=== PATIENT | female | born 1970 | race Caucasian/White ===

== ENCOUNTER 2018-03-03 18:02 | Emergency (ER) | payer OTHER, MEDICAID, SELFPAY ==
[2018-03-03 18:10] VITALS: BP 136/73; PULSE 77; RESP 16; TEMP 36.6; O2SAT 100; BMI 26.9
--- NOTE | 2018-03-03 18:30 | ED.HA ---
HPI - Headache General Chief Complaint: Headache Stated Complaint: STATES MIGRAINE X5 DAYS Time Seen by Provider: 03/03/18 18:24 Source: patient Mode of arrival: ambulatory Limitations: no limitations History of Present Illness HPI Narrative: A 47-year-old female who presents with migraine headache. She has frequent migraine headaches. She gets Botox injections and she is on multiple medications. Of this headache has been ongoing for at least the last 6 days since her Botox injection. It is on the left side. He typically goes he is shot of Toradol and/or accepts every time. She denies any nausea or vomiting. No sensitivity to light. Related Data Previous Rx's Medication Instructions Recorded aspirin 325 mg PO QDAY #20 tab 01/04/17 ondansetron [Zofran ODT] 4 mg SUBLINGUAL Q6HP PRN #30 odt 05/17/17 methocarbamol 500 mg PO HSP PRN #30 tab 09/24/17 naratriptan [Amerge] 2.5 mg PO PRN PRN #14 tab 09/27/17 pzkleaoxty-ehpscivvczynw-gmvxndqh 1 cap PO Q6H PRN #30 cap MDD 5 cap 12/04/17 50 mg-325 mg-40 mg capsule dextroamphetamine-amphetamine 20 10 mg PO QID #60 tab 02/07/18 mg tablet Allergies Allergy/AdvReac Type Severity Reaction Status Date / Time morphine [MORPHINE] Allergy Unknown Verified 12/12/17 17:33 Review of Systems Review of Systems All systems reviewed & are unremarkable except as noted in HPI and below Constitutional Denies chills, Denies fever(s), Reports headache(s), Denies lethargy and Denies weakness Eyes Denies change in vision, Denies eye discharge, Denies irritation and Denies loss of vision ENT Ears, Nose, Mouth, and Throat: Reports system reviewed and no additional complaints, except as docu, Denies vertigo, Denies dizziness, Reports headache(s) and Denies neck pain Cardiovascular Denies chest pain, Denies irregular heart rhythm, Denies lightheadedness, Denies palpitations, Denies dyspnea, Denies dyspnea on exertion and Denies orthopnea Respiratory Denies cough, Denies dyspnea, Denies dyspnea on exertion and Denies wheezing Gastrointestinal Gastrointestinal: Denies abdominal pain, Denies change in bowel habits, Denies diarrhea, Denies nausea and Denies vomiting Musculoskeletal Denies neck pain Neurologic Reports as per HPI, Denies vertigo, Denies dizziness, Reports headache(s), Denies loss of vision and Denies weakness Endocrine Denies palpitations Allergic/Immunologic Denies wheezing [facility] Surgical History Status post appendectomy Social History Smoking Status: Former smoker alcohol intake: current Exam Initial Vital Signs Initial Vital Signs: Vital Signs Temperature 98 F 03/03/18 18:10 Pulse Rate 77 03/03/18 18:10 Respiratory Rate 16 03/03/18 18:10 Blood Pressure 136/73 H 03/03/18 18:10 Pulse Oximetry 100 03/03/18 18:10 GENERAL: Well-appearing, well-nourished and in no acute distress. Sitting in dark room HEENT: Head atraumatic,EOMI, pupils reactive, neck is supple CARDIOVASCULAR: Regular rate and rhythm without murmurs, rubs or gallops. RESPIRATORY: Breath sounds equal bilaterally, no wheezes rales or rhonchi. ABDOMEN: Soft, nontender. Normoactive bowel sounds all 4 quadrants. No guarding or rebound. EXTREMITIES: Normal range of motion, no clubbing or edema. Neurovascularly intact NEUROLOGICAL: Alert and oriented x4.Normal gait and speech. Cranial nerves II through XII grossly intact. Rn Or Lpn strength equal bilaterally face symmetric SKIN: Warm, dry, no laceration, no petechiae, no rashes or lesions. Course Orders Ordered: Discontinued Medications Ketorolac Tromethamine (Toradol) 60 mg IM NOW ONE Stop: 03/03/18 18:37 Last Admin: 03/03/18 18:40 Dose: 60 mg Vital Signs - 8 hr 03/03/18 18:10 03/03/18 19:14 Temperature 98 F Pulse Rate 77 64 Respiratory Rate 16 14 Blood Pressure 136/73 H 142/85 H Pulse Oximetry 100 99 [facility] - Headache Medical Records Attestation: I reviewed the patient's medical records. [facility] Narrative Medical decision making narrative: She standing upright drinking fluids feeling better after Toradol. This is typically what happens for her. She is being evaluated outpatient. No focal deficit Discharge Plan Departure Patient Disposition: Home, Self-Care Clinical Impression: Migraine Discharge Date/Time: 03/03/18 19:14 Interventions: ED Discharge Assessment Last Done: 03/03/18 19:14 Instructions: DI for Migraine Activity Restrictions/Additional Instructions: *You have been diagnosed with migraine *Continue to take medications as directed *Follow up with your primary care provider in 2-3 days *Return to ER if you should have any new, worsening or concerning symptoms Prescriptions: No Action lahpbdbnen-gxyvmvlmrjrbm-pqrr 50-325-40 mg capsule 1 cap PO Q6H MDD 5 cap PRN (Reason: headache) Qty: 30 RF: 3 aspirin 325 MG tablet 325 mg PO QDAY Qty: 20 RF: 0 ondansetron [Zofran ODT] 4 MG tablet,disintegrating 4 mg Sublingual Q6HP PRNQty: 30 RF: 3 methocarbamol 500 MG tablet 500 mg PO HSP PRNQty: 30 RF: 3 naratriptan [Amerge] 2.5 MG tablet 2.5 mg PO PRN PRNQty: 14 RF: 3 dextroamphetamine-amphetamine 20 mg tablet 10 mg PO QID Qty: 60 RF: 0 Referrals: Sara Kramer DO [Primary Care Provider] -
--- NOTE | 2018-03-03 18:37 | PC.NURSE ---
migraine, history of same, reports no relief from home PRNs, reports similar episodes in the past that have resolved with Toradol, denies fever/cough/vomiting/diarrhea/dysuria/soa/cp or other sx
[2018-03-03] MEDS: KETOROLAC 60 MG/2 ML VIAL IM (18:40)
--- NOTE | 2018-03-03 18:43 | ED_ITS ---
HPI - Headache General Chief Complaint: Headache Stated Complaint: STATES MIGRAINE X5 DAYS Time Seen by Provider: 03/03/18 18:24 Source: patient Mode of arrival: ambulatory Limitations: no limitations History of Present Illness HPI Narrative: A 47-year-old female who presents with migraine headache. She has frequent migraine headaches. She gets Botox injections and she is on multiple medications. Of this headache has been ongoing for at least the last 6 days since her Botox injection. It is on the left side. He typically goes he is shot of Toradol and/or accepts every time. She denies any nausea or vomiting. No sensitivity to light. Related Data Previous Rx's Medication Instructions Recorded aspirin 325 mg PO QDAY #20 tab 01/04/17 ondansetron [Zofran ODT] 4 mg SUBLINGUAL Q6HP PRN #30 odt 05/17/17 methocarbamol 500 mg PO HSP PRN #30 tab 09/24/17 naratriptan [Amerge] 2.5 mg PO PRN PRN #14 tab 09/27/17 wnmrlxxevs-aqemaaxwfgcoo-neiudnyy 1 cap PO Q6H PRN #30 cap MDD 5 cap 12/04/17 50 mg-325 mg-40 mg capsule dextroamphetamine-amphetamine 20 10 mg PO QID #60 tab 02/07/18 mg tablet Allergies Allergy/AdvReac Type Severity Reaction Status Date / Time morphine [MORPHINE] Allergy Unknown Verified 12/12/17 17:33 Review of Systems Review of Systems All systems reviewed & are unremarkable except as noted in HPI and below Constitutional Denies chills, Denies fever(s), Reports headache(s), Denies lethargy and Denies weakness Eyes Denies change in vision, Denies eye discharge, Denies irritation and Denies loss of vision ENT Ears, Nose, Mouth, and Throat: Reports system reviewed and no additional complaints, except as docu, Denies vertigo, Denies dizziness, Reports headache(s ) and Denies neck pain Cardiovascular Denies chest pain, Denies irregular heart rhythm, Denies lightheadedness, Denies palpitations, Denies dyspnea, Denies dyspnea on exertion and Denies orthopnea Respiratory Denies cough, Denies dyspnea, Denies dyspnea on exertion and Denies wheezing Gastrointestinal Gastrointestinal: Denies abdominal pain, Denies change in bowel habits, Denies diarrhea, Denies nausea and Denies vomiting Musculoskeletal Denies neck pain Neurologic Reports as per HPI, Denies vertigo, Denies dizziness, Reports headache(s), Denies loss of vision and Denies weakness Endocrine Denies palpitations Allergic/Immunologic Denies wheezing [facility] Surgical History Status post appendectomy Social History Smoking Status: Former smoker alcohol intake: current Exam Initial Vital Signs Initial Vital Signs: Vital Signs Temperature 98 F 03/03/18 18:10 Pulse Rate 77 03/03/18 18:10 Respiratory Rate 16 03/03/18 18:10 Blood Pressure 136/73 H 03/03/18 18:10 Pulse Oximetry 100 03/03/18 18:10 GENERAL: Well-appearing, well-nourished and in no acute distress. Sitting in dark room HEENT: Head atraumatic,EOMI, pupils reactive, neck is supple CARDIOVASCULAR: Regular rate and rhythm without murmurs, rubs or gallops. RESPIRATORY: Breath sounds equal bilaterally, no wheezes rales or rhonchi. ABDOMEN: Soft, nontender. Normoactive bowel sounds all 4 quadrants. No guarding or rebound. EXTREMITIES: Normal range of motion, no clubbing or edema. Neurovascularly intact NEUROLOGICAL: Alert and oriented x4.Normal gait and speech. Cranial nerves II through XII grossly intact. [employer] strength equal bilaterally face symmetric SKIN: Warm, dry, no laceration, no petechiae, no rashes or lesions. Course Orders Ordered: Discontinued Medications Ketorolac Tromethamine (Toradol) 60 mg IM NOW ONE Stop: 03/03/18 18:37 Last Admin: 03/03/18 18:40 Dose: 60 mg Vital Signs - 8 hr 03/03/18 18:10 03/03/18 19:14 Temperature 98 F Pulse Rate 77 64 Respiratory Rate 16 14 Blood Pressure 136/73 H 142/85 H Pulse Oximetry 100 99 [facility] - Headache Medical Records Attestation: I reviewed the patient's medical records. [facility] Narrative Medical decision making narrative: She standing upright drinking fluids feeling better after Toradol. This is typically what happens for her. She is being evaluated outpatient. No focal deficit Discharge Plan Departure Patient Disposition: Home, Self-Care Clinical Impression: Migraine Discharge Date/Time: 03/03/18 19:14 Interventions: ED Discharge Assessment Last Done: 03/03/18 19:14 Instructions: DI for Migraine Activity Restrictions/Additional Instructions: *You have been diagnosed with migraine *Continue to take medications as directed *Follow up with your primary care provider in 2-3 days *Return to ER if you should have any new, worsening or concerning symptoms Prescriptions: No Action xsroprhchd-bovqmvitrqszk-trtp 50-325-40 mg capsule 1 cap PO Q6H MDD 5 cap PRN (Reason: headache) Qty: 30 RF: 3 aspirin 325 MG tablet 325 mg PO QDAY Qty: 20 RF: 0 ondansetron [Zofran ODT] 4 MG tablet,disintegrating 4 mg Sublingual Q6HP PRNQty: 30 RF: 3 methocarbamol 500 MG tablet 500 mg PO HSP PRNQty: 30 RF: 3 naratriptan [Amerge] 2.5 MG tablet 2.5 mg PO PRN PRNQty: 14 RF: 3 dextroamphetamine-amphetamine 20 mg tablet 10 mg PO QID Qty: 60 RF: 0 Referrals: Sara Kramer DO [Primary Care Provider] -
[2018-03-03 19:14] VITALS: BP 142/85; PULSE 64; RESP 14; O2SAT 99
== END 2018-03-03 19:14 | disposition home or self-care (01) ==
PROVIDERS: Emergency Provider Emergency Medicine; Family Provider Physician Assistant; PCP Family Medicine
DX: G43.909 Migraine, unspecified, not intractable, without status migrainosus (principal)
CPT/HCPCS: 96372; 99282; 99283; J1885

== ENCOUNTER → 2018-04-28 17:55 | Outpatient (CLI) | payer OTHER, MEDICAID, SELFPAY ==
--- NOTE | 2018-04-28 17:58 | DI.RAD.S_ITS ---
PROCEDURE: XR KNEE LT 3V INDICATIONS: L knee pain TECHNIQUE: 3 views of the knee were acquired. COMPARISON: None. FINDINGS: Bones: There is a lucency on the sunrise view involving patella. No dislocation. Soft tissues: Trace joint effusion. No suspicious soft tissue calcifications. No prepatellar soft tissue swelling. IMPRESSION: A lucency involving patella may be a prominent nutrient vessel but a nondisplaced fracture is not entirely excluded. Please correlate with history of acute trauma and anterior knee pain. Dictated by: Kayli Campo M.D. on 04/28/2018 at 18:43 Approved by: Kayli Campo M.D. on 04/28/2018 at 18:47
== END ==
PROVIDERS: PCP Family Medicine; Visit Provider Physician Assistant
DX: M25.562 Pain in left knee (principal)
CPT/HCPCS: 73562

== ENCOUNTER → 2018-05-21 08:42 | Outpatient (CLI) | payer OTHER, MEDICAID, SELFPAY ==
[2018-05-21 09:43] LABS: Add Manual Diff / Slide Review NO; Basophils Percent Auto 0.8 % (0-2); Eosinophils Percent Auto 2.4 % (2-4); Hematocrit 36.6 % (36-46); Hemoglobin 12.5 g/dL (12.0-16.0); Lymphocytes Percent Auto 34.2 % (25-40); Mean Corpuscular HGB Conc 34.2 % (30-36); Mean Corpuscular Hemoglobin 29.7 PG (26-34); Mean Corpuscular Volume 86.8 fL (80-100); Monocytes Percent Auto 8.5 % (3-14); Neutrophils Absolute Auto 3600 /uL (3000-5900); Neutrophils Percent Auto 54.1 % (50-75); Platelet Count 267 X10^3/uL (150-400); Red Blood Cell Count 4.22 X10^6/uL (4.0-5.2); Red Cell Distribution Width 13.1 % (11.6-14.8); White Blood Cell Count 6.6 X10^3/uL (4.5-11.0)
[2018-05-21 10:15] LABS: Alanine Aminotransferase 34 IU/L (9-52); Albumin 4.2 g/dL (3.5-5.0); Albumin Globulin Ratio 1.5 (1.0-2.8); Alkaline Phosphatase 69 U/L (38-126); Aspartate Aminotransferase 22 IU/L (14-36); BUN Creatinine Ratio 17.1 (6-22); Bilirubin Total 0.3 mg/dL (0.2-1.3); Blood Urea Nitrogen 12 mg/dL (7-17); Calcium 9.1 mg/dL (8.4-10.2); Carbon Dioxide 27 mmol/L (22-32); Chloride 105 mmol/L (98-107); Cholesterol 245 mg/dL (140-199); Estimated Glomerular Filt Rate > 60.0 mL/min (>60); Globulin 2.8 g/dL (1.7-4.1); Glucose 95 mg/dL (70-100); HDL Cholesterol 49 mg/dL (40-60); HEMOLYSIS < 15 (0-50); LDL Cholesterol Calculated 174 mg/dL (<100); Potassium 4.2 mmol/L (3.4-5.1); Sodium 142 mmol/L (137-145); Triglycerides 112 mg/dL (35-150)
[2018-05-21 10:30] LABS: Follicle Stimulating Hormone 6.98 mIU/mL
[2018-05-21 11:06] LABS: Thyroid Stimulating Hormone 2.61 uIU/mL (0.47-4.68)
[2018-05-25 23:04] LABS: ANA Screen NEGATIVE (Negative); DNA Antibody Crithidia IFA NEGATIVE (Negative); Rheumatoid Factor <14 IU/mL; Sjogren Antiboday SS-A <1.0 NEG AI (<1.0 NEGATIVE); Sjogren Antiboday SS-B <1.0 NEG AI (<1.0 NEGATIVE); Sm Antibody <1.0 NEG AI (<1.0 NEGATIVE); Sm/RNP Antibody <1.0 NEG AI (<1.0 NEGATIVE)
== END ==
PROVIDERS: PCP Family Medicine; Visit Provider Family Medicine
DX: N92.0 Excessive and frequent menstruation with regular cycle (principal)
CPT/HCPCS: 36415; 80053; 80061; 83001; 84443; 85025; 86038; 86430

== ENCOUNTER → 2018-07-28 07:21 | Outpatient (CLI) | payer OTHER, MEDICAID, SELFPAY ==
--- NOTE | 2018-07-28 07:23 | DI.US.S_ITS ---
PROCEDURE: US PELVIC COMPLETE INDICATIONS: DUB TECHNIQUE: Real-time scanning was performed of the pelvic organs, with image documentation. Additional endovaginal scanning was necessary due to incomplete visualization of the adnexal and endometrial structures by transabdominal scanning. COMPARISON: [facility], , PELVIC COMPLETE, 02/28/2007, 9:04. FINDINGS: Transabdominal scanning: Limited scanning through the kidneys shows no hydronephrosis. No pathologic free abdominal or pelvic fluid. Endovaginal scanning: Uterus: Uterus is normal in size at 7.9 x 3.8 x 4.9 cm. The endometrium measures 17.6 mm in combined thickness. Ovaries: Ovaries normal size measuring 2.0 x 1.3 x 1.5 cm on the right and 4.4 x 1.9 x 3.2 cm on the left. Complex, thickwalled cyst involves the left ovary measured 1.3 x 1.2 x 0.9 cm. Simple cyst also present measuring 1.5 x 1.5 x 1.4 cm. IMPRESSION: 1. Thickened endometrial complex. Recommend short term followup pelvic ultrasound in 6-12 weeks to assess for interval thinning. 2. Probable hemorrhagic cyst involving the left ovary which can be reassessed on followup examination. Dictated by: Jesse Beltrán [facility] Interpreted: Antonio Mckenzie MD on 07/28/2018 at 8:40 Approved by: Antonio Mckenzie M.D. on 07/28/2018 at 11:48
== END ==
PROVIDERS: PCP Family Medicine; Visit Provider Family Medicine
DX: N93.8 Other specified abnormal uterine and vaginal bleeding (principal)
CPT/HCPCS: 76830; 76856

== ENCOUNTER → 2018-08-13 11:58 | Outpatient (CLI) | payer OTHER, MEDICAID, SELFPAY ==
[2018-08-13 14:16] LABS: Cancer Antigen 125 27 U/mL (0-35)
== END ==
PROVIDERS: PCP Family Medicine; Visit Provider Obstetrics & Gynecology
DX: R93.89 Abnormal findings on diagnostic imaging of other specified body structures (principal)
CPT/HCPCS: 36415; 86304

== ENCOUNTER 2018-08-15 10:19 | Emergency (ER) | payer OTHER, MEDICAID, SELFPAY ==
[2018-08-15 10:23] VITALS: BP 158/84; PULSE 70; RESP 20; TEMP 37.1; O2SAT 98
--- NOTE | 2018-08-15 10:46 | ED.HA ---
HPI - Headache General Chief Complaint: Headache Stated Complaint: migrane/crud Time Seen by Provider: 08/15/18 10:39 Source: patient Mode of arrival: ambulatory Limitations: no limitations History of Present Illness HPI Narrative: Patient is a 47-year-old female with history of migraine presenting with migraine headache. She says it started 2 days ago. She did give herself a shot of Toradol 2 days ago which she does usually help. However says progressively gotten worse. She says that she had a head cold for the last 5 days with upper respiratory like symptoms. She thinks she may have had a low-grade fever this morning but no neck pain no vision changes no numbness tingling or weakness in her extremities. sHe does Sudafed this morning MD Complaint: headache Related Data Home Medications Medication Instructions Recorded Confirmed ketorolac 60 mg/2 mL intramuscular 60 mg IM ONCE PRN 08/11/18 08/15/18 solution aspirin 325 mg PO .ONCE 08/15/18 08/15/18 pseudoephedrine HCl [Sudafed] 30 mg PO .ONCE PRN 08/15/18 08/15/18 Previous Rx's Medication Instructions Recorded twefedtqli-jwgctcpvoeqts-penhzyhd 1 cap PO Q6H PRN #30 cap MDD 5 cap 07/07/18 50 mg-325 mg-40 mg capsule naratriptan 2.5 mg tablet See Label Instructions .ROUTE 07/07/18 .COMPLEX PRN #14 tab dextroamphetamine-amphetamine 20 10 mg PO QID #60 tab 08/11/18 mg tablet Allergies Allergy/AdvReac Type Severity Reaction Status Date / Time morphine [MORPHINE] Allergy Unknown Verified 08/11/18 14:08 Review of Systems Review of Systems GENERAL: Denies chills, fatigue, malaise, fever, sweats, travel HEENT: Denies sinus pain, ear pain, sore throat, difficulty swallowing, neck pain RESPIRATORY: Denies dyspnea, cough, wheezing, hemoptysis, sputum. CARDIOVASCULAR: Denies chest pain, palpitations, orthopnea, edema GASTROINTESTINAL: Denies nausea, vomiting, abdominal pain, diarrhea, constipation, melena. : Denies dysuria, frequency, incontinence, hematuria, urinary retention, flank pain. MUSCULOSKELETAL: Denies weakness, joint pain, or bony pain SKIN: No rash, no erythema, no pruritus NEUROLOGIC: Denies weakness, dizziness, headache, numbness, change in speech, confusion PSYCHIATRIC: No concerning psychosocial issues. 12 point review of systems is negative except for those stated above and HPI ROS Unobtainable: All systems reviewed & are unremarkable except as noted in HPI and below Constitutional Denies chills, Denies fever(s), Reports headache(s), Denies lethargy and Denies weakness Eyes Denies change in vision, Denies eye discharge, Denies irritation, Denies loss of vision and Reports photophobia ENT Ears, Nose, Mouth, and Throat: Reports headache(s) Cardiovascular Denies chest pain, Denies irregular heart rhythm, Denies lightheadedness, Denies palpitations, Denies dyspnea, Denies dyspnea on exertion and Denies orthopnea Respiratory Denies cough, Denies dyspnea, Denies dyspnea on exertion and Denies wheezing Gastrointestinal Gastrointestinal: Denies abdominal pain, Denies change in bowel habits, Denies diarrhea, Denies nausea and Denies vomiting Musculoskeletal Denies back pain, Denies muscle weakness, Denies numbness and Denies tingling Integumentary/Breasts Denies pruritus, Denies erythema, Denies rash and Denies wounds Neurologic Reports headache(s), Denies loss of vision, Denies numbness, Denies tingling and Denies weakness Endocrine Denies palpitations Allergic/Immunologic Denies wheezing [facility] Social History Smoking Status: Former smoker alcohol intake: current Exam Initial Vital Signs Initial Vital Signs: Vital Signs Temperature 98.7 F 08/15/18 10:23 Pulse Rate 70 08/15/18 10:23 Respiratory Rate 20 08/15/18 10:23 Blood Pressure 158/84 H 08/15/18 10:23 Pulse Oximetry 98 08/15/18 10:23 GENERAL: In dark room crawled in ball appears in pain HEENT: Head atraumatic,EOMI, pupils reactive, face symmetric, neck is supple no meningeal signs CARDIOVASCULAR: Regular rate and rhythm without murmurs, rubs or gallops. RESPIRATORY: Breath sounds equal bilaterally, no wheezes rales or rhonchi. ABDOMEN: Soft, nontender. Normoactive bowel sounds all 4 quadrants. No guarding or rebound. EXTREMITIES: Normal range of motion, no clubbing or edema. Neurovascularly intact NEUROLOGICAL: Alert and oriented x4.Normal gait and speech. Cranial nerves II through XII grossly intact. SKIN: Warm, dry, no laceration, no petechiae, no rashes or lesions. Scores NIH Stroke Scale Level of Conciousness: Alert, keenly responsive Ask month/age: Answers both questions correctly. Open/close eyes, close hand: Performs both tasks correctly Best gaze horizontal: Normal Visual murrell: No visual loss Facial palsy: Normal symetrical movement Left arm drift: No drift for full 10 sec Right arm drift: No drift for full 10 sec Left leg drift: No drift for full 10 sec Right leg drift: No drift for full 10 sec Limb ataxia: Absent Sensory on face/arms/legs: Normal, no sensory loss Best language: No aphasia, normal Dysarthria: Normal Extinction or inattention: No abnormality Total NIH Stroke scale score: 0 Course Orders Ordered: Discontinued Medications Sodium Chloride (Normal Saline 0.9%) 1,000 mls @ 1,000 mls/hr IV BOLUS ONE Stop: 08/15/18 11:42 Last Infusion: 08/15/18 12:38 Dose: 0 mls/hr Admin: 08/15/18 11:01 Dose: 1,000 mls/hr Ketorolac Tromethamine (Toradol) 30 mg IV NOW ONE Stop: 08/15/18 10:44 Last Admin: 08/15/18 11:02 Dose: 30 mg Prochlorperazine (Compazine) 10 mg IV NOW ONE Stop: 08/15/18 10:44 Last Admin: 08/15/18 11:01 Dose: 10 mg Vital Signs - 8 hr 08/15/18 10:23 08/15/18 11:01 08/15/18 12:12 Temperature 98.7 F 97.3 F L Pulse Rate 70 70 80 Respiratory Rate 20 16 Blood Pressure 158/84 H 158/84 H Blood Pressure [Right Arm] 119/72 Pulse Oximetry 98 99 [facility] - Headache MDM Narrative Medical decision making narrative: Patient states that she has adverse reaction to Benadryl prefer not to have Benadryl. She overall is feeling much better. She feels ready and able to go home. Discharge Plan Departure Patient Disposition: Home Clinical Impression: Migraine Discharge Date/Time: 08/15/18 12:40 Interventions: ED Discharge Assessment Last Done: 08/15/18 12:38 Instructions: DI for Migraine Activity Restrictions/Additional Instructions: *You have been diagnosed with migraine headache *What to do: Migraine headache likely worsened by upper respiratory like symptoms. Rest, hydrate *Continue to take medications as directed *Follow up with your primary care provider in 2-3 days *Return to ER if you should have fever more than 100.4, worsening headache, weakness, visual changes or any new, worsening or concerning symptoms Prescriptions: No Action bonukdaodc-zvghvmjacdykt-bpgd 50-325-40 mg capsule 1 cap PO Q6H MDD 5 cap PRN (Reason: headache) Qty: 30 RF: 3 ketorolac 60 mg/2 mL solution 60 mg IM ONCE PRN (Reason: Migraine Headache) RF: 0 dextroamphetamine-amphetamine 20 mg tablet 10 mg PO QID Qty: 60 RF: 0 naratriptan [Amerge] 2.5 mg tablet See Label Instructions .ROUTE .COMPLEX PRN (Reason: migraine headache) Qty: 14 RF: 0 aspirin 325 mg Tablet 325 mg PO .ONCE RF: 0 pseudoephedrine HCl [Sudafed] 30 mg Tablet 30 mg PO .ONCE PRN (Reason: Congestion) RF: 0 Referrals: Sara Kramer, [Primary Care Provider] -
[2018-08-15 11:01] VITALS: BP 158/84; PULSE 70
[2018-08-15] MEDS: PROCHLORPERAZINE 10 MG/2 ML VIAL IV (11:01)
[2018-08-15] MEDS: SODIUM CHLORIDE 0.9% 1,000 ML 1000 ML IV (11:01)
[2018-08-15] MEDS: KETOROLAC 60 MG/2 ML VIAL 30 MG IV (11:02)
[2018-08-15 12:12] VITALS: BP 119/72; PULSE 80; RESP 16; TEMP 36.3; O2SAT 99
== END 2018-08-15 12:40 | disposition home or self-care (01) ==
PROVIDERS: Emergency Provider Emergency Medicine; PCP Family Medicine
DX: G43.909 Migraine, unspecified, not intractable, without status migrainosus (principal)
CPT/HCPCS: 96361; 96374; 96375; 99283; 99284; J0780; J1885

== ENCOUNTER 2018-09-02 22:28 | Emergency (ER) | payer OTHER, MEDICAID, SELFPAY ==
[2018-09-02 22:45] VITALS: BP 132/85; PULSE 75; RESP 18; TEMP 36.4; O2SAT 99; BMI 27.1
--- NOTE | 2018-09-02 23:04 | ED.WOUNDLAC ---
HPI - Wound/Laceration General Chief Complaint: Wound/Laceration Stated Complaint: LT INDEX FINGER CUT Time Seen by Provider: 09/02/18 22:31 Source: patient Mode of arrival: ambulatory Limitations: no limitations History of Present Illness HPI narrative: 47-year-old female, former smoker presents to the emergency department with a chief complaint of a laceration to her left index finger while using razor sharp buddy at her [employer]. She has full range of motion but does admit to a small amount of tissue loss. Her last tetanus shot was about 1 year ago. She has normal sensation and is otherwise well and free of complaint. Onset (ago): hour(s) Extremity Location: Left: hand (Index finger) Place: home Patient tetanus UTD: Yes Context: accidental Associated symptoms: pain Related Data Home Medications Medication Instructions Recorded Confirmed ketorolac 60 mg/2 mL intramuscular 60 mg IM ONCE PRN 08/11/18 08/15/18 solution aspirin 325 mg PO .ONCE 08/15/18 08/15/18 pseudoephedrine HCl [Sudafed] 30 mg PO .ONCE PRN 08/15/18 08/15/18 Previous Rx's Medication Instructions Recorded hhwuldjisa-kzxsfmiruvzof-qhzidmjh 1 cap PO Q6H PRN #30 cap MDD 5 cap 07/07/18 50 mg-325 mg-40 mg capsule naratriptan 2.5 mg tablet See Label Instructions .ROUTE 07/07/18 .COMPLEX PRN #14 tab dextroamphetamine-amphetamine 20 10 mg PO QID #60 tab 08/11/18 mg tablet Allergies Allergy/AdvReac Type Severity Reaction Status Date / Time morphine [MORPHINE] Allergy Unknown Verified 08/11/18 14:08 Review of Systems Constitutional Denies chills, Denies fever(s), Denies lethargy and Denies weakness Eyes Denies change in vision, Denies eye discharge, Denies irritation and Denies loss of vision ENT Ears, Nose, Mouth, and Throat: Denies change in voice, Denies neck pain and Denies sore throat Cardiovascular Denies chest pain, Denies irregular heart rhythm, Denies lightheadedness, Denies palpitations, Denies dyspnea, Denies dyspnea on exertion and Denies orthopnea Respiratory Denies cough, Denies dyspnea, Denies dyspnea on exertion and Denies wheezing Gastrointestinal Gastrointestinal: Denies abdominal pain, Denies change in bowel habits, Denies diarrhea, Denies nausea and Denies vomiting Genitourinary Denies hematuria, Denies flank pain, Denies urinary incontinence and Denies urinary urgency Musculoskeletal Denies neck pain Integumentary/Breasts Denies pruritus, Denies erythema, Denies rash and Reports wounds Neurologic Denies confusion, Denies loss of vision and Denies weakness Psychiatric Denies anxiety, Denies confusion, Denies depression, Denies homicidal ideation and Denies suicidal ideation Endocrine Denies palpitations Hematologic/Lymphatic Denies easy bruising Allergic/Immunologic Denies wheezing PFSH Medical History ADHD (attention deficit hyperactivity disorder) (Chronic 1971) Chronic back pain (Chronic 2009) Generalized headaches (Chronic Unknown) 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) Migraines (Chronic 1985) TIA (transient ischemic attack) (Suspected) Actinic keratosis (Resolved 10/2016) Anemia (Resolved 1992) Chickenpox (Resolved 1979) Melanoma (Resolved 2012) Shoulder pain (Resolved 1999) Surgical History H/O knee surgery (Resolved) H/O knee surgery (Resolved) History of appendectomy (Resolved) Status post appendectomy (Resolved) Family History Father Age: 68 Type 2 diabetes mellitus without complication, unspecified 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 Extraoccular muscles are intact bilaterally. There is no subconjunctival hemorrhage or exudate. CHEST: Lungs are clear to auscultation bilaterally and free of wheezes, rales, or rhonchi. Heart rate is regular rhythm, there are no murmurs, clicks, rubs, or gallops. There is no chest wall tenderness. ABD: Abdomen is soft and nontender. There is no guarding or rebound. Bowel sounds are normal in all 4 quadrants. There is no mass or organomegaly. EXT: Full painless ROM of all extremities with no loss of sensation or strength. SKIN: 1.5 cm laceration along medial aspect of left index finger with minimal bleeding, there is minimal tissue loss. Warm, pink, and dry. No erythema or rash Initial Vital Signs Initial Vital Signs: Vital Signs Temperature 97.5 F L 09/02/18 22:45 Pulse Rate 75 09/02/18 22:45 Respiratory Rate 18 09/02/18 22:45 Blood Pressure 132/85 09/02/18 22:45 Pulse Oximetry 99 09/02/18 22:45 Procedures Laceration Repair Laceration 1: Site: hand Side (If applicable): left Size (cm): 1.5 Description: linear and clean Depth: simple, single layer Local Anesthetic: lidocaine 1% and with bicarb Amount of anesthesia used (mL): 3 Skin layer closed with: nylon Size (cm): 5-0 Number of sutures: 3 Course Vital Signs - 8 hr 09/02/18 22:45 09/03/18 00:28 Temperature 97.5 F L 98.1 F Pulse Rate 75 72 Respiratory Rate 18 19 Blood Pressure 132/85 128/80 Pulse Oximetry 99 98 Discharge Plan Departure Patient Disposition: Home Clinical Impression: Finger laceration Discharge Date/Time: 09/03/18 00:25 Interventions: ED Discharge Assessment Last Done: 09/03/18 00:28 Instructions: DI for Laceration Repair Activity Restrictions/Additional Instructions: Please keep the wound clean and dry to the best of your ability. Please monitor for signs of infection such as redness to the skin or increasing pain. Have the sutures removed by your doctor in about 7 days. If you are unable to get into your doctor, we would be happy to remove the sutures in that same timeframe. Prescriptions: No Action odqfwybhdc-dllrxzkvrryns-hrje 50-325-40 mg capsule 1 cap PO Q6H MDD 5 cap PRN (Reason: headache) Qty: 30 RF: 3 ketorolac 60 mg/2 mL solution 60 mg IM ONCE PRN (Reason: Migraine Headache) RF: 0 dextroamphetamine-amphetamine 20 mg tablet 10 mg PO QID Qty: 60 RF: 0 naratriptan [Amerge] 2.5 mg tablet See Label Instructions .ROUTE .COMPLEX PRN (Reason: migraine headache) Qty: 14 RF: 0 aspirin 325 mg Tablet 325 mg PO .ONCE RF: 0 pseudoephedrine HCl [Sudafed] 30 mg Tablet 30 mg PO .ONCE PRN (Reason: Congestion) RF: 0
[2018-09-03 00:28] VITALS: BP 128/80; PULSE 72; RESP 19; TEMP 36.7; O2SAT 98
== END 2018-09-03 00:25 | disposition home or self-care (01) ==
PROVIDERS: Emergency Provider Emergency Medicine; PCP Family Medicine
DX: S61.211A Laceration without foreign body of left index finger without damage to nail, initial encounter (principal); W27.2XXA Contact with scissors, initial encounter
CPT/HCPCS: 12001; 99283

== ENCOUNTER 2018-10-24 06:27 | Day surgery (SDC) | payer OTHER, MEDICAID, SELFPAY ==
[2018-10-17 12:16] VITALS: BMI 28.0
[2018-10-24] VITALS (11 sets, daily range): BP systolic 107–134; BP diastolic 69–91; PULSE 61–84; RESP 10–17; TEMP 36.3–37.1; O2SAT 90–99; BMI 27.6
--- NOTE | 2018-10-24 | PATH_ITS ---
[facility] Accession Number: [id number] . 01 Material submitted: . UTERUS, BILATERAL FALLOPIAN TUBES AND RIGHT OVARY . 02 Diagnosis: Uterus, Bilateral Fallopian Tubes and Right Ovary, Presumed Supracervical Hysterectomy, Bilateral Salpingectomy and Right Oophorectomy (Morcellated Uterus Specimen, 60 grams): Secretory endometrium; negative for glandular hyperplasia, cytologic atypia, and malignancy. Myometrium with no significant histomorphologic abnormality. Uterine serosa with focal adhesions, nonspecific. Two segments of fallopian tube with benign paratubal cysts (each less than 1 mm) and otherwise no significant histomorphologic abnormality. Right ovary with a hemorrhagic corpus luteum cyst and with corpora albicantia. [facility]/10/27/2018 . 02 Electronically signed: . Veronica Ramirez MD, Pathologist NPI- [id number] . 01 Gross description: . Received in formalin, labeled uterus, bilateral fallopian tubes + right ovary, is a morcellated uterus (60 grams, 8.5 x 7.8 x 3.2 cm in aggregate), two fallopian tube segments (fimbriated: length-4.3 cm, diameter-0.5 cm; nonfimbriated: length-1.6 cm, diameter-0.4 cm), and an ovary (3.1 x 2.8 x 2.0 cm). The cervix, second ovary and second fimbria are absent. The specimen cannot be oriented and the endometrium and myometrium cannot be grossly measured. The uterine parenchyma is sinha and unremarkable. The serosa is sinha smooth and shiny. The fallopian tubes have botello-pink smooth shiny serosa and sinha unremarkable lumens. The ovary has sinha-yellow smooth shiny flat and focally bosselated serosa. The parenchyma is sinha-white and solid with corpus albicans and corpus luteum identified. Section code: (A1-A4) uterine parenchyma, loss prevention representative; (A5) fimbriated fallopian tube, loss prevention representative serial sections; (A6) fimbria, bivalved, entirely submitted; (A7) nonfimbriated fallopian tube, loss prevention representative serial sections; (A8) nonfimbriated fallopian tube distal end, bivalved, entirely submitted; (A9, A10) ovary, loss prevention representative serial sections. ([id number]) /MRV . 02 Pathologist provided ICD-10: N85.00 . 02 CPT . 263921 Performed at: [facility] [address] [id number] MD Lauro Bautista MD Phone: [phone] Performed at: 02 [facility] [address] [place], [place] [id number] MD Karishma Lopez MD Phone: [phone]
[2018-10-24] MEDS: LACTATED RINGERS 1,000 ML 42 ML IV ×2 (07:24→09:17)
--- NOTE | 2018-10-24 07:57 | PM.PREOP ---
Pre-operative Note Interval Note History & Physical reviewed/Exam performed by Physician: Yes Changes to H&P: No
[2018-10-24] MEDS: CEFAZOLIN 2 GM/100 ML FROZ.PIGGY IV (08:10)
--- NOTE | 2018-10-24 08:35 | SUR.OPER ---
Lithotomy on padded OR bed. [place] Pad Positioner under torso. Head on pillow, arms padded and tucked at sides. Legs secured in padded yellow fins stirrups.
[2018-10-24] MEDS: BUPIVACAINE 0.5% W/ EPI (PF) VIAL 30 ML INJ (08:43)
[2018-10-24] MEDS: ROPIVACAINE 0.2% PF 2 MG/ML 10ML AMP 20 ML INJ (08:45)
[2018-10-24] MEDS: ACETAMINOPHEN IV 1,000 MG/100 ML VIAL 400 MG IV (09:05)
[2018-10-24] MEDS: OXYCODONE/ACETAMINOPHEN 5/325 TABLET 1 TAB PO ×2 (10:33→11:53)
--- NOTE | 2018-10-30 15:57 | P.OP_ITS ---
Operative Date/Time/Diagnoses Date of procedure: 10/24/18 Time of procedure: 09:00 Pre-op diagnosis: Thickened endometrial lining on ultrasound Menorrhagia Right ovarian cyst Post-op diagnosis: same Procedure: Procedures Operation Date: 10/24/18 07:45 Actual Procedures Side Surgeon p Laparoscopic Supracervical Hysterectomy w/Bilat salpingectomy & RIGHT OOPHORECTOMY Not Applicable Eileen Calhoun MD Indications: Thickened endometrial lining on ultrasound Menorrhagia Right ovarian cyst Surgeon: Eileen Calhoun Cardiovascular Specialist: Maritza Brand Anesthesia Type: General Operative Notes Findings: 8 week size uterus 7 cm right ovarian mass Tubes are status post ligation bilaterally Normal liver gallbladder Colon to anterior abdominal wall adhesions in the right lower quadrant Closure Type: primary Specimen(s): left tube, right tube & ovary and uterus Applied: catheter (Removed at the end of the case) Estimated blood loss (mL): 75 Blood products transfused: none Procedure in detail: The patient was taken to the operating room where she was placed in the dorsal supine position. After adequate general endotracheal anesthesia was achieved, she was placed in the dorsal lithotomy position, and prepped and draped in the usual sterile fashion. A timeout was performed. A bivalve speculum was placed into the vagina and the anterior lip of the cervix grasped with a single-tooth tenaculum. The cervical os was sequentially dilated until the ZUMI uterine manipulator could pass easily into the endometrial cavity. The single-tooth tenaculum was removed from the anterior lip of the cervix, and the bivalve speculum was removed from the vagina. Attention was then turned to the abdomen where 6 mL of half percent Marcaine with epinephrine were injected in the umbilical fold. A 5 mm incision was made. The Verhees needle was placed into the peritoneal cavity, and its placement confirmed by aspiration and drop test. The Verhees needle was removed. A 5 mm trocar was placed without difficulty. 2 other incisions were made midway between the pubic symphysis and umbilicus after 5 mL of half percent Marcaine with epinephrine were injected. These were 5 mm incisions. Two 5 mm trochars were placed under direct visualization. There was a 7 cm cyst on the right ovary. The right tube and ovary were grasped with an atraumatic grasper. Using the plasma kinetic with settings of 40 W the infundibulopelvic ligament was cauterized and cut. The cornua of the uterus was then grasped with an atraumatic grasper. The round ligament and broad ligament was cauterized and cut with plasma kinetic. Hemostasis was achieved. The bladder flap was created using the plasma kinetic with cautery and cut care home across. The uterine arteries on the right side were extensively cauterized with plasma kinetic. On the left side the left tube was grasped with an atraumatic grasper. The mesosalpinx was cauterized and cut all the way down to the cornu of the uterus. The left cornu was then grasped with an atraumatic grasper. The broad ligament and round ligament were cauterized and cut. The remainder of the bladder flap was created using cautery and cut. The bladder was taken down off the lower uterine segment and cervix. The uterine arteries on the left side were cauterized. Using the [place], the cervix was amputated from the uterus 2 cm above the uterosacral ligaments, after the ZUMI uterine manipulator was removed from the uterus. There was a small amount of bleeding noted from the posterior edge of the cervix, and this was cauterized for hemostasis. A sponge stick was placed into the vagina. 6 mL of half percent Marcaine with epinephrine were injected above the pubic symphysis. A 12 mm trocar was placed. The trocar was removed. The endobag was placed through the suprapubic incision directly into the peritoneal cavity. The uterus, tubes, and right ovary were placed into the Endobag and the bag was brought up through the suprapubic incision. The placed into the endobag. The uterus was hand morcellated in approximately 7 pieces. The Endobag was removed from the peritoneal cavity. The pelvis was copiously irrigated with warm normal saline. No bleeding was noted. The instruments were removed from the abdomen. The CO2 was allowed to escape. The trocars were removed. The suprapubic incision was closed on the fascia with 0 Vicryl. All of the incisions were closed with 4-0 undyed Vicryl in a subcuticular fashion. The moistened sponge stick was removed from the vagina. Sponge, lap, and instrument counts were correct x-2. The patient tolerated the procedure well, was taken to PACU in stable condition. Complications: none Post-operative Condition: stable Disposition: PACU Plan for aftercare: Home after recovery
== END 2018-10-24 12:28 | disposition home or self-care (01) ==
LOC: OR 06:38 → AC 06:45
PROVIDERS: PCP Family Medicine; Visit Provider Obstetrics & Gynecology
PROC: 0UT94ZL Resection of Uterus, Supracervical, Percutaneous Endoscopic Approach (ICD-10-PCS; CPT 58542; principal; 2018-10-24 07:45)
DX: N85.00 Endometrial hyperplasia, unspecified (principal); N83.201 Unspecified ovarian cyst, right side
CPT/HCPCS: 58542; J0131; J0690; J1100; J1170; J1885; J2250; J2405; J2704; J2795; J3010

== ENCOUNTER → 2018-11-05 11:51 | Outpatient (CLI) | payer OTHER, MEDICAID, SELFPAY ==
[2018-11-05 12:18] LABS: Add Manual Diff / Slide Review NO; Basophils Absolute Auto 100 /uL (0-100); Basophils Percent Auto 1.1 % (0-2); Eosinophils Absolute Auto 200 /uL (0-450); Eosinophils Percent Auto 3.4 % (2-4); Hematocrit 38.9 % (36-46); Lymphocytes Absolute Auto 2100 /uL (1100-4500); Lymphocytes Percent Auto 31.5 % (25-40); Mean Corpuscular HGB Conc 33.5 % (30-36); Mean Corpuscular Hemoglobin 29.3 PG (26-34); Mean Corpuscular Volume 87.4 fL (80-100); Monocytes Absolute Auto 500 /uL (0-900); Monocytes Percent Auto 7.2 % (3-14); Neutrophils Absolute Auto 3700 /uL (1500-7000); Neutrophils Percent Auto 56.8 % (50-75); Platelet Count 404 X10^3/uL (150-400); Red Blood Cell Count 4.45 X10^6/uL (4.0-5.2); Red Cell Distribution Width 13.1 % (11.6-14.8); White Blood Cell Count 6.5 X10^3/uL (4.5-11.0)
[2018-11-05 13:16] LABS: Thyroid Stimulating Hormone 0.95 uIU/mL (0.47-4.68)
== END ==
PROVIDERS: PCP Family Medicine; Visit Provider Obstetrics & Gynecology
DX: R53.83 Other fatigue (principal)
CPT/HCPCS: 36415; 84443; 85025

== ENCOUNTER 2019-01-29 07:30 | Outpatient (RCR) | payer OTHER, MEDICAID, SELFPAY ==
--- NOTE | 2018-12-30 12:33 | PT.OIE ---
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) Migraines (Chronic 1985) TIA (transient ischemic attack) (Suspected) Actinic keratosis (Resolved 10/2016) Anemia (Resolved 1992) Chickenpox (Resolved 1979) Melanoma (Resolved 2012) Shoulder pain (Resolved 1999) Past Surgical History (Last Reviewed 12/05/18 @ 16:19 by Sara Kramer DO) H/O knee surgery (Resolved) H/O knee surgery (Resolved) History of appendectomy (Resolved) S/P laparoscopic supracervical hysterectomy (Resolved 10/24/18) Status post appendectomy (Resolved) Provider Visit Care Team Role Provider Type Sara Kramer DO Attending Provider Physician Primary Care Provider Specialty: [facility] Practice Address: [address] [place] [address] Email: [email or web address] Physical Therapy Initial Evaluation PT-OP-A Visit Information Start: 12/30/18 07:05 Freq: Status: Active Protocol: Document 12/30/18 08:15 AMB (Rec: 12/30/18 09:19 AMB [email or web address]) Out-Patient Physical Therapy Visit Information Visit Information Visit Type Initial Evaluation Visit Start Time 08:15 Visit Stop Time 09:00 Total Visit Minutes 45 Visit Number 1 PT-OP-B Current Condition Start: 12/30/18 07:05 Freq: Status: Active Protocol: Document 12/30/18 08:15 AMB (Rec: 12/30/18 09:54 AMB [email or web address]) Current Condition History of Current Condition Onset Date July 2018 Current Complaints Right sided back pain that radiates into the leg History of Current Condition Kiarra reports back pain started last summer when she was bending over working on cars a lot. She thought it would get better, but it did not and worsened in July. 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 She avoids lifting her grandson because of the pain. She reports she had a hip X- ray that came back normal. Treatment Goals Patient/Caregiver Goals Stand 8 hours a day at work, lift her one year old grandchild. Prior Functional Status Baseline Function- ADL's Independent Baseline Function- Mobility Independent Current Functional Impairments (Reported) Functional Limitations- ADL's Difficulty bending forward, difficulty standing Personal Factors Other Personal Factors That May Effect History of possible TIA- pt Therapy/Recovery reports she was changing meds for migraine about 2 years ago and had high blood pressure and an event that they think was a TIA- since that time she has not been weightlifting like previously- and reports she has gained 30# since then. Migraines. Hysterectomy in October. PT-OP-C Subjective Start: 12/30/18 07:05 Freq: Status: Active Protocol: Document 12/30/18 08:15 AMB (Rec: 12/30/18 09:19 AMB [email or web address]) OP-PT Subjective Patient Comments Patient Comments Pt with right sided low back/ sciatic pain for at least the last 5 months Patient Questionnaires Oswestry Low Back Index Oswestry Score 42 Oswestry Impairment 40 to 59% Impaired (Score 40- 59) OP-PT Pain Assessment Location Right Back Pain Location Details Right buttock into leg Intensity 8 Scale Used Numeric (1 - 10) Description Sharp Pain Aggravating Factors Standing Bending Lifting PT-OP-J Posture/Palpation/Skin Start: 12/30/18 07:05 Freq: Status: Active Protocol: Document 12/30/18 08:15 AMB (Rec: 12/30/18 09:32 AMB [email or web address]) Posture Evaluation Comments Posture Comments Hyper lordosis in standing Palpation Assessment Location One Palpation Location Low back Palpation Findings Soft Tissue Tightness Spasm Muscle Guarding Tenderness Palpation Details Tenderness/tightness with palpation at piriformis. Tenderness with palpation at R SI joint>L. Mild stiffness with lumbar PAs, pt feels improvement of symptoms with PA at L5S1. PT-OP-K Range of Motion Start: 12/30/18 07:05 Freq: Status: Active Protocol: Document 12/30/18 08:15 AMB (Rec: 12/30/18 09:32 AMB [email or web address]) Lumbar Spine Range of Motion Lumbar Spine Active Degrees Testing Position Standing Flexion 30 Extension 25 Lateral Flexion Left 30 Lateral Flexion Right 20 Comments painful with flexion and right sidebending PT-OP-Q Treatments Start: 12/30/18 07:05 Freq: Status: Active Protocol: Document 12/30/18 08:15 AMB (Rec: 12/30/18 09:54 AMB [email or web address]) Therapeutic Exercises Supine Exercises 2 Supine Exercise Name active hamstring stretch Reps/Minutes 2x10 1 Supine Exercise Name piriformis stretch Reps/Minutes 30x2 Prone Exercises 1 Prone Exercise Name prone press up Reps/Minutes 10 PT-OP-T Assessment and Plan Start: 12/30/18 07:05 Freq: Status: Active Protocol: Document 12/30/18 08:15 AMB (Rec: 12/30/18 10:13 AMB [email or web address]) Physical Therapy Assessment Rehab Potential Rehabilitation Potential Good Evaluation Complexity Number of Personal Factors/Comorbidities 1-2 Number of Body Systems Impaired 3 Clinical Presentation at Evaluation Stable Impairments Impairments Pain Posture ROM Goals Two Impairment Activity tolerance Short Term Goal (STG) Kiarra will stand for 5 hours with 5/10 back pain or less. STG Duration 4 weeks Mcc Goal (LTG) Kiarra will walk for 30 minutes with 3/10 pain or less. LTG Duration 8 weeks One Impairment ROM Short Term Goal (STG) Kiarra will increase her active lumbar ROM to 50 degrees without pain. 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 LTG Duration 8 weeks Assessment Summary Assessment Kiarra attends physical therapy with right sided radicular pain. She has tried stretching at home, but this has not been helping. Standing all day at work increases her pain to the point that she cannot bend over to lift her 1 year old grandchild at the end of the day. She has pain with lumbar flexion and right sidebending and tightness throughout the right piriformis with excessive lumbar lordosis in standing. She will benefit from PT to help reduce her nerve irritation and then build up her core stability that she has lost since not exercising after her possible TIA. Physical Therapy Plan Frequency and Duration Frequency of Treatment 2x/Week Duration of Treatment 8 weeks Plan of Care Start Date 12/30/18 Plan of Care End Date 02/24/19 Therapeutic Interventions Therapeutic Interventions Aquatic Therapy Home Exercise Program Joint Mobilizations Manual Therapy Neuromuscular Re-education Self-Care/Home Management Taping Therapeutic Activities Therapeutic Exercises Modalities Cold Pack/Ice Massage Electric Stimulation Hot Packs Traction- Mechanical Next Visit Focus/Plan Next Note Type Treatment Note Next Visit Plan Further assess core stabilization, work to decrease nerve irritation with stretching/ manual therapy, begin body mechanics instruction
--- NOTE | 2018-12-30 12:36 | PT.OPPOC ---
Current Diagnoses Radiculopathy, lumbar region (12/30/18) Dorsalgia, unspecified (12/30/18) Provider Visit Care Team Role Provider Type Sara Kramer DO Attending Provider Physician Primary Care Provider Specialty: Family Practice Address: [address] [place] [address], [id number] Email: [email or web address] Plan Of Care PT-OP-T Assessment and Plan Start: 12/30/18 07:05 Freq: Status: Active Protocol: Document 12/30/18 08:15 AMB (Rec: 12/30/18 10:13 AMB [email or web address]) Physical Therapy Assessment Rehab Potential Rehabilitation Potential Good Evaluation Complexity Number of Personal Factors/Comorbidities 1-2 Number of Body Systems Impaired 3 Clinical Presentation at Evaluation Stable Impairments Impairments Pain Posture ROM Goals Two Impairment Activity tolerance Short Term Goal (STG) Kiarra will stand for 5 hours with 5/10 back pain or less. STG Duration 4 weeks Health Sanitarian Goal (LTG) Kiarra will walk for 30 minutes with 3/10 pain or less. LTG Duration 8 weeks One Impairment ROM Short Term Goal (STG) Kiarra will increase her active lumbar ROM to 50 degrees without pain. 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 LTG Duration 8 weeks Assessment Summary Assessment Kiarra attends physical therapy with right sided radicular pain. She has tried stretching at home, but this has not been helping. Standing all day at work increases her pain to the point that she cannot bend over to lift her 1 year old grandchild at the end of the day. She has pain with lumbar flexion and right sidebending and tightness throughout the right piriformis with excessive lumbar lordosis in standing. She will benefit from PT to help reduce her nerve irritation and then build up her core stability that she has lost since not exercising after her possible TIA. Physical Therapy Plan Frequency and Duration Frequency of Treatment 2x/Week Duration of Treatment 8 weeks Plan of Care Start Date 12/30/18 Plan of Care End Date 02/24/19 Therapeutic Interventions Therapeutic Interventions Aquatic Therapy Home Exercise Program Joint Mobilizations Manual Therapy Neuromuscular Re-education Self-Care/Home Management Taping Therapeutic Activities Therapeutic Exercises Modalities Cold Pack/Ice Massage Electric Stimulation Hot Packs Traction- Mechanical Next Visit Focus/Plan Next Note Type Treatment Note Next Visit Plan Further assess core stabilization, work to decrease nerve irritation with stretching/ manual therapy, begin body mechanics instruction Plan of Care Dates Plan of Care Start Date 12/30/18 Plan of Care End Date 02/24/19 Please Sign and Return: I have reviewed this Plan of Care and certify that the skilled therapy services above are required to meet the patient?s needs. Physician Signature Date Printed Name and Credentials Clinical Instructor Signature Printed Name and Credentials
--- NOTE | 2019-01-05 14:37 | PT.OTN ---
Current Diagnoses Radiculopathy, lumbar region (01/05/19) Dorsalgia, unspecified (01/05/19) Physical Therapy Treatment Note PT-OP-A Visit Information Start: 12/30/18 07:05 Freq: Status: Active Protocol: Document 01/05/19 08:45 AMB (Rec: 01/05/19 14:35 AMB [email or web address]) Out-Patient Physical Therapy Visit Information Visit Information Visit Type Treatment Note Visit Start Time 08:45 Visit Stop Time 09:30 Total Visit Minutes 45 Visit Number 2 PT-OP-B Current Condition Start: 12/30/18 07:05 Freq: Status: Active Protocol: Document 12/30/18 08:15 AMB (Rec: 12/30/18 09:54 AMB [email or web address]) Current Condition History of Current Condition Onset Date July 2018 Current Complaints Right sided back pain that radiates into the leg History of Current Condition Kiarra reports back pain started last summer when she was bending over working on cars a lot. She thought it would get better, but it did not and worsened in July. 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 She avoids lifting her grandson because of the pain. She reports she had a hip X- ray that came back normal. Treatment Goals Patient/Caregiver Goals Stand 8 hours a day at work, lift her one year old grandchild. Prior Functional Status Baseline Function- ADL's Independent Baseline Function- Mobility Independent Current Functional Impairments (Reported) Functional Limitations- ADL's Difficulty bending forward, difficulty standing Personal Factors Other Personal Factors That May Effect History of possible TIA- pt Therapy/Recovery reports she was changing meds for migraine about 2 years ago and had high blood pressure and an event that they think was a TIA- since that time she has not been weightlifting like previously- and reports she has gained 30# since then. Migraines. Hysterectomy in October. PT-OP-C Subjective Start: 12/30/18 07:05 Freq: Status: Active Protocol: Document 01/05/19 08:45 AMB (Rec: 01/05/19 14:35 AMB [email or web address]) OP-PT Subjective Patient Comments Patient Comments Pt attends PT with her grandson who is one. She states she felt the tape was helpful, usually she is in pain by 4-5, and it helped until about 8pm. PT-OP-J Posture/Palpation/Skin Start: 12/30/18 07:05 Freq: Status: Active Protocol: Document 12/30/18 08:15 AMB (Rec: 12/30/18 09:32 AMB [email or web address]) Posture Evaluation Comments Posture Comments Hyper lordosis in standing Palpation Assessment Location One Palpation Location Low back Palpation Findings Soft Tissue Tightness Spasm Muscle Guarding Tenderness Palpation Details Tenderness/tightness with palpation at piriformis. Tenderness with palpation at R SI joint>L. Mild stiffness with lumbar PAs, pt feels improvement of symptoms with PA at L5S1. PT-OP-K Range of Motion Start: 12/30/18 07:05 Freq: Status: Active Protocol: Document 12/30/18 08:15 AMB (Rec: 12/30/18 09:32 AMB [email or web address]) Lumbar Spine Range of Motion Lumbar Spine Active Degrees Testing Position Standing Flexion 30 Extension 25 Lateral Flexion Left 30 Lateral Flexion Right 20 Comments painful with flexion and right sidebending PT-OP-Q Treatments Start: 12/30/18 07:05 Freq: Status: Active Protocol: Document 01/05/19 08:45 AMB (Rec: 01/05/19 14:35 AMB [email or web address]) Therapeutic Exercises Supine Exercises 3 Supine Exercise Name TrA stabilization with march Reps/Minutes 30 2 Supine Exercise Name active hamstring stretch Reps/Minutes 2x10 1 Supine Exercise Name piriformis stretch Reps/Minutes 30x2 Prone Exercises 1 Prone Exercise Name prone press up Reps/Minutes 10 Other Exercises 1 Other Exercise Name quadruped UE/LE flex/ext with TrA stab Reps/Minutes 10 Manual Therapy Treatment Soft Tissue Mobilization 1 Body Location paraspinals Mobilization Type Myofascial Release Body Position Prone Comments 5 min Joint Mobilizations 1 Joint L4-5 Direction PA Grade II Body Position Prone Reps/Duration 3 min Taping 1 Body Location low back Type of Tape Kinesio Tape Comments star PT-OP-T Assessment and Plan Start: 12/30/18 07:05 Freq: Status: Active Protocol: Document 01/05/19 08:45 AMB (Rec: 01/05/19 10:58 AMB [id number]) Physical Therapy Assessment Assessment Summary Assessment Kiarra was distracted with her grandson today, but was able to tolerate the exercises. Physical Therapy Plan Next Visit Focus/Plan Next Note Type Treatment Note Next Visit Plan Continue body mechanics instruction, progress core stabilization.
--- NOTE | 2019-01-08 09:40 | PT.OTN ---
Current Diagnoses Radiculopathy, lumbar region (01/08/19) Dorsalgia, unspecified (01/08/19) Physical Therapy Treatment Note PT-OP-A Visit Information Start: 12/30/18 07:05 Freq: Status: Active Protocol: Document 01/08/19 08:15 EA (Rec: 01/08/19 08:57 EA [id number]) Out-Patient Physical Therapy Visit Information Visit Information Visit Type Treatment Note Visit Start Time 07:30 Visit Stop Time 08:23 Total Visit Minutes 53 Visit Number 3 PT-OP-B Current Condition Start: 12/30/18 07:05 Freq: Status: Active Protocol: Document 12/30/18 08:15 AMB (Rec: 12/30/18 09:54 AMB [email or web address]) Current Condition History of Current Condition Onset Date July 2018 Current Complaints Right sided back pain that radiates into the leg History of Current Condition Kiarra reports back pain started last summer when she was bending over working on cars a lot. She thought it would get better, but it did not and worsened in July. 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 She avoids lifting her grandson because of the pain. She reports she had a hip X- ray that came back normal. Treatment Goals Patient/Caregiver Goals Stand 8 hours a day at work, lift her one year old grandchild. Prior Functional Status Baseline Function- ADL's Independent Baseline Function- Mobility Independent Current Functional Impairments (Reported) Functional Limitations- ADL's Difficulty bending forward, difficulty standing Personal Factors Other Personal Factors That May Effect History of possible TIA- pt Therapy/Recovery reports she was changing meds for migraine about 2 years ago and had high blood pressure and an event that they think was a TIA- since that time she has not been weightlifting like previously- and reports she has gained 30# since then. Migraines. Hysterectomy in October. PT-OP-C Subjective Start: 12/30/18 07:05 Freq: Status: Active Protocol: Document 01/08/19 08:15 EA (Rec: 01/08/19 08:57 EA [id number]) OP-PT Subjective Patient Comments Patient Comments Pt reports low back pain [employer] when at work where she has to stand up most of her work. PT-OP-J Posture/Palpation/Skin Start: 12/30/18 07:05 Freq: Status: Active Protocol: Document 12/30/18 08:15 AMB (Rec: 12/30/18 09:32 AMB [email or web address]) Posture Evaluation Comments Posture Comments Hyper lordosis in standing Palpation Assessment Location One Palpation Location Low back Palpation Findings Soft Tissue Tightness Spasm Muscle Guarding Tenderness Palpation Details Tenderness/tightness with palpation at piriformis. Tenderness with palpation at R SI joint>L. Mild stiffness with lumbar PAs, pt feels improvement of symptoms with PA at L5S1. PT-OP-K Range of Motion Start: 12/30/18 07:05 Freq: Status: Active Protocol: Document 12/30/18 08:15 AMB (Rec: 12/30/18 09:32 AMB [email or web address]) Lumbar Spine Range of Motion Lumbar Spine Active Degrees Testing Position Standing Flexion 30 Extension 25 Lateral Flexion Left 30 Lateral Flexion Right 20 Comments painful with flexion and right sidebending PT-OP-Q Treatments Start: 12/30/18 07:05 Freq: Status: Active Protocol: Document 01/08/19 08:15 EA (Rec: 01/08/19 08:57 EA [id number]) Cardio Equipment Recumbent Stepper (Sci-Fit) Duration (Minutes) 5 Seat Position 7 Other warm up Therapeutic Exercises Supine Exercises 4 Supine Exercise Name PPT with single alt leg raise Reps/Minutes x 5reps each sides x 5 sets 3 Supine Exercise Name TrA stabilization with march Reps/Minutes 30 2 Supine Exercise Name active hamstring stretch Reps/Minutes 2x10 1 Supine Exercise Name piriformis stretch Reps/Minutes 30x2 Other Exercises 3 Other Exercise Name Yaron pose: side bedn to each sides Reps/Minutes x 15 SH x 3 reps each 2 Other Exercise Name Quadroped camel and cat Reps/Minutes x 10 reps Manual Therapy Treatment Soft Tissue Mobilization 1 Body Location paraspinals Mobilization Type Myofascial Release Body Position Prone Comments 13 PT-OP-R Modalities Start: 12/30/18 07:05 Freq: Status: Active Protocol: Document 01/08/19 08:15 EA (Rec: 01/08/19 08:57 EA [id number]) Electric Stimulation Electric Stimulation Interferential Current (IFC) Body Location [place]/QL Duration (Minutes) 15 Intensity 20 Combined With Heat/Cold Hot Pack Comments prone pillow under stomach PT-OP-T Assessment and Plan Start: 12/30/18 07:05 Freq: Status: Active Protocol: Document 01/08/19 08:15 EA (Rec: 01/08/19 08:57 EA [id number]) Physical Therapy Assessment Assessment Summary Assessment Tolerated treatment well except with minor discomfort during manual. Physical Therapy Plan Next Visit Focus/Plan Next Note Type Treatment Note Next Visit Plan Continue body mechanics instruction, progress core stabilization.
--- NOTE | 2019-01-15 15:15 | PT.OTN ---
Current Diagnoses Radiculopathy, lumbar region (01/15/19) Dorsalgia, unspecified (01/15/19) Physical Therapy Treatment Note PT-OP-A Visit Information Start: 12/30/18 07:05 Freq: Status: Active Protocol: Document 01/15/19 08:30 AMB (Rec: 01/15/19 08:34 AMB [id number]) Out-Patient Physical Therapy Visit Information Visit Information Visit Type Treatment Note Visit Start Time 08:15 Visit Stop Time 09:00 Total Visit Minutes 45 Visit Number 4 PT-OP-B Current Condition Start: 12/30/18 07:05 Freq: Status: Active Protocol: Document 12/30/18 08:15 AMB (Rec: 12/30/18 09:54 AMB [email or web address]) Current Condition History of Current Condition Onset Date July 2018 Current Complaints Right sided back pain that radiates into the leg History of Current Condition Kiarra reports back pain started last summer when she was bending over working on cars a lot. She thought it would get better, but it did not and worsened in July. 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 She avoids lifting her grandson because of the pain. She reports she had a hip X- ray that came back normal. Treatment Goals Patient/Caregiver Goals Stand 8 hours a day at work, lift her one year old grandchild. Prior Functional Status Baseline Function- ADL's Independent Baseline Function- Mobility Independent Current Functional Impairments (Reported) Functional Limitations- ADL's Difficulty bending forward, difficulty standing Personal Factors Other Personal Factors That May Effect History of possible TIA- pt Therapy/Recovery reports she was changing meds for migraine about 2 years ago and had high blood pressure and an event that they think was a TIA- since that time she has not been weightlifting like previously- and reports she has gained 30# since then. Migraines. Hysterectomy in October. PT-OP-C Subjective Start: 12/30/18 07:05 Freq: Status: Active Protocol: Document 01/15/19 08:30 AMB (Rec: 01/15/19 08:34 AMB [id number]) OP-PT Subjective Patient Comments Patient Comments Has had a migraine all week. PT-OP-J Posture/Palpation/Skin Start: 12/30/18 07:05 Freq: Status: Active Protocol: Document 12/30/18 08:15 AMB (Rec: 12/30/18 09:32 AMB [email or web address]) Posture Evaluation Comments Posture Comments Hyper lordosis in standing Palpation Assessment Location One Palpation Location Low back Palpation Findings Soft Tissue Tightness Spasm Muscle Guarding Tenderness Palpation Details Tenderness/tightness with palpation at piriformis. Tenderness with palpation at R SI joint>L. Mild stiffness with lumbar PAs, pt feels improvement of symptoms with PA at L5S1. PT-OP-K Range of Motion Start: 12/30/18 07:05 Freq: Status: Active Protocol: Document 12/30/18 08:15 AMB (Rec: 12/30/18 09:32 AMB [email or web address]) Lumbar Spine Range of Motion Lumbar Spine Active Degrees Testing Position Standing Flexion 30 Extension 25 Lateral Flexion Left 30 Lateral Flexion Right 20 Comments painful with flexion and right sidebending PT-OP-Q Treatments Start: 12/30/18 07:05 Freq: Status: Active Protocol: Document 01/15/19 08:15 AMB (Rec: 01/15/19 15:15 AMB [email or web address]) Gym Equipment Therapeutic Ball 1 Ball Size/Color 65cm Comments seated pelvic circles, hamstring/adductor stretch, marching with TrA stab Therapeutic Exercises Supine Exercises 4 Supine Exercise Name PPT with single alt leg raise Reps/Minutes x 5reps each sides x 5 sets Prone Exercises 1 Prone Exercise Name prone press up Reps/Minutes 10 Other Exercises 3 Other Exercise Name Yaron pose: side bedn to each sides Reps/Minutes x 15 SH x 3 reps each Manual Therapy Treatment Taping 1 Body Location low back Type of Tape Kinesio Tape Comments star Other Other Manual Treatments tried SI vs boa back brace PT-OP-R Modalities Start: 12/30/18 07:05 Freq: Status: Active Protocol: Document 01/08/19 08:15 EA (Rec: 01/08/19 08:57 EA [id number]) Electric Stimulation Electric Stimulation Interferential Current (IFC) Body Location [place]/QL Duration (Minutes) 15 Intensity 20 Combined With Heat/Cold Hot Pack Comments prone pillow under stomach PT-OP-T Assessment and Plan Start: 12/30/18 07:05 Freq: Status: Active Protocol: Document 01/15/19 08:15 AMB (Rec: 01/15/19 15:15 AMB [email or web address]) Physical Therapy Assessment Assessment Summary Assessment Pt felt that SI belt was more helpful than BOA back brace today. SI testing was negative, but given her low lumbar dysfunction, SI belt may be more compressive over that area. Given her long standing hours for work, could consider vending SI belt given taping has been helpful for her. Physical Therapy Plan Next Visit Focus/Plan Next Note Type Treatment Note Next Visit Plan Continue body mechanics instruction, progress core stabilization, further discuss bracing options.
--- NOTE | 2019-01-26 16:43 | PT.OTN ---
Current Diagnoses Radiculopathy, lumbar region (01/26/19) Dorsalgia, unspecified (01/26/19) Physical Therapy Treatment Note PT-OP-A Visit Information Start: 12/30/18 07:05 Freq: Status: Active Protocol: Document 01/26/19 08:15 AMB (Rec: 01/26/19 16:40 AMB [email or web address]) Out-Patient Physical Therapy Visit Information Visit Information Visit Type Treatment Note Visit Start Time 08:15 Visit Stop Time 09:00 Total Visit Minutes 45 Visit Number 5 PT-OP-B Current Condition Start: 12/30/18 07:05 Freq: Status: Active Protocol: Document 12/30/18 08:15 AMB (Rec: 12/30/18 09:54 AMB [email or web address]) Current Condition History of Current Condition Onset Date July 2018 Current Complaints Right sided back pain that radiates into the leg History of Current Condition Kiarra reports back pain started last summer when she was bending over working on cars a lot. She thought it would get better, but it did not and worsened in July. 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 She avoids lifting her grandson because of the pain. She reports she had a hip X- ray that came back normal. Treatment Goals Patient/Caregiver Goals Stand 8 hours a day at work, lift her one year old grandchild. Prior Functional Status Baseline Function- ADL's Independent Baseline Function- Mobility Independent Current Functional Impairments (Reported) Functional Limitations- ADL's Difficulty bending forward, difficulty standing Personal Factors Other Personal Factors That May Effect History of possible TIA- pt Therapy/Recovery reports she was changing meds for migraine about 2 years ago and had high blood pressure and an event that they think was a TIA- since that time she has not been weightlifting like previously- and reports she has gained 30# since then. Migraines. Hysterectomy in October. PT-OP-C Subjective Start: 12/30/18 07:05 Freq: Status: Active Protocol: Document 01/26/19 08:15 AMB (Rec: 01/26/19 16:40 AMB [email or web address]) OP-PT Subjective Patient Comments Patient Comments Woke up doing well, but getting out of the car increased her back pain today. PT-OP-J Posture/Palpation/Skin Start: 12/30/18 07:05 Freq: Status: Active Protocol: Document 12/30/18 08:15 AMB (Rec: 12/30/18 09:32 AMB [email or web address]) Posture Evaluation Comments Posture Comments Hyper lordosis in standing Palpation Assessment Location One Palpation Location Low back Palpation Findings Soft Tissue Tightness Spasm Muscle Guarding Tenderness Palpation Details Tenderness/tightness with palpation at piriformis. Tenderness with palpation at R SI joint>L. Mild stiffness with lumbar PAs, pt feels improvement of symptoms with PA at L5S1. PT-OP-K Range of Motion Start: 12/30/18 07:05 Freq: Status: Active Protocol: Document 12/30/18 08:15 AMB (Rec: 12/30/18 09:32 AMB [email or web address]) Lumbar Spine Range of Motion Lumbar Spine Active Degrees Testing Position Standing Flexion 30 Extension 25 Lateral Flexion Left 30 Lateral Flexion Right 20 Comments painful with flexion and right sidebending PT-OP-Q Treatments Start: 12/30/18 07:05 Freq: Status: Active Protocol: Document 01/26/19 08:15 AMB (Rec: 01/26/19 16:43 AMB [email or web address]) Therapeutic Exercises Supine Exercises 7 Supine Exercise Name table top single leg lower Reps/Minutes 5 6 Supine Exercise Name SLR Comments 2x10 5 Supine Exercise Name IT band stretch Reps/Minutes 30x2 3 Supine Exercise Name TrA stabilization with march Reps/Minutes 30 2 Supine Exercise Name active hamstring stretch Reps/Minutes 2x10 Manual Therapy Treatment Manual Traction 1 Details long axis distraction Comments supine, R PT-OP-R Modalities Start: 12/30/18 07:05 Freq: Status: Active Protocol: Document 01/08/19 08:15 EA (Rec: 01/08/19 08:57 EA [id number]) Electric Stimulation Electric Stimulation Interferential Current (IFC) Body Location [place]/QL Duration (Minutes) 15 Intensity 20 Combined With Heat/Cold Hot Pack Comments prone pillow under stomach PT-OP-T Assessment and Plan Start: 12/30/18 07:05 Freq: Status: Active Protocol: Document 01/26/19 08:15 AMB (Rec: 01/26/19 16:40 AMB [email or web address]) Physical Therapy Assessment Assessment Summary Assessment Vended SI belt as pt felt that stability improved pain considerably. R leg short in supine today, leg pull helped reduce pain. Tolerated short duration core stabilization. Physical Therapy Plan Next Visit Focus/Plan Next Note Type Treatment Note Next Visit Plan Continue body mechanics instruction, progress core stabilization, further discuss bracing options.
--- NOTE | 2019-01-29 09:19 | PT.OTN ---
Current Diagnoses Radiculopathy, lumbar region (01/29/19) Dorsalgia, unspecified (01/29/19) Physical Therapy Treatment Note PT-OP-A Visit Information Start: 12/30/18 07:05 Freq: Status: Active Protocol: Document 01/29/19 07:30 AMB (Rec: 01/29/19 08:17 AMB [id number]) Out-Patient Physical Therapy Visit Information Visit Information Visit Type Treatment Note Visit Start Time 07:30 Visit Stop Time 08:15 Total Visit Minutes 45 Visit Number 6 PT-OP-B Current Condition Start: 12/30/18 07:05 Freq: Status: Active Protocol: Document 12/30/18 08:15 AMB (Rec: 12/30/18 09:54 AMB [email or web address]) Current Condition History of Current Condition Onset Date July 2018 Current Complaints Right sided back pain that radiates into the leg History of Current Condition Kiarra reports back pain started last summer when she was bending over working on cars a lot. She thought it would get better, but it did not and worsened in July. 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 She avoids lifting her grandson because of the pain. She reports she had a hip X- ray that came back normal. Treatment Goals Patient/Caregiver Goals Stand 8 hours a day at work, lift her one year old grandchild. Prior Functional Status Baseline Function- ADL's Independent Baseline Function- Mobility Independent Current Functional Impairments (Reported) Functional Limitations- ADL's Difficulty bending forward, difficulty standing Personal Factors Other Personal Factors That May Effect History of possible TIA- pt Therapy/Recovery reports she was changing meds for migraine about 2 years ago and had high blood pressure and an event that they think was a TIA- since that time she has not been weightlifting like previously- and reports she has gained 30# since then. Migraines. Hysterectomy in October. PT-OP-C Subjective Start: 12/30/18 07:05 Freq: Status: Active Protocol: Document 01/29/19 07:30 AMB (Rec: 01/29/19 08:17 AMB [id number]) OP-PT Subjective Patient Comments Patient Comments Pt doing ok today. PT-OP-J Posture/Palpation/Skin Start: 12/30/18 07:05 Freq: Status: Active Protocol: Document 12/30/18 08:15 AMB (Rec: 12/30/18 09:32 AMB [email or web address]) Posture Evaluation Comments Posture Comments Hyper lordosis in standing Palpation Assessment Location One Palpation Location Low back Palpation Findings Soft Tissue Tightness Spasm Muscle Guarding Tenderness Palpation Details Tenderness/tightness with palpation at piriformis. Tenderness with palpation at R SI joint>L. Mild stiffness with lumbar PAs, pt feels improvement of symptoms with PA at L5S1. PT-OP-K Range of Motion Start: 12/30/18 07:05 Freq: Status: Active Protocol: Document 12/30/18 08:15 AMB (Rec: 12/30/18 09:32 AMB [email or web address]) Lumbar Spine Range of Motion Lumbar Spine Active Degrees Testing Position Standing Flexion 30 Extension 25 Lateral Flexion Left 30 Lateral Flexion Right 20 Comments painful with flexion and right sidebending PT-OP-Q Treatments Start: 12/30/18 07:05 Freq: Status: Active Protocol: Document 01/29/19 07:30 AMB (Rec: 01/29/19 09:17 AMB [email or web address]) Therapeutic Exercises Supine Exercises 7 Supine Exercise Name table top single leg lower Reps/Minutes 5 6 Supine Exercise Name SLR Comments 2x10 4 Supine Exercise Name PPT with single alt leg raise Reps/Minutes x 5reps each sides x 5 sets Sidelying Exercises 2 Sidelying Exercise Name clamshell Resistance #3 t band Reps/Minutes 2x12 1 Sidelying Exercise Name hip abd Reps/Minutes 2x10 Standing Exercises 2 Standing Exercise Name standing posture Comments decreasing lumbar lordosis increased pain 1 Standing Exercise Name calf stretch Reps/Minutes 30x2 Manual Therapy Treatment Soft Tissue Mobilization 1 Body Location paraspinals, R IT band Mobilization Type Myofascial Release Body Position Prone Comments 12 Manual Traction 1 Details long axis distraction Comments supine, R PT-OP-R Modalities Start: 12/30/18 07:05 Freq: Status: Active Protocol: Document 01/29/19 07:30 AMB (Rec: 01/29/19 09:18 AMB [email or web address]) Electric Stimulation Electric Stimulation Interferential Current (IFC) Body Location [place]/QL Duration (Minutes) 15 Intensity 20 Combined With Heat/Cold Hot Pack Comments pillow under lower legs PT-OP-T Assessment and Plan Start: 12/30/18 07:05 Freq: Status: Active Protocol: Document 01/29/19 07:30 AMB (Rec: 01/29/19 09:17 AMB [email or web address]) Physical Therapy Assessment Assessment Summary Assessment Pt with more R hip pain today, weak into R hip abductors. Physical Therapy Plan Next Visit Focus/Plan Next Note Type Treatment Note Next Visit Plan Continue body mechanics instruction, progress core stabilization.
--- NOTE | 2019-02-27 10:23 | PT.OPDS ---
Current Diagnoses Radiculopathy, lumbar region (01/29/19) Dorsalgia, unspecified (01/29/19) Provider Visit Care Team Role Provider Type Sara Kramer DO Attending Provider Physician Primary Care Provider Specialty: Family Practice Address: [address] [place] [address], [id number] Email: [email or web address] Visit Number Visit Number 6 Discharge Summary PT-OP-B Current Condition Start: 12/30/18 07:05 Freq: Status: Active Protocol: Document 12/30/18 08:15 AMB (Rec: 12/30/18 09:54 AMB [id number]) Current Condition History of Current Condition Onset Date July 2018 Current Complaints Right sided back pain that radiates into the leg History of Current Condition Kiarra reports back pain started last summer when she was bending over working on cars a lot. She thought it would get better, but it did not and worsened in July. 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 She avoids lifting her grandson because of the pain. She reports she had a hip X- ray that came back normal. Treatment Goals Patient/Caregiver Goals Stand 8 hours a day at work, lift her one year old grandchild. Prior Functional Status Baseline Function- ADL's Independent Baseline Function- Mobility Independent Current Functional Impairments (Reported) Functional Limitations- ADL's Difficulty bending forward, difficulty standing Personal Factors Other Personal Factors That May Effect History of possible TIA- pt Therapy/Recovery reports she was changing meds for migraine about 2 years ago and had high blood pressure and an event that they think was a TIA- since that time she has not been weightlifting like previously- and reports she has gained 30# since then. Migraines. Hysterectomy in October. PT-OP-C Subjective Start: 12/30/18 07:05 Freq: Status: Active Protocol: Document 01/29/19 07:30 AMB (Rec: 01/29/19 08:17 AMB [id number]) OP-PT Subjective Patient Comments Patient Comments Pt doing ok today. PT-OP-J Posture/Palpation/Skin Start: 12/30/18 07:05 Freq: Status: Active Protocol: Document 12/30/18 08:15 AMB (Rec: 12/30/18 09:32 AMB [email or web address]) Posture Evaluation Comments Posture Comments Hyper lordosis in standing Palpation Assessment Location One Palpation Location Low back Palpation Findings Soft Tissue Tightness Spasm Muscle Guarding Tenderness Palpation Details Tenderness/tightness with palpation at piriformis. Tenderness with palpation at R SI joint>L. Mild stiffness with lumbar PAs, pt feels improvement of symptoms with PA at L5S1. PT-OP-K Range of Motion Start: 12/30/18 07:05 Freq: Status: Active Protocol: Document 12/30/18 08:15 AMB (Rec: 12/30/18 09:32 AMB [email or web address]) Lumbar Spine Range of Motion Lumbar Spine Active Degrees Testing Position Standing Flexion 30 Extension 25 Lateral Flexion Left 30 Lateral Flexion Right 20 Comments painful with flexion and right sidebending PT-OP-T Assessment and Plan Start: 12/30/18 07:05 Freq: Status: Active Protocol: Document 02/27/19 10:21 AMB (Rec: 02/27/19 10:23 AMB [email or web address]) Physical Therapy Assessment Goals Two Impairment Activity tolerance Short Term Goal (STG) Kiarra will stand for 5 hours with 5/10 back pain or less. STG Duration NOT MET Break Out Worker Goal (LTG) Avlokesh will walk for 30 minutes with 3/10 pain or less. LTG Duration NOT MET One Impairment ROM Short Term Goal (STG) Kiarra will increase her active lumbar ROM to 50 degrees without pain. STG Duration NOT MET Halfway Goal (LTG) Kiarra will bend and squat to last picker her grandson without pain. LTG Duration INTERMITTENT Assessment Summary Assessment Kiarra had been given a HEP and an SI belt which were helping, but she was continuing to have intermittent pain. She canceled her last remaining appointment and then did not return a phone call to schedule more, therefore she is discharged. She was seen for 6 visits. Physical Therapy Plan Discharge Physical Therapy Discharge Reasons No Longer Attending PT
== END 2019-01-30 12:30 ==
LOC: PHYS 07:30
PROVIDERS: PCP Family Medicine; Visit Provider Family Medicine
DX: M54.9 Dorsalgia, unspecified (principal); M54.16 Radiculopathy, lumbar region
CPT/HCPCS: 97014; 97110; 97140; 97161; G0283

== ENCOUNTER 2019-05-15 12:49 | Emergency (ER) | payer OTHER, MEDICAID, SELFPAY ==
[2019-05-15 13:00] VITALS: BP 137/84; PULSE 64; RESP 18; TEMP 36.3; O2SAT 98; BMI 27.4
== END 2019-05-15 13:47 | disposition left against medical advice (07) ==
PROVIDERS: Emergency Provider Emergency Medicine; PCP Family Medicine
CPT/HCPCS: 99281

== ENCOUNTER 2019-05-16 04:44 | Emergency (ER) | payer OTHER, MEDICAID, SELFPAY ==
--- NOTE | 2019-05-16 05:19 | ED.HA ---
HPI - Headache General Chief Complaint: Headache Stated Complaint: Migraine for 8 days Time Seen by Provider: 05/16/19 05:19 Mode of arrival: Ambulatory Limitations: no limitations History of Present Illness HPI Narrative: 48-year-old female comes to the emergency department with complaint of migraine. Patient states she has had migraines chronically she sees Dr. Stephane jerez for Neurology. She had a prescription for Toradol IM which she had used at home for 5 days in a row. Her last dose was Saturday without resolution of her migraine. She states that her symptoms started about a week ago. Patient has had nausea but not active vomiting. No fevers. No other new neurologic symptoms. She states that her migraine has just been intractable. She denies any other bowel issues, urinary issues. She denies any new weakness numbness or tingling. No fevers. She states she takes Adderall but has not taken over the last several days as it makes her really nauseated with her amitriptyline which she has been taking for her migraine. Related Data Home Medications Medication Instructions Recorded Confirmed ketorolac 30 mg IM Q6-8H PRN 10/24/18 12/22/18 Previous Rx's Medication Instructions Recorded naratriptan 2.5 mg tablet 2.5 mg PO .COMPLEX #9 tab 12/22/18 dextroamphetamine-amphetamine 10 See Rx Instructions PO QID #120 tab 03/27/19 mg tablet vttmcsjlpm-iqngpdelmxufp-nqupovph 1 cap PO Q6H PRN #30 cap MDD 5 cap 04/08/19 50 mg-325 mg-40 mg capsule metoclopramide HCl [Reglan] 10 mg PO Q6H PRN #10 tab 05/16/19 Allergies Allergy/AdvReac Type Severity Reaction Status Date / Time morphine [MORPHINE] Allergy Severe stop Verified 02/13/19 11:03 breathing Review of Systems Review of Systems ROS Unobtainable: All systems reviewed & are unremarkable except as noted in HPI and below Patient History Medical/Surgical History Medical History Actinic keratosis (Resolved 10/2016) ADHD (attention deficit hyperactivity disorder) (Chronic 1971) Anemia (Resolved 1992) Chickenpox (Resolved 1979) Chronic back pain (Chronic 2009) Generalized headaches (Chronic Unknown) 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) Melanoma (Resolved 2012) Migraines (Chronic 1985) Shoulder pain (Resolved 1999) TIA (transient ischemic attack) (Suspected) Surgical History H/O knee surgery (Resolved) H/O knee surgery (Resolved) History of appendectomy (Resolved) S/P laparoscopic supracervical hysterectomy (Resolved 10/24/18) Status post appendectomy (Resolved) Family History Father Age: 69 Type 2 diabetes mellitus without complication, 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 HEENT: Atraumatic, pupils are equal round reactive to light, extraocular movements are intact, positive for photophobia, nares are clear, TMs are clear with no fluid, there is no conjunctival pallor. Throat is clear without any exudates, erythema, tonsillar enlargement or uvular deviation HEART: Regular rate and rhythm without murmur, clicks, rubs. LUNGS:Lungs clear to auscultation, no wheezes, rales, crackles, chest moves symmetrically ABD:bowel sounds normal, soft, non-tender, no guarding, rebound, rigidity, no masses noted, no hepatosplenomegaly MSCL: Non-tender, no muscle atrophy, muscles strength 5/5 upper and lower extremities, full range of motion, normal gait NEURO:CN 2-12 intact, sensation normal. SKIN: No rash, no petechiae no other skin changes. Initial Vital Signs Initial Vital Signs: Vital Signs Pulse Rate 80 05/16/19 06:52 Respiratory Rate 18 05/16/19 06:52 Blood Pressure 152/82 H 05/16/19 06:52 Pulse Oximetry 97 05/16/19 06:52 Course Orders Ordered: Discontinued Medications Dexamethasone (Decadron) 10 mg IV NOW ONE Stop: 05/16/19 06:04 Last Admin: 05/16/19 06:20 Dose: 10 mg Documented by: IRVIN Sodium Chloride (Normal Saline 0.9%) 1,000 mls @ 1,000 mls/hr IV BOLUS ONE Stop: 05/16/19 07:02 Last Admin: 05/16/19 06:20 Dose: 1,000 mls/hr Documented by: IRVIN Ketorolac Tromethamine (Toradol) 30 mg IV NOW ONE Stop: 05/16/19 06:04 Last Admin: 05/16/19 06:20 Dose: 30 mg Documented by: IRVIN Metoclopramide HCl (Reglan) 10 mg IV NOW ONE Stop: 05/16/19 06:04 Last Admin: 05/16/19 06:20 Dose: 10 mg Documented by: IRVIN Vital Signs Vital signs: Vital Signs - 8 hr 05/16/19 06:52 Pulse Rate 80 Respiratory Rate 18 Blood Pressure [Right Arm] 152/82 H Pulse Oximetry 97 MDM - Headache MDM Narrative Medical decision making narrative: The patient feels much better. Discharge Plan Departure Patient Disposition: Home Clinical Impression: Migraine Instructions: DI for Migraine Activity Restrictions/Additional Instructions: Follow-up with your neurologist for recheck. Continue home medications as prescribed. You may take Reglan 1 tablet every 6 hours as needed for symptoms. You may take this medication with Toradol or your other migraine medications. Prescription was sent to [facility] in [place]. Return to the emergency department for fevers greater than 100.4 F, new vision changes, sudden severe or changing migraine symptoms, persistent vomiting, passing out, new chest pain or shortness of breath, new weakness numbness or other neurologic changes. Prescriptions: New metoclopramide HCl [Reglan] 10 mg tablet 10 mg PO Q6H PRN (Reason: nausea and vomiting) Qty: 10 RF: 0 No Action dextroamphetamine-amphetamine [Adderall] 10 mg tablet See Rx Instructions PO QID Qty: 120 RF: 0 jwmmpyofhm-nesdghgrpvmrv-hnom 50-325-40 mg capsule 1 cap PO Q6H MDD 5 cap PRN (Reason: headache) Qty: 30 RF: 3 naratriptan 2.5 mg tablet 2.5 mg PO .COMPLEX Qty: 9 RF: 3 ketorolac 60 mg/2 mL Solution 30 mg IM Q6-8H PRN (Reason: headaches) RF: 0 Referrals: Sara Kramer DO [Primary Care Provider] -
[2019-05-16] MEDS: SODIUM CHLORIDE 0.9% 1,000 ML 1000 ML IV (06:20)
[2019-05-16] MEDS: KETOROLAC 60 MG/2 ML VIAL 30 MG IV (06:20)
[2019-05-16] MEDS: METOCLOPRAMIDE 10 MG/2 ML INJ IV (06:20)
[2019-05-16] MEDS: DEXAMETHASONE 10 MG/ML VIAL IV (06:20)
[2019-05-16 06:52] VITALS: BP 152/82; PULSE 80; RESP 18; O2SAT 97
== END 2019-05-16 07:37 | disposition home or self-care (01) ==
PROVIDERS: Emergency Provider Emergency Medicine; PCP Family Medicine
DX: G43.909 Migraine, unspecified, not intractable, without status migrainosus (principal)
CPT/HCPCS: 96361; 96374; 96375; 99283; 99284; J1100; J1885; J2765

== ENCOUNTER → 2019-05-25 14:31 | Outpatient (CLI) | payer OTHER, MEDICAID, SELFPAY ==
--- NOTE | 2019-05-25 | DI.MG.S_ITS ---
BILATERAL DIGITAL SCREENING MAMMOGRAM 3D/2D WITH CAD WITH AUGMENTATION: 05/25/2019 CLINICAL: Routine screening. No prior exams were available for comparison. There are scattered fibroglandular elements in both breasts. Current study was also evaluated with a Computer Aided Detection (CAD) system. Left breast implant is intact. There are benign post operative findings in both breasts. No significant masses, calcifications, or other findings are seen in either breast. IMPRESSION: There is no mammographic evidence of malignancy. A 1 year screening mammogram is recommended. This exam was interpreted at Station ID: [id number]. NOTE: For mammograms, a report in lay terms will be sent to the patient. Approximately 15% of breast malignancies will not be visualized mammographically. In the management of a palpable breast mass, a negative mammogram must not discourage biopsy of a clinically suspicious lesion. Electronically Signed By: Lauro almonte/elizabeth:06/08/2019 13:19:47 letter sent: Normal Exam ACR BI-RADS Category 2: Benign Finding(s) [id number]
== END ==
PROVIDERS: PCP Family Medicine; Visit Provider Family Medicine
DX: Z12.31 Encounter for screening mammogram for malignant neoplasm of breast (principal)
CPT/HCPCS: 77063; 77067

== ENCOUNTER 2019-08-22 10:25 | Emergency (ER) | payer OTHER, MEDICAID, SELFPAY ==
[2019-08-22 10:30] VITALS: BP 128/71; PULSE 79; RESP 17; TEMP 36.7; O2SAT 97
[2019-08-22] MEDS: SODIUM CHLORIDE 0.9% 1,000 ML 1000 ML IV (10:40)
--- NOTE | 2019-08-22 10:46 | ED.HA ---
HPI - Headache General Chief Complaint: Headache Stated Complaint: THROWING UP MIGRAINE Time Seen by Provider: 08/22/19 10:40 Source: patient Mode of arrival: Ambulatory Limitations: no limitations History of Present Illness HPI Narrative: Patient is a 48-year-old female with history of migraines presenting with migraine headache and vomiting. She says she has been unable to keep anything down is about 430 this morning. She says that her head hurts this feels like a typical migraine for her. She denies any weakness numbness or tingling. She is not experiencing any photosensitivity. No chest pain dizziness or lightheadedness. MD Complaint: migraine Onset (ago): hour(s) Onset description: sudden Severity: similar to previous episodes Related Data Home Medications Medication Instructions Recorded Confirmed ketorolac 30 mg IM Q6-8H PRN 10/24/18 08/12/19 Previous Rx's Medication Instructions Recorded ikdbonxuub-neovyzfpdvmvs-dwupwrts 1 cap PO Q6H PRN #30 cap MDD 5 cap 04/08/19 50 mg-325 mg-40 mg capsule metoclopramide HCl [Reglan] 10 mg PO Q6H PRN #10 tab 05/16/19 naratriptan 2.5 mg tablet 2.5 mg PO .COMPLEX #9 tab 06/16/19 baclofen 5 mg tablet 5 mg PO BEDTIME PRN #20 tab 07/14/19 cyclobenzaprine 10 mg tablet 10 mg PO BID #20 tab 08/12/19 dextroamphetamine-amphetamine 10 10 mg PO QID #120 tab 08/12/19 mg tablet ondansetron 4 mg PO Q8H PRN #10 tab 08/22/19 Allergies Allergy/AdvReac Type Severity Reaction Status Date / Time morphine [MORPHINE] Allergy Severe stop Verified 08/12/19 10:31 breathing Review of Systems Review of Systems Narrative: GENERAL: Denies chills, fatigue, malaise, fever, sweats, travel HEENT: Denies sinus pain, ear pain, sore throat, difficulty swallowing, neck pain RESPIRATORY: Denies dyspnea, cough, wheezing, hemoptysis, sputum. CARDIOVASCULAR: Denies chest pain, palpitations, orthopnea, edema GASTROINTESTINAL: Denies nausea, vomiting, abdominal pain, diarrhea, constipation, melena. : Denies dysuria, frequency, incontinence, hematuria, urinary retention, flank pain. MUSCULOSKELETAL: Denies weakness, joint pain, or bony pain SKIN: No rash, no erythema, no pruritus NEUROLOGIC: See HPI PSYCHIATRIC: No concerning psychosocial issues. 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) Melanoma (Resolved 2012) Migraines (Chronic 1985) Shoulder pain (Resolved 1999) TIA (transient ischemic attack) (Suspected) Surgical History H/O knee surgery (Resolved) H/O knee surgery (Resolved) History of appendectomy (Resolved) S/P laparoscopic supracervical hysterectomy (Resolved 10/24/18) Status post appendectomy (Resolved) Family History Father Age: 69 Type 2 diabetes mellitus without complication, 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 HEENT: Head atraumatic,EOMI, pupils reactive, face symmetric CARDIOVASCULAR: Regular rate and rhythm without murmurs, rubs or gallops. RESPIRATORY: Breath sounds equal bilaterally, no wheezes rales or rhonchi. ABDOMEN: Soft, nontender. Normoactive bowel sounds all 4 quadrants. No guarding or rebound. EXTREMITIES: Normal range of motion, no clubbing or edema. Neurovascularly intact NEUROLOGICAL: Alert and oriented x4.Normal gait and speech. Cranial nerves II through XII grossly intact. Equal bilaterally moving lower extremity SKIN: Warm, dry, no laceration, no petechiae, no rashes or lesions. Scores NIH Stroke Scale Level of Conciousness: Alert, keenly responsive Ask month/age: Answers both questions correctly. Open/close eyes, close hand: Performs both tasks correctly Best gaze horizontal: Normal Visual murrell: No visual loss Facial palsy: Normal symetrical movement Left arm drift: No drift for full 10 sec Right arm drift: No drift for full 10 sec Left leg drift: No drift for full 10 sec Right leg drift: No drift for full 10 sec Limb ataxia: Absent Sensory on face/arms/legs: Normal, no sensory loss Best language: No aphasia, normal Dysarthria: Normal Extinction or inattention: No abnormality Total NIH Stroke scale score: 0 Course Orders Ordered: Discontinued Medications Diphenhydramine HCl (Benadryl) 25 mg IV NOW ONE Stop: 08/22/19 10:46 Last Admin: 08/22/19 10:54 Dose: 25 mg Documented by: ROMA Sodium Chloride (Normal Saline 0.9%) 1,000 mls @ 1,000 mls/hr IV BOLUS ONE Stop: 08/22/19 11:44 Last Infusion: 08/22/19 11:57 Dose: 0 mls/hr Documented by: Admin: 08/22/19 10:40 Dose: 1,000 mls/hr Documented by: ROMA Prochlorperazine (Compazine) 10 mg IV NOW ONE Stop: 08/22/19 10:46 Last Admin: 08/22/19 10:51 Dose: 10 mg Documented by: ROMA Vital Signs Vital signs: Vital Signs - 8 hr 08/22/19 10:51 08/22/19 11:45 08/22/19 12:01 Temperature 97.9 F Pulse Rate 70 81 83 Respiratory Rate 14 20 Blood Pressure 128/75 116/75 Blood Pressure [Right Arm] 125/74 Pulse Oximetry 99 97 MDM - Headache MDM Narrative Medical decision making narrative: Patient's symptoms improved significantly with Toradol and Compazine and migraine cocktail. She overall feels ready and able to go home. She has no focal deficits at this time no need for any imaging or blood work. Discharge Plan Departure Patient Disposition: Home Clinical Impression: Migraine Qualifiers: Migraine type: unspecified Status migrainosus presence: without status migrainosus Intractability: not intractable Qualified Code(s): G43.909 - Migraine, unspecified, not intractable, without status migrainosus Discharge Date/Time: 08/22/19 12:06 Instructions: DI for Migraine Activity Restrictions/Additional Instructions: *You have been diagnosed with migraine headache *What to do: Increase fluid intake, rest *Continue to take medications as directed Zofran 4 mg every 8 hours as needed for nausea vomiting-->SENT TO [facility] *Follow up with your primary care provider in 2-3 days *Return to ER if you should have persistent vomiting worsening headache weakness numbness or any new, worsening or concerning symptoms Prescriptions: New ondansetron 4 mg tablet,disintegrating 4 mg PO Q8H PRN (Reason: nausea and vomiting) Qty: 10 RF: 0 No Action cyclobenzaprine 10 mg tablet 10 mg PO BID Qty: 20 RF: 0 tzxgdznnof-bduggclelfxzz-fpvo 50-325-40 mg capsule 1 cap PO Q6H MDD 5 cap PRN (Reason: headache) Qty: 30 RF: 3 naratriptan 2.5 mg tablet 2.5 mg PO .COMPLEX Qty: 9 RF: 3 dextroamphetamine-amphetamine [Adderall] 10 mg tablet 10 mg PO QID Qty: 120 RF: 0 baclofen 5 mg tablet 5 mg PO BEDTIME PRN (Reason: muscle spasms) Qty: 20 RF: 0 ketorolac 60 mg/2 mL Solution 30 mg IM Q6-8H PRN (Reason: headaches) RF: 0 metoclopramide HCl [Reglan] 10 mg tablet 10 mg PO Q6H PRN (Reason: nausea and vomiting) Qty: 10 RF: 0 Referrals: Sara Kramer DO [Primary Care Provider] -
[2019-08-22 10:51] VITALS: BP 128/75; PULSE 70
[2019-08-22] MEDS: PROCHLORPERAZINE 10 MG/2 ML VIAL IV (10:51)
[2019-08-22] MEDS: diphenhydrAMINE 50 MG/ML VIAL 25 MG IV (10:54)
[2019-08-22 11:45] VITALS: BP 125/74; PULSE 81; RESP 14; O2SAT 99
[2019-08-22 12:01] VITALS: BP 116/75; PULSE 83; RESP 20; TEMP 36.6; O2SAT 97
== END 2019-08-22 12:06 | disposition home or self-care (01) ==
PROVIDERS: Emergency Provider Emergency Medicine; PCP Family Medicine
DX: G43.909 Migraine, unspecified, not intractable, without status migrainosus (principal)
CPT/HCPCS: 36415; 96361; 96374; 96375; 99284; J0780; J1200

== ENCOUNTER 2019-10-04 14:20 | Emergency (ER) | payer OTHER, MEDICAID, SELFPAY ==
[2019-10-04 14:23] VITALS: BP 152/70; PULSE 80; RESP 18; TEMP 36.8; O2SAT 100
--- NOTE | 2019-10-04 14:28 | DI.RAD.S_ITS ---
PROCEDURE: XR HAND LT MIN 3V INDICATIONS: Status post fall, left hand pain radiation to wrist. TECHNIQUE: 3 views of the hand acquired. COMPARISON: None. FINDINGS: Bones: No fractures or dislocations. Carpal bones are normally aligned. No suspicious bony lesions. Soft tissues: No suspicious soft tissue calcifications. IMPRESSION: 1. No fracture or dislocation. Dictated by: Lauro Noble M.D. on 10/04/2019 at 13:55 Approved by: Lauro Noble M.D. on 10/04/2019 at 13:56
--- NOTE | 2019-10-04 16:35 | ED.GENADULT ---
HPI - General Adult General Chief complaint: Extremity Injury, Upper Stated complaint: left hand broken today Time Seen by Provider: 10/04/19 16:34 Source: patient Mode of arrival: Ambulatory Limitations: no limitations History of Present Illness HPI narrative: 48-year-old female here for evaluation of left hand injury. She states that she was walking on her deck and fell through her deck landing forward on an outstretched hand with most of the pressure being on her left hand. She has bruising to her left little finger and also pain at the base of her left thumb. No other injuries reported from the event. Did ice it prior to arrival. Related Data Home Medications Medication Instructions Recorded Confirmed ketorolac 30 mg IM Q6-8H PRN 10/24/18 08/31/19 Previous Rx's Medication Instructions Recorded tunjkpehbh-imdufshephhfu-yykzjkid 1 cap PO Q6H PRN #30 cap MDD 5 cap 04/08/19 50 mg-325 mg-40 mg capsule metoclopramide HCl [Reglan] 10 mg PO Q6H PRN #10 tab 05/16/19 naratriptan 2.5 mg tablet 2.5 mg PO .COMPLEX #9 tab 06/16/19 baclofen 5 mg tablet 5 mg PO BEDTIME PRN #20 tab 07/14/19 cyclobenzaprine 10 mg tablet 10 mg PO BID #20 tab 08/12/19 ondansetron 4 mg PO Q8H PRN #10 tab 08/22/19 dextroamphetamine-amphetamine ER 20 mg PO BID #60 cap 10/02/19 20 mg 24hr capsule,extend release Allergies Allergy/AdvReac Type Severity Reaction Status Date / Time morphine [MORPHINE] Allergy Severe stop Verified 10/04/19 14:27 breathing Review of Systems Constitutional Constitutional: Denies fever(s) and Denies headache(s) ENT Ears, Nose, Mouth, and Throat: Denies headache(s) and Denies disequilibrium Cardiovascular Cardiovascular: Denies chest pain Musculoskeletal Comments: Left hand pain Integumentary/Breasts Comments: Bruising to the little finger into the palm of the left hand near the thumb Neurologic Neurologic: Denies headache(s), Denies paresthesias and Denies disequilibrium Hematologic/Lymphatic Hematologic/Lymphatic: Denies easy bleeding and Denies easy bruising Patient History Medical History Actinic keratosis (Resolved 10/2016) ADHD (attention deficit hyperactivity disorder) (Chronic 1971) Anemia (Resolved 1992) Chickenpox (Resolved 1979) Chronic back pain (Chronic 2009) Generalized headaches (Chronic Unknown) 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) Melanoma (Resolved 2012) Migraines (Chronic 1985) Shoulder pain (Resolved 1999) TIA (transient ischemic attack) (Suspected) Social History household members: family Smoking Status: Former smoker alcohol intake: current Smoking Status: Former smoker alcohol intake frequency: a few times a month Substance Use Type: does not use Exam Initial Vital Signs Initial Vital Signs: Vital Signs Temperature 98.3 F 10/04/19 14:23 Pulse Rate 80 10/04/19 14:23 Respiratory Rate 18 10/04/19 14:23 Blood Pressure 152/70 H 10/04/19 14:23 Pulse Oximetry 100 10/04/19 14:23 Const General: cooperative and comfortable Limitations: mental status not altered HENMT Head: normal to inspection and normocephalic Cardio Pulses: radial pulses present on the left Skin Other: Bruising circumferential left little finger. Also bruising on the hypothenar eminence of the left thumb. No tenderness to palpation over the snuffbox left. Neuro Cognition: normal cognition Speech: speech normal Sensory Exam: no sensory deficits noted Extrem General: normal to inspection and capillary refill normal Other: Patient able to flex and extend at the left wrist. Able to pronate and supinate. Left elbow left shoulder unremarkable Psych Appearance: grossly normal and well [place] Procedures Orthopedic Splinting/Casting Injury #1: Side: left Upper Extremity Injury Location: wrist Upper Extremity Immobilizer: Alexis wrap Post splinting neuro exam: intact Post splinting vascular exam: intact Placed by: Provider Course Orders Ordered: ED Orders 10/04/19 14:28 XR hand LT min 3V Stat Vital Signs Vital signs: Vital Signs - 8 hr 10/04/19 14:23 10/04/19 17:04 Temperature 98.3 F Pulse Rate 80 78 Respiratory Rate 18 17 Blood Pressure 152/70 H Pulse Oximetry 100 100 Medical Decision Making Imaging Data Extremity x-ray #1: Radiologist's Impression: [address] [address] XRay Report Signed Patient: Kiarra AllenR#: [id number] : 1970Acct:[id number] Age/Sex: 48 / FDate of Service: 10/04/19 Loc: ED Accession Number: [id number] Procedure: XR hand LT min 3V Ordering Provider: Rosalio Bay D.O. PROCEDURE: XR HAND LT MIN 3V INDICATIONS: Status post fall, left hand pain radiation to wrist. TECHNIQUE: 3 views of the hand acquired. COMPARISON: None. FINDINGS: Bones: No fractures or dislocations. Carpal bones are normally aligned. No suspicious bony lesions. Soft tissues: No suspicious soft tissue calcifications. IMPRESSION: 1. No fracture or dislocation. Dictated by: Lauro Noble M.D. on 10/04/2019 at 13:55 Approved by: Lauro Noble M.D. on 10/04/2019 at 13:56 MDM Narrative Medical decision making narrative: Patient is neurovascular intact. No fractures on the x-rays. Does have bruising on the little finger and on the base of the left thumb. Patient was given an Alexis bandage for comfort. We did discuss icing the area. Did discuss return precautions and follow-up instructions. She expressed understanding and agreement. Discharge Plan Departure Patient Disposition: Home Clinical Impression: Left thumb sprain Qualifiers: Encounter type: initial encounter Sprain of finger site: unspecified site Qualified Code(s): S63.602A - Unspecified sprain of left thumb, initial encounter Sprain of finger of left hand Qualifiers: Encounter type: initial encounter Finger: little finger Sprain of finger site: unspecified site Qualified Code(s): S63.617A - Unspecified sprain of left little finger, initial encounter Discharge Date/Time: 10/04/19 17:05 Instructions: How To Perform RICE (Rest, Ice, Compress, Elevate), How to Apply an Elastic Wrap on Wrist Activity Restrictions/Additional Instructions: You can take Tylenol and/or ibuprofen for any pain. Use the Alexis bandage as needed. Also recommend you ice her hand. Contact your primary provider for follow-up. Prescriptions: No Action cyclobenzaprine 10 mg tablet 10 mg PO BID Qty: 20 RF: 0 rxupfwspvo-jeitysaitihos-ntsn 50-325-40 mg capsule 1 cap PO Q6H MDD 5 cap PRN (Reason: headache) Qty: 30 RF: 3 naratriptan 2.5 mg tablet 2.5 mg PO .COMPLEX Qty: 9 RF: 3 dextroamphetamine-amphetamine 20 mg capsule,extended release 24hr 20 mg PO BID Qty: 60 RF: 0 baclofen 5 mg tablet 5 mg PO BEDTIME PRN (Reason: muscle spasms) Qty: 20 RF: 0 ketorolac 60 mg/2 mL Solution 30 mg IM Q6-8H PRN (Reason: headaches) RF: 0 metoclopramide HCl [Reglan] 10 mg tablet 10 mg PO Q6H PRN (Reason: nausea and vomiting) Qty: 10 RF: 0 ondansetron 4 mg tablet,disintegrating 4 mg PO Q8H PRN (Reason: nausea and vomiting) Qty: 10 RF: 0 Referrals: Tello Reyes DO [Primary Care Provider] -
[2019-10-04 17:04] VITALS: PULSE 78; RESP 17; O2SAT 100
== END 2019-10-04 17:05 | disposition home or self-care (01) ==
PROVIDERS: Emergency Provider Emergency Medicine; PCP Family Medicine
DX: S63.602A Unspecified sprain of left thumb, initial encounter (principal); S63.617A Unspecified sprain of left little finger, initial encounter; W19.XXXA Unspecified fall, initial encounter
CPT/HCPCS: 73130; 99283

== ENCOUNTER 2020-02-12 11:38 | Emergency (ER) | payer OTHER, MEDICAID, SELFPAY ==
[2020-02-12 11:49] VITALS: BP 162/88; PULSE 83; RESP 18; TEMP 36.8; O2SAT 97; BMI 27.4
--- NOTE | 2020-02-12 11:50 | DI.RAD.S_ITS ---
PROCEDURE: XR SACRUM COCCYX MIN 2V INDICATIONS: Sacral back pain TECHNIQUE: 3 views of the sacrum and coccyx acquired. COMPARISON: [facility], CR, XR LUMBAR SPINE 2-3V, 12/04/2017, 8:55. FINDINGS: Bones: No fractures or dislocations. Mild to moderate degenerative disc disease at L4-L5. Moderate to severe facet of L4-L5 at L5-S1. No suspicious bony lesions. Moderate sacroiliac joint degeneration bilaterally. Soft tissues: Visualized bowel gas pattern is normal. No suspicious soft tissue densities. IMPRESSION: 1. No acute osseous abnormalities. 2. Degenerative disc and facet disease in the lower lumbar spine. 3. Moderate facet joint degeneration bilaterally. Dictated by: Kayli Campo M.D. on 02/12/2020 at 13:49 Approved by: Kayli Campo M.D. on 02/12/2020 at 13:53
--- NOTE | 2020-02-12 12:06 | ED.BACK ---
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 Patient reports that she woke up with this pain. She states it is a dull aching occasional sharp stabbing that is worse with movement insert positions. Patient states she hears ?popping and grinding when she twists. She denies any trauma to the area or fall. Patient denies any IV drug use or recent spinal injections. She denies any surgeries or fractures to her back but states ?I did not take care of myself when I was young ?. Patient denies any numbness or tingling, denies weakness, no loss of bowel or bladder control, no saddle paresthesias. Patient also denies any fevers, chills, chest pain, shortness of breath, abdominal pain, nausea, vomiting, diarrhea, or any other concerns. Patient reports she takes Toradol injections for her migraine, she took a Toradol injection last night which improved pain. Related Data Home Medications Medication Instructions Recorded Confirmed ketorolac 30 mg IM Q6-8H PRN 10/24/18 11/16/19 Previous Rx's Medication Instructions Recorded mqxerbovwa-gdeerlleraich-oseiywil 1 cap PO Q6H PRN #30 cap MDD 5 cap 04/08/19 50 mg-325 mg-40 mg capsule metoclopramide HCl [Reglan] 10 mg PO Q6H PRN #10 tab 05/16/19 baclofen 5 mg tablet 5 mg PO BEDTIME PRN #20 tab 07/14/19 cyclobenzaprine 10 mg tablet 10 mg PO BID #20 tab 08/12/19 ondansetron 4 mg PO Q8H PRN #10 tab 08/22/19 dextroamphetamine-amphetamine 20 20 mg PO BID #180 tab 11/16/19 mg tablet naratriptan 2.5 mg tablet 2.5 mg PO .COMPLEX #9 tab 01/07/20 cyclobenzaprine 10 mg PO BEDTIME PRN #14 tab 07/10/20 prednisone 20 mg PO DAILY 5 Days #5 tab 02/12/20 Allergies Allergy/AdvReac Type Severity Reaction Status Date / Time morphine [MORPHINE] Allergy Severe stop Verified 02/12/20 11:49 breathing Review of Systems <ALINE Ybarra - Last Filed: 02/12/20 17:02> Review of Systems Narrative: REVIEW OF SYSTEMS: GENERAL: Denies fever or chills. HENT: No head trauma. EYES: No double vision or vision loss. CARDIOVASCULAR: No chest pain or syncope. RESPIRATORY: No shortness of breath or cough. GASTROINTESTINAL: No nausea, vomiting, diarrhea, or constipation. GENITOURINARY: No flank pain or dysuria. MUSCULOSKELETAL: Complains of lower back pain, see HPI. INTEGUMENTARY: No rash, lesions, or pruritus. NEURO: No numbness, tingling. PSYCH: No behavior or mood changes. 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) Hyperlipemia (Acute) Melanoma (Resolved 2012) Migraines (Chronic 1985) Shoulder pain (Resolved 1999) TIA (transient ischemic attack) (Suspected) Surgical History H/O knee surgery (Resolved) H/O knee surgery (Resolved) History of appendectomy (Resolved) S/P laparoscopic supracervical hysterectomy (Resolved 10/24/18) Status post appendectomy (Resolved) Family History Father Age: 69 Type 2 diabetes mellitus without complication, 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 Answers questions promptly and appropriately. Vital signs noted. HENT: Normocephalic, atraumatic. EYES: Symmetrical, sclera white, no periorbital swelling. CARDIOVASCULAR: S1 and S2 sounds normal. Regular rate and rhythm, no murmurs, clicks, or bruits. No pedal edema. RESPIRATORY: Normal respiratory rate, trachea midline, airway patent. No stridor, nasal flaring or accessory muscle use. Lungs are clear in all murrell. MUSCULOSKELETAL: Tenderness with palpation of sacral area, paraspinal vertebral muscle tenderness as well. Patient has a slower stiff gait due to pain. Equal strength bilaterally to upper and lower extremities. Equal tone and mass bilaterally. No spinal deformities or ecchymosis. No erythema. EXTREMITIES: CMS intact. No pedal edema. SKIN: Warm, dry, soft, appropriate color for ethnicity. No lesions, rashes, or wounds. NEURO: Alert and Oriented X 3. No sensory deficits. Light touch sensation intact to upper and lower extremities. PSYCH: Appropriate affect and mood. <Darius Carey DO - Last Filed: 02/12/20 19:18> Initial Vital Signs Initial Vital Signs: Vital Signs Temperature 98.3 F 02/12/20 11:49 Pulse Rate 83 02/12/20 11:49 Respiratory Rate 18 02/12/20 11:49 Blood Pressure 162/88 H 02/12/20 11:49 Pulse Oximetry 97 02/12/20 11:49 Course <ALINE Ybarra - Last Filed: 02/12/20 17:02> Course Course Narrative: Patient was given Toradol, reports pain relief after administration. Orders Ordered: ED Orders 02/12/20 11:50 XR sacrum coccyx min 2V Stat Discontinued Medications Ketorolac Tromethamine (Toradol) 30 mg IM NOW ONE Stop: 02/12/20 11:51 Last Admin: 02/12/20 12:10 Dose: 30 mg Documented by: HUMA Vital Signs Vital signs: Vital Signs - 8 hr 02/12/20 11:49 Temperature 98.3 F Pulse Rate 83 Respiratory Rate 18 Blood Pressure 162/88 H Pulse Oximetry 97 <Darius Carey DO - Last Filed: 02/12/20 19:18> Orders Ordered: ED Orders 02/12/20 11:50 XR sacrum coccyx min 2V Stat Discontinued Medications Ketorolac Tromethamine (Toradol) 30 mg IM NOW ONE Stop: 02/12/20 11:51 Last Admin: 02/12/20 12:10 Dose: 30 mg Documented by: HUMA Vital Signs Vital signs: Vital Signs - 8 hr 02/12/20 11:49 Temperature 98.3 F Pulse Rate 83 Respiratory Rate 18 Blood Pressure 162/88 H Pulse Oximetry 97 MDM - Back Pain/Injury <ALINE Ybarra - Last Filed: 02/12/20 17:02> Medical Records Attestation: I reviewed the patient's medical records. Lab Data Attestation: I reviewed the patient's lab results. Imaging Data Sacrum Xray: Radiologist's Impression: [place] [address] XRay Report Signed Patient: Kiarra Allen KMR#: [id number] : 1970Acct:[id number] Age/Sex: 49 / FDate of Service: 02/12/20 Loc: ED Accession Number: [id number] Procedure: XR sacrum coccyx min 2V Ordering Provider: Myrna Borges PROCEDURE: XR SACRUM COCCYX MIN 2V INDICATIONS: Sacral back pain TECHNIQUE: 3 views of the sacrum and coccyx acquired. COMPARISON: [facility], CR, XR LUMBAR SPINE 2-3V, 12/04/2017, 8:55. FINDINGS: Bones: No fractures or dislocations. Mild to moderate degenerative disc disease at L4-L5. Moderate to severe facet of L4-L5 at L5-S1. No suspicious bony lesions. Moderate sacroiliac joint degeneration bilaterally. Soft tissues: Visualized bowel gas pattern is normal. No suspicious soft tissue densities. IMPRESSION: 1. No acute osseous abnormalities. 2. Degenerative disc and facet disease in the lower lumbar spine. 3. Moderate facet joint degeneration bilaterally. Dictated by: Kayli Campo M.D. on 02/12/2020 at 13:49 Approved by: Kayli Campo M.D. on 02/12/2020 at 13:53 [facility] Narrative Medical decision making narrative: 49-year-old female complains of nontraumatic lower back pain. Differential includes arthritis, degenerative disc disease, muscle spasms, and strain. X-ray shows facet joint degeneration, disc degeneration, and fascia disease which is suspect is contributing to patient's pain. Due to patient's description of worsening acute pain I suspect she has an additional spasm. Less concern for cauda equina or fracture due to negative x-rays, saddle paresthesias, no lower limb weakness, no loss of bowel or bladder control. Discussed risks and benefits of steroid medications with patient, patient opted for both steroids and muscle relaxers. She was cautioned to not drive with muscle relaxers as it can alter her alertness. Return precautions given for new or worsening symptoms. Follow-up was encouraged for long-term management and care. Patient agreed to plan of care verbalized understanding. Discharge Plan Departure Patient Disposition: Home Clinical Impression: Back pain Qualifiers: Back pain location: low back pain Chronicity: acute Back pain laterality: midline Sciatica presence: without sciatica Qualified Code(s): M54.5 - Low back pain Discharge Date/Time: 02/12/20 14:10 Instructions: DI for Low Back Pain, DI for Back Spasm Activity Restrictions/Additional Instructions: Thank you for entrusting me with your care today. As discussed, your x-rays negative for fractures. There was some disc degenerative disease noted which may be causing your pain. It given you a prescription for steroids to decrease the inflammation and a muscle relaxer, this can make you drowsy do not drive while using a muscle relaxer. Your prescriptions were sent to [facility] in [place]. Return emergency department for any new or worsening symptoms such as severe pain, saddle paresthesias, limb weakness, numbness and tingling, or any other concerns. Please follow-up with your primary care provider in 1-2 weeks for further evaluation discussion of continued care Prescriptions: New prednisone 20 mg tablet 20 mg PO DAILY 5 Days Qty: 5 RF: 0 cyclobenzaprine 10 mg tablet 10 mg PO BEDTIME PRN (Reason: muscle spasm) Qty: 14 RF: 0 No Action cyclobenzaprine 10 mg tablet 10 mg PO BID Qty: 20 RF: 0 zogdvksqna-udhxpxmpebmcz-urko 50-325-40 mg capsule 1 cap PO Q6H MDD 5 cap PRN (Reason: headache) Qty: 30 RF: 3 naratriptan 2.5 mg tablet 2.5 mg PO .COMPLEX Qty: 9 RF: 3 dextroamphetamine-amphetamine [Adderall] 20 mg tablet 20 mg PO BID Qty: 180 RF: 0 baclofen 5 mg tablet 5 mg PO BEDTIME PRN (Reason: muscle spasms) Qty: 20 RF: 0 ketorolac 60 mg/2 mL Solution 30 mg IM Q6-8H PRN (Reason: headaches) RF: 0 metoclopramide HCl [Reglan] 10 mg tablet 10 mg PO Q6H PRN (Reason: nausea and vomiting) Qty: 10 RF: 0 ondansetron 4 mg tablet,disintegrating 4 mg PO Q8H PRN (Reason: nausea and vomiting) Qty: 10 RF: 0 Referrals: Tello Reyes DO [Primary Care Provider] - <Darius Carey DO - Last Filed: 02/12/20 19:18> [facility]ign [facility] Attestation: I was immediately available in the department for consultation. This documentation has been reviewed and I agree with assessment and plan. Supervised by Darius Carey DO
[2020-02-12] MEDS: KETOROLAC 60 MG/2 ML VIAL 30 MG IM (12:10)
== END 2020-02-12 14:10 | disposition home or self-care (01) ==
PROVIDERS: Emergency Provider Nurse Practitioner; PCP Family Medicine
DX: M54.5 Low back pain (principal)
CPT/HCPCS: 72220; 96372; 99282; 99283; J1885

== ENCOUNTER 2020-06-15 10:30 | Outpatient (RCR) | payer OTHER, MEDICAID, SELFPAY ==
--- NOTE | 2020-03-16 17:34 | PT.OIE ---
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) Hyperlipemia (Acute) Melanoma (Resolved 2012) Migraines (Chronic 1985) Shoulder pain (Resolved 1999) TIA (transient ischemic attack) (Suspected) Past Surgical History (Last Reviewed 02/12/20 @ 12:17 by ALINE Ybarra) H/O knee surgery (Resolved) H/O knee surgery (Resolved) History of appendectomy (Resolved) S/P laparoscopic supracervical hysterectomy (Resolved 10/24/18) Status post appendectomy (Resolved) Visit Care Team Role Provider Type Tello Reyes DO Attending Provider Physician Primary Care Provider Referring Provider Specialty: [facility] Practice Address: [address] [place] [address] Email: [email or web address] Initial Evaluation PT-OP-A Visit Information Start: 03/16/20 08:32 Freq: Status: Active Protocol: Document 03/16/20 08:34 AW (Rec: 03/16/20 08:45 AW [id number]) Out-Patient Physical Therapy Visit Information Visit Information Visit Type Initial Evaluation Visit Start Time 09:00 Visit Stop Time 09:45 Total Visit Minutes 45 Visit Number 1 Evaluation Information Evaluation Date 03/16/20 PT-OP-B Current Condition Start: 03/16/20 08:32 Freq: Status: Active Protocol: Document 03/16/20 08:34 AW (Rec: 03/16/20 08:45 AW [id number]) Current Condition History of Current Condition Onset Date February 2020 Current Complaints low back pain History of Current Condition 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 She did not work during the months of November and December due to COVID19 restrictions. She went back to work first week of January and was overwhelmed with demand. Within a few weeks, she began to notice low back pain (left worse than right) which became progressively worse. Since that time, she has not been able to work full days. She usually works at least 8-hour days. At this time, she can work a maximum of six hours due to increasing pain. She went to the ED on 02/12/20 after naproxen, topical CBD, and ice were ineffective at managing her pain. At that visit, she was prescribed steroids and muscle relaxer. Bed mobility, car transfers, sitting >20 minutes, and picking up her 2yo grandson have become very difficult and painful. She does find that walking 1 mile AM and one mile PM have helped to loosen me up and generally decrease her pain. Her pain is localized to left lumbosacral level. She does report occasional shooting pain originating at the same level and traveling down her posterolateral thigh. Of note, pt has a history of migraine headaches and likely TIA (3 years ago). Prior Treatments and Tests - ED visit 02/12/20 - treated with steroid and muscle relaxant - 02/12/20 sacrum coccyx x-ray: No fractures or dislocations . Mild to moderate degenerative disc disease at L4-L5. Moderate to severe facet of L4-L5 at L5-S1. No suspicious bony lesions. Moderate sacroiliac joint degeneration bilaterally.1. No acute osseous abnormalities. 2. Degenerative disc and facet disease in the lower lumbar spine. 3. Moderate facet joint degeneration bilaterally. - PT previously at this clinic for back pain 1 year ago Future Testing and Treatments Planned none identified Treatment Goals Patient/Caregiver Goals Get rid of pain and learn how to manage. To be able to work 8-hour day without pain. Increase flexibility. 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 Baseline Function- Recreation/Hobbies Enjoys spending time with her 2yo grandchild Current Functional Impairments (Reported) Functional Limitations- Mobility/Gait Pt walking slowly with decreased left stance time, short right step length. Pt ambulates with bilateral genu varum. Functional Limitations- Work/School Able to work maximum of 6 hours before needing to go home. Functional Limitations- Recreation/ Unable to lift her grandchild. Hobbies Personal Factors Other Personal Factors That May Effect + Positive experience with Therapy/Recovery prior PT + Low risk for catastrophizing pain + Enjoys activity and vigilant against immobility - Need to work long hours on her feet with arms elevated PT-OP-C Subjective Start: 03/16/20 08:32 Freq: Status: Active Protocol: Document 03/16/20 08:34 AW (Rec: 03/16/20 13:21 AW [id number]) Patient Questionnaires Oswestry Low Back Index Oswestry Score 46 Oswestry Impairment 40 to 59% Impaired (Score 40- 59) OP-PT Pain Assessment Pain Assessment Grid Paper Pain Assessment Grid Completed No Comments Pain Comments Left low back and right posterolateral thigh. Left- sided pain is described as grinding. Right leg pain is shooting. PT-OP-D Balance Start: 03/16/20 08:32 Freq: Status: Active Protocol: Document 03/16/20 08:34 AW (Rec: 03/16/20 17:22 AW [email or web address]) OP-PT Balance Assessment Sitting Balance Static Sitting Balance Ability Normal Dynamic Sitting Balance Ability Normal Standing Balance Static Standing Balance Ability Normal Dynamic Standing Balance Ability Good Storey Fall Scale Copyright Permission PT-OP-J Posture/Palpation/Skin Start: 03/16/20 08:32 Freq: Status: Active Protocol: Document 03/16/20 08:34 AW (Rec: 03/16/20 17:22 AW [email or web address]) Posture Evaluation Comments Posture Comments Increased lordosis in standing Palpation Assessment Location One Palpation Location Dense lumbar paraspinals, especially at lumbosacral junction to S2 Palpation Findings Soft Tissue Tightness,Spasm, Muscle Guarding,Tenderness Palpation Details Mild stiffness with lumbar PA' s but symptom improvement noted with PA at L5/S1 PT-OP-K Range of Motion Start: 03/16/20 08:32 Freq: Status: Active Protocol: Document 03/16/20 08:34 AW (Rec: 03/16/20 17:22 AW [email or web address]) Lumbar Spine Range of Motion Lumbar Spine Active Degrees Testing Position Standing Flexion 80 Extension 10 Comments R lateral flexion with fingertips to knee but painful . L lateral flexion 1 above knee but not painful. Hip Goniometric Range of Motion Hip Left Active Hip ROM WFL Yes Testing Position Supine PT-OP-L Special Tests Start: 03/16/20 08:32 Freq: Status: Active Protocol: Document 03/16/20 08:34 AW (Rec: 03/16/20 17:22 AW [email or web address]) Special Tests Hip Special Tests Scour Test Test Results negative bilaterally PT-OP-M Strength Start: 03/16/20 08:32 Freq: Status: Active Protocol: Document 03/16/20 08:34 AW (Rec: 03/16/20 17:22 AW [email or web address]) Hip Strength Hip Manual Muscle Testing Right Flexion (L2) 4+ Good+ Extension (S1) 4- Good- Abduction 4- Good- External Rotation 5 Normal Internal Rotation 5 Normal Left Flexion (L2) 4- Good- Extension (S1) 4- Good- Abduction 4- Good- External Rotation 5 Normal Internal Rotation 5 Normal PT-OP-Q Treatments Start: 03/16/20 08:32 Freq: Status: Active Protocol: Document 03/16/20 08:34 AW (Rec: 03/16/20 17:34 AW [email or web address]) Therapeutic Exercises Supine Exercises Tr Ab activation with bent-knee fall out Supine Exercise Name Tr Ab activation with bent- knee fall out Side bilateral Reps/Minutes 10 PT-OP-T Assessment and Plan Start: 03/16/20 08:32 Freq: Status: Active Protocol: Document 03/16/20 08:34 AW (Rec: 03/16/20 17:34 AW [email or web address]) Physical Therapy Assessment Rehab Potential Rehabilitation Potential Good Evaluation Complexity Number of Personal Factors/Comorbidities 1-2 Number of Body Systems Impaired 1-2 Clinical Presentation at Evaluation Stable Impairments Impairments Functional Activities, Functional Mobility,Gait,Pain, Posture,Soft Tissue Mobility, Strength Other Concerns Barriers to Rehabilitation Pt has demanding job as a l[employer] and must spend hours on her feet each day Goals Three Impairment Pt unable to lift her grandson Short Term Goal (STG) Pt will be able to lift 20 pounds and carry 20 feet with good body mechanics and without increase in pain. STG Duration 04/13/20 Half-Way Goal (LTG) Pt will be able to lift 30 pounds and carry 30 feet with good body mechanics and without increase in pain. 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 LTG Duration 05/11/20 Assessment Summary Assessment Kiarra presents to outpatient physical therapy with low back and SI pain bilaterally as well as occasional radicular pain on the right side. 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 She has pain with lumbar flexion and right sidebending, excessive lumbar lordosis, and positive active straight leg test indicating weakness of lower deep abdominal muscles. She will benefit from PT to reduce the irritability of her symptoms and improve her ability to return to work full-time and to engage with her grandson. Physical Therapy Plan Frequency and Duration Frequency of Treatment 2x/Week Duration of Treatment 8 Plan of Care Start Date 03/16/20 Plan of Care End Date 05/11/20 Therapeutic Interventions Therapeutic Interventions Balance Training,Gait Training ,Home Exercise Program,Joint Mobilizations,Manual Therapy, Neuromuscular Re-education, Self-Care/Home Management,Soft Tissue Mobilization, Therapeutic Activities, Therapeutic Exercises Modalities Cold Pack/Ice Massage,Hot Packs Next Visit Focus/Plan Next Note Type Treatment Note Next Visit Plan Progress tr ab activation in supine. Initiate hip strengthening.
--- NOTE | 2020-03-16 17:36 | PT.OPPOC ---
Physical, Occupational & Speech Therapy At [facility] Current Diagnoses Low back pain (03/16/20) Abnormal posture (03/16/20) Visit Care Team Role Provider Type Tello Reyes DO Attending Provider Physician Primary Care Provider Referring Provider Specialty: Family Practice Address: [address] [place] [address], [facility] Email: [email or web address] Plan Of Care PT-OP-T Assessment and Plan Start: 03/16/20 08:32 Freq: Status: Active Protocol: Document 03/16/20 08:34 AW (Rec: 03/16/20 17:34 AW [email or web address]) Physical Therapy Assessment Rehab Potential Rehabilitation Potential Good Evaluation Complexity Number of Personal Factors/Comorbidities 1-2 Number of Body Systems Impaired 1-2 Clinical Presentation at Evaluation Stable Impairments Impairments Functional Activities, Functional Mobility,Gait,Pain, Posture,Soft Tissue Mobility, Strength Other Concerns Barriers to Rehabilitation Pt has demanding job as a [employer] and must spend hours on her feet each day Goals Three Impairment Pt unable to lift her grandson Short Term Goal (STG) Pt will be able to lift 20 pounds and carry 20 feet with good body mechanics and without increase in pain. STG Duration 04/13/20 Care Home Goal (LTG) Pt will be able to lift 30 pounds and carry 30 feet with good body mechanics and without increase in pain. LTG Duration 05/11/20 Two Impairment Pt has no appropriate HEP Short Term Goal (STG) Pt will be independent with HEP for support of therapy services provided in clinic STG Duration 04/13/20 Scooper Goal (LTG) Pt will be independent with maintenance HEP LTG Duration 05/11/20 One Impairment Pt unable to work more than 5- 6 hours per day Care Home Goal (LTG) Pt will work three 8-hour days consecutively. LTG Duration 05/11/20 Assessment Summary Assessment Kiarra presents to outpatient physical therapy with low back and SI pain bilaterally as well as occasional radicular pain on the right side. 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 She has pain with lumbar flexion and right sidebending, excessive lumbar lordosis, and positive active straight leg test indicating weakness of lower deep abdominal muscles. She will benefit from PT to reduce the irritability of her symptoms and improve her ability to return to work full-time and to engage with her grandson. Physical Therapy Plan Frequency and Duration Frequency of Treatment 2x/Week Duration of Treatment 8 Plan of Care Start Date 03/16/20 Plan of Care End Date 05/11/20 Therapeutic Interventions Therapeutic Interventions Balance Training,Gait Training ,Home Exercise Program,Joint Mobilizations,Manual Therapy, Neuromuscular Re-education, Self-Care/Home Management,Soft Tissue Mobilization, Therapeutic Activities, Therapeutic Exercises Modalities Cold Pack/Ice Massage,Hot Packs Next Visit Focus/Plan Next Note Type Treatment Note Next Visit Plan Progress tr ab activation in supine. Initiate hip strengthening. Plan of Care Dates Plan of Care Start Date 03/16/20 Plan of Care End Date 05/11/20 Electronically Signed by: Lilliana Rey PT 03/16/20 2123 Please Sign and Return: I have reviewed this Plan of Care and certify that the skilled therapy services above are required to meet the patient?s needs. Physician Signature Date Printed Name and Credentials Clinical Instructor Signature Printed Name and Credentials
--- NOTE | 2020-03-18 08:58 | PT-OP ANOTE ---
Pt cancelled same day appt, reported active emesis due to migraines this am.
--- NOTE | 2020-03-21 09:49 | PT.OTN ---
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 She went back to work first week of January and was overwhelmed with demand. Within a few weeks, she began to notice low back pain (left worse than right) which became progressively worse. Since that time, she has not been able to work full days. She usually works at least 8-hour days. At this time, she can work a maximum of six hours due to increasing pain. She went to the ED on 02/12/20 after naproxen, topical CBD, and ice were ineffective at managing her pain. At that visit, she was prescribed steroids and muscle relaxer. Bed mobility, car transfers, sitting >20 minutes, and picking up her 2yo grandson have become very difficult and painful. She does find that walking 1 mile AM and one mile PM have helped to loosen me up and generally decrease her pain. Her pain is localized to left lumbosacral level. She does report occasional shooting pain originating at the same level and traveling down her posterolateral thigh. Of note, pt has a history of migraine headaches and likely TIA (3 years ago). Prior Treatments and Tests - ED visit 02/12/20 - treated with steroid and muscle relaxant - 02/12/20 sacrum coccyx x-ray: No fractures or dislocations . Mild to moderate degenerative disc disease at L4-L5. Moderate to severe facet of L4-L5 at L5-S1. No suspicious bony lesions. Moderate sacroiliac joint degeneration bilaterally.1. No acute osseous abnormalities. 2. Degenerative disc and facet disease in the lower lumbar spine. 3. Moderate facet joint degeneration bilaterally. - PT previously at this clinic for back pain 1 year ago Future Testing and Treatments Planned none identified Treatment Goals Patient/Caregiver Goals Get rid of pain and learn how to manage. To be able to work 8-hour day without pain. Increase flexibility. 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 Baseline Function- Recreation/Hobbies Enjoys spending time with her 2yo grandchild Current Functional Impairments (Reported) Functional Limitations- Mobility/Gait Pt walking slowly with decreased left stance time, short right step length. Pt ambulates with bilateral genu varum. Functional Limitations- Work/School Able to work maximum of 6 hours before needing to go home. Functional Limitations- Recreation/ Unable to lift her grandchild. Hobbies Personal Factors Other Personal Factors That May Effect + Positive experience with Therapy/Recovery prior PT + Low risk for catastrophizing pain + Enjoys activity and vigilant against immobility - Need to work long hours on her feet with arms elevated PT-OP-C Subjective Start: 03/16/20 08:32 Freq: Status: Active Protocol: Document 03/21/20 09:06 SP (Rec: 03/21/20 12:01 SP [id number]) OP-PT Subjective Patient Comments Patient Comments Pt reported compliant with belling tightening ex instructed last tx. 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 PT-OP-D Balance Start: 03/16/20 08:32 Freq: Status: Active Protocol: Document 03/16/20 08:34 AW (Rec: 03/16/20 17:22 AW [email or web address]) OP-PT Balance Assessment Sitting Balance Static Sitting Balance Ability Normal Dynamic Sitting Balance Ability Normal Standing Balance Static Standing Balance Ability Normal Dynamic Standing Balance Ability Good Storey Fall Scale Copyright Permission PT-OP-J Posture/Palpation/Skin Start: 03/16/20 08:32 Freq: Status: Active Protocol: Document 03/16/20 08:34 AW (Rec: 03/16/20 17:22 AW [email or web address]) Posture Evaluation Comments Posture Comments Increased lordosis in standing Palpation Assessment Location One Palpation Location Dense lumbar paraspinals, especially at lumbosacral junction to S2 Palpation Findings Soft Tissue Tightness,Spasm, Muscle Guarding,Tenderness Palpation Details Mild stiffness with lumbar PA' s but symptom improvement noted with PA at L5/S1 PT-OP-K Range of Motion Start: 03/16/20 08:32 Freq: Status: Active Protocol: Document 03/16/20 08:34 AW (Rec: 03/16/20 17:22 AW [email or web address]) Lumbar Spine Range of Motion Lumbar Spine Active Degrees Testing Position Standing Flexion 80 Extension 10 Comments R lateral flexion with fingertips to knee but painful . L lateral flexion 1 above knee but not painful. Hip Goniometric Range of Motion Hip Left Active Hip ROM WFL Yes Testing Position Supine PT-OP-L Special Tests Start: 03/16/20 08:32 Freq: Status: Active Protocol: Document 03/16/20 08:34 AW (Rec: 03/16/20 17:22 AW [email or web address]) Special Tests Hip Special Tests Scour Test Test Results negative bilaterally PT-OP-M Strength Start: 03/16/20 08:32 Freq: Status: Active Protocol: Document 03/16/20 08:34 AW (Rec: 03/16/20 17:22 AW [email or web address]) Hip Strength Hip Manual Muscle Testing Right Flexion (L2) 4+ Good+ Extension (S1) 4- Good- Abduction 4- Good- External Rotation 5 Normal Internal Rotation 5 Normal Left Flexion (L2) 4- Good- Extension (S1) 4- Good- Abduction 4- Good- External Rotation 5 Normal Internal Rotation 5 Normal PT-OP-Q Treatments Start: 03/16/20 08:32 Freq: Status: Active Protocol: Document 03/21/20 09:06 SP (Rec: 03/21/20 12:01 SP [id number]) Therapeutic Exercises Supine Exercises fig 4 glut/PF stretch Supine Exercise Name supine and sitting Side bilateral Reps/Minutes 30 sec x3 SKTC stretch Supine Exercise Name L>R tightness Side bilateral Reps/Minutes 30 x2 Tr Ab activation with bent-knee fall out Supine Exercise Name Tr Ab activation with bent- knee fall out Side bilateral Reps/Minutes 10 Sitting Exercises trunk flexion stretch Reps/Minutes 30 x2 seated SB pelvic clock Sitting Exercise Name 12, 6, 3, 9 Reps/Minutes 3 min Comments cued slow pacing QL stretch Side bilateral Reps/Minutes 30 sec x2 Standing Exercises Self ball roll ES, glut/ PF at wall Reps/Minutes 2 min each area Comments cued sustained tolerant pressure and roll if helpful PT-OP-T Assessment and Plan Start: 03/16/20 08:32 Freq: Status: Active Protocol: Document 03/21/20 09:06 SP (Rec: 03/21/20 12:01 SP [id number]) Physical Therapy Assessment Goals Three Impairment Pt unable to lift her grandson Short Term Goal (STG) Pt will be able to lift 20 pounds and carry 20 feet with good body mechanics and without increase in pain. STG Duration 04/13/20 Longterm Goal (LTG) Pt will be able to lift 30 pounds and carry 30 feet with good body mechanics and without increase in pain. LTG Duration 05/11/20 Two Impairment Pt has no appropriate HEP Short Term Goal (STG) Pt will be independent with HEP for support of therapy services provided in clinic STG Duration 04/13/20 Longterm Goal (LTG) Pt will be independent with maintenance HEP LTG Duration 05/11/20 One Impairment Pt unable to work more than 5- 6 hours per day Activity Director Goal (LTG) Pt will work three 8-hour days consecutively. LTG Duration 05/11/20 Assessment Summary Assessment Tx focused on LB and hip stretching intially to decreased tightness reported at work and when arrived then review trans ab trng/ PPT with added ex toward strengthening . Cued for set up and slow pacing muscle facilitation and movement concentric/ eccentric with challenge core facilitation but improvement with performance with slow pacing control. Pt stated felt better when leaving. Provided handouts for self set up and recall, copy in chart. Physical Therapy Plan Frequency and Duration Frequency of Treatment 2x/Week Duration of Treatment 8 Plan of Care Start Date 03/16/20 Plan of Care End Date 05/11/20 Therapeutic Interventions Therapeutic Interventions Balance Training,Gait Training ,Home Exercise Program,Joint Mobilizations,Manual Therapy, Neuromuscular Re-education, Self-Care/Home Management,Soft Tissue Mobilization, Therapeutic Activities, Therapeutic Exercises Modalities Cold Pack/Ice Massage,Hot Packs Next Visit Focus/Plan Next Note Type Treatment Note Next Visit Plan Assess response to last tx: initiated flexibility stretching LB, hip and added Trans ab and pelvic tilt trng, core strengthening. Continue per PT pOC: next tx Progress tr ab activation in supine. Initiate hip strengthening.
--- NOTE | 2020-03-23 12:11 | PT.OTN ---
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 She did not work during the months of November and December due to [employer] restrictions. She went back to work first week of January and was overwhelmed with demand. Within a few weeks, she began to notice low back pain (left worse than right) which became progressively worse. Since that time, she has not been able to work full days. She usually works at least 8-hour days. At this time, she can work a maximum of six hours due to increasing pain. She went to the ED on 02/12/20 after naproxen, topical CBD, and ice were ineffective at managing her pain. At that visit, she was prescribed steroids and muscle relaxer. Bed mobility, car transfers, sitting >20 minutes, and picking up her 2yo grandson have become very difficult and painful. She does find that walking 1 mile AM and one mile PM have helped to loosen me up and generally decrease her pain. Her pain is localized to left lumbosacral level. She does report occasional shooting pain originating at the same level and traveling down her posterolateral thigh. Of note, pt has a history of migraine headaches and likely TIA (3 years ago). Prior Treatments and Tests - ED visit 02/12/20 - treated with steroid and muscle relaxant - 02/12/20 sacrum coccyx x-ray: No fractures or dislocations . Mild to moderate degenerative disc disease at L4-L5. Moderate to severe facet of L4-L5 at L5-S1. No suspicious bony lesions. Moderate sacroiliac joint degeneration bilaterally.1. No acute osseous abnormalities. 2. Degenerative disc and facet disease in the lower lumbar spine. 3. Moderate facet joint degeneration bilaterally. - PT previously at this clinic for back pain 1 year ago Future Testing and Treatments Planned none identified Treatment Goals Patient/Caregiver Goals Get rid of pain and learn how to manage. To be able to work 8-hour day without pain. Increase flexibility. 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 Baseline Function- Recreation/Hobbies Enjoys spending time with her 2yo grandchild Current Functional Impairments (Reported) Functional Limitations- Mobility/Gait Pt walking slowly with decreased left stance time, short right step length. Pt ambulates with bilateral genu varum. Functional Limitations- Work/School Able to work maximum of 6 hours before needing to go home. Functional Limitations- Recreation/ Unable to lift her grandchild. 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 PT-OP-D Balance Start: 03/16/20 08:32 Freq: Status: Active Protocol: Document 03/16/20 08:34 AW (Rec: 03/16/20 17:22 AW [email or web address]) OP-PT Balance Assessment Sitting Balance Static Sitting Balance Ability Normal Dynamic Sitting Balance Ability Normal Standing Balance Static Standing Balance Ability Normal Dynamic Standing Balance Ability Good Storey Fall Scale Copyright Permission PT-OP-J Posture/Palpation/Skin Start: 03/16/20 08:32 Freq: Status: Active Protocol: Document 03/16/20 08:34 AW (Rec: 03/16/20 17:22 AW [email or web address]) Posture Evaluation Comments Posture Comments Increased lordosis in standing Palpation Assessment Location One Palpation Location Dense lumbar paraspinals, especially at lumbosacral junction to S2 Palpation Findings Soft Tissue Tightness,Spasm, Muscle Guarding,Tenderness Palpation Details Mild stiffness with lumbar PA' s but symptom improvement noted with PA at L5/S1 PT-OP-K Range of Motion Start: 03/16/20 08:32 Freq: Status: Active Protocol: Document 03/16/20 08:34 AW (Rec: 03/16/20 17:22 AW [email or web address]) Lumbar Spine Range of Motion Lumbar Spine Active Degrees Testing Position Standing Flexion 80 Extension 10 Comments R lateral flexion with fingertips to knee but painful . L lateral flexion 1 above knee but not painful. Hip Goniometric Range of Motion Hip Left Active Hip ROM WFL Yes Testing Position Supine PT-OP-L Special Tests Start: 03/16/20 08:32 Freq: Status: Active Protocol: Document 03/16/20 08:34 AW (Rec: 03/16/20 17:22 AW [email or web address]) Special Tests Hip Special Tests Scour Test Test Results negative bilaterally PT-OP-M Strength Start: 03/16/20 08:32 Freq: Status: Active Protocol: Document 03/16/20 08:34 AW (Rec: 03/16/20 17:22 AW [email or web address]) Hip Strength Hip Manual Muscle Testing Right Flexion (L2) 4+ Good+ Extension (S1) 4- Good- Abduction 4- Good- External Rotation 5 Normal Internal Rotation 5 Normal Left Flexion (L2) 4- Good- Extension (S1) 4- Good- Abduction 4- Good- External Rotation 5 Normal Internal Rotation 5 Normal PT-OP-Q Treatments Start: 03/16/20 08:32 Freq: Status: Active Protocol: Document 03/23/20 08:44 AW (Rec: 03/23/20 12:10 AW [id number]) Therapeutic Exercises Supine Exercises fig 4 glut/PF stretch Supine Exercise Name supine and sitting Side bilateral Reps/Minutes 30 sec x4 SKTC stretch Supine Exercise Name L>R tightness Side bilateral Reps/Minutes 30 x2 Tr Ab activation with bent-knee fall out Supine Exercise Name Tr Ab activation w/ marching and heel slides Side bilateral Equipment Used gait belt under L/S for tactile feedback Reps/Minutes 5 minutes Comments pt improving with ppt and Tr Ab activation Sidelying Exercises windshield wiper Sidelying Exercise Name windshield wiper Side bilateral Reps/Minutes 3 reps each side Comments top leg forward for inreased stretch Sitting Exercises sit to stand/tap squat Sitting Exercise Name sit to stand/tap squat Equipment Used meter stick Reps/Minutes 10 reps x 2 Comments meter stick at spine for tactile feedback of hip hinge trunk flexion stretch Reps/Minutes 30 x2 seated SB pelvic clock Sitting Exercise Name 12, 6, 3, 9 Reps/Minutes 3 min Comments cued slow pacing QL stretch Side bilateral Equipment Used on 65 cm ball Reps/Minutes 30 sec x2 Standing Exercises segmental forward flexion Reps/Minutes x 4 Comments cues for segmental awareness isometric glut med - wall ball Standing Exercise Name isometric glut med - wall ball Side bilateral Equipment Used small ball Comments cues for neutral pelvis Manual Therapy Treatment Joint Mobilizations 1 Joint L4-5 Direction PA Grade II Body Position Prone Comments positive pt feedback PT-OP-T Assessment and Plan Start: 03/16/20 08:32 Freq: Status: Active Protocol: Document 03/23/20 08:44 AW (Rec: 03/23/20 12:10 AW [id number]) Physical Therapy Assessment Goals Three Impairment Pt unable to lift her grandson Short Term Goal (STG) Pt will be able to lift 20 pounds and carry 20 feet with good body mechanics and without increase in pain. STG Duration 04/13/20 Psychiatry Resident Goal (LTG) Pt will be able to lift 30 pounds and carry 30 feet with good body mechanics and without increase in pain. LTG Duration 05/11/20 Two Impairment Pt has no appropriate HEP Short Term Goal (STG) Pt will be independent with HEP for support of therapy services provided in clinic STG Duration 04/13/20 Residential Goal (LTG) Pt will be independent with maintenance HEP LTG Duration 05/11/20 One Impairment Pt unable to work more than 5- 6 hours per day Residential Goal (LTG) Pt will work three 8-hour days consecutively. LTG Duration 05/11/20 Assessment Summary Assessment Continued to focus treatment on lumbar and hip stretching, lumbar mobility. Initiated hip strengthening today with pt tolerating well. Physical Therapy Plan Frequency and Duration Frequency of Treatment 2x/Week Duration of Treatment 8 Plan of Care Start Date 03/16/20 Plan of Care End Date 05/11/20 Therapeutic Interventions Therapeutic Interventions Balance Training,Gait Training ,Home Exercise Program,Joint Mobilizations,Manual Therapy, Neuromuscular Re-education, Self-Care/Home Management,Soft Tissue Mobilization, Therapeutic Activities, Therapeutic Exercises Modalities Cold Pack/Ice Massage,Hot Packs Next Visit Focus/Plan Next Note Type Treatment Note Next Visit Plan Assess response to last tx: initiated flexibility stretching LB, hip and added Trans ab and pelvic tilt trng, core strengthening. Progress hip strengthening Continue per PT pOC: next tx Progress tr ab activation in supine. Initiate hip strengthening.
--- NOTE | 2020-03-28 14:30 | PT.OTN ---
Current Diagnoses Low back pain (03/28/20) Abnormal posture (03/28/20) Physical Therapy Treatment Note PT-OP-A Visit Information Start: 03/16/20 08:32 Freq: Status: Active Protocol: Document 03/28/20 13:48 SP (Rec: 03/28/20 14:31 SP [id number]) Out-Patient Physical Therapy Visit Information Visit Information Visit Type Treatment Note Visit Start Time 13:48 Visit Stop Time 14:30 Total Visit Minutes 42 Visit Number 4 Number of TRANSITIONAL NURSE Visits 1 PT-OP-B Current Condition Start: 03/16/20 08:32 Freq: Status: Active Protocol: Document 03/16/20 08:34 AW (Rec: 03/16/20 08:45 AW [id number]) Current Condition History of Current Condition Onset Date February 2020 Current Complaints low back pain History of Current Condition 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 She went back to work first week of January and was overwhelmed with demand. Within a few weeks, she began to notice low back pain (left worse than right) which became progressively worse. Since that time, she has not been able to work full days. She usually works at least 8-hour days. At this time, she can work a maximum of six hours due to increasing pain. She went to the ED on 02/12/20 after naproxen, topical CBD, and ice were ineffective at managing her pain. At that visit, she was prescribed steroids and muscle relaxer. Bed mobility, car transfers, sitting >20 minutes, and picking up her 2yo grandson have become very difficult and painful. She does find that walking 1 mile AM and one mile PM have helped to loosen me up and generally decrease her pain. Her pain is localized to left lumbosacral level. She does report occasional shooting pain originating at the same level and traveling down her posterolateral thigh. Of note, pt has a history of migraine headaches and likely TIA (3 years ago). Prior Treatments and Tests - ED visit 02/12/20 - treated with steroid and muscle relaxant - 02/12/20 sacrum coccyx x-ray: No fractures or dislocations . Mild to moderate degenerative disc disease at L4-L5. Moderate to severe facet of L4-L5 at L5-S1. No suspicious bony lesions. Moderate sacroiliac joint degeneration bilaterally.1. No acute osseous abnormalities. 2. Degenerative disc and facet disease in the lower lumbar spine. 3. Moderate facet joint degeneration bilaterally. - PT previously at this clinic for back pain 1 year ago Future Testing and Treatments Planned none identified Treatment Goals Patient/Caregiver Goals Get rid of pain and learn how to manage. To be able to work 8-hour day without pain. Increase flexibility. 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 Baseline Function- Recreation/Hobbies Enjoys spending time with her 2yo grandchild Current Functional Impairments (Reported) Functional Limitations- Mobility/Gait Pt walking slowly with decreased left stance time, short right step length. Pt ambulates with bilateral genu varum. Functional Limitations- Work/School Able to work maximum of 6 hours before needing to go home. Functional Limitations- Recreation/ Unable to lift her grandchild. Hobbies Personal Factors Other Personal Factors That May Effect + Positive experience with Therapy/Recovery prior PT + Low risk for catastrophizing pain + Enjoys activity and vigilant against immobility - Need to work long hours on her feet with arms elevated PT-OP-C Subjective Start: 03/16/20 08:32 Freq: Status: Active Protocol: Document 03/28/20 13:48 SP (Rec: 03/28/20 14:34 SP [id number]) OP-PT Subjective Patient Comments Patient Comments Pt stated LB and hip tightness still. Can we review HEP, unsure doing correctly. PT-OP-D Balance Start: 03/16/20 08:32 Freq: Status: Active Protocol: Document 03/16/20 08:34 AW (Rec: 03/16/20 17:22 AW [email or web address]) OP-PT Balance Assessment Sitting Balance Static Sitting Balance Ability Normal Dynamic Sitting Balance Ability Normal Standing Balance Static Standing Balance Ability Normal Dynamic Standing Balance Ability Good Storey Fall Scale Copyright Permission PT-OP-J Posture/Palpation/Skin Start: 03/16/20 08:32 Freq: Status: Active Protocol: Document 03/16/20 08:34 AW (Rec: 03/16/20 17:22 AW [email or web address]) Posture Evaluation Comments Posture Comments Increased lordosis in standing Palpation Assessment Location One Palpation Location Dense lumbar paraspinals, especially at lumbosacral junction to S2 Palpation Findings Soft Tissue Tightness,Spasm, Muscle Guarding,Tenderness Palpation Details Mild stiffness with lumbar PA' s but symptom improvement noted with PA at L5/S1 PT-OP-K Range of Motion Start: 03/16/20 08:32 Freq: Status: Active Protocol: Document 03/16/20 08:34 AW (Rec: 03/16/20 17:22 AW [email or web address]) Lumbar Spine Range of Motion Lumbar Spine Active Degrees Testing Position Standing Flexion 80 Extension 10 Comments R lateral flexion with fingertips to knee but painful . L lateral flexion 1 above knee but not painful. Hip Goniometric Range of Motion Hip Left Active Hip ROM WFL Yes Testing Position Supine PT-OP-L Special Tests Start: 03/16/20 08:32 Freq: Status: Active Protocol: Document 03/16/20 08:34 AW (Rec: 03/16/20 17:22 AW [email or web address]) Special Tests Hip Special Tests Scour Test Test Results negative bilaterally PT-OP-M Strength Start: 03/16/20 08:32 Freq: Status: Active Protocol: Document 03/16/20 08:34 AW (Rec: 03/16/20 17:22 AW [email or web address]) Hip Strength Hip Manual Muscle Testing Right Flexion (L2) 4+ Good+ Extension (S1) 4- Good- Abduction 4- Good- External Rotation 5 Normal Internal Rotation 5 Normal Left Flexion (L2) 4- Good- Extension (S1) 4- Good- Abduction 4- Good- External Rotation 5 Normal Internal Rotation 5 Normal PT-OP-Q Treatments Start: 03/16/20 08:32 Freq: Status: Active Protocol: Document 03/28/20 13:48 SP (Rec: 03/28/20 14:31 SP [id number]) Therapeutic Exercises Supine Exercises foam roll Supine Exercise Name TS ext & roll, roll/rock HS/ glut/ITB, quad Reps/Minutes 10 min LTR w/ SB Reps/Minutes 3 sec hold x10 Comments cued PPT awareness core bridge Reps/Minutes 8 sec hold x10 Comments cued PPT awareness Sitting Exercises sit to stand/tap squat Sitting Exercise Name sit to stand/tap squat Equipment Used arms across chest to 18chair Reps/Minutes 10 reps x 2 Comments meter stick at spine for tactile feedback of hip hinge QL stretch Sitting Exercise Name on floor feet together, side bend Side bilateral Equipment Used floor, SB Reps/Minutes 30 sec x2 PT-OP-T Assessment and Plan Start: 03/16/20 08:32 Freq: Status: Active Protocol: Document 03/28/20 13:48 SP (Rec: 03/28/20 14:31 SP [id number]) Physical Therapy Assessment Goals Three Impairment Pt unable to lift her grandson Short Term Goal (STG) Pt will be able to lift 20 pounds and carry 20 feet with good body mechanics and without increase in pain. STG Duration 04/13/20 Partner Cco Goal (LTG) Pt will be able to lift 30 pounds and carry 30 feet with good body mechanics and without increase in pain. LTG Duration 05/11/20 Two Impairment Pt has no appropriate HEP Short Term Goal (STG) Pt will be independent with HEP for support of therapy services provided in clinic STG Duration 04/13/20 Partner Cco Goal (LTG) Pt will be independent with maintenance HEP LTG Duration 05/11/20 One Impairment Pt unable to work more than 5- 6 hours per day Partner Cco Goal (LTG) Pt will work three 8-hour days consecutively. LTG Duration 05/11/20 Assessment Summary Assessment Tx focused on core facilitation review HEP core heel slide, added bridge isometric hold for glut strengthening and PPT awareness, carried over to squat tap then initiated foam rolling LE and TS ext/roll to allow flexibility with good response feedback. I feel alot better, very helpful. Physical Therapy Plan Frequency and Duration Frequency of Treatment 2x/Week Duration of Treatment 8 Plan of Care Start Date 03/16/20 Plan of Care End Date 05/11/20 Therapeutic Interventions Therapeutic Interventions Balance Training,Gait Training ,Home Exercise Program,Joint Mobilizations,Manual Therapy, Neuromuscular Re-education, Self-Care/Home Management,Soft Tissue Mobilization, Therapeutic Activities, Therapeutic Exercises Modalities Cold Pack/Ice Massage,Hot Packs Discharge Physical Therapy Discharge Reasons No Longer Attending PT Next Visit Focus/Plan Next Note Type Treatment Note Next Visit Plan Assess response to last tx: initiated flexibility foam rolling, hip and added Trans ab and pelvic tilt trng, core strengthening. Progress hip strengthening
--- NOTE | 2020-03-30 09:25 | PT-OP ANOTE ---
Pt called to cancel same day appointment due to car trouble. Next scheduled is 04/04.
--- NOTE | 2020-04-04 13:45 | PT.OTN ---
Current Diagnoses Low back pain (04/04/20) Abnormal posture (04/04/20) Physical Therapy Treatment Note PT-OP-A Visit Information Start: 03/16/20 08:32 Freq: Status: Active Protocol: Document 04/04/20 13:05 SP (Rec: 04/04/20 15:47 SP [id number]) Out-Patient Physical Therapy Visit Information Visit Information Visit Type Treatment Note Visit Start Time 13:05 Visit Stop Time 13:45 Total Visit Minutes 40 Visit Number 5 Number of SHREDDER TENDER PEAT Visits 2 PT-OP-B Current Condition Start: 03/16/20 08:32 Freq: Status: Active Protocol: Document 03/16/20 08:34 AW (Rec: 03/16/20 08:45 AW [id number]) Current Condition History of Current Condition Onset Date February 2020 Current Complaints low back pain History of Current Condition 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 She did not work during the months of November and December due to [employer] restrictions. She went back to work first week of January and was overwhelmed with demand. Within a few weeks, she began to notice low back pain (left worse than right) which became progressively worse. Since that time, she has not been able to work full days. She usually works at least 8-hour days. At this time, she can work a maximum of six hours due to increasing pain. She went to the ED on 02/12/20 after naproxen, topical CBD, and ice were ineffective at managing her pain. At that visit, she was prescribed steroids and muscle relaxer. Bed mobility, car transfers, sitting >20 minutes, and picking up her 2yo grandson have become very difficult and painful. She does find that walking 1 mile AM and one mile PM have helped to loosen me up and generally decrease her pain. Her pain is localized to left lumbosacral level. She does report occasional shooting pain originating at the same level and traveling down her posterolateral thigh. Of note, pt has a history of migraine headaches and likely TIA (3 years ago). Prior Treatments and Tests - ED visit 02/12/20 - treated with steroid and muscle relaxant - 02/12/20 sacrum coccyx x-ray: No fractures or dislocations . Mild to moderate degenerative disc disease at L4-L5. Moderate to severe facet of L4-L5 at L5-S1. No suspicious bony lesions. Moderate sacroiliac joint degeneration bilaterally.1. No acute osseous abnormalities. 2. Degenerative disc and facet disease in the lower lumbar spine. 3. Moderate facet joint degeneration bilaterally. - PT previously at this clinic for back pain 1 year ago Future Testing and Treatments Planned none identified Treatment Goals Patient/Caregiver Goals Get rid of pain and learn how to manage. To be able to work 8-hour day without pain. Increase flexibility. 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 Baseline Function- Recreation/Hobbies Enjoys spending time with her 2yo grandchild Current Functional Impairments (Reported) Functional Limitations- Mobility/Gait Pt walking slowly with decreased left stance time, short right step length. Pt ambulates with bilateral genu varum. Functional Limitations- Work/School Able to work maximum of 6 hours before needing to go home. Functional Limitations- Recreation/ Unable to lift her grandchild. Hobbies Personal Factors Other Personal Factors That May Effect + Positive experience with Therapy/Recovery prior PT + Low risk for catastrophizing pain + Enjoys activity and vigilant against immobility - Need to work long hours on her feet with arms elevated PT-OP-C Subjective Start: 03/16/20 08:32 Freq: Status: Active Protocol: Document 04/04/20 13:05 SP (Rec: 04/04/20 15:47 SP [id number]) OP-PT Subjective Patient Comments Patient Comments Pt stated LBP and hip tightness upon arrival, I think I over did it and had a hard time getting out of bed. PT-OP-D Balance Start: 03/16/20 08:32 Freq: Status: Active Protocol: Document 03/16/20 08:34 AW (Rec: 03/16/20 17:22 AW [email or web address]) OP-PT Balance Assessment Sitting Balance Static Sitting Balance Ability Normal Dynamic Sitting Balance Ability Normal Standing Balance Static Standing Balance Ability Normal Dynamic Standing Balance Ability Good Storey Fall Scale Copyright Permission PT-OP-J Posture/Palpation/Skin Start: 03/16/20 08:32 Freq: Status: Active Protocol: Document 03/16/20 08:34 AW (Rec: 03/16/20 17:22 AW [email or web address]) Posture Evaluation Comments Posture Comments Increased lordosis in standing Palpation Assessment Location One Palpation Location Dense lumbar paraspinals, especially at lumbosacral junction to S2 Palpation Findings Soft Tissue Tightness,Spasm, Muscle Guarding,Tenderness Palpation Details Mild stiffness with lumbar PA' s but symptom improvement noted with PA at L5/S1 PT-OP-K Range of Motion Start: 03/16/20 08:32 Freq: Status: Active Protocol: Document 03/16/20 08:34 AW (Rec: 03/16/20 17:22 AW [email or web address]) Lumbar Spine Range of Motion Lumbar Spine Active Degrees Testing Position Standing Flexion 80 Extension 10 Comments R lateral flexion with fingertips to knee but painful . L lateral flexion 1 above knee but not painful. Hip Goniometric Range of Motion Hip Left Active Hip ROM WFL Yes Testing Position Supine PT-OP-L Special Tests Start: 03/16/20 08:32 Freq: Status: Active Protocol: Document 03/16/20 08:34 AW (Rec: 03/16/20 17:22 AW [email or web address]) Special Tests Hip Special Tests Scour Test Test Results negative bilaterally PT-OP-M Strength Start: 03/16/20 08:32 Freq: Status: Active Protocol: Document 03/16/20 08:34 AW (Rec: 03/16/20 17:22 AW [email or web address]) Hip Strength Hip Manual Muscle Testing Right Flexion (L2) 4+ Good+ Extension (S1) 4- Good- Abduction 4- Good- External Rotation 5 Normal Internal Rotation 5 Normal Left Flexion (L2) 4- Good- Extension (S1) 4- Good- Abduction 4- Good- External Rotation 5 Normal Internal Rotation 5 Normal PT-OP-Q Treatments Start: 03/16/20 08:32 Freq: Status: Active Protocol: Document 04/04/20 13:05 SP (Rec: 04/04/20 15:47 SP [id number]) Therapeutic Exercises Supine Exercises pelvic realignment ex Supine Exercise Name L hip flexion, adduction isometic Reps/Minutes 5 x5 each Comments added Tr Ab activation with bent-knee fall out Supine Exercise Name Tr Ab activation w/ fallout, marching and DLheel slides Side bilateral Equipment Used gait belt under L/S for tactile feedback Reps/Minutes 5 minutes Comments pt improving with ppt tailbone lift and Tr Ab activation Manual Therapy Treatment Soft Tissue Mobilization 1 Body Location L paraspinals, pirformis Mobilization Type Cross-Friction,Myofascial Release Body Position Prone Taping 1 Body Location low back X SI Treatment Focus stabilization SI Type of Tape Kinesio Tape Skin Inspection small circles of pink over PSIS B but stated from CBD oil , it's ok, normal Manual Techniques muscle energy L hip Type isometric hip adduction, flexion Body Location L hip Body Position Hooklying Comments recorrect L pelvic posteriorly rotated PT-OP-T Assessment and Plan Start: 03/16/20 08:32 Freq: Status: Active Protocol: Document 04/04/20 13:05 SP (Rec: 04/04/20 15:47 SP [id number]) Physical Therapy Assessment Goals Three Impairment Pt unable to lift her grandson Short Term Goal (STG) Pt will be able to lift 20 pounds and carry 20 feet with good body mechanics and without increase in pain. STG Duration 04/13/20 Florist Goal (LTG) Pt will be able to lift 30 pounds and carry 30 feet with good body mechanics and without increase in pain. LTG Duration 05/11/20 Two Impairment Pt has no appropriate HEP Short Term Goal (STG) Pt will be independent with HEP for support of therapy services provided in clinic STG Duration 04/13/20 Florist Goal (LTG) Pt will be independent with maintenance HEP LTG Duration 05/11/20 One Impairment Pt unable to work more than 5- 6 hours per day Usp Goal (LTG) Pt will work three 8-hour days consecutively. LTG Duration 05/11/20 Assessment Summary Assessment Pt having alot of pain in L SI with clicking and reported hard time getting out of bed. Instructed pelvic alignment isometric exercises on L after muscle energy techniques adduction and flexion with report of that feels better response. Reviewed core HEP and K taped SI with good response I don't feel the clicking now. Reviewed awareness of adverse affects to taping and removal if experience up to 3 days if tolerant and helpful with verbal confirmation. Physical Therapy Plan Frequency and Duration Frequency of Treatment 2x/Week Duration of Treatment 8 Plan of Care Start Date 03/16/20 Plan of Care End Date 05/11/20 Therapeutic Interventions Therapeutic Interventions Balance Training,Gait Training ,Home Exercise Program,Joint Mobilizations,Manual Therapy, Neuromuscular Re-education, Self-Care/Home Management,Soft Tissue Mobilization, Therapeutic Activities, Therapeutic Exercises Modalities Cold Pack/Ice Massage,Hot Packs Next Visit Focus/Plan Next Note Type Treatment Note Next Visit Plan Assess response to last tx: initiated pelvic realignment exercises, manual muscle energy, reivewed core HEP, check tolerance K taping X SI Continue pelvic tilt trng, core strengthening. Progress hip strengthening
--- NOTE | 2020-04-18 09:50 | PT.OTN ---
Current Diagnoses Low back pain (04/18/20) Abnormal posture (04/18/20) Physical Therapy Treatment Note PT-OP-A Visit Information Start: 03/16/20 08:32 Freq: Status: Active Protocol: Document 04/18/20 09:15 SP (Rec: 04/18/20 09:52 SP [id number]) Out-Patient Physical Therapy Visit Information Visit Information Visit Type Treatment Note Visit Note PT late taking pt back Visit Start Time 09:15 Visit Stop Time 09:50 Total Visit Minutes 35 Visit Number 6 Number of INTERNAL GRINDER Visits 3 PT-OP-B Current Condition Start: 03/16/20 08:32 Freq: Status: Active Protocol: Document 03/16/20 08:34 AW (Rec: 03/16/20 08:45 AW [id number]) Current Condition History of Current Condition Onset Date February 2020 Current Complaints low back pain History of Current Condition 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 She went back to work first week of January and was overwhelmed with demand. Within a few weeks, she began to notice low back pain (left worse than right) which became progressively worse. Since that time, she has not been able to work full days. She usually works at least 8-hour days. At this time, she can work a maximum of six hours due to increasing pain. She went to the ED on 02/12/20 after naproxen, topical CBD, and ice were ineffective at managing her pain. At that visit, she was prescribed steroids and muscle relaxer. Bed mobility, car transfers, sitting >20 minutes, and picking up her 2yo grandson have become very difficult and painful. She does find that walking 1 mile AM and one mile PM have helped to loosen me up and generally decrease her pain. Her pain is localized to left lumbosacral level. She does report occasional shooting pain originating at the same level and traveling down her posterolateral thigh. Of note, pt has a history of migraine headaches and likely TIA (3 years ago). Prior Treatments and Tests - ED visit 02/12/20 - treated with steroid and muscle relaxant - 02/12/20 sacrum coccyx x-ray: No fractures or dislocations . Mild to moderate degenerative disc disease at L4-L5. Moderate to severe facet of L4-L5 at L5-S1. No suspicious bony lesions. Moderate sacroiliac joint degeneration bilaterally.1. No acute osseous abnormalities. 2. Degenerative disc and facet disease in the lower lumbar spine. 3. Moderate facet joint degeneration bilaterally. - PT previously at this clinic for back pain 1 year ago Future Testing and Treatments Planned none identified Treatment Goals Patient/Caregiver Goals Get rid of pain and learn how to manage. To be able to work 8-hour day without pain. Increase flexibility. 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 Baseline Function- Recreation/Hobbies Enjoys spending time with her 2yo grandchild Current Functional Impairments (Reported) Functional Limitations- Mobility/Gait Pt walking slowly with decreased left stance time, short right step length. Pt ambulates with bilateral genu varum. Functional Limitations- Work/School Able to work maximum of 6 hours before needing to go home. Functional Limitations- Recreation/ Unable to lift her grandchild. Hobbies Personal Factors Other Personal Factors That May Effect + Positive experience with Therapy/Recovery prior PT + Low risk for catastrophizing pain + Enjoys activity and vigilant against immobility - Need to work long hours on her feet with arms elevated PT-OP-C Subjective Start: 03/16/20 08:32 Freq: Status: Active Protocol: Document 04/18/20 09:15 SP (Rec: 04/18/20 09:52 SP [id number]) OP-PT Subjective Patient Comments Patient Comments Pt reported in increased L LBP today and getting shoccking pain, taping helped alot and requested reapplication. Compliant with HEP incorporated standing core march like supine. PT-OP-D Balance Start: 03/16/20 08:32 Freq: Status: Active Protocol: Document 03/16/20 08:34 AW (Rec: 03/16/20 17:22 AW [email or web address]) OP-PT Balance Assessment Sitting Balance Static Sitting Balance Ability Normal Dynamic Sitting Balance Ability Normal Standing Balance Static Standing Balance Ability Normal Dynamic Standing Balance Ability Good Storey Fall Scale Copyright Permission PT-OP-J Posture/Palpation/Skin Start: 03/16/20 08:32 Freq: Status: Active Protocol: Document 03/16/20 08:34 AW (Rec: 03/16/20 17:22 AW [email or web address]) Posture Evaluation Comments Posture Comments Increased lordosis in standing Palpation Assessment Location One Palpation Location Dense lumbar paraspinals, especially at lumbosacral junction to S2 Palpation Findings Soft Tissue Tightness,Spasm, Muscle Guarding,Tenderness Palpation Details Mild stiffness with lumbar PA' s but symptom improvement noted with PA at L5/S1 PT-OP-K Range of Motion Start: 03/16/20 08:32 Freq: Status: Active Protocol: Document 03/16/20 08:34 AW (Rec: 03/16/20 17:22 AW [email or web address]) Lumbar Spine Range of Motion Lumbar Spine Active Degrees Testing Position Standing Flexion 80 Extension 10 Comments R lateral flexion with fingertips to knee but painful . L lateral flexion 1 above knee but not painful. Hip Goniometric Range of Motion Hip Left Active Hip ROM WFL Yes Testing Position Supine PT-OP-L Special Tests Start: 03/16/20 08:32 Freq: Status: Active Protocol: Document 03/16/20 08:34 AW (Rec: 03/16/20 17:22 AW [email or web address]) Special Tests Hip Special Tests Scour Test Test Results negative bilaterally PT-OP-M Strength Start: 03/16/20 08:32 Freq: Status: Active Protocol: Document 03/16/20 08:34 AW (Rec: 03/16/20 17:22 AW [email or web address]) Hip Strength Hip Manual Muscle Testing Right Flexion (L2) 4+ Good+ Extension (S1) 4- Good- Abduction 4- Good- External Rotation 5 Normal Internal Rotation 5 Normal Left Flexion (L2) 4- Good- Extension (S1) 4- Good- Abduction 4- Good- External Rotation 5 Normal Internal Rotation 5 Normal PT-OP-Q Treatments Start: 03/16/20 08:32 Freq: Status: Active Protocol: Document 04/18/20 09:15 SP (Rec: 04/18/20 09:52 SP [id number]) Therapeutic Exercises Supine Exercises core bridge Reps/Minutes 8 sec hold x10 Comments cued PPT awareness Tr Ab activation with bent-knee fall out Supine Exercise Name Tr Ab activation w/ fallout, marching and DLheel slides Side bilateral Equipment Used gait belt under L/S for tactile feedback Reps/Minutes 5 minutes Comments pt improving with ppt tailbone lift and Tr Ab activation Sitting Exercises PF/glut stretch Sitting Exercise Name fig 4 Side left Reps/Minutes 30 QL stretch Sitting Exercise Name on floor feet together, side bend Side bilateral Equipment Used floor, SB Reps/Minutes 30 sec x2 Manual Therapy Treatment Soft Tissue Mobilization 1 Body Location L paraspinals, pirformis, glut med, TFL Mobilization Type Cross-Friction,Myofascial Release Intensity/Depth Moderate Body Position Sidelying Taping 1 Body Location low back X SI Treatment Focus stabilization SI Type of Tape Kinesio Tape Skin Inspection small circles of pink over PSIS B but stated from CBD oil , it's ok, normal PT-OP-T Assessment and Plan Start: 03/16/20 08:32 Freq: Status: Active Protocol: Document 04/18/20 09:15 SP (Rec: 04/18/20 09:52 SP [id number]) Physical Therapy Assessment Goals Three Impairment Pt unable to lift her grandson Short Term Goal (STG) Pt will be able to lift 20 pounds and carry 20 feet with good body mechanics and without increase in pain. STG Duration 04/13/20 Longterm Goal (LTG) Pt will be able to lift 30 pounds and carry 30 feet with good body mechanics and without increase in pain. LTG Duration 05/11/20 Two Impairment Pt has no appropriate HEP Short Term Goal (STG) Pt will be independent with HEP for support of therapy services provided in clinic STG Duration 04/13/20 Mail Sorter Goal (LTG) Pt will be independent with maintenance HEP LTG Duration 05/11/20 One Impairment Pt unable to work more than 5- 6 hours per day Mail Sorter Goal (LTG) Pt will work three 8-hour days consecutively. LTG Duration 05/11/20 Assessment Summary Assessment Pt responded well to manual and taping, suggested self STMs and importance of HEP pelvis alignment for self pain control and stabilization. Pt -02/11 pre tx, 11/12 end of tx . Physical Therapy Plan Frequency and Duration Frequency of Treatment 2x/Week Duration of Treatment 8 Plan of Care Start Date 03/16/20 Plan of Care End Date 05/11/20 Therapeutic Interventions Therapeutic Interventions Balance Training,Gait Training ,Home Exercise Program,Joint Mobilizations,Manual Therapy, Neuromuscular Re-education, Self-Care/Home Management,Soft Tissue Mobilization, Therapeutic Activities, Therapeutic Exercises Modalities Cold Pack/Ice Massage,Hot Packs Next Visit Focus/Plan Next Note Type Treatment Note Next Visit Plan Assess response to last tx: manual, taping and reivewed core HEP, check tolerance K taping X SI Continue pelvic tilt trng, core strengthening. Progress hip strengthening
--- NOTE | 2020-04-21 09:49 | PT.OTN ---
Current Diagnoses Low back pain (04/21/20) Abnormal posture (04/21/20) Physical Therapy Treatment Note PT-OP-A Visit Information Start: 03/16/20 08:32 Freq: Status: Active Protocol: Document 04/21/20 09:08 SP (Rec: 04/21/20 09:50 SP [id number]) Out-Patient Physical Therapy Visit Information Visit Information Visit Type Treatment Note Visit Note 8 min late today. 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 She did not work during the months of November and December due to [employer] restrictions. She went back to work first week of January and was overwhelmed with demand. Within a few weeks, she began to notice low back pain (left worse than right) which became progressively worse. Since that time, she has not been able to work full days. She usually works at least 8-hour days. At this time, she can work a maximum of six hours due to increasing pain. She went to the ED on 02/12/20 after naproxen, topical CBD, and ice were ineffective at managing her pain. At that visit, she was prescribed steroids and muscle relaxer. Bed mobility, car transfers, sitting >20 minutes, and picking up her 2yo grandson have become very difficult and painful. She does find that walking 1 mile AM and one mile PM have helped to loosen me up and generally decrease her pain. Her pain is localized to left lumbosacral level. She does report occasional shooting pain originating at the same level and traveling down her posterolateral thigh. Of note, pt has a history of migraine headaches and likely TIA (3 years ago). Prior Treatments and Tests - ED visit 02/12/20 - treated with steroid and muscle relaxant - 02/12/20 sacrum coccyx x-ray: No fractures or dislocations . Mild to moderate degenerative disc disease at L4-L5. Moderate to severe facet of L4-L5 at L5-S1. No suspicious bony lesions. Moderate sacroiliac joint degeneration bilaterally.1. No acute osseous abnormalities. 2. Degenerative disc and facet disease in the lower lumbar spine. 3. Moderate facet joint degeneration bilaterally. - PT previously at this clinic for back pain 1 year ago Future Testing and Treatments Planned none identified Treatment Goals Patient/Caregiver Goals Get rid of pain and learn how to manage. To be able to work 8-hour day without pain. Increase flexibility. 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 Baseline Function- Recreation/Hobbies Enjoys spending time with her 2yo grandchild Current Functional Impairments (Reported) Functional Limitations- Mobility/Gait Pt walking slowly with decreased left stance time, short right step length. Pt ambulates with bilateral genu varum. Functional Limitations- Work/School Able to work maximum of 6 hours before needing to go home. Functional Limitations- Recreation/ Unable to lift her grandchild. Hobbies Personal Factors Other Personal Factors That May Effect + Positive experience with Therapy/Recovery prior PT + Low risk for catastrophizing pain + Enjoys activity and vigilant against immobility - Need to work long hours on her feet with arms elevated PT-OP-C Subjective Start: 03/16/20 08:32 Freq: Status: Active Protocol: Document 04/21/20 09:08 SP (Rec: 04/21/20 09:50 SP [id number]) OP-PT Subjective Patient Comments Patient Comments Pt reported doing better now but 2 hrs ago back was hurting . Is keeping active with family and HEP not doing as much. PT-OP-D Balance Start: 03/16/20 08:32 Freq: Status: Active Protocol: Document 03/16/20 08:34 AW (Rec: 03/16/20 17:22 AW [email or web address]) OP-PT Balance Assessment Sitting Balance Static Sitting Balance Ability Normal Dynamic Sitting Balance Ability Normal Standing Balance Static Standing Balance Ability Normal Dynamic Standing Balance Ability Good Storey Fall Scale Copyright Permission PT-OP-J Posture/Palpation/Skin Start: 03/16/20 08:32 Freq: Status: Active Protocol: Document 03/16/20 08:34 AW (Rec: 03/16/20 17:22 AW [email or web address]) Posture Evaluation Comments Posture Comments Increased lordosis in standing Palpation Assessment Location One Palpation Location Dense lumbar paraspinals, especially at lumbosacral junction to S2 Palpation Findings Soft Tissue Tightness,Spasm, Muscle Guarding,Tenderness Palpation Details Mild stiffness with lumbar PA' s but symptom improvement noted with PA at L5/S1 PT-OP-K Range of Motion Start: 03/16/20 08:32 Freq: Status: Active Protocol: Document 03/16/20 08:34 AW (Rec: 03/16/20 17:22 AW [email or web address]) Lumbar Spine Range of Motion Lumbar Spine Active Degrees Testing Position Standing Flexion 80 Extension 10 Comments R lateral flexion with fingertips to knee but painful . L lateral flexion 1 above knee but not painful. Hip Goniometric Range of Motion Hip Left Active Hip ROM WFL Yes Testing Position Supine PT-OP-L Special Tests Start: 03/16/20 08:32 Freq: Status: Active Protocol: Document 03/16/20 08:34 AW (Rec: 03/16/20 17:22 AW [email or web address]) Special Tests Hip Special Tests Scour Test Test Results negative bilaterally PT-OP-M Strength Start: 03/16/20 08:32 Freq: Status: Active Protocol: Document 03/16/20 08:34 AW (Rec: 03/16/20 17:22 AW [email or web address]) Hip Strength Hip Manual Muscle Testing Right Flexion (L2) 4+ Good+ Extension (S1) 4- Good- Abduction 4- Good- External Rotation 5 Normal Internal Rotation 5 Normal Left Flexion (L2) 4- Good- Extension (S1) 4- Good- Abduction 4- Good- External Rotation 5 Normal Internal Rotation 5 Normal PT-OP-Q Treatments Start: 03/16/20 08:32 Freq: Status: Active Protocol: Document 04/21/20 09:08 SP (Rec: 04/21/20 09:50 SP [id number]) Cardio Equipment Recumbent Elliptical (Biodex) Duration (Minutes) 6 Resistance 4 Seat Position 5 Other 50 RPM Gym Equipment Shuttle Balance SLS trampoline Details intermittent contact rail Comments cued PPT, level pelvis WBOS, NBOS, stagger Details red clips Comments 1. COG over JOSE GUADALUPE 2. head turns 3. EC Therapeutic Exercises Supine Exercises LTR w/ SB Equipment Used 55cm Reps/Minutes 3 sec hold x10 Comments cued PPT awareness core bridge Reps/Minutes 15 sec hold x10 Comments cued PPT awareness Prone Exercises bird dog Prone Exercise Name quadruped UE/ LE ext Reps/Minutes x10 Comments cue neutral pelvis cat camel Reps/Minutes x10 Sitting Exercises QL stretch Sitting Exercise Name on floor feet together, side bend Side bilateral Equipment Used floor, SB Reps/Minutes 30 sec x2 Manual Therapy Treatment Taping 1 Body Location low back X SI Treatment Focus stabilization SI Type of Tape Kinesio Tape Skin Inspection small circles of pink over PSIS B but stated from CBD oil , it's ok, normal PT-OP-T Assessment and Plan Start: 03/16/20 08:32 Freq: Status: Active Protocol: Document 04/21/20 09:08 SP (Rec: 04/21/20 09:50 SP [id number]) Physical Therapy Assessment Goals Three Impairment Pt unable to lift her grandson Short Term Goal (STG) Pt will be able to lift 20 pounds and carry 20 feet with good body mechanics and without increase in pain. STG Duration 04/13/20 Alf Goal (LTG) Pt will be able to lift 30 pounds and carry 30 feet with good body mechanics and without increase in pain. LTG Duration 05/11/20 Two Impairment Pt has no appropriate HEP Short Term Goal (STG) Pt will be independent with HEP for support of therapy services provided in clinic STG Duration 04/13/20 Commercial Loan Manager Goal (LTG) Pt will be independent with maintenance HEP LTG Duration 05/11/20 One Impairment Pt unable to work more than 5- 6 hours per day Commercial Loan Manager Goal (LTG) Pt will work three 8-hour days consecutively. LTG Duration 05/11/20 Assessment Summary Assessment Pt responded well to tx today, initiated cardio and balance stabilization trng today with no adverse affects. Cued for proper form and PPT awareness. Pt still having to take low dose Flexoral to assist with pain 1x day. Improved tolerance wtih activty today. Physical Therapy Plan Frequency and Duration Frequency of Treatment 2x/Week Duration of Treatment 8 Plan of Care Start Date 03/16/20 Plan of Care End Date 05/11/20 Therapeutic Interventions Therapeutic Interventions Balance Training,Gait Training ,Home Exercise Program,Joint Mobilizations,Manual Therapy, Neuromuscular Re-education, Self-Care/Home Management,Soft Tissue Mobilization, Therapeutic Activities, Therapeutic Exercises Modalities Cold Pack/Ice Massage,Hot Packs Next Visit Focus/Plan Next Note Type Treatment Note Next Visit Plan Assess response to last tx: balance strength stabilzation trng today and added bird dog and cat camel. Continue pelvic tilt trng, core strengthening. Progress hip strengthening
--- NOTE | 2020-04-25 09:45 | PT.OTN ---
Current Diagnoses Low back pain (04/25/20) Abnormal posture (04/25/20) Physical Therapy Treatment Note PT-OP-A Visit Information Start: 03/16/20 08:32 Freq: Status: Active Protocol: Document 04/25/20 09:11 SP (Rec: 04/25/20 11:50 SP [id number]) Out-Patient Physical Therapy Visit Information Visit Information Visit Type Treatment Note Visit Note Pt 11 min late for appt Visit Start Time 09:11 Visit Stop Time 09:45 Total Visit Minutes 36 Visit Number 8 Number of MEDIA RELATIONS COORDINATOR Visits 5 PT-OP-B Current Condition Start: 03/16/20 08:32 Freq: Status: Active Protocol: Document 03/16/20 08:34 AW (Rec: 03/16/20 08:45 AW [id number]) Current Condition History of Current Condition Onset Date February 2020 Current Complaints low back pain History of Current Condition 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 She went back to work first week of January and was overwhelmed with demand. Within a few weeks, she began to notice low back pain (left worse than right) which became progressively worse. Since that time, she has not been able to work full days. She usually works at least 8-hour days. At this time, she can work a maximum of six hours due to increasing pain. She went to the ED on 02/12/20 after naproxen, topical CBD, and ice were ineffective at managing her pain. At that visit, she was prescribed steroids and muscle relaxer. Bed mobility, car transfers, sitting >20 minutes, and picking up her 2yo grandson have become very difficult and painful. She does find that walking 1 mile AM and one mile PM have helped to loosen me up and generally decrease her pain. Her pain is localized to left lumbosacral level. She does report occasional shooting pain originating at the same level and traveling down her posterolateral thigh. Of note, pt has a history of migraine headaches and likely TIA (3 years ago). Prior Treatments and Tests - ED visit 02/12/20 - treated with steroid and muscle relaxant - 02/12/20 sacrum coccyx x-ray: No fractures or dislocations . Mild to moderate degenerative disc disease at L4-L5. Moderate to severe facet of L4-L5 at L5-S1. No suspicious bony lesions. Moderate sacroiliac joint degeneration bilaterally.1. No acute osseous abnormalities. 2. Degenerative disc and facet disease in the lower lumbar spine. 3. Moderate facet joint degeneration bilaterally. - PT previously at this clinic for back pain 1 year ago Future Testing and Treatments Planned none identified Treatment Goals Patient/Caregiver Goals Get rid of pain and learn how to manage. To be able to work 8-hour day without pain. Increase flexibility. 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 Baseline Function- Recreation/Hobbies Enjoys spending time with her 2yo grandchild Current Functional Impairments (Reported) Functional Limitations- Mobility/Gait Pt walking slowly with decreased left stance time, short right step length. Pt ambulates with bilateral genu varum. Functional Limitations- Work/School Able to work maximum of 6 hours before needing to go home. Functional Limitations- Recreation/ Unable to lift her grandchild. Hobbies Personal Factors Other Personal Factors That May Effect + Positive experience with Therapy/Recovery prior PT + Low risk for catastrophizing pain + Enjoys activity and vigilant against immobility - Need to work long hours on her feet with arms elevated PT-OP-C Subjective Start: 03/16/20 08:32 Freq: Status: Active Protocol: Document 04/25/20 09:11 SP (Rec: 04/25/20 11:50 SP [id number]) OP-PT Subjective Patient Comments Patient Comments Pt arrived in 8/10 LLBP and bent over posture with decreased WB into LLE today. Pt stated think slept wrong, woke up at 230 in alot of pain and took Neproxin to help relief, about 430 had to add tiger balm to get back to sleep. PT-OP-D Balance Start: 03/16/20 08:32 Freq: Status: Active Protocol: Document 03/16/20 08:34 AW (Rec: 03/16/20 17:22 AW [email or web address]) OP-PT Balance Assessment Sitting Balance Static Sitting Balance Ability Normal Dynamic Sitting Balance Ability Normal Standing Balance Static Standing Balance Ability Normal Dynamic Standing Balance Ability Good Storey Fall Scale Copyright Permission PT-OP-J Posture/Palpation/Skin Start: 03/16/20 08:32 Freq: Status: Active Protocol: Document 03/16/20 08:34 AW (Rec: 03/16/20 17:22 AW [email or web address]) Posture Evaluation Comments Posture Comments Increased lordosis in standing Palpation Assessment Location One Palpation Location Dense lumbar paraspinals, especially at lumbosacral junction to S2 Palpation Findings Soft Tissue Tightness,Spasm, Muscle Guarding,Tenderness Palpation Details Mild stiffness with lumbar PA' s but symptom improvement noted with PA at L5/S1 PT-OP-K Range of Motion Start: 03/16/20 08:32 Freq: Status: Active Protocol: Document 03/16/20 08:34 AW (Rec: 03/16/20 17:22 AW [email or web address]) Lumbar Spine Range of Motion Lumbar Spine Active Degrees Testing Position Standing Flexion 80 Extension 10 Comments R lateral flexion with fingertips to knee but painful . L lateral flexion 1 above knee but not painful. Hip Goniometric Range of Motion Hip Left Active Hip ROM WFL Yes Testing Position Supine PT-OP-L Special Tests Start: 03/16/20 08:32 Freq: Status: Active Protocol: Document 03/16/20 08:34 AW (Rec: 03/16/20 17:22 AW [email or web address]) Special Tests Hip Special Tests Scour Test Test Results negative bilaterally PT-OP-M Strength Start: 03/16/20 08:32 Freq: Status: Active Protocol: Document 03/16/20 08:34 AW (Rec: 03/16/20 17:22 AW [email or web address]) Hip Strength Hip Manual Muscle Testing Right Flexion (L2) 4+ Good+ Extension (S1) 4- Good- Abduction 4- Good- External Rotation 5 Normal Internal Rotation 5 Normal Left Flexion (L2) 4- Good- Extension (S1) 4- Good- Abduction 4- Good- External Rotation 5 Normal Internal Rotation 5 Normal PT-OP-Q Treatments Start: 03/16/20 08:32 Freq: Status: Active Protocol: Document 04/25/20 09:11 SP (Rec: 04/25/20 11:50 SP [id number]) Gym Equipment Shuttle Balance SLS trampoline Details intermittent contact rail Comments cued PPT, level pelvis Therapeutic Exercises Supine Exercises LTR w/ SB Equipment Used AROM, no SB today Reps/Minutes 3 sec hold x10 Comments cued PPT awareness fig 4 glut/PF stretch Supine Exercise Name supine and sitting Side bilateral Reps/Minutes 30 sec x4 SKTC stretch Supine Exercise Name L>R tightness Side bilateral Reps/Minutes 30 x2 Prone Exercises cat camel Reps/Minutes x10 1 Prone Exercise Name child's pose Reps/Minutes 30 x3 Standing Exercises band walk Side bilateral Resistance Tb #1 Reps/Minutes 10 ft x2 laps Comments cued PPT, upright posture and soft knee Manual Therapy Treatment Soft Tissue Mobilization 1 Body Location L paraspinals, pirformis, glut med, TFL Mobilization Type Cross-Friction,Myofascial Release Intensity/Depth Moderate Body Position Sidelying Taping 1 Body Location low back X SI Treatment Focus stabilization SI Type of Tape Kinesio Tape PT-OP-T Assessment and Plan Start: 03/16/20 08:32 Freq: Status: Active Protocol: Document 04/25/20 09:11 SP (Rec: 04/25/20 11:50 SP [id number]) Physical Therapy Assessment Goals Three Impairment Pt unable to lift her grandson Short Term Goal (STG) Pt will be able to lift 20 pounds and carry 20 feet with good body mechanics and without increase in pain. STG Duration 04/13/20 Care Home Goal (LTG) Pt will be able to lift 30 pounds and carry 30 feet with good body mechanics and without increase in pain. LTG Duration 05/11/20 Two Impairment Pt has no appropriate HEP Short Term Goal (STG) Pt will be independent with HEP for support of therapy services provided in clinic STG Duration 04/13/20 Furnace Process Supervisor Goal (LTG) Pt will be independent with maintenance HEP LTG Duration 05/11/20 One Impairment Pt unable to work more than 5- 6 hours per day Furnace Process Supervisor Goal (LTG) Pt will work three 8-hour days consecutively. LTG Duration 05/11/20 Assessment Summary Assessment Pt improved in decreased pain 03/14>11/12 end of tx post manual, SI taping X and core / glut strengthening with balance of flexibility HEP re view. Initiated band walk to improve glut/core facilitaiton with good feedback, I can feel those muscle work in a good way. Discussed importance of strengthening exercises and flexibility when needed to support SI alignment with verbal confirmation. Unsure if pt would benefit from SI belt knowing exericses are helping. PT to reassess next tx. Physical Therapy Plan Frequency and Duration Frequency of Treatment 2x/Week Duration of Treatment 8 Plan of Care Start Date 03/16/20 Plan of Care End Date 05/11/20 Therapeutic Interventions Therapeutic Interventions Balance Training,Gait Training ,Home Exercise Program,Joint Mobilizations,Manual Therapy, Neuromuscular Re-education, Self-Care/Home Management,Soft Tissue Mobilization, Therapeutic Activities, Therapeutic Exercises Modalities Cold Pack/Ice Massage,Hot Packs Next Visit Focus/Plan Next Note Type Treatment Note Next Visit Plan Assess response to last tx: manual, stretching, balance strength stabilzation trng today . (see assessment) Continue pelvic tilt trng, core strengthening. Progress hip strengthening
--- NOTE | 2020-04-27 11:02 | PT.OTN ---
Current Diagnoses Low back pain (04/27/20) Abnormal posture (04/27/20) Physical Therapy Treatment Note PT-OP-A Visit Information Start: 03/16/20 08:32 Freq: Status: Active Protocol: Document 04/27/20 10:47 AW (Rec: 04/27/20 11:02 AW [email or web address]) Out-Patient Physical Therapy Visit Information Visit Information Visit Type Treatment Note Visit Note 7 min late today Visit Start Time 09:07 Visit Stop Time 09:47 Total Visit Minutes 40 Visit Number 9 Number of PLASTIC DIE MAKER APPRENTICE Visits 0 Evaluation Information Evaluation Date 03/16/20 PT-OP-B Current Condition Start: 03/16/20 08:32 Freq: Status: Active Protocol: Document 03/16/20 08:34 AW (Rec: 03/16/20 08:45 AW [email or web address]) Current Condition History of Current Condition Onset Date February 2020 Current Complaints low back pain History of Current Condition 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 She did not work during the months of November and December due to [employer] restrictions. She went back to work first week of January and was overwhelmed with demand. Within a few weeks, she began to notice low back pain (left worse than right) which became progressively worse. Since that time, she has not been able to work full days. She usually works at least 8-hour days. At this time, she can work a maximum of six hours due to increasing pain. She went to the ED on 02/12/20 after naproxen, topical CBD, and ice were ineffective at managing her pain. At that visit, she was prescribed steroids and muscle relaxer. Bed mobility, car transfers, sitting >20 minutes, and picking up her 2yo grandson have become very difficult and painful. She does find that walking 1 mile AM and one mile PM have helped to loosen me up and generally decrease her pain. Her pain is localized to left lumbosacral level. She does report occasional shooting pain originating at the same level and traveling down her posterolateral thigh. Of note, pt has a history of migraine headaches and likely TIA (3 years ago). Prior Treatments and Tests - ED visit 02/12/20 - treated with steroid and muscle relaxant - 02/12/20 sacrum coccyx x-ray: No fractures or dislocations . Mild to moderate degenerative disc disease at L4-L5. Moderate to severe facet of L4-L5 at L5-S1. No suspicious bony lesions. Moderate sacroiliac joint degeneration bilaterally.1. No acute osseous abnormalities. 2. Degenerative disc and facet disease in the lower lumbar spine. 3. Moderate facet joint degeneration bilaterally. - PT previously at this clinic for back pain 1 year ago Future Testing and Treatments Planned none identified Treatment Goals Patient/Caregiver Goals Get rid of pain and learn how to manage. To be able to work 8-hour day without pain. Increase flexibility. 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 Baseline Function- Recreation/Hobbies Enjoys spending time with her 2yo grandchild Current Functional Impairments (Reported) Functional Limitations- Mobility/Gait Pt walking slowly with decreased left stance time, short right step length. Pt ambulates with bilateral genu varum. Functional Limitations- Work/School Able to work maximum of 6 hours before needing to go home. Functional Limitations- Recreation/ Unable to lift her grandchild. Hobbies Personal Factors Other Personal Factors That May Effect + Positive experience with Therapy/Recovery prior PT + Low risk for catastrophizing pain + Enjoys activity and vigilant against immobility - Need to work long hours on her feet with arms elevated PT-OP-C Subjective Start: 03/16/20 08:32 Freq: Status: Active Protocol: Document 04/27/20 10:47 AW (Rec: 04/27/20 11:02 AW [email or web address]) OP-PT Subjective Patient Comments Patient Comments Pt reports 4/10 LBP today and increased posterior left hip pain. PT-OP-D Balance Start: 03/16/20 08:32 Freq: Status: Active Protocol: Document 03/16/20 08:34 AW (Rec: 03/16/20 17:22 AW [email or web address]) OP-PT Balance Assessment Sitting Balance Static Sitting Balance Ability Normal Dynamic Sitting Balance Ability Normal Standing Balance Static Standing Balance Ability Normal Dynamic Standing Balance Ability Good Storey Fall Scale Copyright Permission PT-OP-J Posture/Palpation/Skin Start: 03/16/20 08:32 Freq: Status: Active Protocol: Document 03/16/20 08:34 AW (Rec: 03/16/20 17:22 AW [email or web address]) Posture Evaluation Comments Posture Comments Increased lordosis in standing Palpation Assessment Location One Palpation Location Dense lumbar paraspinals, especially at lumbosacral junction to S2 Palpation Findings Soft Tissue Tightness,Spasm, Muscle Guarding,Tenderness Palpation Details Mild stiffness with lumbar PA' s but symptom improvement noted with PA at L5/S1 PT-OP-K Range of Motion Start: 03/16/20 08:32 Freq: Status: Active Protocol: Document 03/16/20 08:34 AW (Rec: 03/16/20 17:22 AW [email or web address]) Lumbar Spine Range of Motion Lumbar Spine Active Degrees Testing Position Standing Flexion 80 Extension 10 Comments R lateral flexion with fingertips to knee but painful . L lateral flexion 1 above knee but not painful. Hip Goniometric Range of Motion Hip Left Active Hip ROM WFL Yes Testing Position Supine PT-OP-L Special Tests Start: 03/16/20 08:32 Freq: Status: Active Protocol: Document 03/16/20 08:34 AW (Rec: 03/16/20 17:22 AW [email or web address]) Special Tests Hip Special Tests Scour Test Test Results negative bilaterally PT-OP-M Strength Start: 03/16/20 08:32 Freq: Status: Active Protocol: Document 03/16/20 08:34 AW (Rec: 03/16/20 17:22 AW [email or web address]) Hip Strength Hip Manual Muscle Testing Right Flexion (L2) 4+ Good+ Extension (S1) 4- Good- Abduction 4- Good- External Rotation 5 Normal Internal Rotation 5 Normal Left Flexion (L2) 4- Good- Extension (S1) 4- Good- Abduction 4- Good- External Rotation 5 Normal Internal Rotation 5 Normal PT-OP-Q Treatments Start: 03/16/20 08:32 Freq: Status: Active Protocol: Document 04/27/20 10:47 AW (Rec: 04/27/20 11:02 AW [email or web address]) Therapeutic Exercises Supine Exercises LTR w/ SB Equipment Used AROM with stretch into SB Reps/Minutes 3 sec hold x10 Comments cued PPT awareness SKTC stretch Supine Exercise Name L>R tightness Side bilateral Reps/Minutes 30 sec x 4 Standing Exercises palloff press Standing Exercise Name palloff press Side bilateral Resistance level 1 Equipment Used TB Reps/Minutes 10 reps each side Comments added to HEP segmental forward flexion Standing Exercise Name improved after taping Reps/Minutes x 4 Comments cues for segmental awareness Manual Therapy Treatment Soft Tissue Mobilization 1 Body Location L paraspinals, pirformis, glut med, TFL Mobilization Type Cross-Friction,Myofascial Release Intensity/Depth Moderate Body Position Sidelying Joint Mobilizations 1 Joint L3-5 Direction PA Grade III Body Position Prone Comments positive pt feedback Taping 1 Body Location low back with inverted V Treatment Focus stabilization SI Type of Tape Kinesio Tape Skin Inspection good Comments single horizontal strip at S2 level (75% tension middle 2/3 with no tension on tails) and inverted V Manual Techniques contract relax L hip Type contract relax stretch into L IR Body Location left hip Body Position Hooklying Reps/Duration 30 sec x 5 Comments increased IR with decreased pain following treatment PT-OP-T Assessment and Plan Start: 03/16/20 08:32 Freq: Status: Active Protocol: Document 04/27/20 10:47 AW (Rec: 04/27/20 11:02 AW [email or web address]) Physical Therapy Assessment Impairments Impairments Functional Activities, Functional Mobility,Gait,Pain, Posture,Soft Tissue Mobility, Strength Goals Three Impairment Pt unable to lift her grandson Short Term Goal (STG) Pt will be able to lift 20 pounds and carry 20 feet with good body mechanics and without increase in pain. STG Duration 04/13/20 Retirement Goal (LTG) Pt will be able to lift 30 pounds and carry 30 feet with good body mechanics and without increase in pain. LTG Duration 05/11/20 Two Impairment Pt has no appropriate HEP Short Term Goal (STG) Pt will be independent with HEP for support of therapy services provided in clinic 04/13/20 MET STG Duration 04/13/20 Vacuum Extractor Operator Goal (LTG) Pt will be independent with maintenance HEP LTG Duration 05/11/20 One Impairment Pt unable to work more than 5- 6 hours per day Vacuum Extractor Operator Goal (LTG) Pt will work three 8-hour days consecutively. LTG Duration 05/11/20 Assessment Summary Assessment Treatment focused on manual therapy to address left hip pain/tightness with positive feedback. Discussed potential use of SI belt for work but decided to continue with K- tape for now due to potential insurance concerns. Pt lacks auth for further visits. Office is submitting to extend authorization today and will communicate with pt if no auth received prior to Saturday appointment. Physical Therapy Plan Frequency and Duration Frequency of Treatment 2x/Week Duration of Treatment 8 Plan of Care Start Date 03/16/20 Plan of Care End Date 05/11/20 Therapeutic Interventions Therapeutic Interventions Balance Training,Gait Training ,Home Exercise Program,Joint Mobilizations,Manual Therapy, Neuromuscular Re-education, Self-Care/Home Management,Soft Tissue Mobilization, Therapeutic Activities, Therapeutic Exercises Next Visit Focus/Plan Next Note Type Treatment Note Next Visit Plan Assess response to last tx: manual, stretching, Continue pelvic tilt trng, core strengthening. Progress hip strengthening
--- NOTE | 2020-04-27 12:00 | PT.OTN ---
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 She went back to work first week of January and was overwhelmed with demand. Within a few weeks, she began to notice low back pain (left worse than right) which became progressively worse. Since that time, she has not been able to work full days. She usually works at least 8-hour days. At this time, she can work a maximum of six hours due to increasing pain. She went to the ED on 02/12/20 after naproxen, topical CBD, and ice were ineffective at managing her pain. At that visit, she was prescribed steroids and muscle relaxer. Bed mobility, car transfers, sitting >20 minutes, and picking up her 2yo grandson have become very difficult and painful. She does find that walking 1 mile AM and one mile PM have helped to loosen me up and generally decrease her pain. Her pain is localized to left lumbosacral level. She does report occasional shooting pain originating at the same level and traveling down her posterolateral thigh. Of note, pt has a history of migraine headaches and likely TIA (3 years ago). Prior Treatments and Tests - ED visit 02/12/20 - treated with steroid and muscle relaxant - 02/12/20 sacrum coccyx x-ray: No fractures or dislocations . Mild to moderate degenerative disc disease at L4-L5. Moderate to severe facet of L4-L5 at L5-S1. No suspicious bony lesions. Moderate sacroiliac joint degeneration bilaterally.1. No acute osseous abnormalities. 2. Degenerative disc and facet disease in the lower lumbar spine. 3. Moderate facet joint degeneration bilaterally. - PT previously at this clinic for back pain 1 year ago Future Testing and Treatments Planned none identified Treatment Goals Patient/Caregiver Goals Get rid of pain and learn how to manage. To be able to work 8-hour day without pain. Increase flexibility. 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 Baseline Function- Recreation/Hobbies Enjoys spending time with her 2yo grandchild Current Functional Impairments (Reported) Functional Limitations- Mobility/Gait Pt walking slowly with decreased left stance time, short right step length. Pt ambulates with bilateral genu varum. Functional Limitations- Work/School Able to work maximum of 6 hours before needing to go home. Functional Limitations- Recreation/ Unable to lift her grandchild. Hobbies Personal Factors Other Personal Factors That May Effect + Positive experience with Therapy/Recovery prior PT + Low risk for catastrophizing pain + Enjoys activity and vigilant against immobility - Need to work long hours on her feet with arms elevated PT-OP-C Subjective Start: 03/16/20 08:32 Freq: Status: Active Protocol: Document 04/27/20 10:47 AW (Rec: 04/27/20 11:02 AW [email or web address]) OP-PT Subjective Patient Comments Patient Comments Pt reports 4/10 LBP today and increased posterior left hip pain. PT-OP-D Balance Start: 03/16/20 08:32 Freq: Status: Active Protocol: Document 03/16/20 08:34 AW (Rec: 03/16/20 17:22 AW [email or web address]) OP-PT Balance Assessment Sitting Balance Static Sitting Balance Ability Normal Dynamic Sitting Balance Ability Normal Standing Balance Static Standing Balance Ability Normal Dynamic Standing Balance Ability Good Storey Fall Scale Copyright Permission PT-OP-J Posture/Palpation/Skin Start: 03/16/20 08:32 Freq: Status: Active Protocol: Document 03/16/20 08:34 AW (Rec: 03/16/20 17:22 AW [email or web address]) Posture Evaluation Comments Posture Comments Increased lordosis in standing Palpation Assessment Location One Palpation Location Dense lumbar paraspinals, especially at lumbosacral junction to S2 Palpation Findings Soft Tissue Tightness,Spasm, Muscle Guarding,Tenderness Palpation Details Mild stiffness with lumbar PA' s but symptom improvement noted with PA at L5/S1 PT-OP-K Range of Motion Start: 03/16/20 08:32 Freq: Status: Active Protocol: Document 03/16/20 08:34 AW (Rec: 03/16/20 17:22 AW [email or web address]) Lumbar Spine Range of Motion Lumbar Spine Active Degrees Testing Position Standing Flexion 80 Extension 10 Comments R lateral flexion with fingertips to knee but painful . L lateral flexion 1 above knee but not painful. Hip Goniometric Range of Motion Hip Left Active Hip ROM WFL Yes Testing Position Supine PT-OP-L Special Tests Start: 03/16/20 08:32 Freq: Status: Active Protocol: Document 03/16/20 08:34 AW (Rec: 03/16/20 17:22 AW [email or web address]) Special Tests Hip Special Tests Scour Test Test Results negative bilaterally PT-OP-M Strength Start: 03/16/20 08:32 Freq: Status: Active Protocol: Document 03/16/20 08:34 AW (Rec: 03/16/20 17:22 AW [email or web address]) Hip Strength Hip Manual Muscle Testing Right Flexion (L2) 4+ Good+ Extension (S1) 4- Good- Abduction 4- Good- External Rotation 5 Normal Internal Rotation 5 Normal Left Flexion (L2) 4- Good- Extension (S1) 4- Good- Abduction 4- Good- External Rotation 5 Normal Internal Rotation 5 Normal PT-OP-Q Treatments Start: 03/16/20 08:32 Freq: Status: Active Protocol: Document 04/27/20 10:47 AW (Rec: 04/27/20 11:02 AW [email or web address]) Therapeutic Exercises Supine Exercises LTR w/ SB Equipment Used AROM with stretch into SB Reps/Minutes 3 sec hold x10 Comments cued PPT awareness SKTC stretch Supine Exercise Name L>R tightness Side bilateral Reps/Minutes 30 sec x 4 Standing Exercises palloff press Standing Exercise Name palloff press Side bilateral Resistance level 1 Equipment Used TB Reps/Minutes 10 reps each side Comments added to HEP segmental forward flexion Standing Exercise Name improved after taping Reps/Minutes x 4 Comments cues for segmental awareness Manual Therapy Treatment Soft Tissue Mobilization 1 Body Location L paraspinals, pirformis, glut med, TFL Mobilization Type Cross-Friction,Myofascial Release Intensity/Depth Moderate Body Position Sidelying Joint Mobilizations 1 Joint L3-5 Direction PA Grade III Body Position Prone Comments positive pt feedback Taping 1 Body Location low back with inverted V Treatment Focus stabilization SI Type of Tape Kinesio Tape Skin Inspection good Comments single horizontal strip at S2 level (75% tension middle 2/3 with no tension on tails) and inverted V Manual Techniques contract relax L hip Type contract relax stretch into L IR Body Location left hip Body Position Hooklying Reps/Duration 30 sec x 5 Comments increased IR with decreased pain following treatment PT-OP-T Assessment and Plan Start: 03/16/20 08:32 Freq: Status: Active Protocol: Document 04/27/20 10:47 AW (Rec: 04/27/20 11:02 AW [email or web address]) Physical Therapy Assessment Impairments Impairments Functional Activities, Functional Mobility,Gait,Pain, Posture,Soft Tissue Mobility, Strength Goals Three Impairment Pt unable to lift her grandson Short Term Goal (STG) Pt will be able to lift 20 pounds and carry 20 feet with good body mechanics and without increase in pain. STG Duration 04/13/20 Senior Care Goal (LTG) Pt will be able to lift 30 pounds and carry 30 feet with good body mechanics and without increase in pain. LTG Duration 05/11/20 Two Impairment Pt has no appropriate HEP Short Term Goal (STG) Pt will be independent with HEP for support of therapy services provided in clinic 04/13/20 MET STG Duration 04/13/20 Assembler Final Goal (LTG) Pt will be independent with maintenance HEP LTG Duration 05/11/20 One Impairment Pt unable to work more than 5- 6 hours per day Assembler Final Goal (LTG) Pt will work three 8-hour days consecutively. LTG Duration 05/11/20 Assessment Summary Assessment Pt today notes prior diagnosis of ankylosing spondylitis. She had been referred to rheumatology 1 year ago but did not follow up. Pt is seeking new referral. Treatment focused on manual therapy to address left hip pain/tightness with positive feedback. Discussed potential use of SI belt for work but decided to continue with K- tape for now due to potential insurance concerns. Pt lacks auth for further visits. Office is submitting to extend authorization today and will communicate with pt if no auth received prior to Saturday appointment. Physical Therapy Plan Frequency and Duration Frequency of Treatment 2x/Week Duration of Treatment 8 Plan of Care Start Date 03/16/20 Plan of Care End Date 05/11/20 Therapeutic Interventions Therapeutic Interventions Balance Training,Gait Training ,Home Exercise Program,Joint Mobilizations,Manual Therapy, Neuromuscular Re-education, Self-Care/Home Management,Soft Tissue Mobilization, Therapeutic Activities, Therapeutic Exercises Next Visit Focus/Plan Next Note Type Treatment Note Next Visit Plan Follow up re: rheumatology referral. Assess response to last tx: manual, stretching, Continue pelvic tilt trng, core strengthening. Progress hip strengthening
--- NOTE | 2020-05-02 09:00 | PT-OP ANOTE ---
Pt cancelled, feeling sick unable to attend today's appt.
--- NOTE | 2020-05-04 09:29 | PT-OP ANOTE ---
Pt called to cancel same day due to personal reasons, possibly child monitor related. PT called and LVM for pt reminding her of next appointment on 05/11 at 0900. Will review attendance contract with pt at next visit.
--- NOTE | 2020-05-11 10:08 | PT.OTN ---
Current Diagnoses Low back pain (05/11/20) Abnormal posture (05/11/20) Physical Therapy Treatment Note PT-OP-A Visit Information Start: 03/16/20 08:32 Freq: Status: Active Protocol: Document 05/11/20 09:51 AW (Rec: 05/11/20 10:08 AW [email or web address]) Out-Patient Physical Therapy Visit Information Visit Information Visit Type Treatment Note Visit Note 8 min late today Visit Start Time 09:08 Visit Stop Time 09:48 Total Visit Minutes 40 Visit Number 05/21 Evaluation Information Evaluation Date 03/16/20 PT-OP-B Current Condition Start: 03/16/20 08:32 Freq: Status: Active Protocol: Document 03/16/20 08:34 AW (Rec: 03/16/20 08:45 AW [id number]) Current Condition History of Current Condition Onset Date February 2020 Current Complaints low back pain History of Current Condition 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 She did not work during the months of November and December due to [employer] restrictions. She went back to work first week of January and was overwhelmed with demand. Within a few weeks, she began to notice low back pain (left worse than right) which became progressively worse. Since that time, she has not been able to work full days. She usually works at least 8-hour days. At this time, she can work a maximum of six hours due to increasing pain. She went to the ED on 02/12/20 after naproxen, topical CBD, and ice were ineffective at managing her pain. At that visit, she was prescribed steroids and muscle relaxer. Bed mobility, car transfers, sitting >20 minutes, and picking up her 2yo grandson have become very difficult and painful. She does find that walking 1 mile AM and one mile PM have helped to loosen me up and generally decrease her pain. Her pain is localized to left lumbosacral level. She does report occasional shooting pain originating at the same level and traveling down her posterolateral thigh. Of note, pt has a history of migraine headaches and likely TIA (3 years ago). Prior Treatments and Tests - ED visit 02/12/20 - treated with steroid and muscle relaxant - 02/12/20 sacrum coccyx x-ray: No fractures or dislocations . Mild to moderate degenerative disc disease at L4-L5. Moderate to severe facet of L4-L5 at L5-S1. No suspicious bony lesions. Moderate sacroiliac joint degeneration bilaterally.1. No acute osseous abnormalities. 2. Degenerative disc and facet disease in the lower lumbar spine. 3. Moderate facet joint degeneration bilaterally. - PT previously at this clinic for back pain 1 year ago Future Testing and Treatments Planned none identified Treatment Goals Patient/Caregiver Goals Get rid of pain and learn how to manage. To be able to work 8-hour day without pain. Increase flexibility. 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 Baseline Function- Recreation/Hobbies Enjoys spending time with her 2yo grandchild Current Functional Impairments (Reported) Functional Limitations- Mobility/Gait Pt walking slowly with decreased left stance time, short right step length. Pt ambulates with bilateral genu varum. Functional Limitations- Work/School Able to work maximum of 6 hours before needing to go home. Functional Limitations- Recreation/ Unable to lift her grandchild. Hobbies Personal Factors Other Personal Factors That May Effect + Positive experience with Therapy/Recovery prior PT + Low risk for catastrophizing pain + Enjoys activity and vigilant against immobility - Need to work long hours on her feet with arms elevated PT-OP-C Subjective Start: 03/16/20 08:32 Freq: Status: Active Protocol: Document 05/11/20 09:51 AW (Rec: 05/11/20 10:08 AW [email or web address]) OP-PT Subjective Patient Comments Patient Comments Pt arrived with flexed posture in gait, complaining of tightness in left posterior hip. She has been working on a fencing project at her home and has had increased back pain. PT-OP-D Balance Start: 03/16/20 08:32 Freq: Status: Active Protocol: Document 03/16/20 08:34 AW (Rec: 03/16/20 17:22 AW [email or web address]) OP-PT Balance Assessment Sitting Balance Static Sitting Balance Ability Normal Dynamic Sitting Balance Ability Normal Standing Balance Static Standing Balance Ability Normal Dynamic Standing Balance Ability Good Storey Fall Scale Copyright Permission PT-OP-J Posture/Palpation/Skin Start: 03/16/20 08:32 Freq: Status: Active Protocol: Document 03/16/20 08:34 AW (Rec: 03/16/20 17:22 AW [email or web address]) Posture Evaluation Comments Posture Comments Increased lordosis in standing Palpation Assessment Location One Palpation Location Dense lumbar paraspinals, especially at lumbosacral junction to S2 Palpation Findings Soft Tissue Tightness,Spasm, Muscle Guarding,Tenderness Palpation Details Mild stiffness with lumbar PA' s but symptom improvement noted with PA at L5/S1 PT-OP-K Range of Motion Start: 03/16/20 08:32 Freq: Status: Active Protocol: Document 03/16/20 08:34 AW (Rec: 03/16/20 17:22 AW [email or web address]) Lumbar Spine Range of Motion Lumbar Spine Active Degrees Testing Position Standing Flexion 80 Extension 10 Comments R lateral flexion with fingertips to knee but painful . L lateral flexion 1 above knee but not painful. Hip Goniometric Range of Motion Hip Left Active Hip ROM WFL Yes Testing Position Supine PT-OP-L Special Tests Start: 03/16/20 08:32 Freq: Status: Active Protocol: Document 03/16/20 08:34 AW (Rec: 03/16/20 17:22 AW [email or web address]) Special Tests Hip Special Tests Scour Test Test Results negative bilaterally PT-OP-M Strength Start: 03/16/20 08:32 Freq: Status: Active Protocol: Document 03/16/20 08:34 AW (Rec: 03/16/20 17:22 AW [email or web address]) Hip Strength Hip Manual Muscle Testing Right Flexion (L2) 4+ Good+ Extension (S1) 4- Good- Abduction 4- Good- External Rotation 5 Normal Internal Rotation 5 Normal Left Flexion (L2) 4- Good- Extension (S1) 4- Good- Abduction 4- Good- External Rotation 5 Normal Internal Rotation 5 Normal PT-OP-Q Treatments Start: 03/16/20 08:32 Freq: Status: Active Protocol: Document 05/11/20 09:51 AW (Rec: 05/11/20 10:08 AW [email or web address]) Therapeutic Exercises Supine Exercises HS stretch with adduction Supine Exercise Name HS stretch with adduction Side left Equipment Used gait belt Reps/Minutes 30 sec x 2 Comments cues to avoid painful ROM fig 4 glut/PF stretch Supine Exercise Name supine Side bilateral Reps/Minutes 30 sec x4 Sitting Exercises sit to stand/tap squat Sitting Exercise Name sit to stand/tap squat Equipment Used arms across chest to 18chair Reps/Minutes 10 reps x 2 Comments meter stick at spine for tactile feedback of hip hinge Standing Exercises palloff press Standing Exercise Name palloff press Side bilateral Resistance level 2 Equipment Used TB Reps/Minutes 10 reps each side Comments added to HEP segmental forward flexion Standing Exercise Name improved after taping Reps/Minutes x 4 Comments cues for segmental awareness Therapeutic Activity Therapeutic Activity lift and carry Name lift and carry Reps/Minutes 20 foot laps x 5 Comments Emphasis on hip hinge. Pt denies SI clicking/pain with k -tape application. Manual Therapy Treatment Soft Tissue Mobilization 1 Body Location L paraspinals, pirformis, glut med, TFL Mobilization Type Cross-Friction,Myofascial Release Intensity/Depth Moderate Body Position Sidelying Taping 1 Body Location low back with inverted V Treatment Focus stabilization SI Type of Tape Kinesio Tape Skin Inspection good Comments single horizontal strip at S2 level (75% tension middle 2/3 with no tension on tails) and inverted V Manual Techniques contract relax L hip Type contract relax stretch into L IR Body Location left hip Body Position Hooklying Reps/Duration 30 sec x 5 Comments increased IR with decreased pain following treatment PT-OP-T Assessment and Plan Start: 03/16/20 08:32 Freq: Status: Active Protocol: Document 05/11/20 09:51 AW (Rec: 05/11/20 10:08 AW [email or web address]) Physical Therapy Assessment Goals Three Impairment Pt unable to lift her grandson Short Term Goal (STG) Pt will be able to lift 20 pounds and carry 20 feet with good body mechanics and without increase in pain. PROGRESSING 05/11/20 STG Duration 04/13/20 Shelter Goal (LTG) Pt will be able to lift 30 pounds and carry 30 feet with good body mechanics and without increase in pain. LTG Duration 06/22/20 Two Impairment Pt has no appropriate HEP Short Term Goal (STG) Pt will be independent with HEP for support of therapy services provided in clinic 04/13/20 MET STG Duration 04/13/20 Shelter Goal (LTG) Pt will be independent with maintenance HEP MET 05/11/20 LTG Duration 05/11/20 One Impairment Pt unable to work more than 5- 6 hours per day Canoe Builder Goal (LTG) Pt will work three 8-hour days consecutively. PARTIALLY MET 05/11/20 LTG Duration 06/22/20 Progress Towards Goals Progress Towards Goals Progressing Toward Goals Progress Comments Pt states she has had only two days of not being able to work since starting therapy. She was having to call out of work weekly before PT. Assessment Summary Assessment Pt believes she can schedule with Rheumatology before the end of the year regarding diagnosis. Pt appreciates improvement in symptoms but continues to have extreme stiffness on waking in the morning. With taping for SI stability, pt was able to tolerate lifting and carrying today without clicking and pain at left S2 level. She has made progress but has potential to improve further with continued therapy. Physical Therapy Plan Frequency and Duration Frequency of Treatment 2x/Week Duration of Treatment 8 + 6 Plan of Care Start Date 03/16/20 Plan of Care End Date 06/22/20 Therapeutic Interventions Therapeutic Interventions Balance Training,Gait Training ,Home Exercise Program,Joint Mobilizations,Manual Therapy, Neuromuscular Re-education, Self-Care/Home Management,Soft Tissue Mobilization, Therapeutic Activities, Therapeutic Exercises Modalities Cold Pack/Ice Massage,Hot Packs Next Visit Focus/Plan Next Note Type Treatment Note Next Visit Plan Follow up re: rheumatology referral. Assess response to last tx: manual, stretching, Continue hip hinge/lift and carry progression, core strengthening. Progress hip strengthening
--- NOTE | 2020-05-11 10:08 | PT.OPPOC ---
Physical, Occupational & Speech Therapy At [facility] Current Diagnoses Low back pain (05/11/20) Abnormal posture (05/11/20) Visit Care Team Role Provider Type Tello Reyes DO Attending Provider Physician Primary Care Provider Referring Provider Specialty: Family Practice Address: [address] [place] [address], [facility] Email: [email or web address] Plan Of Care PT-OP-T Assessment and Plan Start: 03/16/20 08:32 Freq: Status: Active Protocol: Document 05/11/20 09:51 AW (Rec: 05/11/20 10:08 AW [email or web address]) Physical Therapy Assessment Goals Three Impairment Pt unable to lift her grandson Short Term Goal (STG) Pt will be able to lift 20 pounds and carry 20 feet with good body mechanics and without increase in pain. PROGRESSING 05/11/20 STG Duration 04/13/20 Plastic Manager Goal (LTG) Pt will be able to lift 30 pounds and carry 30 feet with good body mechanics and without increase in pain. LTG Duration 06/22/20 Two Impairment Pt has no appropriate HEP Short Term Goal (STG) Pt will be independent with HEP for support of therapy services provided in clinic 04/13/20 MET STG Duration 04/13/20 Plastic Manager Goal (LTG) Pt will be independent with maintenance HEP MET 05/11/20 LTG Duration 05/11/20 One Impairment Pt unable to work more than 5- 6 hours per day Plastic Manager Goal (LTG) Pt will work three 8-hour days consecutively. PARTIALLY MET 05/11/20 LTG Duration 06/22/20 Progress Towards Goals Progress Towards Goals Progressing Toward Goals Progress Comments Pt states she has had only two days of not being able to work since starting therapy. She was having to call out of work weekly before PT. Assessment Summary Assessment Pt believes she can schedule with Rheumatology before the end of the year regarding diagnosis. Pt appreciates improvement in symptoms but continues to have extreme stiffness on waking in the morning. With taping for SI stability, pt was able to tolerate lifting and carrying today without clicking and pain at left S2 level. She has made progress but has potential to improve further with continued therapy. Physical Therapy Plan Frequency and Duration Frequency of Treatment 2x/Week Duration of Treatment 8 + 6 Plan of Care Start Date 03/16/20 Plan of Care End Date 06/22/20 Therapeutic Interventions Therapeutic Interventions Balance Training,Gait Training ,Home Exercise Program,Joint Mobilizations,Manual Therapy, Neuromuscular Re-education, Self-Care/Home Management,Soft Tissue Mobilization, Therapeutic Activities, Therapeutic Exercises Modalities Cold Pack/Ice Massage,Hot Packs Next Visit Focus/Plan Next Note Type Treatment Note Next Visit Plan Follow up re: rheumatology referral. Assess response to last tx: manual, stretching, Continue hip hinge/lift and carry progression, core strengthening. Progress hip strengthening Plan of Care Dates Plan of Care Start Date 03/16/20 Plan of Care End Date 06/22/20 Electronically Signed by: Lilliana Rey, PT 05/11/20 1008 Please Sign and Return: I have reviewed this Plan of Care and certify that the skilled therapy services above are required to meet the patient?s needs. Physician Signature Date Printed Name and Credentials Clinical Instructor Signature Printed Name and Credentials
--- NOTE | 2020-05-13 08:00 | PT-OP ANOTE ---
Pt called yesterday to cancel today's appt, having a migraine. HR COORDINATOR left message if doing better today have openings and call if wanted to reschedule. Also reminded next appt 05/23/20 at 1345.
--- NOTE | 2020-05-23 14:30 | PT.OTN ---
Current Diagnoses Low back pain (05/23/20) Abnormal posture (05/23/20) Physical Therapy Treatment Note PT-OP-A Visit Information Start: 03/16/20 08:32 Freq: Status: Active Protocol: Document 05/23/20 13:46 SP (Rec: 05/23/20 14:32 SP [id number]) Out-Patient Physical Therapy Visit Information Visit Information Visit Type Treatment Note Visit Start Time 13:46 Visit Stop Time 14:30 Total Visit Minutes 44 Visit Number 06/21 Number of CELL PLASTERER Visits 1 PT-OP-B Current Condition Start: 03/16/20 08:32 Freq: Status: Active Protocol: Document 03/16/20 08:34 AW (Rec: 03/16/20 08:45 AW [id number]) Current Condition History of Current Condition Onset Date February 2020 Current Complaints low back pain History of Current Condition 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 She did not work during the months of November and December due to [employer] restrictions. She went back to work first week of January and was overwhelmed with demand. Within a few weeks, she began to notice low back pain (left worse than right) which became progressively worse. Since that time, she has not been able to work full days. She usually works at least 8-hour days. At this time, she can work a maximum of six hours due to increasing pain. She went to the ED on 02/12/20 after naproxen, topical CBD, and ice were ineffective at managing her pain. At that visit, she was prescribed steroids and muscle relaxer. Bed mobility, car transfers, sitting >20 minutes, and picking up her 2yo grandson have become very difficult and painful. She does find that walking 1 mile AM and one mile PM have helped to loosen me up and generally decrease her pain. Her pain is localized to left lumbosacral level. She does report occasional shooting pain originating at the same level and traveling down her posterolateral thigh. Of note, pt has a history of migraine headaches and likely TIA (3 years ago). Prior Treatments and Tests - ED visit 02/12/20 - treated with steroid and muscle relaxant - 02/12/20 sacrum coccyx x-ray: No fractures or dislocations . Mild to moderate degenerative disc disease at L4-L5. Moderate to severe facet of L4-L5 at L5-S1. No suspicious bony lesions. Moderate sacroiliac joint degeneration bilaterally.1. No acute osseous abnormalities. 2. Degenerative disc and facet disease in the lower lumbar spine. 3. Moderate facet joint degeneration bilaterally. - PT previously at this clinic for back pain 1 year ago Future Testing and Treatments Planned none identified Treatment Goals Patient/Caregiver Goals Get rid of pain and learn how to manage. To be able to work 8-hour day without pain. Increase flexibility. 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 Baseline Function- Recreation/Hobbies Enjoys spending time with her 2yo grandchild Current Functional Impairments (Reported) Functional Limitations- Mobility/Gait Pt walking slowly with decreased left stance time, short right step length. Pt ambulates with bilateral genu varum. Functional Limitations- Work/School Able to work maximum of 6 hours before needing to go home. Functional Limitations- Recreation/ Unable to lift her grandchild. Hobbies Personal Factors Other Personal Factors That May Effect + Positive experience with Therapy/Recovery prior PT + Low risk for catastrophizing pain + Enjoys activity and vigilant against immobility - Need to work long hours on her feet with arms elevated PT-OP-C Subjective Start: 03/16/20 08:32 Freq: Status: Active Protocol: Document 05/23/20 13:46 SP (Rec: 05/23/20 14:32 SP [id number]) OP-PT Subjective Patient Comments Patient Comments Pt reports ok until over does it then 3 day set back, pressure change irritates her back, not moving around alot and noticing popping in back. PT-OP-D Balance Start: 03/16/20 08:32 Freq: Status: Active Protocol: Document 03/16/20 08:34 AW (Rec: 03/16/20 17:22 AW [email or web address]) OP-PT Balance Assessment Sitting Balance Static Sitting Balance Ability Normal Dynamic Sitting Balance Ability Normal Standing Balance Static Standing Balance Ability Normal Dynamic Standing Balance Ability Good Storey Fall Scale Copyright Permission PT-OP-J Posture/Palpation/Skin Start: 03/16/20 08:32 Freq: Status: Active Protocol: Document 03/16/20 08:34 AW (Rec: 03/16/20 17:22 AW [email or web address]) Posture Evaluation Comments Posture Comments Increased lordosis in standing Palpation Assessment Location One Palpation Location Dense lumbar paraspinals, especially at lumbosacral junction to S2 Palpation Findings Soft Tissue Tightness,Spasm, Muscle Guarding,Tenderness Palpation Details Mild stiffness with lumbar PA' s but symptom improvement noted with PA at L5/S1 PT-OP-K Range of Motion Start: 03/16/20 08:32 Freq: Status: Active Protocol: Document 03/16/20 08:34 AW (Rec: 03/16/20 17:22 AW [email or web address]) Lumbar Spine Range of Motion Lumbar Spine Active Degrees Testing Position Standing Flexion 80 Extension 10 Comments R lateral flexion with fingertips to knee but painful . L lateral flexion 1 above knee but not painful. Hip Goniometric Range of Motion Hip Left Active Hip ROM WFL Yes Testing Position Supine PT-OP-L Special Tests Start: 03/16/20 08:32 Freq: Status: Active Protocol: Document 03/16/20 08:34 AW (Rec: 03/16/20 17:22 AW [email or web address]) Special Tests Hip Special Tests Scour Test Test Results negative bilaterally PT-OP-M Strength Start: 03/16/20 08:32 Freq: Status: Active Protocol: Document 03/16/20 08:34 AW (Rec: 03/16/20 17:22 AW [email or web address]) Hip Strength Hip Manual Muscle Testing Right Flexion (L2) 4+ Good+ Extension (S1) 4- Good- Abduction 4- Good- External Rotation 5 Normal Internal Rotation 5 Normal Left Flexion (L2) 4- Good- Extension (S1) 4- Good- Abduction 4- Good- External Rotation 5 Normal Internal Rotation 5 Normal PT-OP-Q Treatments Start: 03/16/20 08:32 Freq: Status: Active Protocol: Document 05/23/20 13:46 SP (Rec: 05/23/20 14:32 SP [id number]) Cardio Equipment Recumbent Elliptical (Biodex) Duration (Minutes) 6 Resistance 4 Seat Position 5 Therapeutic Exercises Prone Exercises child's pose Reps/Minutes 30 x3 bird dog Prone Exercise Name quadruped UE/ LE ext Side bilateral Equipment Used stick on lumbar feedback Reps/Minutes x10 Comments good neutral pelvis Sitting Exercises HS, adductor, ITB, Quad stick rolling Side bilateral Reps/Minutes 30 sec- 1 min each area Comments improved with reps- decrease superficial tenderness and tighnesss PF/glut stretch Sitting Exercise Name fig 4 Side bilateral Reps/Minutes 30 Comments stated does alot before goes to bed/ wakes up trunk flexion stretch Reps/Minutes 30 x2 QL stretch Sitting Exercise Name on floor feet together, side bend Side bilateral Equipment Used floor, SB Reps/Minutes 30 sec x2 Standing Exercises palloff press Standing Exercise Name palloff press (long arm horizontal LS rotation) Side bilateral Resistance level 2 Equipment Used TB Reps/Minutes 2x 10 reps each side Comments good pacing control each direction segmental forward flexion Standing Exercise Name zach curl with BUE FF segmental roll up/ down back towall Resistance #3 DB Reps/Minutes x10 Comments cues for segmental awareness PT-OP-T Assessment and Plan Start: 03/16/20 08:32 Freq: Status: Active Protocol: Document 05/23/20 13:46 SP (Rec: 05/23/20 14:32 SP [id number]) Physical Therapy Assessment Goals Three Impairment Pt unable to lift her grandson Short Term Goal (STG) Pt will be able to lift 20 pounds and carry 20 feet with good body mechanics and without increase in pain. PROGRESSING 05/11/20 STG Duration 04/13/20 Company Miner Blasting Goal (LTG) Pt will be able to lift 30 pounds and carry 30 feet with good body mechanics and without increase in pain. LTG Duration 06/22/20 Two Impairment Pt has no appropriate HEP Short Term Goal (STG) Pt will be independent with HEP for support of therapy services provided in clinic 04/13/20 MET STG Duration 04/13/20 Prison Goal (LTG) Pt will be independent with maintenance HEP MET 05/11/20 LTG Duration 05/11/20 One Impairment Pt unable to work more than 5- 6 hours per day Company Miner Blasting Goal (LTG) Pt will work three 8-hour days consecutively. PARTIALLY MET 05/11/20 LTG Duration 06/22/20 Assessment Summary Assessment Pt responded well to warm up ( trialed all bikes for awareness to use at home if can get one- prefers upright bike), core/ and flexibiltiy tx today. Cued for awareness of PPT and core facilitation. Added zach curl today at wall segmental roll ups with FF DB. It feels alot looser and supported leaving than when came in. Physical Therapy Plan Frequency and Duration Frequency of Treatment 2x/Week Duration of Treatment 8 + 6 Plan of Care Start Date 03/16/20 Plan of Care End Date 06/22/20 Therapeutic Interventions Therapeutic Interventions Balance Training,Gait Training ,Home Exercise Program,Joint Mobilizations,Manual Therapy, Neuromuscular Re-education, Self-Care/Home Management,Soft Tissue Mobilization, Therapeutic Activities, Therapeutic Exercises Modalities Cold Pack/Ice Massage,Hot Packs Next Visit Focus/Plan Next Note Type Treatment Note Next Visit Plan Follow up re: rheumatology referral (hasn't had one yet, needs to schedule). Assess response to last tx: core TB, DB, flex last tx. Continue hip hinge/lift and carry progression, core strengthening. Progress hip strengthening
--- NOTE | 2020-05-27 09:15 | PT-OP ANOTE ---
Pt did not show for today's appt. Left a message regarding and reminded next appt with AMBER Tijerina on .
--- NOTE | 2020-06-06 10:48 | PT-OP ANOTE ---
Pt did not show for today's appt, her voicemail commented having family medical activities taking her time. BAG PATCHER left a message regarding today being her 2nd missed appt and a reminder of her next appt 06/09/20. Forgot to remind of 3 NS policy, will discuss next appt to try and cancel if known in advance if possible.
--- NOTE | 2020-06-09 07:31 | PT-IP ANOTE ---
Pt cancelled appt day, has a sore throat.
--- NOTE | 2020-06-10 15:39 | PT-OP ANOTE ---
EXTENSION SERVICE AGENT called, left message to remind of this upcoming Saturday06/13/20 appt due to multiple no shows and cancellations, her voicemail implies family emergencies the possible cause. Recommended calling if need to cancel Saturday's appt 24 hrs in advance and if needed can call us to indicate discharge if unable to attend PT at this time and when can to get a new referral otherwise will see on 06/13.
--- NOTE | 2020-06-13 10:45 | PT-OP ANOTE ---
Pt called and cancelled same day appt due to unable find her keys to attend, rescheduled for tomorrow. GROUP TEACHER left message regarding has been approx 3 weeks since last seen, will see tomorrow at scheduled time and follow up with PT on 06/15/20 important to attend. GROUP TEACHER provided awareness of there being a strict 3 no show policy of which has been over looking. Currently total of 7 cancellations and 4 now shows since 03/18/20. GROUP TEACHER commented that understand that on her voicemail states has had emergent family events come up and possibly why hasn't attended. Will plan to see her on 06/14/20, tomorrow as noted was reschedule today.
--- NOTE | 2020-06-15 15:35 | PT.OTN ---
Current Diagnoses Low back pain (06/15/20) Abnormal posture (06/15/20) Physical Therapy Treatment Note PT-OP-A Visit Information Start: 03/16/20 08:32 Freq: Status: Active Protocol: Document 06/15/20 15:23 AW (Rec: 06/15/20 15:35 AW [email or web address]) Out-Patient Physical Therapy Visit Information Visit Information Visit Type Treatment Note Visit Start Time 10:30 Visit Stop Time 11:15 Total Visit Minutes 45 Visit Number 07/21 Number of WELL REACTIVATOR OPERATOR Visits 0 Evaluation Information Evaluation Date 03/16/20 PT-OP-B Current Condition Start: 03/16/20 08:32 Freq: Status: Active Protocol: Document 03/16/20 08:34 AW (Rec: 03/16/20 08:45 AW [id number]) Current Condition History of Current Condition Onset Date February 2020 Current Complaints low back pain History of Current Condition 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 She did not work during the months of November and December due to [employer] restrictions. She went back to work first week of January and was overwhelmed with demand. Within a few weeks, she began to notice low back pain (left worse than right) which became progressively worse. Since that time, she has not been able to work full days. She usually works at least 8-hour days. At this time, she can work a maximum of six hours due to increasing pain. She went to the ED on 02/12/20 after naproxen, topical CBD, and ice were ineffective at managing her pain. At that visit, she was prescribed steroids and muscle relaxer. Bed mobility, car transfers, sitting >20 minutes, and picking up her 2yo grandson have become very difficult and painful. She does find that walking 1 mile AM and one mile PM have helped to loosen me up and generally decrease her pain. Her pain is localized to left lumbosacral level. She does report occasional shooting pain originating at the same level and traveling down her posterolateral thigh. Of note, pt has a history of migraine headaches and likely TIA (3 years ago). Prior Treatments and Tests - ED visit 02/12/20 - treated with steroid and muscle relaxant - 02/12/20 sacrum coccyx x-ray: No fractures or dislocations . Mild to moderate degenerative disc disease at L4-L5. Moderate to severe facet of L4-L5 at L5-S1. No suspicious bony lesions. Moderate sacroiliac joint degeneration bilaterally.1. No acute osseous abnormalities. 2. Degenerative disc and facet disease in the lower lumbar spine. 3. Moderate facet joint degeneration bilaterally. - PT previously at this clinic for back pain 1 year ago Future Testing and Treatments Planned none identified Treatment Goals Patient/Caregiver Goals Get rid of pain and learn how to manage. To be able to work 8-hour day without pain. Increase flexibility. 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 Baseline Function- Recreation/Hobbies Enjoys spending time with her 2yo grandchild Current Functional Impairments (Reported) Functional Limitations- Mobility/Gait Pt walking slowly with decreased left stance time, short right step length. Pt ambulates with bilateral genu varum. Functional Limitations- Work/School Able to work maximum of 6 hours before needing to go home. Functional Limitations- Recreation/ Unable to lift her grandchild. Hobbies Personal Factors Other Personal Factors That May Effect + Positive experience with Therapy/Recovery prior PT + Low risk for catastrophizing pain + Enjoys activity and vigilant against immobility - Need to work long hours on her feet with arms elevated PT-OP-C Subjective Start: 03/16/20 08:32 Freq: Status: Active Protocol: Document 06/15/20 15:23 AW (Rec: 06/15/20 15:35 AW [email or web address]) OP-PT Subjective Patient Comments Patient Comments Pt has had a difficult few weeks with family crises but reassures this therapist that she will be able to keep appointments moving forward. PT-OP-D Balance Start: 03/16/20 08:32 Freq: Status: Active Protocol: Document 03/16/20 08:34 AW (Rec: 03/16/20 17:22 AW [email or web address]) OP-PT Balance Assessment Sitting Balance Static Sitting Balance Ability Normal Dynamic Sitting Balance Ability Normal Standing Balance Static Standing Balance Ability Normal Dynamic Standing Balance Ability Good Storey Fall Scale Copyright Permission PT-OP-J Posture/Palpation/Skin Start: 03/16/20 08:32 Freq: Status: Active Protocol: Document 03/16/20 08:34 AW (Rec: 03/16/20 17:22 AW [email or web address]) Posture Evaluation Comments Posture Comments Increased lordosis in standing Palpation Assessment Location One Palpation Location Dense lumbar paraspinals, especially at lumbosacral junction to S2 Palpation Findings Soft Tissue Tightness,Spasm, Muscle Guarding,Tenderness Palpation Details Mild stiffness with lumbar PA' s but symptom improvement noted with PA at L5/S1 PT-OP-K Range of Motion Start: 03/16/20 08:32 Freq: Status: Active Protocol: Document 03/16/20 08:34 AW (Rec: 03/16/20 17:22 AW [email or web address]) Lumbar Spine Range of Motion Lumbar Spine Active Degrees Testing Position Standing Flexion 80 Extension 10 Comments R lateral flexion with fingertips to knee but painful . L lateral flexion 1 above knee but not painful. Hip Goniometric Range of Motion Hip Left Active Hip ROM WFL Yes Testing Position Supine PT-OP-L Special Tests Start: 03/16/20 08:32 Freq: Status: Active Protocol: Document 03/16/20 08:34 AW (Rec: 03/16/20 17:22 AW [email or web address]) Special Tests Hip Special Tests Scour Test Test Results negative bilaterally PT-OP-M Strength Start: 03/16/20 08:32 Freq: Status: Active Protocol: Document 03/16/20 08:34 AW (Rec: 03/16/20 17:22 AW [email or web address]) Hip Strength Hip Manual Muscle Testing Right Flexion (L2) 4+ Good+ Extension (S1) 4- Good- Abduction 4- Good- External Rotation 5 Normal Internal Rotation 5 Normal Left Flexion (L2) 4- Good- Extension (S1) 4- Good- Abduction 4- Good- External Rotation 5 Normal Internal Rotation 5 Normal PT-OP-Q Treatments Start: 03/16/20 08:32 Freq: Status: Active Protocol: Document 06/15/20 15:23 AW (Rec: 06/15/20 15:35 AW [email or web address]) Therapeutic Exercises Supine Exercises HS stretch with adduction Supine Exercise Name HS stretch with adduction Side left Equipment Used gait belt Reps/Minutes 30 sec x 2 Comments cues to avoid painful ROM Prone Exercises child's pose Reps/Minutes 30 x3 Sitting Exercises HS, adductor, ITB, Quad stick rolling Side bilateral Reps/Minutes 30 sec- 1 min each area Comments improved with reps- decrease superficial tenderness and tighnesss sit to stand/tap squat Sitting Exercise Name sit to stand/tap squat Equipment Used arms across chest to 18chair Reps/Minutes 10 reps x 2 Comments meter stick at spine for tactile feedback of hip hinge trunk flexion stretch Reps/Minutes 30 x2 Manual Therapy Treatment Soft Tissue Mobilization 2 Body Location left lateral HS Mobilization Type Myofascial Release,Rolling, Strumming Intensity/Depth Moderate Body Position Hooklying Comments Pt with increased tone throughout semitendinosis with distal more affected than proximal. Educated pt on implications of increased lumbar lordosis for HS length and irritability. 1 Body Location L paraspinals, pirformis, glut med, TFL Mobilization Type Cross-Friction,Myofascial Release Intensity/Depth Moderate Body Position Sidelying Joint Mobilizations 1 Joint L3-5 Direction PA Grade III Body Position Prone Comments positive pt feedback PT-OP-T Assessment and Plan Start: 03/16/20 08:32 Freq: Status: Active Protocol: Document 06/15/20 15:23 AW (Rec: 06/15/20 15:35 AW [email or web address]) Physical Therapy Assessment Goals Three Impairment Pt unable to lift her grandson Short Term Goal (STG) Pt will be able to lift 20 pounds and carry 20 feet with good body mechanics and without increase in pain. PROGRESSING 05/11/20 STG Duration 04/13/20 Residential Goal (LTG) Pt will be able to lift 30 pounds and carry 30 feet with good body mechanics and without increase in pain. LTG Duration 06/22/20 Two Impairment Pt has no appropriate HEP Short Term Goal (STG) Pt will be independent with HEP for support of therapy services provided in clinic 04/13/20 MET STG Duration 04/13/20 Residential Goal (LTG) Pt will be independent with maintenance HEP MET 05/11/20 LTG Duration 05/11/20 One Impairment Pt unable to work more than 5- 6 hours per day Residential Goal (LTG) Pt will work three 8-hour days consecutively. PARTIALLY MET 05/11/20 LTG Duration 06/22/20 Assessment Summary Assessment Pt has a referral for Rheumatology but is seeking a provider closer to [place] for convenience. This PT educated pt on progressive nature of ankylosing spondylitis and counseled her to schedule appointment as soon as possible. Pt understands she will be discharged from therapy if she misses one more appointment. Changed plan of care to once weekly for attendance trial. Physical Therapy Plan Frequency and Duration Frequency of Treatment 1x/Week Duration of Treatment 8 + 6 Plan of Care Start Date 03/16/20 Plan of Care End Date 06/22/20 Therapeutic Interventions Therapeutic Interventions Balance Training,Gait Training ,Home Exercise Program,Joint Mobilizations,Manual Therapy, Neuromuscular Re-education, Self-Care/Home Management,Soft Tissue Mobilization, Therapeutic Activities, Therapeutic Exercises Next Visit Focus/Plan Next Note Type Progress Note Next Visit Plan re-assess goals; need new POC at next appointment. Progress postural awareness, functional activities, core and hip strength.
--- NOTE | 2020-07-06 11:27 | PT.OPDS ---
Current Diagnoses Low back pain (06/15/20) Abnormal posture (06/15/20) Visit Care Team Role Provider Type Tello Reyes DO Attending Provider Physician Primary Care Provider Referring Provider Specialty: Family Practice Address: [address] [place] [address], [facility] Email: [email or web address] Visit Number Visit Number 07/21 Discharge Summary PT-OP-B Current Condition Start: 03/16/20 08:32 Freq: Status: Active Protocol: Document 03/16/20 08:34 AW (Rec: 03/16/20 08:45 AW [id number]) Current Condition History of Current Condition Onset Date February 2020 Current Complaints low back pain History of Current Condition 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 She did not work during the months of November and December due to [employer] restrictions. She went back to work first week of January and was overwhelmed with demand. Within a few weeks, she began to notice low back pain (left worse than right) which became progressively worse. Since that time, she has not been able to work full days. She usually works at least 8-hour days. At this time, she can work a maximum of six hours due to increasing pain. She went to the ED on 02/12/20 after naproxen, topical CBD, and ice were ineffective at managing her pain. At that visit, she was prescribed steroids and muscle relaxer. Bed mobility, car transfers, sitting >20 minutes, and picking up her 2yo grandson have become very difficult and painful. She does find that walking 1 mile AM and one mile PM have helped to loosen me up and generally decrease her pain. Her pain is localized to left lumbosacral level. She does report occasional shooting pain originating at the same level and traveling down her posterolateral thigh. Of note, pt has a history of migraine headaches and likely TIA (3 years ago). Prior Treatments and Tests - ED visit 02/12/20 - treated with steroid and muscle relaxant - 02/12/20 sacrum coccyx x-ray: No fractures or dislocations . Mild to moderate degenerative disc disease at L4-L5. Moderate to severe facet of L4-L5 at L5-S1. No suspicious bony lesions. Moderate sacroiliac joint degeneration bilaterally.1. No acute osseous abnormalities. 2. Degenerative disc and facet disease in the lower lumbar spine. 3. Moderate facet joint degeneration bilaterally. - PT previously at this clinic for back pain 1 year ago Future Testing and Treatments Planned none identified Treatment Goals Patient/Caregiver Goals Get rid of pain and learn how to manage. To be able to work 8-hour day without pain. Increase flexibility. 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 Baseline Function- Recreation/Hobbies Enjoys spending time with her 2yo grandchild Current Functional Impairments (Reported) Functional Limitations- Mobility/Gait Pt walking slowly with decreased left stance time, short right step length. Pt ambulates with bilateral genu varum. Functional Limitations- Work/School Able to work maximum of 6 hours before needing to go home. Functional Limitations- Recreation/ Unable to lift her grandchild. Hobbies Personal Factors Other Personal Factors That May Effect + Positive experience with Therapy/Recovery prior PT + Low risk for catastrophizing pain + Enjoys activity and vigilant against immobility - Need to work long hours on her feet with arms elevated PT-OP-D Balance Start: 03/16/20 08:32 Freq: Status: Active Protocol: Document 03/16/20 08:34 AW (Rec: 03/16/20 17:22 AW [email or web address]) OP-PT Balance Assessment Sitting Balance Static Sitting Balance Ability Normal Dynamic Sitting Balance Ability Normal Standing Balance Static Standing Balance Ability Normal Dynamic Standing Balance Ability Good Storey Fall Scale Copyright Permission PT-OP-J Posture/Palpation/Skin Start: 03/16/20 08:32 Freq: Status: Active Protocol: Document 03/16/20 08:34 AW (Rec: 03/16/20 17:22 AW [email or web address]) Posture Evaluation Comments Posture Comments Increased lordosis in standing Palpation Assessment Location One Palpation Location Dense lumbar paraspinals, especially at lumbosacral junction to S2 Palpation Findings Soft Tissue Tightness,Spasm, Muscle Guarding,Tenderness Palpation Details Mild stiffness with lumbar PA' s but symptom improvement noted with PA at L5/S1 PT-OP-K Range of Motion Start: 03/16/20 08:32 Freq: Status: Active Protocol: Document 03/16/20 08:34 AW (Rec: 03/16/20 17:22 AW [email or web address]) Lumbar Spine Range of Motion Lumbar Spine Active Degrees Testing Position Standing Flexion 80 Extension 10 Comments R lateral flexion with fingertips to knee but painful . L lateral flexion 1 above knee but not painful. Hip Goniometric Range of Motion Hip Left Active Hip ROM WFL Yes Testing Position Supine PT-OP-L Special Tests Start: 03/16/20 08:32 Freq: Status: Active Protocol: Document 03/16/20 08:34 AW (Rec: 03/16/20 17:22 AW [email or web address]) Special Tests Hip Special Tests Scour Test Test Results negative bilaterally PT-OP-M Strength Start: 03/16/20 08:32 Freq: Status: Active Protocol: Document 03/16/20 08:34 AW (Rec: 03/16/20 17:22 AW [email or web address]) Hip Strength Hip Manual Muscle Testing Right Flexion (L2) 4+ Good+ Extension (S1) 4- Good- Abduction 4- Good- External Rotation 5 Normal Internal Rotation 5 Normal Left Flexion (L2) 4- Good- Extension (S1) 4- Good- Abduction 4- Good- External Rotation 5 Normal Internal Rotation 5 Normal PT-OP-T Assessment and Plan Start: 03/16/20 08:32 Freq: Status: Active Protocol: Document 07/06/20 11:25 AW (Rec: 07/06/20 11:27 AW [email or web address]) Physical Therapy Assessment Goals Three Impairment Pt unable to lift her grandson Short Term Goal (STG) Pt will be able to lift 20 pounds and carry 20 feet with good body mechanics and without increase in pain. PROGRESSING 05/11/20 STG Duration 04/13/20 Java Sdet Goal (LTG) Pt will be able to lift 30 pounds and carry 30 feet with good body mechanics and without increase in pain. LTG Duration 06/22/20 Two Impairment Pt has no appropriate HEP Short Term Goal (STG) Pt will be independent with HEP for support of therapy services provided in clinic 04/13/20 MET STG Duration 04/13/20 Snf Goal (LTG) Pt will be independent with maintenance HEP MET 05/11/20 LTG Duration 05/11/20 One Impairment Pt unable to work more than 5- 6 hours per day Java Sdet Goal (LTG) Pt will work three 8-hour days consecutively. PARTIALLY MET 05/11/20 LTG Duration 06/22/20 Physical Therapy Plan Frequency and Duration Frequency of Treatment 1x/Week Duration of Treatment 8 + 6 Plan of Care Start Date 03/16/20 Plan of Care End Date 06/22/20 Therapeutic Interventions Therapeutic Interventions Balance Training,Gait Training ,Home Exercise Program,Joint Mobilizations,Manual Therapy, Neuromuscular Re-education, Self-Care/Home Management,Soft Tissue Mobilization, Therapeutic Activities, Therapeutic Exercises Discharge Physical Therapy Discharge Reasons No Longer Attending PT Discharge Comments Pt has cancelled multiple appointments due to personal situations and car troubles. Unfortunately, she has failed to meet attendance expectations as explained per clinic policy. This PT called and left a message that future appointments would be cancelled.
== END 2020-07-21 13:17 ==
LOC: PHYS 10:30
PROVIDERS: PCP Family Medicine; Referring Provider Family Medicine; Visit Provider Family Medicine
DX: M54.5 Low back pain (principal); R29.3 Abnormal posture
CPT/HCPCS: 97110; 97112; 97140; 97161; 97530

== ENCOUNTER → 2020-09-01 08:57 | Outpatient (CLI) | payer OTHER, MEDICAID, SELFPAY ==
--- NOTE | 2020-09-01 09:00 | DI.RAD.S_ITS ---
PROCEDURE: XR KNEE RT 3V INDICATIONS: right knee pain/injury TECHNIQUE: 3 views of the knee were acquired. COMPARISON: [facility], CR, XR KNEE LT 3V, 04/28/2018, 17:34. Contralateral knee. FINDINGS: Bones: No fractures or dislocations. No suspicious bony lesions. Minimal irregularity at the medial tibial plateau may be due to prior injury or small osteophyte. Soft tissues: Small joint effusion suspected. No suspicious soft tissue calcifications. IMPRESSION: No acute osseous abnormality identified. Suspect small joint effusion. Dictated by: Jimmy Bhagat M.D. on 09/01/2020 at 9:29 Approved by: Jimmy Bhagat M.D. on 09/01/2020 at 9:32
[2020-09-01 09:52] LABS: Alanine Aminotransferase 24 IU/L (<35); Albumin 4.2 g/dL (3.5-5.0); Albumin Globulin Ratio 1.3 (1.0-2.8); Alkaline Phosphatase 67 U/L (38-126); Aspartate Aminotransferase 24 IU/L (14-36); BUN Creatinine Ratio 24.6 (6-22); Bilirubin Total 0.3 mg/dL (0.2-1.3); Blood Urea Nitrogen 17 mg/dL (7-17); Calcium 9.2 mg/dL (8.4-10.2); Carbon Dioxide 25 mmol/L (22-32); Chloride 107 mmol/L (98-107); Estimated Glomerular Filt Rate > 60.0 mL/min (>60); Globulin 3.3 g/dL (1.7-4.1); Glucose 108 mg/dL (70-100); HEMOLYSIS < 15 (0-50); Potassium 4.1 mmol/L (3.4-5.1); Sodium 135 mmol/L (137-145); Total Protein 7.5 g/dL (6.3-8.2)
== END ==
PROVIDERS: PCP Family Medicine; Referring Provider Registered Nurse; Visit Provider Registered Nurse
DX: M25.561 Pain in right knee (principal); G43.909 Migraine, unspecified, not intractable, without status migrainosus; S89.91XA Unspecified injury of right lower leg, initial encounter; X58.XXXA Exposure to other specified factors, initial encounter
CPT/HCPCS: 36415; 73562; 80053

== ENCOUNTER → 2020-12-12 09:49 | Outpatient (CLI) | payer OTHER, MEDICAID, SELFPAY ==
--- NOTE | 2020-12-12 09:50 | DI.MRI.S_ITS ---
PROCEDURE: MR KNEE RT WO CON INDICATIONS: Persistent and progressive right knee pain, history DJD TECHNIQUE: Noncontrast sagittal PD fast spin echo and T2 fast spin echo with fat saturation, sagittal 3-D FLASH with fat saturation; coronal T1 spin echo and PD fast spin echo with fat saturation, and axial PD fast spin echo with fat saturation through the knee. COMPARISON: None. FINDINGS: Menisci: Ill-defined medial meniscal tear involving the body with macerated appearance and partial extrusion. There is also mild T2 hyperintensity seen at the meniscocapsular junction of the posterior horn for example image 25/7 raising possibility of subtle meniscocapsular separation. Lateral meniscal tear. Cruciate ligaments: Anterior cruciate ligament appears intact. Posterior cruciate ligament appears intact. Medial structures: There is medial bowing of the medial collateral ligament, with mild internal signal changes and no complete rupture. There is adjacent soft tissue edema. The appearance could reflect reactive changes to medial compartment pathology, versus low-grade sprain of the MCL. Pes anserinus tendons appear grossly unremarkable. Semimembranosus tendon appears intact. Lateral structures: The lateral collateral ligament intact. Biceps femoris tendon appears intact. Popliteus tendon grossly unremarkable. Iliotibial band appears intact. Anterior structures: Quadriceps tendon intact. Medial and lateral patellofemoral ligaments intact. Patellar tendon appears intact. There is mild fluid seen within the deep infrapatellar bursa raising possibility of low-grade bursitis. Bones and cartilage: Marrow: No focal marrow contusion or discrete low signal fracture line. Medial compartment: Low-grade surface fraying of the femoral and tibial articular cartilage. Lateral compartment: No focal cartilage defect. Patellofemoral compartment: Mild surface fraying of the patellar cartilage. Femoral trochlear cartilage appears grossly intact. Joint space: No joint effusion. No Doll's cyst. No specific evidence of intra-articular loose body. IMPRESSION: Ill-defined medial meniscal tear with partial extrusion. There is also possible subtle or early meniscocapsular separation at the posterior horn. Mild degenerative joint disease involving the medial and patellofemoral compartment. Dictated by: El Aragon M.D. on 12/12/2020 at 11:36 Approved by: El Aragon M.D. on 12/12/2020 at 11:43
== END ==
PROVIDERS: PCP Family Medicine; Referring Provider Family Medicine; Visit Provider Family Medicine
DX: M25.561 Pain in right knee (principal); S83.241A Other tear of medial meniscus, current injury, right knee, initial encounter; S83.281A Other tear of lateral meniscus, current injury, right knee, initial encounter; M17.11 Unilateral primary osteoarthritis, right knee
CPT/HCPCS: 73721

== ENCOUNTER 2021-03-15 21:47 | Emergency (ER) | payer OTHER, MEDICAID, SELFPAY ==
[2021-03-15 21:57] VITALS: BP 196/92; PULSE 81; RESP 17; TEMP 36.7; O2SAT 97; BMI 28.0
--- NOTE | 2021-03-15 21:59 | ED.DENTAL ---
HPI - Dental/Oral General Chief complaint: Dental/Oral Stated complaint: jaw pain, difficulty swallowing, breathing Time Seen by Provider: 03/15/21 21:54 History of Present Illness HPI Narrative: 50F former Smoker with history of chronic pain presents with a few days of severe sharp and stabbing right-sided jaw pain. She states that her symptoms started a few days ago when she had been placed on gabapentin for help with her knee pain. Soon after starting the gabapentin she started clenching her jaw and grinding her teeth, possibly as a affect of the medication. Since doing that she has developed severe pain as stated. Her pain is worse when she opens her mouth or turns her head. She states that she has difficulty swallowing not because it feels like something is in the way but because of pain. She has had no fever or chills. She has been taking a significant amount of Motrin with minimal relief. Related Data Home Medications Medication Instructions Recorded Confirmed ketorolac 60 mg/2 mL intramuscular 30 mg IM Q6-8H PRN 10/24/18 10/26/20 solution meloxicam 15 mg tablet 15 mg PO DAILY 09/01/20 10/26/20 topiramate 50 mg tablet 50 mg PO BID 09/01/20 10/26/20 Previous Rx's Medication Instructions Recorded gvkiohsccc-sifdfohiwvuwx-ftdbucup 1 cap PO Q6H PRN #30 cap MDD 5 cap 04/08/19 50 mg-325 mg-40 mg capsule naratriptan 2.5 mg tablet 2.5 mg PO .COMPLEX #9 tab 07/15/20 ondansetron 4 mg disintegrating 4 mg PO Q8H PRN 30 Days #90 tab 09/01/20 tablet hydrocodone 5 mg-acetaminophen 325 1 tab PO TID PRN #30 tab 10/03/20 mg tablet naproxen 500 mg tablet 500 mg PO BID PRN #30 tab 10/03/20 cyclobenzaprine 10 mg tablet See Rx Instructions .ROUTE 10/21/20 .COMPLEX #180 tab dextroamphetamine-amphetamine 20 20 mg PO BID #180 tab 02/02/21 mg tablet (Adderall) hydrocodone 5 mg-acetaminophen 325 1 tab PO Q4-6H PRN #10 tab 03/15/21 mg tablet Allergies Allergy/AdvReac Type Severity Reaction Status Date / Time morphine [MORPHINE] Allergy Severe stop Verified 10/26/20 09:42 breathing Review of Systems Review of Systems Narrative: GENERAL: Denies chills, fatigue, malaise, fever, sweats. HEENT: See HPI RESPIRATORY: Denies dyspnea, cough, wheezing, hemoptysis, sputum. CARDIOVASCULAR: Denies chest pain, palpitations, orthopnea, edema, GASTROINTESTINAL: Denies nausea, vomiting, abdominal pain, diarrhea, constipation, melena. : Denies dysuria, frequency, incontinence, hematuria, urinary retention. MUSCULOSKELETAL: denies weakness, joint pain, or bony pain SKIN: Denies rash, skin lesions, or other NEUROLOGIC: Denies weakness, headache, numbness, change in speech, confusion, seizures, incoordination. PSYCHIATRIC: No concerning psychosocial issues. 12 point review of systems is negative except for those stated above Patient History Medical History Actinic keratosis (10/2016) ADHD (attention deficit hyperactivity disorder) (1971) Anemia (1992) Chickenpox (1979) Chronic back pain (2009) Generalized headaches (Unknown) HPV in female (1996) Hyperlipemia Knee pain, right anterior Melanoma (2012) Migraines (1985) Shoulder pain (1999) Tear of right meniscus as current injury TIA (transient ischemic attack) Surgical History H/O knee surgery H/O knee surgery History of appendectomy S/P laparoscopic supracervical hysterectomy (10/24/18) Status post appendectomy Family History Father Age: 70 Type 2 diabetes mellitus without complication, 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 Well-developed patient, in mild distress. Tearful, anxious HEAD: Atraumatic. Normocephalic. EYES: Pupils equal round and reactive. Extraocular motions intact. No scleral icterus. No injection or drainage. ENT: Widespread poor dentition, no obvious dental fractures, fluctuance or suggestion of abscess Nose without bleeding, purulent drainage. Throat without erythema, tonsillar hypertrophy or exudate. Airway patent. NECK: Trachea midline. Non tender, full painless range of motion, no obvious external manifestation of injury. No swelling, edema or warmth CARDIOVASCULAR: Regular rate and rhythm without murmurs, gallops, or rubs. RESPIRATORY: Clear to auscultation. Breath sounds equal bilaterally. No wheezes, rales, or rhonchi. GASTROINTESTINAL: Abdomen soft, non-tender, nondistended. EXTREMITIES: No edema or joint tenderness. BACK: Nontender without deformity or crepitance. No flank tenderness. NEURO: AOx3. SKIN: No rash or erythema of visible areas Initial Vital Signs Initial Vital Signs: Vital Signs Temperature 98.1 F 03/15/21 21:57 Pulse Rate 81 03/15/21 21:57 Respiratory Rate 17 03/15/21 21:57 Blood Pressure 196/92 H 03/15/21 21:57 Pulse Oximetry 97 03/15/21 21:57 Procedures Nerve Block Nerve Block 1: Time out performed: Yes Local Anesthetic: bupivacaine 0.25% Amount of anesthesia used (mL): 3 Side: right Intraoral Nerve Block: inferior alveolar Procedure Successful: Yes Patient Tolerated Procedure: Well Course Orders Ordered: Discontinued Medications Hydrocodone Bitart/Acetaminophen (Hydrocodone/Acet 5/325 Prepack) 1 bottle MISC SEEINSTR ONE Stop: 03/15/21 21:58 Last Admin: 03/15/21 22:11 Dose: 1 bottle Documented by: SEAN Bupivacaine HCl (Bupivacaine 0.25% (Pf) Vial) 5 ml SUBCUT NOW ONE Stop: 03/15/21 22:05 Last Admin: 03/15/21 22:11 Dose: 5 ml Documented by: SEAN Bupivacaine HCl/Epinephrine Bitart (Bupivacaine 0.5% W/ Epi (Pf) 30 Ml Vial) 5 ml SUBCUT NOW ONE Stop: 03/15/21 21:58 Vital Signs Vital signs: Vital Signs - 8 hr 03/15/21 21:57 03/15/21 22:33 Temperature 98.1 F Pulse Rate 81 76 Respiratory Rate 17 16 Blood Pressure 196/92 H 149/78 H Pulse Oximetry 97 95 MDM - Dental/Oral MDM Narrative Medical decision making narrative: Patient with right-sided lower jaw pain and near complete resolution symptoms after inferior alveolar block. She has no facial swelling, redness or warmth nor any fever or chills. She has no trouble breathing or swallowing. Intraoral exam notes poor dentition throughout but no evidence of acute fracture and no intraoral abscess. Patient feeling significant improvement, tolerating orals and appropriate for discharge. Return precautions given and questions answered to her apparent satisfaction Discharge Plan Departure Patient Disposition: Home Clinical Impression: Pain, dental Instructions: DI for Dental Pain Activity Restrictions/Additional Instructions: *You have been diagnosed with [dental and jaw pain] *What to do: *Please continue to take your regular medications as directed. [ x] New medication prescriptions sent to your pharmacy: [[facility] ] [ ] New medication written as a paper prescription [ ] No new medications given *Please follow up with your primary care provider in 2-3 days, call for an appointment. Let them know you were seen in the Emergency Department and that we ask that you be seen in follow up. We will electronically transmit a record of today's note if your PCP is in our system *If you do not have a primary care provider please contact the [facility] Resource line at [phone]. They will ask some questions about your medical history and help get you set up with a doctor in the community. *Return to Emergency Department if you should have any new, worsening or concerning symptoms, such as [fever greater than 101 F, shaking chills, worsening pain, persistent vomiting or other bothersome symptoms] Prescriptions: New hydrocodone-acetaminophen 5-325 mg tablet 1 tab PO Q4-6H PRN (Reason: pain) Qty: 10 RF: 0 No Action gjbdyrjpnv-jgqxctxsfvgli-vvpy 50-325-40 mg capsule 1 cap PO Q6H MDD 5 cap PRN (Reason: headache) Qty: 30 RF: 3 naratriptan 2.5 mg tablet 2.5 mg PO .COMPLEX Qty: 9 RF: 3 cyclobenzaprine 10 mg tablet See Rx Instructions .ROUTE .COMPLEX Qty: 180 RF: 0 dextroamphetamine-amphetamine [Adderall] 20 mg tablet 20 mg PO BID Qty: 180 RF: 0 meloxicam 15 mg tablet 15 mg PO DAILY RF: 0 topiramate 50 mg tablet 50 mg PO BID RF: 0 ondansetron 4 mg tablet,disintegrating 4 mg PO Q8H PRN (Reason: nausea and vomiting) 30 Days Qty: 90 RF: 1 hydrocodone-acetaminophen 5-325 mg tablet 1 tab PO TID PRN (Reason: pain) Qty: 30 RF: 0 naproxen 500 mg tablet 500 mg PO BID PRN (Reason: pain) Qty: 30 RF: 0 ketorolac 60 mg/2 mL Solution 30 mg IM Q6-8H PRN (Reason: headaches) RF: 0 Referrals: Tello Reyes DO [Primary Care Provider] -
[2021-03-15] MEDS: HYDROCODONE/ACET 5/325 PREPACK 1 BOTTLE MISC (22:11)
[2021-03-15] MEDS: BUPIVACAINE 0.25% (PF) VIAL 5 ML SUBCUT (22:11)
[2021-03-15 22:33] VITALS: BP 149/78; PULSE 76; RESP 16; O2SAT 95
== END 2021-03-15 22:35 | disposition home or self-care (01) ==
PROVIDERS: Emergency Provider Emergency Medicine; PCP Family Medicine
DX: K08.89 Other specified disorders of teeth and supporting structures (principal); R68.84 Jaw pain
CPT/HCPCS: 64450; 99281; 99283

== ENCOUNTER 2021-07-31 13:07 | Emergency (ER) | payer OTHER, MEDICAID, SELFPAY ==
[2021-07-31 13:14] VITALS: BP 155/82; PULSE 76; RESP 22; TEMP 37.1; O2SAT 98
--- NOTE | 2021-07-31 13:37 | DI.RAD.S_ITS ---
PROCEDURE: XR KNEE LT 3V INDICATIONS: pain without injury TECHNIQUE: 3 views of the knee were acquired. COMPARISON: [facility], CR, XR KNEE LT 3V, 04/28/2018, 17:34. FINDINGS: Bones: No fractures or dislocations. No suspicious bony lesions. Soft tissues: No joint effusion. No suspicious soft tissue calcifications. IMPRESSION: No acute osseous lesion. If symptoms and/or clinical suspicion for pathology persists, further assessment with repeat radiographs (7-10 days) or advanced imaging (e.g. CT, MRI or bone scan) should be considered. Dictated by: Gaib Rosales MD, PhD on 07/31/2021 at 14:04 Approved by: Gabi Rosales MD, PhD on 07/31/2021 at 14:05
--- NOTE | 2021-07-31 18:15 | ED_ITS ---
HPI - Extremity Injury (Lower) General Chief Complaint: Extremity Injury, Lower Stated Complaint: Severe pain in left knee- unsure what happened Time Seen by Provider: 07/31/21 17:45 Source: patient Mode of arrival: Wheelchair History of Present Illness HPI Narrative: Patient is a 50-year-old female here for evaluation of pain to the inside of her left knee. Pain is been going on for the past couple days. She states that it started when she stood up from sitting down. It is fairly localized. Prior to the event she did admit that she was doing quite a bit of activity which included moving things around and walking. She states that it hurts for her to stand. She has been using a knee brace but this does not improve the symptoms when she stands all that much. No prior injury. She has been taking Toradol at home. Related Data Home Medications Medication Instructions Recorded Confirmed ketorolac 60 mg/2 mL intramuscular 30 mg IM Q6-8H PRN 10/24/18 10/26/20 solution topiramate 50 mg tablet 50 mg PO BID 09/01/20 10/26/20 Previous Rx's Medication Instructions Recorded ltljyjuyfl-xpuxfvwjusxlw-owknvdxd 1 cap PO Q6H PRN #30 cap MDD 5 cap 04/08/19 50 mg-325 mg-40 mg capsule naratriptan 2.5 mg tablet 2.5 mg PO .COMPLEX #9 tab 07/15/20 ondansetron 4 mg disintegrating 4 mg PO Q8H PRN 30 Days #90 tab 09/01/20 tablet naproxen 500 mg tablet 500 mg PO BID PRN #30 tab 10/03/20 cyclobenzaprine 10 mg tablet See Rx Instructions .ROUTE 10/21/20 .COMPLEX #180 tab hydrocodone 5 mg-acetaminophen 325 1 tab PO Q4-6H PRN #10 tab 03/15/21 mg tablet dextroamphetamine-amphetamine 20 20 mg PO BID #180 tab 05/24/21 mg tablet (Adderall) omeprazole 20 mg capsule,delayed 20 mg PO DAILY #90 cap 05/24/21 release duloxetine 30 mg capsule,delayed 30 mg PO DAILY #30 cap 05/30/21 release Allergies Allergy/AdvReac Type Severity Reaction Status Date / Time morphine [MORPHINE] Allergy Severe stop Verified 10/26/20 09:42 breathing Review of Systems Musculoskeletal Musculoskeletal: Reports system reviewed and no additional complaints, except as documented and Reports as per HPI Integumentary/Breasts Skin/Breast: Reports system reviewed and no additional complaints, except as documented and Reports as per HPI Neurologic Neurologic: Reports system reviewed and no additional complaints, except as documented Hematologic/Lymphatic On Anticoagulants: No Patient History Medical History Actinic keratosis (10/2016) ADHD (attention deficit hyperactivity disorder) (1971) Anemia (1992) Chickenpox (1979) Chronic back pain (2009) Dental implant pain Depression Generalized headaches (Unknown) GERD (gastroesophageal reflux disease) HPV in female (1996) Hyperlipemia Knee pain, right anterior Melanoma (2012) Migraines (1985) Shoulder pain (1999) Tear of right meniscus as current injury TIA (transient ischemic attack) Surgical History H/O knee surgery H/O knee surgery History of appendectomy S/P laparoscopic supracervical hysterectomy (10/24/18) Status post appendectomy Family History Father Age: 71 Type 2 diabetes mellitus without complication, 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 Mother Age: 71 Essential hypertension Hyperlipidemia Social History household members: family Smoking Status: Former smoker alcohol intake: current Smoking Status: Former smoker alcohol intake frequency: a few times a month Substance Use Type: does not use Exam Initial Vital Signs Initial Vital Signs: Vital Signs Temperature 98.7 F 07/31/21 13:14 Pulse Rate 76 07/31/21 13:14 Respiratory Rate 22 07/31/21 13:14 Blood Pressure 155/82 H 07/31/21 13:14 Pulse Oximetry 98 07/31/21 13:14 Const General: cooperative, comfortable and well developed Limitations: mental status not altered HENMT Head: normal to inspection and normocephalic Resp Effort & Inspection: normal respiratory effort Skin General: no rashes or lesions noted Neuro General: patient alert, patient awake and moves all extremities Gait: normal gait Extrem Other: Patient has tenderness to palpation on the medial joint line of the left knee. The lateral joint line, hamstring tendons, patella tendon, quadriceps tendon, fibular head all unremarkable. The rest of her left lower extremities unremarkable. Psych Appearance: grossly normal and well [facility] Course Orders Ordered: ED Orders 07/31/21 13:37 XR knee LT 3V Stat Vital Signs Vital signs: Vital Signs - 8 hr 07/31/21 13:14 Temperature 98.7 F Pulse Rate 76 Respiratory Rate 22 Blood Pressure 155/82 H Pulse Oximetry 98 MDM - Extremity Injury (Lower) Imaging Data Extremity x-ray #1: Radiologist's Impression: [address] [address] XRay Report Signed Patient: Kiarra Allen MR#: [id number] : 1970 Acct:[id number] Age/Sex: 50 / F Date of Service: 07/31/21 Loc: ED Accession Number: [id number] ?? Procedure: XR knee LT 3V Ordering Provider: Ning Welch D.O. PROCEDURE:? XR KNEE LT 3V ? INDICATIONS:? pain without injury ? TECHNIQUE:? 3 views of the knee were acquired.? ? COMPARISON:? [facility], CR, XR KNEE LT 3V, 04/28/2018, 17:34. ? FINDINGS:? ? Bones:? No fractures or dislocations.? No suspicious bony lesions.? ? Soft tissues:? No joint effusion.? No suspicious soft tissue calcifications.? ? ? IMPRESSION:? No acute osseous lesion. If symptoms and/or clinical suspicion for pathology persists, further assessment with repeat radiographs (7-10 days) or advanced imaging (e.g. CT, MRI or bone scan) should be considered. ? ? Dictated by: Gabi Rosales MD, PhD on 07/31/2021 at 14:04 ? ? Approved by: Gabi Rosales MD, PhD on 07/31/2021 at 14:05?? [facility] Narrative Medical decision making narrative: X-ray shows no signs of fracture. Tenderness to palpation along the medial joint line of the left knee. I do have suspicion for meniscal injury given her presentation. No further workup needed the emergency department. We did discuss the use of a knee brace for lateral support. Informed her that she needed contact her primary doctor she is most likely going to need a referral to see Physical therapy and potentially even have an MRI. She will continue with Tylenol/ibuprofen. She expressed understanding of the plan. Discharge Plan Departure Patient Disposition: Home Clinical Impression: Knee pain, left Instructions: How To Perform RICE (Rest, Ice, Compress, Elevate), How to Apply an Elastic Wrap on Knee Activity Restrictions/Additional Instructions: Your x-rays today do not show any signs of a fracture so you can walk on your left leg as tolerated. You can continue to take Tylenol/ibuprofen for discomfort. You can use the knee brace or an Alexis bandage as needed for comfort as well. I also recommend ice. Unfortunately further workup will require you to see your primary doctor. You will most likely need a referral to see Physical therapy and potentially need an MRI. Return to the emergency department for any new or worsening symptoms. Prescriptions: No Action pbzzxcegay-jrxmuigcmjqhv-sidg 50-325-40 mg capsule 1 cap PO Q6H MDD 5 cap PRN (Reason: headache) Qty: 30 3RF naratriptan 2.5 mg tablet 2.5 mg PO .COMPLEX Qty: 9 3RF Rx Instructions: take 1 tab at onset of headache; if no relief may repeat 1 tab in 4hr; max = 2 tabs/24 hrs PO 2.5 mg cyclobenzaprine 10 mg tablet See Rx Instructions .ROUTE .COMPLEX Qty: 180 0RF Dose Instruction: TAKE ONE TABLET BY MOUTH TWICE DAILY Rx Instructions: TAKE ONE TABLET BY MOUTH TWICE DAILY duloxetine 30 mg capsule,delayed release(DR/EC) 30 mg PO DAILY Qty: 30 2RF dextroamphetamine-amphetamine [Adderall] 20 mg tablet 20 mg PO BID Qty: 180 0RF Rx Instructions: administer doses at least 4-6 hours apart omeprazole 20 mg capsule,delayed release(DR/EC) 20 mg PO DAILY Qty: 90 1RF topiramate 50 mg tablet 50 mg PO BID 0RF ondansetron 4 mg tablet,disintegrating 4 mg PO Q8H PRN (Reason: nausea and vomiting) 30 Days Qty: 90 1RF naproxen 500 mg tablet 500 mg PO BID PRN (Reason: pain) Qty: 30 0RF ketorolac 60 mg/2 mL Solution 30 mg IM Q6-8H PRN (Reason: headaches) 0RF hydrocodone-acetaminophen 5-325 mg tablet 1 tab PO Q4-6H PRN (Reason: pain) Qty: 10 0RF Referrals: Tello Reyes, DO [Primary Care Provider] -
== END 2021-07-31 18:27 | disposition home or self-care (01) ==
PROVIDERS: Emergency Provider Emergency Medicine; PCP Family Medicine
DX: M25.562 Pain in left knee (principal); Z87.891 Personal history of nicotine dependence
CPT/HCPCS: 73562; 99283

== ENCOUNTER 2021-12-17 07:39 | Emergency (ER) | payer OTHER, MEDICAID, SELFPAY ==
[2021-12-17] VITALS (7 sets, daily range): BP systolic 152–185; BP diastolic 85–91; PULSE 78–89; RESP 16–20; TEMP 36.6–36.7; O2SAT 95–99; BMI 28.3
--- NOTE | 2021-12-17 08:01 | ED_ITS ---
HPI - URI/Sore Throat General Chief Complaint: Upper Respiratory Symptoms Stated Complaint: cough x3 days Time Seen by Provider: 12/17/21 07:44 Source: patient Mode of arrival: Ambulatory History of Present Illness HPI Narrative: Patient is a 51-year-old female with history of ADHD presenting today with 3 days of dry nonproductive cough. She says she has tried all vfkc-ibl-mbsexqd medications including allergy medications and Benadryl. She says he can not get this coughing to stop. It is nonproductive. She has no body aches or chills. She denies any shortness of breath. But overall does not feel great. She says that she had COVID in the past she had a negative COVID test at home 2 days ago. She states she quit smoking 16 years ago. Related Data Home Medications Medication Instructions Recorded Confirmed ketorolac 60 mg/2 mL intramuscular 30 mg IM Q6-8H PRN 10/24/18 08/15/21 solution erenumab-aooe 140 mg/mL 140 mg SUBCUT QMONTH 08/15/21 08/15/21 subcutaneous auto-injector (Aimovig Autoinjector) Previous Rx's Medication Instructions Recorded qfyiqdewuq-tasqsqfuqgunj-xrctamub 1 cap PO Q6H PRN #30 cap MDD 5 cap 04/08/19 50 mg-325 mg-40 mg capsule naratriptan 2.5 mg tablet 2.5 mg PO .COMPLEX #9 tab 07/15/20 ondansetron 4 mg disintegrating 4 mg PO Q8H PRN 30 Days #90 tab 09/01/20 tablet naproxen 500 mg tablet 500 mg PO BID PRN #30 tab 10/03/20 cyclobenzaprine 10 mg tablet See Rx Instructions .ROUTE 10/21/20 .COMPLEX #180 tab amoxicillin 875 mg-potassium 1 tab PO BID #14 tab 08/15/21 clavulanate 125 mg tablet (Augmentin) duloxetine 30 mg capsule,delayed 30 mg PO DAILY #90 cap 10/05/21 release omeprazole 20 mg capsule,delayed See Rx Instructions .ROUTE 11/20/21 release .COMPLEX #90 cap dextroamphetamine-amphetamine 10 10 mg PO QID PRN #180 tab 12/11/21 mg tablet (Adderall) prednisone 20 mg tablet 40 mg PO DAILY #10 tab 12/17/21 Allergies Allergy/AdvReac Type Severity Reaction Status Date / Time morphine [MORPHINE] Allergy Severe stop Verified 10/26/20 09:42 breathing Review of Systems Review of Systems Narrative: GENERAL: Denies chills, fatigue, malaise, fever, sweats, travel HEENT: Denies sinus pain, ear pain, sore throat, difficulty swallowing, neck pain RESPIRATORY: See HPI CARDIOVASCULAR: Denies chest pain, palpitations, orthopnea, edema GASTROINTESTINAL: Denies nausea, vomiting, abdominal pain, diarrhea, constipation, melena. : Denies dysuria, frequency, incontinence, hematuria, urinary retention, flank pain. MUSCULOSKELETAL: Denies weakness, joint pain, or bony pain SKIN: No rash, no erythema, no pruritus NEUROLOGIC: Denies weakness, dizziness, headache, numbness, change in speech, confusion PSYCHIATRIC: No concerning psychosocial issues. 12 point review of systems is negative except for those stated above and HPI Patient History Medical History Actinic keratosis (10/2016) ADHD (attention deficit hyperactivity disorder) (1971) Anemia (1992) Chickenpox (1979) Chronic back pain (2009) Dental implant pain Depression Generalized headaches (Unknown) GERD (gastroesophageal reflux disease) HPV in female (1996) Hyperlipemia Knee pain, right anterior Melanoma (2012) Migraines (1985) Shoulder pain (1999) Tear of right meniscus as current injury TIA (transient ischemic attack) Surgical History H/O knee surgery H/O knee surgery History of appendectomy S/P laparoscopic supracervical hysterectomy (10/24/18) Status post appendectomy Family History Father Age: 71 Type 2 diabetes mellitus without complication, unspecified snf insulin use status Mother Age: 71 Essential hypertension Hyperlipidemia Social History household members: family Smoking Status: Former smoker alcohol intake: current Smoking Status: Former smoker alcohol intake frequency: a few times a month Substance Use Type: does not use Exam Initial Vital Signs Initial Vital Signs: Vital Signs Temperature 98.1 F 12/17/21 07:40 Pulse Rate 89 12/17/21 07:40 Respiratory Rate 20 12/17/21 07:40 Blood Pressure 185/91 H 12/17/21 07:40 Pulse Oximetry 99 12/17/21 07:40 GENERAL: Alert 51-year-old female appears to not feel well HEENT: Head atraumatic,EOMI, pupils reactive, face symmetric, [moist] mucous membranes CARDIOVASCULAR: Regular rate and rhythm without murmurs, rubs or gallops. RESPIRATORY: A bronchospastic cough with deep breaths however breathes are clear bilaterally without wheezing rales or rhonchi speaks in full sentences ABDOMEN: Soft, nontender. Normoactive bowel sounds all 4 quadrants. No guarding or rebound. EXTREMITIES: Normal range of motion, no clubbing or edema. Neurovascularly intact NEUROLOGICAL: Alert and oriented x4.Normal gait and speech. SKIN: Warm, dry, no laceration, no petechiae, no rashes or lesions. Course Orders Ordered: ED Orders 12/17/21 08:05 Chest [XR chest 2V] Stat 12/17/21 09:11 COVID19 -Nasal RAPID/Pre-Proc Stat Discontinued Medications Albuterol (Albuterol Hfa Mdi 60 Puff/8 Gm Inhaler) 1 puff INH NOW ONE Stop: 12/17/21 09:48 Last Admin: 12/17/21 10:59 Dose: 1 puff Documented by: ARIAS Albuterol/Ipratropium (Albuterol/Ipratropium 3 Ml Ampul) 3 ml INH NOW ONE Stop: 12/17/21 08:06 Last Admin: 12/17/21 08:25 Dose: 3 ml Documented by: SAVANAH Vital Signs Vital signs: Vital Signs - 8 hr 12/17/21 07:40 12/17/21 08:20 12/17/21 08:29 Temperature 98.1 F Pulse Rate 89 87 80 Respiratory Rate 20 16 Blood Pressure 185/91 H Pulse Oximetry 99 95 98 12/17/21 08:30 12/17/21 09:50 12/17/21 09:51 Temperature 97.8 F Pulse Rate 80 78 Respiratory Rate 18 Blood Pressure 152/85 H 154/87 H Pulse Oximetry 98 97 97 12/17/21 11:02 Temperature Pulse Rate 80 Respiratory Rate 18 Blood Pressure 154/85 H Pulse Oximetry 98 MDM - URI/Sore Throat Lab Data Labs: Lab Results 12/17/21 Range/Units 09:11 SARS-CoV-2 (PCR) Negative (Negative) Imaging Data Chest x-ray: Radiologist's Impression: Kiarra Allen MR#: [id number] : 1970 Acct:[id number] Age/Sex: 51 / F Date of Service: 12/17/21 Loc: ED Accession Number: [id number] ?? Procedure: XR chest 2V Ordering Provider: Ning Welch D.O. PROCEDURE:? XR CHEST 2V ? INDICATIONS:? cough ? TECHNIQUE:? 2 views of the chest were acquired.? ? COMPARISON:? Merged With [facility], , CHEST 1 VIEW, 01/04/2017, 20:23. ? FINDINGS:? ? Surgical changes and devices:? None.? ? Lungs and pleura:? Lungs are clear.? No pleural effusions or pneumothorax.? ? Mediastinum:? Mediastinal contours are normal.? Heart size is normal.? ? Bones and chest wall:? No suspicious bony abnormalities. ? Age-appropriate bony degenerative changes are seen.? Accentuated thoracic kyphosis is seen.? Soft tissues appear unremarkable.? IMPRESSION:? Clear lungs, without infiltrates. ? ? Dictated by: Bridger Gooden M.D. on 12/17/2021 at 8:15 ? ? Approved by: Bridger Gooden M.D. on 12/17/2021 at 8:1 MDM Narrative Medical decision making narrative: Patient has bronchospastic upper respiratory like cough. She improved significantly with albuterol. Chest x-ray COVID are both negative. At this time probable other viral syndrome. Symptoms are not consistent with cardiac or pulmonary embolism. Discharge Plan Departure Patient Disposition: Home Clinical Impression: RAD (reactive airway disease) Instructions: DI for Acute Bronchitis Activity Restrictions/Additional Instructions: *You have been diagnosed with reactive airway, bronchitis *What to do: At this time likely have a virus which is causing inflammation in your airways. No indication for antibiotics at this time. Your COVID test is negative. *Continue to take medications as directed Albuterol 1-2 puffs with spacer as needed for cough Prednisone 40 mg once a day for 5 days--> SENT TO [facility] IN [place] *Follow up with your primary care provider in 2-3 days or call [phone] *Return to ER if you should have increasing cough fever shortness of breath chest pain or any new, worsening or concerning symptoms Prescriptions: New prednisone 20 mg tablet 40 mg PO DAILY Qty: 10 0RF No Action uzelyuvkoh-vsvhkfmhgxign-nbni 50-325-40 mg capsule 1 cap PO Q6H MDD 5 cap PRN (Reason: headache) Qty: 30 3RF naratriptan 2.5 mg tablet 2.5 mg PO .COMPLEX Qty: 9 3RF Rx Instructions: take 1 tab at onset of headache; if no relief may repeat 1 tab in 4hr; max = 2 tabs/24 hrs PO 2.5 mg cyclobenzaprine 10 mg tablet See Rx Instructions .ROUTE .COMPLEX Qty: 180 0RF Dose Instruction: TAKE ONE TABLET BY MOUTH TWICE DAILY Rx Instructions: TAKE ONE TABLET BY MOUTH TWICE DAILY duloxetine 30 mg capsule,delayed release(DR/EC) 30 mg PO DAILY Qty: 90 2RF omeprazole 20 mg capsule,delayed release(DR/EC) See Rx Instructions .ROUTE .COMPLEX Qty: 90 1RF Dose Instruction: TAKE ONE CAPSULE BY MOUTH ONE TIME DAILY Rx Instructions: TAKE ONE CAPSULE BY MOUTH ONE TIME DAILY dextroamphetamine-amphetamine [Adderall] 10 mg tablet 10 mg PO QID PRN (Reason: adhd) Qty: 180 0RF Rx Instructions: administer doses at least 4-6 hours apart ondansetron 4 mg tablet,disintegrating 4 mg PO Q8H PRN (Reason: nausea and vomiting) 30 Days Qty: 90 1RF naproxen 500 mg tablet 500 mg PO BID PRN (Reason: pain) Qty: 30 0RF Aimovig Autoinjector 140 mg/mL auto-injector 140 mg SUBCUT QMONTH 0RF amoxicillin-pot clavulanate [Augmentin] 875-125 mg tablet 1 tab PO BID Qty: 14 0RF ketorolac 60 mg/2 mL Solution 30 mg IM Q6-8H PRN (Reason: headaches) 0RF Referrals: Tello Reyes, [Primary Care Provider] -
--- NOTE | 2021-12-17 08:05 | DI.RAD.S_ITS ---
PROCEDURE: XR CHEST 2V INDICATIONS: cough TECHNIQUE: 2 views of the chest were acquired. COMPARISON: [facility], , CHEST 1 VIEW, 01/04/2017, 20:23. FINDINGS: Surgical changes and devices: None. Lungs and pleura: Lungs are clear. No pleural effusions or pneumothorax. Mediastinum: Mediastinal contours are normal. Heart size is normal. Bones and chest wall: No suspicious bony abnormalities. Age-appropriate bony degenerative changes are seen. Accentuated thoracic kyphosis is seen. Soft tissues appear unremarkable. IMPRESSION: Clear lungs, without infiltrates. Dictated by: Bridger Gooden M.D. on 12/17/2021 at 8:15 Approved by: Bridger Gooden M.D. on 12/17/2021 at 8:16
[2021-12-17] MEDS: ALBUTEROL/IPRATROPIUM 3 ML AMPUL INH (08:25)
[2021-12-17 09:36] LABS: COVID19 -Nasal RAPID Negative (Negative)
[2021-12-17] MEDS: ALBUTEROL HFA MDI 60 PUFF/8 GM INHALER INH (10:59)
== END 2021-12-17 11:08 | disposition home or self-care (01) ==
PROVIDERS: Emergency Provider Emergency Medicine; PCP Family Medicine
DX: J45.909 Unspecified asthma, uncomplicated (principal); Z20.822 Contact with and (suspected) exposure to COVID-19
CPT/HCPCS: 71046; 87635; 94640; 99283; C9803; A9270

== ENCOUNTER → 2022-01-25 13:59 | Outpatient (CLI) | payer OTHER, MEDICAID, SELFPAY ==
[2022-01-25 14:19] LABS: Add Manual Diff / Slide Review NO; Basophils Absolute Auto 100 /uL (0-100); Basophils Percent Auto 1.3 % (0-2); Eosinophils Absolute Auto 100 /uL (0-450); Eosinophils Percent Auto 1.3 % (2-4); Hematocrit 40.1 % (36-46); Hemoglobin 13.5 g/dL (12.0-16.0); Lymphocytes Absolute Auto 2000 /uL (1100-4500); Lymphocytes Percent Auto 26.5 % (25-40); Mean Corpuscular HGB Conc 33.8 % (30-36); Mean Corpuscular Hemoglobin 29.2 PG (26-34); Mean Corpuscular Volume 86.5 fL (80-100); Monocytes Absolute Auto 500 /uL (0-900); Monocytes Percent Auto 6.8 % (3-14); Neutrophils Absolute Auto 4900 /uL (1500-7000); Neutrophils Percent Auto 64.1 % (50-75); Platelet Count 306 X10^3/uL (150-400); Red Blood Cell Count 4.63 X10^6/uL (4.0-5.2); Red Cell Distribution Width 13.3 % (11.6-14.8); White Blood Cell Count 7.6 X10^3/uL (4.5-11.0)
[2022-01-25 14:33] LABS: Prothrombin Time 10.9 SECONDS (10.1-12.7)
[2022-01-25 14:35] LABS: PTT Partial Thromboplastin Tim 37 SECONDS (26.4-36.2)
[2022-01-25 14:39] LABS: HEMOLYSIS < 15 (0-50); Potassium 4.1 mmol/L (3.4-5.1)
[2022-01-25 14:40] LABS: Alanine Aminotransferase 29 IU/L (<35); Albumin 4.6 g/dL (3.5-5.0); Albumin Globulin Ratio 1.5 (1.0-2.8); Alkaline Phosphatase 91 U/L (38-126); Aspartate Aminotransferase 34 IU/L (14-36); BUN Creatinine Ratio 12.9 (6-22); Bilirubin Total 0.4 mg/dL (0.2-1.3); Blood Urea Nitrogen 9 mg/dL (7-17); Calcium 9.1 mg/dL (8.4-10.2); Carbon Dioxide 25 mmol/L (22-32); Chloride 105 mmol/L (98-107); Estimated Glomerular Filt Rate > 60 mL/min (>60); Glucose 122 mg/dL (70-100); Lipase 57 U/L (23-300); Sodium 137 mmol/L (137-145); Total Protein 7.6 g/dL (6.3-8.2)
[2022-01-25 15:23] LABS: Appearance Urine UA CLEAR; Bilirubin Urine UA NEGATIVE (NEGATIVE); Color Urine UA YELLOW; Glucose Urine UA NEGATIVE (Negative); Ketones Urine UA NEGATIVE (NEGATIVE); Leukocyte Esterase Urine UA NEGATIVE (NEGATIVE); Nitrite Urine UA NEGATIVE (Negative); Occult Blood Urine UA NEGATIVE (Negative); Protein Urine UA NEGATIVE (Negative); Specific Gravity Urine UA 1.025 (1.000-1.035); Urobilinogen Urine UA 0.2 E.U./dL (0.2)
[2022-01-25 15:32] LABS: Bacteria Urine None Seen; Culture Indicated Urine Cult Not Indicated; RBC Urine None Seen (0-5/HPF); Squamous Epithelial Cell Urine 1-5 /HPF (0-5/HPF); WBC Urine None Seen (0-5/HPF)
== END ==
PROVIDERS: PCP Family Medicine; Referring Provider Family Medicine; Visit Provider Family Medicine
DX: R10.11 Right upper quadrant pain (principal); R10.13 Epigastric pain
CPT/HCPCS: 36415; 80053; 81001; 83690; 85025; 85610; 85730

== ENCOUNTER → 2022-01-29 06:33 | Outpatient (CLI) | payer OTHER, MEDICAID, SELFPAY ==
--- NOTE | 2022-01-29 06:34 | DI.US.S_ITS ---
PROCEDURE: US ABDOMEN LIMITED INDICATIONS: RIGHT UPPER QUADRANT PAIN TECHNIQUE: Real-time scanning was performed of the abdominal and retroperitoneal organs, with image documentation. COMPARISON: None. FINDINGS: Liver: Liver is normal in size and homogeneous in echotexture. Gallbladder: Gallbladder is normal in sonographic appearance without gallstones, gallbladder wall thickening, pericholecystic fluid, or abnormal sonographic Diop's. Biliary ducts: Intrahepatic bile ducts are non-dilated. Extrahepatic bile duct caliber measures 6 mm. Normal is 6-7 mm or less in diameter, or 10 mm or less post-cholecystectomy. Pancreas: Visualized portions of the pancreas are sonographically normal. Miscellaneous: No free abdominal fluid. IMPRESSION: Normal sonographic evaluation of the right upper quadrant with unremarkable appearance of the liver, gallbladder, biliary ductal system, and pancreas. Dictated by: Raymon Masters M.D. on 01/29/2022 at 9:27 Approved by: Raymon Masters M.D. on 01/29/2022 at 9:29
== END ==
PROVIDERS: PCP Family Medicine; Referring Provider Family Medicine; Visit Provider Family Medicine
DX: R10.13 Epigastric pain (principal); R10.11 Right upper quadrant pain
CPT/HCPCS: 76705

== ENCOUNTER 2022-02-06 13:55 | Emergency (ER) | payer OTHER, MEDICAID, SELFPAY ==
[2022-02-06 14:04] VITALS: BP 170/78; PULSE 75; RESP 12; TEMP 36.2; O2SAT 100; BMI 28.3
--- NOTE | 2022-02-06 14:08 | DI.RAD.S_ITS ---
PROCEDURE: XR ANKLE RT MIN 3V INDICATIONS: pain, swelling unable to bear weight TECHNIQUE: 3 views of the ankle were acquired. COMPARISON: [facility], , ANKLE 3 VIEWS LEFT, 01/21/2017, 20:15. FINDINGS: Bones: There is a small bone fragment at the distal aspect of the lateral malleolus suggesting avulsion fracture. No other fracture or dislocation. Joint spaces are preserved. Soft tissues: There is lateral malleolar soft tissue swelling. IMPRESSION: Findings suspicious for minimally displaced lateral malleolar avulsion fracture. Dictated by: Charlette Shafer M.D. on 02/06/2022 at 14:59 Approved by: Charlette Shafer M.D. on 02/06/2022 at 15:00
--- NOTE | 2022-02-06 15:44 | ED_ITS ---
HPI - Extremity Injury (Lower) General Chief Complaint: Extremity Injury, Lower Stated Complaint: Fell on stairs, twisted right ankle Time Seen by Provider: 02/06/22 15:44 Mode of arrival: Family Vehicle History of Present Illness HPI Narrative: Patient is a healthy 51-year-old female history of ADHD presenting with right ankle pain and swelling. 4 days ago she was walking downstairs missed the bottom stair and rolled her ankle. She instantly had swelling and bruising over the lateral malleoli. She is walking on it but it does hurt she is able to walk more her heel. No knee pain or hip pain. Related Data Home Medications Medication Instructions Recorded Confirmed ketorolac 60 mg/2 mL intramuscular 30 mg IM Q6-8H PRN headaches 10/24/18 01/25/22 solution erenumab-aooe 140 mg/mL 140 mg SUBCUT QMONTH 08/15/21 01/25/22 subcutaneous auto-injector (Aimovig Autoinjector) Previous Rx's Medication Instructions Recorded ftmmdkfxug-rnjnlsgrzbknu-bvudmcob 1 cap PO Q6H PRN headache #30 caps 04/08/19 50 mg-325 mg-40 mg capsule naratriptan 2.5 mg tablet 2.5 mg PO .COMPLEX #9 tabs 07/15/20 naproxen 500 mg tablet 500 mg PO BID PRN pain #30 tabs 10/03/20 omeprazole 20 mg capsule,delayed See Rx Instructions .Route 11/20/21 release .COMPLEX #90 caps albuterol sulfate 90 mcg/actuation 2 puff inhalation Q6H PRN 01/03/22 aerosol inhaler shortness of breath or wheezing #8.5 grams benzonatate 100 mg capsule 100 mg PO BID PRN cough #30 caps 01/03/22 dextroamphetamine-amphetamine 10 10 mg PO QID PRN adhd #180 tabs 01/25/22 mg tablet (Adderall) hydrocodone 5 mg-acetaminophen 325 1 tab PO Q6H PRN pain #10 tabs 02/06/22 mg tablet Allergies Allergy/AdvReac Type Severity Reaction Status Date / Time morphine [MORPHINE] Allergy Severe stop Verified 02/06/22 14:08 breathing Review of Systems Review of Systems Narrative: GENERAL: Denies chills,fever HEENT: Denies throat pain RESPIRATORY: Denies dyspnea, cough, wheezing CARDIOVASCULAR: Denies chest pain, palpitations GASTROINTESTINAL: Denies nausea, vomiting MUSCULOSKELETAL: See HPI SKIN: No rash, no laceration, no pruritus NEUROLOGIC: Denies weakness, dizziness, headache, numbness 8 point review of systems is negative except for those stated above and HPI Patient History Medical History (Updated 02/06/22 @ 15:54 by Ning Welch DO) Actinic keratosis (10/2016) ADHD (attention deficit hyperactivity disorder) (1971) Anemia (1992) Chickenpox (1979) Chronic back pain (2009) Cough present for greater than 3 weeks Dental implant pain Depression Epigastric abdominal pain Generalized headaches (Unknown) GERD (gastroesophageal reflux disease) HPV in female (1996) Hyperlipemia Knee pain, right anterior Melanoma (2012) Migraines (1985) Right upper quadrant abdominal pain Shoulder pain (1999) Tear of right meniscus as current injury TIA (transient ischemic attack) Surgical History H/O knee surgery H/O knee surgery History of appendectomy S/P laparoscopic supracervical hysterectomy (10/24/18) Status post appendectomy Family History Father Age: 71 Type 2 diabetes mellitus without complication, unspecified 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 CARDIOVASCULAR: peripheral pulses in tact, cap refill <2 sec RESPIRATORY: No respiratory distress, speaks in full sentences without difficulty EXTREMITIES: Normal range of motion, no clubbing or edema. Neurovascularly intact Right lower extremity significant swelling of foot and ankle. Very tender over lateral malleoli. Knee is stable no pain over fibular head the distal pedal pulses present NEUROLOGICAL: Cranial nerves II through XII grossly intact. Normal gait and speech. SKIN: Warm, dry, no petechiae, no rashes or lesions. Course Orders Ordered: ED Orders 02/06/22 14:08 XR ankle RT min 3V Stat Vital Signs Vital signs: Vital Signs - 8 hr 02/06/22 14:04 02/06/22 16:16 Temperature 97.2 F L Pulse Rate 75 81 Respiratory Rate 12 18 Blood Pressure 170/78 H 140/81 Pulse Oximetry 100 99 Oxygen Delivery Method Room Air Room Air MDM - Extremity Injury (Lower) Imaging Data Extremity x-ray #1: Radiologist's Impression: XRay Report Signed Patient: Kiarra Allen MR#: [id number] : 1970 Acct:[id number] Age/Sex: 51 / F Date of Service: 02/06/22 Loc: ED Accession Number: [id number] ?? Procedure: XR ankle RT min 3V Ordering Provider: Ning Welch D.O. PROCEDURE:? XR ANKLE RT MIN 3V ? INDICATIONS:? pain, swelling unable to bear weight ? TECHNIQUE:? 3 views of the ankle were acquired.? ? COMPARISON:? [facility], , ANKLE 3 VIEWS LEFT, 01/21/2017, 20:15. ? FINDINGS:? ? Bones:? There is a small bone fragment at the distal aspect of the lateral malleolus suggesting avulsion fracture.? No other fracture or dislocation.? Joint spaces are preserved. ? Soft tissues:? There is lateral malleolar soft tissue swelling. ? ? IMPRESSION:? Findings suspicious for minimally displaced lateral malleolar avulsion fracture. ? Dictated by: Charlette Shafer M.D. on 02/06/2022 at 14:59 ? ? Approved by: Charlette Shafer M.D. on 02/06/2022 at 15: Discharge Plan Departure Patient Disposition: Home Clinical Impression: Fracture of distal end of fibula Instructions: Ankle Fracture Activity Restrictions/Additional Instructions: *You have been diagnosed with distal fibular fracture *What to do: At this time keep foot in a boot. Follow up with Orthopedics. Will take about 6-8 weeks to heal. Use crutches as needed *Continue to take medications as directed [place] 1 tablet every 6 hours if needed for severe pain *Follow up with your primary care provider in 2-3 days or call [phone] Call orthopedics today to schedule follow-up appointment *Return to ER if you should have increasing swelling pain calf pain such as or any new, worsening or concerning symptoms CONTROLLED SUBSTANCE DISCHARGE (Narcotoic/benzodiazepine/Flexeril/Phenergan) 1. You have been prescribed narcotic medications, it does have acetaminophen/Tylenol/paracetamol in it, DO NOT TAKE MORE THAN 4,00mg in 24 hours of Tylenol. TRAMADOL DOES NOT CONTAIN TYLENOL 2. Please understand that we cannot provide further refills of narcotics, benzodiazepines or controlled substances through the ED and her pain management will need to be through your provider. 3. While on these medications you cannot drive or operate heavy machinery. 4. You cannot sign legal documents or perform any duties such as this. 5. As long as you're taking opiate pain medications he should also be taking a stool softener such as Colace, Dulcolax, MiraLAX or prune juice, to help avoid constipation. Prescriptions: New hydrocodone-acetaminophen 5-325 mg tablet 1 tab PO Q6H PRN (Reason: pain) Qty: 10 0RF No Action fsvfsunnsy-isabuxkyxtfrk-aahb 50-325-40 mg capsule 1 cap PO Q6H MDD 5 cap PRN (Reason: headache) Qty: 30 3RF naratriptan 2.5 mg tablet 2.5 mg PO .COMPLEX Qty: 9 3RF Rx Instructions: take 1 tab at onset of headache; if no relief may repeat 1 tab in 4hr; max = 2 tabs/24 hrs PO 2.5 mg omeprazole 20 mg capsule,delayed release(DR/EC) See Rx Instructions .ROUTE .COMPLEX Qty: 90 1RF Dose Instruction: TAKE ONE CAPSULE BY MOUTH ONE TIME DAILY Rx Instructions: TAKE ONE CAPSULE BY MOUTH ONE TIME DAILY albuterol sulfate 90 mcg/actuation HFA aerosol inhaler 2 puff inhalation Q6H PRN (Reason: shortness of breath or wheezing) Qty: 8.5 0RF benzonatate 100 mg capsule 100 mg PO BID PRN (Reason: cough) Qty: 30 0RF dextroamphetamine-amphetamine [Adderall] 10 mg tablet 10 mg PO QID PRN (Reason: adhd) Qty: 180 0RF Rx Instructions: administer doses at least 4-6 hours apart naproxen 500 mg tablet 500 mg PO BID PRN (Reason: pain) Qty: 30 0RF Aimovig Autoinjector 140 mg/mL auto-injector 140 mg SUBCUT QMONTH ketorolac 60 mg/2 mL Solution 30 mg IM Q6-8H PRN (Reason: headaches) Referrals: Arden Victor MD [Primary Care Provider] - Visit Report Forms: Patient Portal/API
[2022-02-06 16:16] VITALS: BP 140/81; PULSE 81; RESP 18; O2SAT 99
== END 2022-02-06 16:17 | disposition home or self-care (01) ==
PROVIDERS: Emergency Provider Emergency Medicine; PCP Family Medicine
DX: S82.61XA Displaced fracture of lateral malleolus of right fibula, initial encounter for closed fracture (principal); X50.1XXA Overexertion from prolonged static or awkward postures, initial encounter
CPT/HCPCS: 73610; 99283

== ENCOUNTER 2022-08-16 05:46 | Emergency (ER) | payer OTHER, MEDICAID, SELFPAY ==
[2022-08-16 06:10] VITALS: BP 182/93; PULSE 72; RESP 18; TEMP 36.4; O2SAT 99
--- NOTE | 2022-08-16 06:22 | DI.RAD.S_ITS ---
PROCEDURE: XR KNEE LT 3V INDICATIONS: pain TECHNIQUE: 3 views of the knee were acquired. COMPARISON: [facility], , XR KNEE LT 3V, 07/31/2021, 13:43. [facility], CR, XR KNEE LT 3V, 04/28/2018, 17:34. FINDINGS: Bones: No fractures or dislocations. No suspicious bony lesions. Soft tissues: No joint effusion. No suspicious soft tissue calcifications. IMPRESSION: No acute fracture. No osseous lesion. If symptoms and/or clinical suspicion for pathology persist, further assessment with repeat, or advanced imaging (e.g., CT, MRI, or bone scan) may be helpful for further assessment. Dictated by: Britney Medel M.D. on 08/16/2022 at 8:17 Approved by: Britney Medel M.D. on 08/16/2022 at 8:18
[2022-08-16] MEDS: KETOROLAC 30 MG/ML VIAL IM (06:35)
--- NOTE | 2022-08-16 06:55 | ED_ITS ---
HPI - Extremity Problem General Chief complaint: Extremity Problem,Nontraumatic Stated complaint: left knee pain Time Seen by Provider: 08/16/22 06:55 Source: patient Mode of arrival: Ambulatory History of Present Illness HPI Narrative: Patient is a 51-year-old female history of ADH D and ongoing left knee problems presenting today with left knee pain worsening over last 10 days. She can not remember a specific injury but she was out in the yd doing some yd work and cutting branches and things it is possible she injured it then. She is been wearing a knee brace taking nbke-can-corranm medications but over last 2 days it has gotten worse. She says she is unable to sleep. She does wear like a compression wrap on it at night it does not seem to be helping. She does not feel like it is giving out her. She is able to bear weight. She has not had fever. There is no calf pain. She reports that Toradol has previously helped Related Data Home Medications Medication Instructions Recorded Confirmed ketorolac 60 mg/2 mL intramuscular 30 mg IM Q6-8H PRN headaches 10/24/18 05/15/22 solution erenumab-aooe 140 mg/mL 140 mg SUBCUT QMONTH 08/15/21 05/15/22 subcutaneous auto-injector (Aimovig Autoinjector) Previous Rx's Medication Instructions Recorded naratriptan 2.5 mg tablet 2.5 mg PO .COMPLEX #9 tabs 07/15/20 hbjtcbnkpz-vbuysqgcmbjad-fbhhungq 1 cap PO Q6H PRN headache #30 caps 05/15/22 50 mg-325 mg-40 mg capsule triamcinolone acetonide 0.1 % 1 applic topical BID #30 grams 05/15/22 topical cream sertraline 50 mg tablet (Zoloft) 50 mg PO DAILY #60 tabs 06/19/22 dextroamphetamine-amphetamine 10 10 mg PO QID PRN adhd #30 tabs 08/02/22 mg tablet (Adderall) dextroamphetamine-amphetamine 15 15 mg PO TID PRN inattentiveness 08/03/22 mg tablet (Adderall) #90 tabs hydrocodone 5 mg-acetaminophen 325 1 tab PO Q6H PRN pain #10 tabs 08/16/22 mg tablet ketorolac 10 mg tablet 10 mg PO TID PRN pain #20 tabs 08/16/22 Allergies Allergy/AdvReac Type Severity Reaction Status Date / Time morphine [MORPHINE] Allergy Severe stop Verified 02/06/22 14:08 breathing Review of Systems Review of Systems ROS Unobtainable: All systems reviewed & are unremarkable except as noted in HPI and below Patient History Medical History Actinic keratosis (10/2016) ADHD (attention deficit hyperactivity disorder) (1971) Anemia (1992) Chickenpox (1979) Chronic back pain (2009) Cough present for greater than 3 weeks Dental implant pain Depression Epigastric abdominal pain Generalized headaches (Unknown) GERD (gastroesophageal reflux disease) HPV in female (1996) Hyperlipemia Knee pain, right anterior Melanoma (2012) Migraines (1985) Right upper quadrant abdominal pain Shoulder pain (1999) Tear of right meniscus as current injury TIA (transient ischemic attack) Surgical History H/O knee surgery H/O knee surgery History of appendectomy S/P laparoscopic supracervical hysterectomy (10/24/18) Status post appendectomy Family History Father Age: 72 Type 2 diabetes mellitus without complication, unspecified nursing home insulin use status Mother Age: 72 Essential hypertension Hyperlipidemia Social History household members: family Smoking Status: Former smoker alcohol intake: current Smoking Status: Former smoker alcohol intake frequency: a few times a month Substance Use Type: marijuana Exam Initial Vital Signs Initial Vital Signs: Vital Signs Temperature 97.5 F L 08/16/22 06:10 Pulse Rate 72 08/16/22 06:10 Respiratory Rate 18 08/16/22 06:10 Blood Pressure 182/93 H 08/16/22 06:10 Pulse Oximetry 99 08/16/22 06:10 Oxygen Delivery Method 08/16/22 06:10 GENERAL: Well-appearing, well-nourished and in no acute distress. CARDIOVASCULAR: peripheral pulses in tact, cap refill <2 sec RESPIRATORY: No respiratory distress, speaks in full sentences without difficulty EXTREMITIES: Normal range of motion, no clubbing or edema. Neurovascularly intact Left knee anterior posterior drawer stable tender with lateral stress on the medial side. Mostly tender on medial side. No significant swelling or erythema NEUROLOGICAL: Cranial nerves II through XII grossly intact. Normal gait and speech. SKIN: Warm, dry, no petechiae, no rashes or lesions. Course Orders Ordered: ED Orders 08/16/22 06:22 XR knee LT 3V Stat Discontinued Medications Ketorolac Tromethamine (Ketorolac 30 Mg/Ml Vial) 30 mg IM NOW ONE Stop: 08/16/22 06:29 Last Admin: 08/16/22 06:35 Dose: 30 mg Documented By: MINERVA Vital Signs Vital signs: Vital Signs - 8 hr 08/16/22 06:10 Temperature 97.5 F L Pulse Rate 72 Respiratory Rate 18 Blood Pressure 182/93 H Pulse Oximetry 99 Oxygen Delivery Method Room Air MDM - Extremity (Nontraumatic) Imaging Data Extremity x-ray #1: My Impression: no fracture MDM Narrative Medical decision making narrative: Patient 51-year-old female with history of knee problems but worsening over the last 10 days. Patient has injectable Toradol at home which she used previously for her migraine over the weekend and it helped her knee pain. She received a 2nd Toradol shot here in the emergency department she is having some improvement. She is an appointment with her PCP but not for the next 5 days. Unable to sleep at night. X-ray is reviewed by myself does not show any fracture or bony abnormality. She is offered a knee immobilizer and crutches here in the emergency department but declines at this time. She has a brace home and she is able to weight bear. We discussed pain management. [] Multiple etiologies for patient's symptoms considered including, but not limited to: Meniscus tear, ligament tear, knee sprain, fracture Prior Charts reviewed: PCP note from 06/19/2022 was reviewed for anxiety also history of migraine Labs reviewed and interpreted by myself:n/a Imaging reviewed: X-ray reviewed Consultations: None Patient's symptoms improved over duration of stay with above-stated therapies. Findings and discharge diagnosis discussed with patient/family followed by verbalization of understanding Return precautions discussed with patient/family whom verbalize understanding of diagnosis and plan Discharge Plan Departure Patient Disposition: Home Clinical Impression: Left knee sprain Instructions: Knee Sprain Activity Restrictions/Additional Instructions: *You have been diagnosed with left knee sprain *What to do: At this time continue wearing brace and support as needed. I do recommend probable outpatient MRI and referral to Orthopedics which can both be done by her PCP *Continue to take medications as directed--> SENT TO [facility] IN [place] Ketorolac 10 mg tablets every 8 hours if needed for pain-(THESE ARE THE PILLS NOT THE SHOT, should work the same)- do not take any more ibuprofen leave Advil naproxen aspirin or shorts of ketorlac with this medication [place] 1 tablet every 6 hours if needed for severe pain or at night to help sleep-please see instructions below Tylenol 650 mg every 4-6 hours if needed for gmka-af-kxodczwt pain-please see instructions below *Follow up with your primary care provider in 2-3 days or call [phone] *Return to ER if you should have increasing redness unable to bear weight or any new, worsening or concerning symptoms CONTROLLED SUBSTANCE DISCHARGE (Narcotoic/benzodiazepine/Flexeril/Phenergan) 1. You have been prescribed narcotic medications, it does have acetaminophen/Tylenol/paracetamol in it, DO NOT TAKE MORE THAN 4,00mg in 24 hours of Tylenol. TRAMADOL DOES NOT CONTAIN TYLENOL 2. Please understand that we cannot provide further refills of narcotics, benzodiazepines or controlled substances through the ED and her pain management will need to be through your provider. 3. While on these medications you cannot drive or operate heavy machinery. 4. You cannot sign legal documents or perform any duties such as this. 5. As long as you're taking opiate pain medications he should also be taking a stool softener such as Colace, Dulcolax, MiraLAX or prune juice, to help avoid constipation. Prescriptions: New hydrocodone-acetaminophen 5-325 mg tablet 1 tab PO Q6H PRN (Reason: pain) Qty: 10 0RF ketorolac 10 mg tablet 10 mg PO TID PRN (Reason: pain) Qty: 20 0RF No Action naratriptan 2.5 mg tablet 2.5 mg PO .COMPLEX Qty: 9 3RF Rx Instructions: take 1 tab at onset of headache; if no relief may repeat 1 tab in 4hr; max = 2 tabs/24 hrs PO 2.5 mg dextroamphetamine-amphetamine [Adderall] 10 mg tablet 10 mg PO QID PRN (Reason: adhd) Qty: 30 0RF Rx Instructions: administer doses at least 4-6 hours apart dextroamphetamine-amphetamine [Adderall] 15 mg tablet 15 mg PO TID PRN (Reason: inattentiveness) Qty: 90 0RF Rx Instructions: administer doses at least 4-6 hours apart sertraline [Zoloft] 50 mg tablet 50 mg PO DAILY Qty: 60 0RF Aimovig Autoinjector 140 mg/mL auto-injector 140 mg SUBCUT QMONTH manklrieif-afmjiakwuwdqz-jofx 50-325-40 mg capsule 1 cap PO Q6H MDD 5 cap PRN (Reason: headache) Qty: 30 3RF triamcinolone acetonide 0.1 % cream 1 applic topical BID Qty: 30 0RF ketorolac 60 mg/2 mL Solution 30 mg IM Q6-8H PRN (Reason: headaches) Referrals: Arden Victor MD [Primary Care Provider] - Stand Alone Forms: Patient Portal/API
== END 2022-08-16 08:01 | disposition home or self-care (01) ==
PROVIDERS: Emergency Provider Emergency Medicine; PCP Family Medicine
DX: S83.92XA Sprain of unspecified site of left knee, initial encounter (principal); X58.XXXA Exposure to other specified factors, initial encounter; Z79.899 Other long term (current) drug therapy
CPT/HCPCS: 73562; 96372; 99283; J1885

== ENCOUNTER → 2022-08-29 08:57 | Outpatient (CLI) | payer OTHER, MEDICAID, SELFPAY ==
--- NOTE | 2022-08-29 08:59 | DI.RAD.S_ITS ---
PROCEDURE: XR ANKLE RT MIN 3V INDICATIONS: right ankle fracture follow up TECHNIQUE: 3 views of the ankle were acquired. COMPARISON: [facility], CR, XR ANKLE RT MIN 3V, 02/06/2022, 14:06. FINDINGS: Bones: Small avulsed bone fragment distal to the lateral malleolus is redemonstrated and appears more corticated compared to the prior study. No bridging callus formation. No new fractures. Ankle mortise remains intact. Soft tissues: No tibiotalar joint effusion. Achilles tendon appears normal. IMPRESSION: 1. Mildly displaced lateral malleolar avulsion fracture is redemonstrated and more corticated. Dictated by: Bree Wilkinson M.D. on 08/29/2022 at 11:55 Approved by: Bree Wilkinson M.D. on 08/29/2022 at 11:57
--- NOTE | 2022-08-29 08:59 | DI.MRI.S_ITS ---
PROCEDURE: MR KNEE LT WO CON INDICATIONS: left knee medial joint line pain with +stephane's TECHNIQUE: Noncontrast sagittal PD fast spin echo and T2 fast spin echo with fat saturation, sagittal 3-D FLASH with fat saturation; coronal T1 spin echo and PD fast spin echo with fat saturation, and axial PD fast spin echo with fat saturation through the knee. COMPARISON: [facility], CR, XR KNEE LT 3V, 08/16/2022, 6:29. FINDINGS: Image quality: Excellent. Anterior Cruciate Ligament: Intact. Posterior Cruciate Ligament: Intact. Medial Collateral Ligament: Intact. Lateral Collateral Ligament: Intact. Medial Meniscus: There is horizontal oblique tearing of the body and anterior horn of the medial meniscus extending to the middle third of the femoral articular surface. The tear extends into the posterior horn involves the free edge margin. Lateral Meniscus: Intact. Medial and Lateral Tendons: The semimembranosus tendon insertions and meniscocapsular junction appear intact. Visualized portions of the pes anserinus tendons appear normal. No abnormal bursal fluid. The long and short heads of the biceps femoris tendon appear intact. The popliteus tendon appears intact. No signs of posterolateral corner injury. Iliotibial band appears normal. Anterior Structures: The quadriceps and patellar tendons appear intact. No patellar subluxation. No femoral trochlear dysplasia or ventral trochlear prominence. No edema in the infrapatellar fat pad. Bones: No acute trabecular bone injury or fracture. Medial Femorotibial Cartilage: Mild partial-thickness cartilage thinning in the weight-bearing portion of the medial compartment. Lateral Femorotibial Cartilage: Intact. Patellofemoral Cartilage: Intact. Soft Tissues: Small joint effusion. A small medial popliteal cyst is seen with mild adjacent soft tissue edema that may indicate prior cyst rupture. The musculature surrounding the knee is normal in bulk. IMPRESSION: 1. Horizontal oblique tearing of the medial meniscus extending to the middle third of the femoral articular surface at the body and anterior horn and the free edge margin at the posterior horn. 2. Mild grade 2 cartilage thinning in the weight-bearing portion of the medial femorotibial compartment. No full-thickness cartilage defect. 3. Cruciate and collateral ligaments are intact. No acute trabecular bone injury. 4. Small joint effusion. Small medial popliteal cyst with signs of possible prior cyst rupture. Approved by: Syd Wright M.D. on 08/29/2022 at 10:43
== END ==
PROVIDERS: PCP Family Medicine; Referring Provider Family Medicine; Visit Provider Family Medicine
DX: S82.61XA Displaced fracture of lateral malleolus of right fibula, initial encounter for closed fracture (principal); S83.242A Other tear of medial meniscus, current injury, left knee, initial encounter; M71.22 Synovial cyst of popliteal space [Baker], left knee; M25.462 Effusion, left knee; X58.XXXA Exposure to other specified factors, initial encounter
CPT/HCPCS: 73610; 73721

== ENCOUNTER 2023-01-09 10:24 | Day surgery (SDC) | payer OTHER, MEDICAID, SELFPAY ==
[2023-01-04 12:47] VITALS: BMI 28.5
[2023-01-09] VITALS (9 sets, daily range): BP systolic 138–165; BP diastolic 83–100; PULSE 58–75; RESP 10–16; TEMP 36.3–36.5; O2SAT 92–100; BMI 28.5
[2023-01-09] MEDS: LACTATED RINGERS 1,000 ML 42 ML IV (10:34)
--- NOTE | 2023-01-09 11:36 | PM.PREOP ---
Pre-operative Note Interval Note History & Physical reviewed/Exam performed by Physician: Yes Changes to H&P: No
[2023-01-09] MEDS: CEFAZOLIN 2 GM/100 ML PREMIX 100 ML IV (12:21)
--- NOTE | 2023-01-09 12:49 | SUR.OPER ---
Supine on padded OR bed, head on pillow, right arm padded with gel pad and tucked at side, left arm secured on padded arm board at <90 degrees abduction, legs uncrossed, safety belt at lower torso, tape over blanket over right lower leg. Thigh lateral brace padded to left thigh and padded roll brace supported on bed for patients leg in bent position.
[2023-01-09] MEDS: BUPIVACAINE 0.25% (PF) 10 ML, EPINEPHrine 0.05 MG INJ (12:54)
--- NOTE | 2023-01-09 13:16 | PM.OP.1 ---
Operative Date/Time/Diagnoses Date of procedure: 01/09/23 Time of procedure: 13:16 Pre-op diagnosis: Left knee medial meniscus tear Post-op diagnosis: same Procedure & Clinicians Procedure: Left knee arthroscopy and partial medial meniscectomy Same procedure as scheduled: Yes Indications: This is a 52-year-old female who has a left knee medial meniscus tear as noted on MRI. She is quite active and enjoys biking and snowboarding and wished to get back to these activities which she is not been able to since her injury. She is tried conservative management including corticosteroid injection, anti-inflammatories, activity modifications, ice, NSAIDs and physical therapy all of which have failed to this point. We discussed risks of surgery in clinic. Risks and benefits of surgery were discussed again including the risk of infection, damage to internal structures, bleeding, nerve injury, instability, need for revision surgery, blood clots, anesthesia and . No guarantees were made regarding outcomes. Patient expressed understanding and accepted these risks and wished to go forward with surgery and consent was signed. She expressed understanding with these risks and wished to go forward with surgery Surgeon: Donald Simpson Hired Worker: Karishma Norris Anesthesia Type: General Operative Notes Findings: Exam under anesthesia: Full range of motion from 0-155. Stable to varus and valgus stress. 1A Benjamin's, stable posterior drawer. No pivot. She does have some crepitus under the patella going from 45-90 degrees Patellofemoral compartment: Intact cartilage proximally however distally in the trochlear groove there is some cartilage breakdown, inflamed fat pad Gutters: No loose bodies medial or lateral gutter Medial compartment: Large horizontal tear of the medial meniscus with some extrusion. Cartilage fraying, grade 2 to grade 3 of both the femoral condyle and tibial plateau Intercondylar notch: ACL and PCL intact Lateral compartment: Meniscus intact, cartilage intact over the femur and tibia Closure Type: primary Specimen(s): none sent Estimated Blood Loss (mL): 5 Blood products transfused: none Tourniquet time (min): 22 Procedure in detail: Patient was seen in the preoperative holding area. Her left lower extremity was examined and marked with my initials and consent was freely signed. We again went over the risks and benefits of surgery. She was then brought back to the operating room and placed supine on the operating table. She received IV Ancef. She underwent smooth induction of anesthesia. A nonsterile tourniquet was placed on the upper thigh. The left lower extremity was then prepped and draped in the standard sterile fashion. A time-out was then performed and again my initials were confirmed on the left lower extremity. 10 cc of lidocaine were infiltrated into the portal sites. I began by making an outflow portal followed by anteromedial and anterolateral portals. A diagnostic arthroscopy was performed starting in the patellofemoral compartment. Revealing the above-noted findings. Attention was then turned to the medial compartment. The lower leaflet of the meniscus was debrided followed by a 4 mm shaver leaving a 5 mm smooth border. The arthroscopy equipment was then removed and 20 cc of Marcaine was placed into the joint. The portals were closed with subcutaneous Monocryl. Patient was woken from anesthesia without complications and was taken to the postoperative recovery unit. Assisting participation: This operation could not have been safely performed (without compromising the technical results or length of the procedure) without the assistance of a skilled cable splicer assistant. The cable splicer assistant was medically necessary for proper positioning, retraction and manipulation of instruments, proper exposure, graft prep, and manipulation of tissue. Complications: none Post-operative Condition: stable Disposition: PACU Plan for aftercare: Weight-bearing with crutches until patient is able to perform a straight leg raise without a lag. Dressings may come off after 2 days, shower, then replace with Band-Aids.
[2023-01-09] MEDS: OXYCODONE IR 5 MG TABLET PO (13:33)
[2023-01-09] MEDS: HYDROMORPHONE 2 MG INJ IV ×2 (13:52→13:57)
== END 2023-01-09 14:45 | disposition home or self-care (01) ==
PROVIDERS: PCP Family Medicine; Referring Provider Orthopaedic Surgery; Visit Provider Orthopaedic Surgery
PROC: (CPT 29870; principal; 2023-01-09 11:45)
DX: S83.242A Other tear of medial meniscus, current injury, left knee, initial encounter (principal); X50.1XXA Overexertion from prolonged static or awkward postures, initial encounter
CPT/HCPCS: 29881; J0171; J0690; J1100; J1170; J2250; J2405; J2704; J3010

== ENCOUNTER 2023-01-16 13:11 | Emergency (ER) | payer OTHER, MEDICAID, SELFPAY ==
[2023-01-16 13:15] VITALS: BP 160/101; PULSE 88; RESP 15; TEMP 36.2; O2SAT 100; BMI 27.4
--- NOTE | 2023-01-16 13:54 | PC.NURSE ---
0.5cm lac over R eyebrow. Well Approximated. Bleeding controlled. Cleaned and irrigated.
[2023-01-16] MEDS: LIDOCAINE 2% W/EPI INJ 20 ML INJ (13:57)
--- NOTE | 2023-01-16 14:05 | ED_ITS ---
HPI - Wound/Laceration <ALINE Chavarria - Last Filed: 01/16/23 14:10> General Chief Complaint: Wound/Laceration Stated Complaint: bleeding lac headbutted by dog Time Seen by Provider: 01/16/23 13:50 Source: patient Mode of arrival: Ambulatory History of Present Illness HPI narrative: This is a 52-year-old female who is up-to-date on vaccinations and presents to the emergency department after she was ?head-butted by her dog and sustained a small laceration above her right eyebrow. She denies any eye pain with eye movement, vision changes, headache, denies loss of consciousness or neck pain or vomiting. States that it bled but with some pressure stops bleeding. She is not on blood thinners, last tetanus vaccination is 2019. Related Data Home Medications Medication Instructions Recorded Confirmed ketorolac 60 mg/2 mL intramuscular 30 mg IM Q6-8H PRN headaches 10/24/18 01/09/23 solution Previous Rx's Medication Instructions Recorded naratriptan 2.5 mg tablet 2.5 mg PO .COMPLEX #9 tabs 07/15/20 oocxwaqszd-koesqhdnqjrlz-ibdfplag 1 cap PO Q6H PRN headache #30 caps 05/15/22 50 mg-325 mg-40 mg capsule hydrocodone 5 mg-acetaminophen 325 1 tab PO Q6H PRN pain #10 tabs 08/16/22 mg tablet ketorolac 10 mg tablet 10 mg PO TID PRN pain #20 tabs 08/16/22 verapamil 120 mg tablet,extended 120 mg PO DAILY #60 tabs 12/03/22 release dextroamphetamine-amphetamine 15 15 mg PO TID PRN inattentiveness 12/17/22 mg tablet (Adderall) #90 tabs sertraline 50 mg tablet See Rx Instructions .Route 01/11/23 .COMPLEX #90 tabs Allergies Allergy/AdvReac Type Severity Reaction Status Date / Time morphine [MORPHINE] Allergy Severe stop Verified 01/16/23 13:15 breathing Review of Systems <ALINE Chavarria - Last Filed: 01/16/23 14:10> Review of Systems ROS Unobtainable: All systems reviewed & are unremarkable except as noted in HPI and below Patient History <ALINE Chavarria - Last Filed: 01/16/23 14:10> Medical History Actinic keratosis (10/2016) ADHD (attention deficit hyperactivity disorder) (1971) Anemia (1992) Chickenpox (1979) Chronic back pain (2009) Complex tear of meniscus of left knee Cough present for greater than 3 weeks Dental implant pain Depression Epigastric abdominal pain Generalized headaches (Unknown) GERD (gastroesophageal reflux disease) HPV in female (1996) Hyperlipemia Knee pain, right anterior Melanoma (2012) Migraines (1985) Right upper quadrant abdominal pain Shoulder pain (1999) Tear of right meniscus as current injury TIA (transient ischemic attack) Surgical History H/O knee surgery H/O knee surgery History of appendectomy S/P laparoscopic supracervical hysterectomy (10/24/18) Status post appendectomy Family History Father Age: 72 Type 2 diabetes mellitus without complication, unspecified fpc insulin use status Mother Age: 72 Essential hypertension Hyperlipidemia Social History household members: family Smoking Status: Former smoker alcohol intake: current Smoking Status: Former smoker alcohol intake frequency: holidays/special occasions only Substance Use Type: marijuana Exam <ALINE Chavarria - Last Filed: 01/16/23 14:10> Narrative Exam Narrative: Head: Small 0.5 cm blunt laceration above and lateral to the right eyebrow. Small hematoma proximally 1 cm, wound was anesthetized with lidocaine 2% with epi, 1 suture was placed using Vicryl, explaining that this is dissolvable and should heal within 5-7 days. No tenderness around the orbital bone, any other facial tenderness or injury. Initial Vital Signs Initial Vital Signs: Vital Signs Temperature 97.1 F L 01/16/23 13:15 Pulse Rate 88 01/16/23 13:15 Respiratory Rate 15 01/16/23 13:15 Blood Pressure 160/101 H 01/16/23 13:15 Pulse Oximetry 100 01/16/23 13:15 Oxygen Delivery Method Room Air 01/16/23 13:15 <Andrea Huizar MD - Last Filed: 01/21/23 08:42> Initial Vital Signs Initial Vital Signs: Vital Signs Temperature 97.1 F L 01/16/23 13:15 Pulse Rate 88 01/16/23 13:15 Respiratory Rate 15 01/16/23 13:15 Blood Pressure 160/101 H 01/16/23 13:15 Pulse Oximetry 100 01/16/23 13:15 Oxygen Delivery Method Room Air 01/16/23 13:15 Procedures <ALINE Chavarria - Last Filed: 01/16/23 14:10> Laceration Repair Laceration 1: Site: face Side (If applicable): right Size (cm): 0.5 Description: irregular Depth: simple, single layer Local Anesthetic: lidocaine 2% and with epi Amount of anesthesia used (mL): 1 Pre-repair: wound explored and irrigated extensively Skin layer closed with: vicryl Skin layer suture size: 5-0 Number of sutures: 1 Technique: simple, interrupted Course <ALINE Chavarria - Last Filed: 01/16/23 14:10> Orders Ordered: Discontinued Medications Lidocaine/Epinephrine (Lidocaine 2% W/Epi Inj) 20 ml INJ INTRA-OP ONE Stop: 01/16/23 13:57 Last Admin: 01/16/23 13:57 Dose: 20 ml Documented By: AMU Vital Signs Vital signs: Vital Signs - 8 hr 01/16/23 13:15 Temperature 97.1 F L Pulse Rate 88 Respiratory Rate 15 Blood Pressure 160/101 H Pulse Oximetry 100 Oxygen Delivery Method Room Air <Andrea Huizar MD - Last Filed: 01/21/23 08:42> Orders Ordered: Discontinued Medications Lidocaine/Epinephrine (Lidocaine 2% W/Epi Inj) 20 ml INJ INTRA-OP ONE Stop: 01/16/23 13:57 Last Admin: 01/16/23 13:57 Dose: 20 ml Documented By: AMU Vital Signs Vital signs: Vital Signs - 8 hr 01/16/23 13:15 Temperature 97.1 F L Pulse Rate 88 Respiratory Rate 15 Blood Pressure 160/101 H Pulse Oximetry 100 Oxygen Delivery Method Room Air MDM - Wound/Laceration <ALINE Chavarria - Last Filed: 01/16/23 14:10> MDM Narrative Medical decision making narrative: Chief Complaint: Skin laceration Primary historian: Patient Multiple etiologies for patient's complaint considered including, but not limited to: Skin laceration, concussion, contusion, vascular injury I have independently reviewed the patient's vital signs and nursing notes as well as prior records if available. My interpretation of imaging: CT head ruled out by [place] head CT rule Course of care: Patient's wound was sutured with 1 Vicryl suture, hemostatic, applied a Band-Aid and patient's tetanus was already up-to-date. Encouraged her to use topical antibiotic ointment as needed and covered with a Band-Aid, follow-up with her primary care provider if having symptoms of concussion to include headache, difficulty concentrating, worsening pain, vision changes. No need for suture removal, let her know she can allow the sutures to fall out or trim after 5 days. Social considerations that may affect disposition: none Questions are addressed and there is agreement with the plan and for follow-up. I consulted with the ED attending physician Dr. Huizar as needed for higher level of care considerations and they were available for discussion and recomm endations regarding plan of care and diagnostic testing. Patient is appropriate for outpatient management. Discharge Plan Departure Patient Disposition: Home Clinical Impression: Simple laceration of face Qualifiers: Encounter type: initial encounter Qualified Code(s): S01.81XA - Laceration without foreign body of other part of head, initial encounter Instructions: DI for Laceration Repair Activity Restrictions/Additional Instructions: *You have been diagnosed with an injury from your dog, laceration 0.5 cm with 1 suture that is dissolvable. This wound should be healed in about 5 days, okay to let the thread come out if it falls out or trim after that much time. Apply topical antibiotic ointment as needed, I hope you have a better rest of your day. Please come back if you develop any signs of infection like redness or surrounding, there is a small bruise underneath the skin which may get worse and turn into a black eye tomorrow. *What to do: *Please continue to take your regular medications as directed. [ ] New medication prescriptions sent to your pharmacy: [ ] [ ] New medication written as a paper prescription [ x] No new medications given *Please call and schedule follow up with your primary care provider in 2-3 days, at least for an update. Let them know you were seen in the Emergency Department for the above problem. We will electronically transmit a record of today's note if your PCP or specialist is in our system. *If you do not have a primary care provider please contact [phone] to establish care with one of the [facility] primary care providers. *Return to the Emergency Department for worsening symptoms, inability to keep liquids down, fever greater than 101F, chills, or other concerning symptom. Prescriptions: No Action naratriptan 2.5 mg tablet 2.5 mg PO .COMPLEX Qty: 9 3RF Rx Instructions: take 1 tab at onset of headache; if no relief may repeat 1 tab in 4hr; max = 2 tabs/24 hrs PO 2.5 mg dextroamphetamine-amphetamine [Adderall] 15 mg tablet 15 mg PO TID PRN (Reason: inattentiveness) Qty: 90 0RF Rx Instructions: administer doses at least 4-6 hours apart sertraline 50 mg tablet See Rx Instructions .ROUTE .COMPLEX Qty: 90 3RF Dose Instruction: TAKE ONE TABLET BY MOUTH ONE TIME DAILY Rx Instructions: TAKE ONE TABLET BY MOUTH ONE TIME DAILY verapamil 120 mg tablet extended release 120 mg PO DAILY Qty: 60 1RF nivzmjchrr-sqaildexiwjii-hams 50-325-40 mg capsule 1 cap PO Q6H MDD 5 cap PRN (Reason: headache) Qty: 30 3RF ketorolac 60 mg/2 mL Solution 30 mg IM Q6-8H PRN (Reason: headaches) hydrocodone-acetaminophen 5-325 mg tablet 1 tab PO Q6H PRN (Reason: pain) Qty: 10 0RF ketorolac 10 mg tablet 10 mg PO TID PRN (Reason: pain) Qty: 20 0RF Referrals: Arden Victor MD [Primary Care Provider] - Stand Alone Forms: Patient Portal/API <Andrea Huizar MD - Last Filed: 01/21/23 08:42> Cosign ED Attending Sendyature Attestation: I was immediately available in the department for consultation. ?This documentation has been reviewed and I agree with assessment and plan. Supervised by Andrea Huizar MD
== END 2023-01-16 14:15 | disposition home or self-care (01) ==
PROVIDERS: Emergency Provider Nurse Practitioner Critical Care Medicine; PCP Family Medicine
DX: S01.111A Laceration without foreign body of right eyelid and periocular area, initial encounter (principal); W54.1XXA Struck by dog, initial encounter
CPT/HCPCS: 12011; 99283

== ENCOUNTER → 2023-01-31 11:41 | Outpatient (CLI) | payer OTHER, MEDICAID, SELFPAY ==
--- NOTE | 2023-01-31 | DI.US.S_ITS ---
PROCEDURE: US PERIPH VENOUS LOW EXTREM LT INDICATIONS: Pain in left leg TECHNIQUE: Real-time imaging, as well as color and pulse Doppler interrogation, were performed of the lower extremity deep veins from the inguinal ligament to the popliteal fossa. COMPARISON: None. FINDINGS: The common femoral, femoral and popliteal veins are normally compressible, and free of intraluminal thrombus. Color and pulse Doppler demonstrate normal phasic intraluminal flow. There is normal augmentation response to distal compression maneuver. IMPRESSION: Negative left lower extremity duplex venous ultrasound for DVT. Dictated by: Vernon Bazzi M.D. on 01/31/2023 at 12:58 Approved by: Vernon Bazzi M.D. on 01/31/2023 at 13:00
== END ==
PROVIDERS: PCP Family Medicine; Referring Provider Orthopaedic Surgery; Visit Provider Orthopaedic Surgery
DX: M79.605 Pain in left leg (principal)
CPT/HCPCS: 93971

== ENCOUNTER → 2023-09-16 09:08 | Outpatient (CLI) | payer OTHER, MEDICAID, SELFPAY ==
[2023-09-16 09:46] LABS: Add Manual Diff / Slide Review NO; Basophils Absolute Auto 100 /uL (0-100); Basophils Percent Auto 1.1 % (0-2); Eosinophils Absolute Auto 200 /uL (0-450); Hemoglobin 13.4 g/dL (12.0-16.0); Lymphocytes Absolute Auto 2200 /uL (1100-4500); Lymphocytes Percent Auto 35.3 % (25-40); Mean Corpuscular HGB Conc 33.6 % (30-36); Mean Corpuscular Hemoglobin 29.3 PG (26-34); Mean Corpuscular Volume 87.2 fL (80-100); Monocytes Absolute Auto 500 /uL (0-900); Monocytes Percent Auto 7.5 % (3-14); Neutrophils Absolute Auto 3300 /uL (1500-7000); Neutrophils Percent Auto 53.1 % (50-75); Platelet Count 299 X10^3/uL (150-400); Red Blood Cell Count 4.58 X10^6/uL (4.0-5.2); Red Cell Distribution Width 13.4 % (11.6-14.8); White Blood Cell Count 6.1 X10^3/uL (4.5-11.0)
[2023-09-16 10:33] LABS: Alanine Aminotransferase 27 IU/L (<35); Albumin 4.1 g/dL (3.5-5.0); Albumin Globulin Ratio 1.5 (1.0-2.8); Alkaline Phosphatase 79 U/L (38-126); Aspartate Aminotransferase 23 IU/L (14-36); BUN Creatinine Ratio 22.8 (6-22); Bilirubin Total 0.3 mg/dL (0.2-1.3); Blood Urea Nitrogen 13 mg/dL (7-17); Calcium 9.4 mg/dL (8.4-10.2); Carbon Dioxide 24 mmol/L (22-32); Chloride 103 mmol/L (98-107); Cholesterol 289 mg/dL (140-199); Estimated Glomerular Filt Rate > 60 mL/min (>60); Globulin 2.8 g/dL (1.7-4.1); Glucose 104 mg/dL (70-100); HDL Cholesterol 61 mg/dL (40-60); HEMOLYSIS < 15 (0-50); LDL Cholesterol Calculated 200 mg/dL (<100); Potassium 4.4 mmol/L (3.4-5.1); Sodium 135 mmol/L (137-145); Total Protein 6.9 g/dL (6.3-8.2); Triglycerides 138 mg/dL (35-150)
[2023-09-16 10:41] LABS: Creatinine Urine Random 73.4 mg/dL
[2023-09-16 10:45] LABS: Microalbumi Creatinin Ratio Ur 9.5 ug/mg CR (<30); Microalbumin Urine Random 0.7 mg/dL (0-1.6)
[2023-09-16 11:11] LABS: TSH w/ Reflex to FT4 1.59 uIU/mL (0.47-4.68)
[2023-09-17 06:20] LABS: x Labcorp Estim. Avg Glu (eAG) 114 mg/dL (.); x Labcorp Hemoglobin A1c 5.6 % (4.8-5.6)
== END ==
PROVIDERS: PCP Family Medicine; Referring Provider Family Medicine; Visit Provider Family Medicine
DX: G43.909 Migraine, unspecified, not intractable, without status migrainosus (principal); F90.9 Attention-deficit hyperactivity disorder, unspecified type; G47.00 Insomnia, unspecified; R03.0 Elevated blood-pressure reading, without diagnosis of hypertension; E78.5 Hyperlipidemia, unspecified
CPT/HCPCS: 36415; 80053; 80061; 82043; 82570; 83001; 83036; 84443; 85025

== ENCOUNTER → 2024-01-22 11:03 | Outpatient (CLI) | payer OTHER, MEDICAID, SELFPAY ==
--- NOTE | 2024-01-22 11:04 | DI.RAD.S_ITS ---
PROCEDURE: XR CHEST 2V INDICATIONS: Persistent cough x 4 weeks; Ex smoker TECHNIQUE: 2 views of the chest were acquired. COMPARISON: [facility], , XR CHEST 2V, 12/17/2021, 8:37. [facility], CR, CHEST 1 VIEW, 01/04/2017, 20:23. FINDINGS: Surgical changes and devices: None. Lungs and pleura: Lungs are clear. No pleural effusions or pneumothorax. Mediastinum: Mediastinal contours are normal. Heart size is normal. Bones and chest wall: No suspicious bony abnormalities. Soft tissues appear unremarkable. IMPRESSION: No focal infiltrates are seen. No acute cardiopulmonary abnormality is seen. Dictated by: Bridger Gooden M.D. on 01/22/2024 at 18:30 Approved by: Bridger Gooden M.D. on 01/22/2024 at 18:31
== END ==
PROVIDERS: PCP Family Medicine; Referring Provider Physician Assistant; Visit Provider Physician Assistant
DX: R05.9 Cough, unspecified (principal)
CPT/HCPCS: 71046

== ENCOUNTER → 2024-02-21 09:48 | Outpatient (CLI) | payer OTHER, MEDICAID, SELFPAY ==
--- NOTE | 2024-02-21 09:49 | DI.CT.S_ITS ---
PROCEDURE: CT CHEST WO CON INDICATIONS: Persistent cough, unresponsive to meds TECHNIQUE: Noncontrast 5 mm thick sections acquired from the pulmonary apices to the posterior costophrenic angles. 1 mm lung window, 5 mm thick coronal and sagittal and 7 mm axial MIP reformats were then acquired. For radiation dose reduction, the following was used: automated exposure control, adjustment of mA and/or kV according to patient size. COMPARISON: None. FINDINGS: Image quality: Diagnostic Lungs and pleura: No significant interstitial lung disease, airspace disease, or pleural effusion small Bochdalek's hernias. Mediastinum, heart, and esophagus: Mildly patulous distal esophagus with fluid, nonspecific. No pathologic lymph nodes by size criteria. Normal heart size Chest wall and thyroid: No actionable thyroid nodule identified. Collapsed right breast implant. Left breast implant is present. Upper abdomen: No suspicious findings on this noncontrast study Bones: No acute or suspicious osseous finding IMPRESSION: No acute or significant findings in the chest. No airspace disease, pulmonary fibrotic changes or pleural effusions identified Other findings as above. Dictated by: Alejandro Almeida M.D. on 02/21/2024 at 10:47 Approved by: Alejandro Almeida M.D. on 02/21/2024 at 10:50
== END ==
LOC: CT 09:49
PROVIDERS: PCP Family Medicine; Referring Provider Family Medicine; Visit Provider Family Medicine
DX: R05.9 Cough, unspecified (principal)
CPT/HCPCS: 71250

== ENCOUNTER 2024-03-01 21:12 | Emergency (ER) | payer OTHER, MEDICAID, SELFPAY ==
[2024-03-01] VITALS (12 sets, daily range): BP systolic 181–221; BP diastolic 84–110; PULSE 78–99; RESP 11–22; TEMP 36.1; O2SAT 96–100; BMI 28.7
--- NOTE | 2024-03-01 21:48 | EKG_ITS ---
[address] [address] Test Date: 2024-03-01 Pat Name: Kiarra Allen Department: [facility] Room: Gender: Female Clinical Support Tech: : 1970 Requested By: Order Number: [id number] Reading MD: Cody Resendiz Measurements Intervals [place] Rate: 77 P: 62 MD: 176 QRS: 9 QRSD: 82 T: 17 QT: 384 QTc: 434 Interpretive Statements Normal sinus rhythm Electronically Signed On 03-02-2024 8:49:01 PDT by Cody Resendiz
--- NOTE | 2024-03-01 22:20 | DI.CT.S_ITS ---
PROCEDURE: CT ANGIO HEAD AND NECK INDICATIONS: VERTIGO/R FOOT NUMBNESS X 4 HRS TECHNIQUE: After the administration of intravenous contrast, 1 mm thick sections acquired from the aortic arch through the [place]. 3-dimensional qblambf-wpatfseoy-cchgusxcyr (MIP) and/or volume rendering reformats were acquired of the central intracranial vasculature and neck separately. For radiation dose reduction, the following was used: automated exposure control, adjustment of mA and/or kV according to patient size. COMPARISON: [facility], CT, HEAD WITHOUT CONTRAST, 01/04/2017, 20:36. [facility], CT, CT HEAD/BRAIN WO CON, 03/01/2024, 22:24. FINDINGS: Image quality: Diagnostic. BRAIN: CSF spaces: Ventricles are normal in size and shape. Basal cisterns are patent. No extra-axial fluid collections. Brain: No significant abnormality of the brain can be seen. Skull and face: Calvarium and facial bones appear intact, without suspicious lesions. Orbits appear normal. Sinuses: Sinuses and mastoids are clear. HEAD CT ANGIOGRAPHY: Anterior circulation: Intracranial internal carotid arteries are normal in size and flow. The flow within the paired anterior cerebral arteries is normal and symmetric. The flow within the middle cerebral arteries is normal and symmetric. The anterior communicating artery is seen. No aneurysms are seen. Posterior circulation: Visualized portions of the vertebral arteries demonstrate normal caliber, and join to form a normal appearing basilar artery. Flow within the posterior cerebral arteries is normal and symmetric. No aneurysms are seen. NECK CT ANGIOGRAPHY: Carotid system: The great vessels demonstrate a conventional anatomy as they arise from the aortic arch. The origins of the common carotid arteries appear patent. The common carotid arteries demonstrate normal caliber and courses. The bifurcation regions are both widely patent. The internal carotid arteries demonstrate normal calibers and courses. Posterior circulation: The origins of the vertebral arteries both appear widely patent. The more superior extracranial portions of both vertebral arteries also demonstrate normal courses and calibers. They join to form a normal appearing basilar artery. Soft tissues: 0.7 cm left thyroid nodule does not require dedicated imaging follow-up based on its size. No acute soft tissue abnormality is seen in the neck. Bones: No suspicious bony lesions. Visualized cervical spine appears normally aligned. IMPRESSION: No significant intracranial arterial abnormality is seen. No significant abnormality is seen within the arteries of the neck. Any quantitative measurements of stenosis were performed using NASCET criteria. Approved by: Syd Wright M.D. on 03/01/2024 at 23:21
--- NOTE | 2024-03-01 22:20 | DI.CT.S_ITS ---
PROCEDURE: CT HEAD/BRAIN WO CON INDICATIONS: VERTIGO/FOOT NUMBNESS X 4 HRS TECHNIQUE: Noncontrast 4.5 mm thick angled axial sections acquired from the foramen magnum to the vertex, with coronal and sagittal reformats. For radiation dose reduction, the following was used: automated exposure control, adjustment of mA and/or kV according to patient size. COMPARISON: [facility], CT, HEAD WITHOUT CONTRAST, 04/14/2017, 12:06. [facility], CT, HEAD WITHOUT CONTRAST, 01/04/2017, 20:36. FINDINGS: Image quality: Diagnostic. CSF spaces: Basal cisterns are patent. No extra-axial fluid collections. Ventricles are normal in size and shape. Brain: No midline shift. No intracranial masses or hemorrhage. Munoz-white matter interface is normal. Skull and face: Calvarium and visualized facial bones are intact, without suspicious lesions. Sinuses: Visualized sinuses and mastoids are clear. IMPRESSION: No acute intracranial pathology. Approved by: Syd Wright M.D. on 03/01/2024 at 23:16
--- NOTE | 2024-03-01 22:22 | ED.DIZZY ---
HPI - Dizziness General Chief Complaint: Syncope Stated Complaint: thinks is having a TIA Time Seen by Provider: 03/01/24 21:52 Source: patient Mode of arrival: Ambulatory History of Present Illness HPI Narrative: 53-year-old female with history of ADHD presents for vertigo. Patient states that she was bending down when all of a sudden the room began to spin. It was worse every time she sits up, better when she lays back. Patient was also reporting some subjective numbness on the outside of her right foot. Noted to be hypertensive on arrival, patient states she normally does not have high blood pressure when she measures it at home. Related Data Home Medications Medication Instructions Recorded Confirmed ketorolac 60 mg/2 mL intramuscular 30 mg IM Q6-8H PRN headaches 10/24/18 01/22/24 solution Previous Rx's Medication Instructions Recorded naratriptan 2.5 mg tablet 2.5 mg PO .COMPLEX #9 tabs 07/15/20 yrpfbcrqjw-akffjlhrykuoc-icwlzddw 1 cap PO Q6H PRN headache #30 caps 03/26/23 50 mg-325 mg-40 mg capsule progesterone micronized 100 mg 100 mg PO QAM #90 caps 10/17/23 capsule benzonatate 200 mg capsule 200 mg PO TID PRN cough #60 caps 01/22/24 estradiol 1 mg tablet 1 mg PO DAILY #90 tabs 01/23/24 fluticasone propionate 110 1 puff inhalation BID #12 grams 01/29/24 mcg/actuation HFA aerosol inhaler inhalational spacing device #1 ea 01/29/24 (BreatheRite MDI Spacer) dextroamphetamine-amphetamine 7.5 See Rx Instructions PO DAILY PRN 02/04/24 mg tablet (Adderall) adhd #30 tabs lisdexamfetamine 30 mg capsule 30 mg PO DAILY #30 caps 02/04/24 (Vyvanse) meclizine 25 mg tablet 25 mg PO BID PRN dizziness #30 tabs 03/02/24 Allergies Allergy/AdvReac Type Severity Reaction Status Date / Time morphine [MORPHINE] Allergy Severe stop Verified 01/22/24 10:38 breathing Patient History Medical History Complex tear of meniscus of left knee Epigastric abdominal pain Right upper quadrant abdominal pain Cough present for greater than 3 weeks GERD (gastroesophageal reflux disease) Dental implant pain Depression Tear of right meniscus as current injury Knee pain, right anterior Hyperlipemia TIA (transient ischemic attack) Actinic keratosis (10/2016) Melanoma (2012) Generalized headaches (Unknown) Migraines (1985) ADHD (attention deficit hyperactivity disorder) (1971) Shoulder pain (1999) Anemia (1992) Chickenpox (1979) Chronic back pain (2009) HPV in female (1996) Surgical History S/P laparoscopic supracervical hysterectomy (10/24/18) History of appendectomy H/O knee surgery H/O knee surgery Status post appendectomy Family History Father Age: 73 Type 2 diabetes mellitus without complication, unspecified usp insulin use status Mother Age: 73 Essential hypertension Hyperlipidemia Social History household members: family Smoking Status: Former smoker alcohol intake: current Smoking Status: Former smoker alcohol intake frequency: holidays/special occasions only Substance Use Type: marijuana Exam Initial Vital Signs Initial Vital Signs: Vital Signs Temperature 97 F L 03/01/24 21:15 Pulse Rate 82 03/01/24 21:15 Respiratory Rate 17 03/01/24 21:15 Blood Pressure 213/110 H 03/01/24 21:15 Pulse Oximetry 99 03/01/24 21:15 Oxygen Delivery Method Room Air 03/01/24 21:15 Const: Awake, alert, nontoxic appearing Cardiac: regular rate, regular rhythm RESP: unlabored, clear bilaterally, no wheezing Skin: Warm, Dry, intact, no rashes Neuro: AO x3, CN II-XII grossly intact, moves all extremities, no numbness Course Orders Ordered: ED Orders 03/01/24 22:20 CT angio head and neck Stat CT head/brain wo con Stat CBC Auto Diff [Complete Blood Count AUTO DIFF] Stat CMP [Comprehensive Metabolic Panel] Stat PT [Prothrombin Time INR] Stat 03/01/24 23:00 Urine Drug Screen, Rapid Stat Discontinued Medications Hydralazine HCl (Hydralazine 20 Mg/Ml Vial) 10 mg IV NOW ONE Stop: 03/01/24 23:33 Last Admin: 03/01/24 23:42 Dose: 10 mg Documented By: MARISELA Sodium Chloride (Normal Saline 0.9%) 1,000 mls @ 1,000 mls/hr IV BOLUS ONE Stop: 03/01/24 23:19 Last Infusion: 03/01/24 23:42 Dose: Infused Documented By: Admin: 03/01/24 22:39 Dose: 1,000 mls/hr Documented By: Meclizine HCl (Meclizine Hcl 12.5 Mg Tablet) 50 mg PO NOW ONE Stop: 03/01/24 22:21 Last Admin: 03/01/24 22:38 Dose: 50 mg Documented By: Vital Signs Vital signs: Vital Signs - 8 hr 03/01/24 23:06 03/01/24 23:07 03/01/24 23:07 Pulse Rate 99 H 89 Respiratory Rate 15 Blood Pressure 221/105 H Pulse Oximetry 99 98 03/01/24 23:30 03/01/24 23:31 03/01/24 23:31 Pulse Rate 83 81 Respiratory Rate 22 20 Blood Pressure 181/84 H Pulse Oximetry 98 96 03/01/24 23:42 03/02/24 00:00 03/02/24 00:01 Pulse Rate 85 92 H 94 H Respiratory Rate 21 20 Blood Pressure 181/84 H Pulse Oximetry 98 98 03/02/24 00:01 03/02/24 00:26 03/02/24 00:28 Pulse Rate 87 Respiratory Rate 19 Blood Pressure 157/68 H 157/68 H Pulse Oximetry 99 03/02/24 00:28 03/02/24 00:30 03/02/24 00:30 Pulse Rate 87 Respiratory Rate 16 Blood Pressure 178/81 H 154/74 H Pulse Oximetry 99 03/02/24 01:00 03/02/24 01:08 03/02/24 01:08 Pulse Rate 88 89 Respiratory Rate 20 21 Blood Pressure 184/95 H Pulse Oximetry 98 98 MDM - Dizziness Differential Diagnosis Differential diagnosis: Likely adverse reaction to drug, benign paroxysmal positional vertigo and orthostatic hypotension Lab Data 03/01/24 22:20 03/01/24 22:20 Labs: Lab Results 03/01/24 03/01/24 Range/Units 22:20 23:00 WBC 8.8 (4.5-11.0) X10^3/uL RBC 4.55 (4.0-5.2) X10^6/uL Hgb 13.3 (12.0-16.0) g/dL Hct 39.0 (36-46) % MCV 85.7 (80-100) fL MCH 29.2 (26-34) PG MCHC 34.1 (30-36) % RDW 13.1 (11.6-14.8) % Plt Count 306 (150-400) X10^3/uL Neut % (Auto) 58.4 (50-75) % Lymph % (Auto) 32.0 (25-40) % [place] % (Auto) 6.3 (3-14) % Eos % (Auto) 2.3 (2-4) % Baso % (Auto) 1.0 (0-2) % Neut # (Auto) 5100 (1066-7341) /uL Lymph # (Auto) 2800 (9393-1765) /uL [place] # (Auto) 600 (0-900) /uL Eos # (Auto) 200 (0-450) /uL Baso # (Auto) 100 (0-100) /uL PT 10.1 (9.4-12.5) SECONDS INR 0.9 (0.9-1.3) Sodium 138 (137-145) mmol/L Potassium 4.0 (3.4-5.1) mmol/L Chloride 107 (98-107) mmol/L Carbon Dioxide 23 (22-32) mmol/L BUN 22 H (7-17) mg/dL Creatinine 0.82 (0.52-1.04) mg/dL Estimated GFR > 60 (>60) mL/min BUN/Creatinine Ratio 26.8 H (6-22) Glucose 95 (70-100) mg/dL Calcium 9.4 (8.4-10.2) mg/dL Total Bilirubin 0.3 (0.2-1.3) mg/dL AST 34 (14-36) IU/L ALT 34 (<35) IU/L Alkaline Phosphatase 96 (38-126) U/L Total Protein 7.5 (6.3-8.2) g/dL Albumin 4.5 (3.5-5.0) g/dL Globulin 3.0 (1.7-4.1) g/dL Albumin/Globulin Ratio 1.5 (1.0-2.8) U Opiates 300ng/mL cut Negative (Negative) Ur Oxycodone Screen Negative (Negative) Urine Methadone Screen Negative (Negative) Ur Barbiturates Screen Negative (Negative) U Tricyclic Antidepress Negative (Negative) Ur Phencyclidine Scrn Negative (Negative) Ur Amphetamines Screen Positive H (Negative) U Methamphetamines Scrn Negative (Negative) Ur MDMA Scrn (Ecstasy) Negative (Negative) U Benzodiazepines Scrn Negative (Negative) Urine Cocaine Screen Negative (Negative) U Marijuana (THC) Screen Negative (Negative) Urine pH Normal (Normal) Urine Specific [place] Normal (Normal) Ur Creatinine Normal (Normal) Urine Dip Bedside Urine Glucose Negative Bedside Urine Bilirubin - Negative Bedside Urine Ketone - Negative Urine Specific [place] 1.010 Bedside Urine Occult Blood - Negative Bedside Urine pH 6.5 Bedside Urine Protein - Negative Bedside Urine Urobilinogen - Negative Bedside Urine Nitrite - Negative Bedside Urine Leukocytes - Negative Esterase Imaging Data CT scan - head: Radiologist's Impression: PROCEDURE: CT HEAD/BRAIN WO CON INDICATIONS: VERTIGO/FOOT NUMBNESS X 4 HRS TECHNIQUE: Noncontrast 4.5 mm thick angled axial sections acquired from the foramen magnum to the vertex, with coronal and sagittal reformats. For radiation dose reduction, the following was used: automated exposure control, adjustment of mA and/or kV according to patient size. COMPARISON: [facility], CT, HEAD WITHOUT CONTRAST, 04/14/2017, 12:06. [facility], CT, HEAD WITHOUT CONTRAST, 01/04/2017, 20:36. FINDINGS: Image quality: Diagnostic. CSF spaces: Basal cisterns are patent. No extra-axial fluid collections. Ventricles are normal in size and shape. Brain: No midline shift. No intracranial masses or hemorrhage. Munoz-white matter interface is normal. Skull and face: Calvarium and visualized facial bones are intact, without suspicious lesions. Sinuses: Visualized sinuses and mastoids are clear. IMPRESSION: No acute intracranial pathology. Approved by: Syd Wright M.D. on 03/01/2024 at 23:16 CTA - brain/neck: Radiologist's Impression: PROCEDURE: CT ANGIO HEAD AND NECK INDICATIONS: VERTIGO/R FOOT NUMBNESS X 4 HRS TECHNIQUE: After the administration of intravenous contrast, 1 mm thick sections acquired from the aortic arch through the [place]. 3-dimensional jcewpdh-gfxkojtej-qedecnjvuw (MIP) and/or volume rendering reformats were acquired of the central intracranial vasculature and neck separately. For radiation dose reduction, the following was used: automated exposure control, adjustment of mA and/or kV according to patient size. COMPARISON: [facility], CT, HEAD WITHOUT CONTRAST, 01/04/2017, 20:36. [facility], CT, CT HEAD/BRAIN WO CON, 03/01/2024, 22:24. FINDINGS: Image quality: Diagnostic. BRAIN: CSF spaces: Ventricles are normal in size and shape. Basal cisterns are patent. No extra-axial fluid collections. Brain: No significant abnormality of the brain can be seen. Skull and face: Calvarium and facial bones appear intact, without suspicious lesions. Orbits appear normal. Sinuses: Sinuses and mastoids are clear. HEAD CT ANGIOGRAPHY: Anterior circulation: Intracranial internal carotid arteries are normal in size and flow. The flow within the paired anterior cerebral arteries is normal and symmetric. The flow within the middle cerebral arteries is normal and symmetric. The anterior communicating artery is seen. No aneurysms are seen. Posterior circulation: Visualized portions of the vertebral arteries demonstrate normal caliber, and join to form a normal appearing basilar artery. Flow within the posterior cerebral arteries is normal and symmetric. No aneurysms are seen. NECK CT ANGIOGRAPHY: Carotid system: The great vessels demonstrate a conventional anatomy as they arise from the aortic arch. The origins of the common carotid arteries appear patent. The common carotid arteries demonstrate normal caliber and courses. The bifurcation regions are both widely patent. The internal carotid arteries demonstrate normal calibers and courses. Posterior circulation: The origins of the vertebral arteries both appear widely patent. The more superior extracranial portions of both vertebral arteries also demonstrate normal courses and calibers. They join to form a normal appearing basilar artery. Soft tissues: 0.7 cm left thyroid nodule does not require dedicated imaging follow-up based on its size. No acute soft tissue abnormality is seen in the neck. Bones: No suspicious bony lesions. Visualized cervical spine appears normally aligned. IMPRESSION: No significant intracranial arterial abnormality is seen. No significant abnormality is seen within the arteries of the neck. Any quantitative measurements of stenosis were performed using NASCET criteria. Approved by: Syd Wright M.D. on 03/01/2024 at 23:21 MDM Narrative Medical decision making narrative: Vertigo and right foot numbness. On exam patient has no focal deficits, she does have intact and equal sensation in both of her feet and all of her other extremities. Hydralazine given for elevated blood pressure Laboratory work reviewed, unremarkable. CT head and CT angio head and neck negative for acute intracranial findings. Patient states that her vertigo has resolved after meclizine and she feels much better. Patient's blood pressure improved after hydralazine. Offered to start patient on low-dose blood pressure medication due to her elevated blood pressure here, patient states that she would like to defer starting antihypertensives at this time. She states that normally when she measures her blood pressure at home it was within normal range. She will monitor her blood pressures at home and see her PCP if she has continued hypertension. Meclizine sent to pharmacy of choice. Discharge Plan Departure Patient Disposition: Home Clinical Impression: Vertigo Instructions: DI for Vertigo Activity Restrictions/Additional Instructions: Your laboratory work and CT imaging today were normal. Meclizine has been sent to your pharmacy for vertigo. Monitor your blood pressures at home and if they are elevated then follow up with your primary care doctor about potentially starting blood pressure medications. Prescriptions: New meclizine 25 mg tablet 25 mg PO BID PRN (Reason: dizziness) Qty: 30 0RF No Action naratriptan 2.5 mg tablet 2.5 mg PO .COMPLEX Qty: 9 3RF Rx Instructions: take 1 tab at onset of headache; if no relief may repeat 1 tab in 4hr; max = 2 tabs/24 hrs PO 2.5 mg qigfzbcogn-ehbehbwhgkkij-armh 50-325-40 mg capsule 1 cap PO Q6H MDD 5 cap PRN (Reason: headache) Qty: 30 3RF estradiol 1 mg tablet 1 mg PO DAILY Qty: 90 0RF Rx Instructions: this is a dosage change, please cancel any available refills of the 0.5mg strength fluticasone propionate 110 mcg/actuation HFA aerosol inhaler 1 puff inhalation BID Qty: 12 0RF Rx Instructions: Inhale one puff using spacer twice daily - rinse mouth well after use to prevent thrush (DME) BreatheRite MDI Spacer Spacer See Rx Instructions .Route Qty: 1 0RF Rx Instructions: As directed progesterone micronized 100 mg capsule 100 mg PO QAM Qty: 90 1RF benzonatate 200 mg capsule 200 mg PO TID PRN (Reason: cough) Qty: 60 1RF dextroamphetamine-amphetamine [Adderall] 7.5 mg tablet See Rx Instructions PO DAILY PRN (Reason: adhd) Qty: 30 0RF Rx Instructions: t1 tab po each afternoon as needed for ADHD lisdexamfetamine [Vyvanse] 30 mg capsule 30 mg PO DAILY Qty: 30 0RF Rx Instructions: Did not have adequate benefit from adderall. ketorolac 60 mg/2 mL Solution 30 mg IM Q6-8H PRN (Reason: headaches) Referrals: Arden Victor MD [Primary Care Provider] - Stand Alone Forms: Patient Portal/API
[2024-03-01 22:35] LABS: Add Manual Diff / Slide Review NO; Basophils Absolute Auto 100 /uL (0-100); Eosinophils Absolute Auto 200 /uL (0-450); Eosinophils Percent Auto 2.3 % (2-4); Hemoglobin 13.3 g/dL (12.0-16.0); Lymphocytes Absolute Auto 2800 /uL (1100-4500); Mean Corpuscular HGB Conc 34.1 % (30-36); Mean Corpuscular Hemoglobin 29.2 PG (26-34); Mean Corpuscular Volume 85.7 fL (80-100); Monocytes Absolute Auto 600 /uL (0-900); Monocytes Percent Auto 6.3 % (3-14); Neutrophils Absolute Auto 5100 /uL (1500-7000); Neutrophils Percent Auto 58.4 % (50-75); Platelet Count 306 X10^3/uL (150-400); Red Blood Cell Count 4.55 X10^6/uL (4.0-5.2); Red Cell Distribution Width 13.1 % (11.6-14.8); White Blood Cell Count 8.8 X10^3/uL (4.5-11.0)
[2024-03-01] MEDS: MECLIZINE HCL 12.5 MG TABLET 50 MG PO (22:38)
[2024-03-01] MEDS: SODIUM CHLORIDE 0.9% 1,000 ML 1000 ML IV (22:39)
[2024-03-01 22:44] LABS: Alanine Aminotransferase 34 IU/L (<35); Albumin 4.5 g/dL (3.5-5.0); Albumin Globulin Ratio 1.5 (1.0-2.8); Alkaline Phosphatase 96 U/L (38-126); Aspartate Aminotransferase 34 IU/L (14-36); BUN Creatinine Ratio 26.8 (6-22); Bilirubin Total 0.3 mg/dL (0.2-1.3); Blood Urea Nitrogen 22 mg/dL (7-17); Calcium 9.4 mg/dL (8.4-10.2); Carbon Dioxide 23 mmol/L (22-32); Chloride 107 mmol/L (98-107); Estimated Glomerular Filt Rate > 60 mL/min (>60); Glucose 95 mg/dL (70-100); HEMOLYSIS < 15 (0-50); Sodium 138 mmol/L (137-145); Total Protein 7.5 g/dL (6.3-8.2)
[2024-03-01 22:49] LABS: INR 0.9 (0.9-1.3); Prothrombin Time 10.1 SECONDS (9.4-12.5)
[2024-03-01 23:28] LABS: UR Morphine/Opiate cutoff 300 Negative (Negative); Ur Creatinine Normal (Normal); Ur Specific Gravity Normal (Normal); Urine Amphetamines Positive (Negative); Urine Barbiturates Negative (Negative); Urine Benzodiazepines Negative (Negative); Urine Cocaine Negative (Negative); Urine MDMA Negative (Negative); Urine Methadone Negative (Negative); Urine Methamphetamines Negative (Negative); Urine Oxycodone Negative (Negative); Urine Phencyclidine Negative (Negative); Urine Tetrahydrocannabinol Negative (Negative); Urine Tricyclic Antidepressant Negative (Negative); Urine pH Normal (Normal)
[2024-03-01] MEDS: HYDRALAZINE 20 MG/ML VIAL 10 MG IV (23:42)
[2024-03-02] VITALS (7 sets, daily range): BP systolic 154–184; BP diastolic 68–95; PULSE 87–94; RESP 16–21; O2SAT 98–99
== END 2024-03-02 01:14 | disposition home or self-care (01) ==
PROVIDERS: Emergency Provider Emergency Medicine; PCP Family Medicine
DX: R42 Dizziness and giddiness (principal); I10 Essential (primary) hypertension
CPT/HCPCS: 36415; 70450; 70496; 70498; 80053; 80305; 81003; 85025; 85610; 93005; 96361; 96374; 99284; J0360; Q9967

== ENCOUNTER 2024-03-02 07:05 | Emergency (ER) | payer OTHER, MEDICAID, SELFPAY ==
[2024-03-02] VITALS (17 sets, daily range): BP systolic 142–212; BP diastolic 67–110; PULSE 70–101; RESP 9–20; TEMP 36.6; O2SAT 94–99; BMI 28.3
--- NOTE | 2024-03-02 07:07 | ED_ITS ---
HPI - General Adult General Chief complaint: Headache Stated complaint: WOLFE, HTN Time Seen by Provider: 03/02/24 07:05 History of Present Illness HPI narrative: 53-year-old woman with a history of migraine, postmenopausal on HRT, ADHD presents for the 2nd time in 12 hours complaining of hypertension. She was seen earlier this evening with vertigo the started acutely as she bent over, worse any time she bent over and some numbness on the outside of her right foot. Significantly hypertensive which is a new and unexpected finding. She has never been diagnosed with hypertension nor been on blood pressure medications. She was initially treated with meclizine was help with the nausea. CT and CTA of the head did not show acute findings. She was discharged home. She notes that the head pain particularly in the right occipital area has increased, the vertigo is not quite as severe however the overall headache has worsened, she feels like she is having difficulty thinking, difficulty getting words out and overall like ?there is a cloud covering my brain?. She does note that she did have a mild migraine headache on the which is resolved. In the past she had been on monthly prophylactic medications but migraine headaches have not been a problem for her post menopause and typically start frontally and are not associated with visual changes. Rapid drug screen was unremarkable last night she denies any alcohol since discharge. She was going to drive herself to the emergency department again this morning however was feeling discoordinated enough and having enough cognitive dysfunction that she felt that that likely would be safe. She notes that a number of years ago she had a TIA with similar complaints. Nausea has been controlled with Zofran given in route by medics, no chest pain, palpitations, dyspnea, orthopnea, lower extremity edema, abdominal pain. Related Data Home Medications Medication Instructions Recorded Confirmed ketorolac 60 mg/2 mL intramuscular 30 mg IM Q6-8H PRN headaches 10/24/18 01/22/24 solution Previous Rx's Medication Instructions Recorded naratriptan 2.5 mg tablet 2.5 mg PO .COMPLEX #9 tabs 07/15/20 qezrrnmzjq-kbxahsjyrwxsg-jmeimcja 1 cap PO Q6H PRN headache #30 caps 03/26/23 50 mg-325 mg-40 mg capsule progesterone micronized 100 mg 100 mg PO QAM #90 caps 10/17/23 capsule benzonatate 200 mg capsule 200 mg PO TID PRN cough #60 caps 01/22/24 estradiol 1 mg tablet 1 mg PO DAILY #90 tabs 01/23/24 fluticasone propionate 110 1 puff inhalation BID #12 grams 01/29/24 mcg/actuation HFA aerosol inhaler inhalational spacing device #1 ea 01/29/24 (BreatheRite MDI Spacer) dextroamphetamine-amphetamine 7.5 See Rx Instructions PO DAILY PRN 02/04/24 mg tablet (Adderall) adhd #30 tabs lisdexamfetamine 30 mg capsule 30 mg PO DAILY #30 caps 02/04/24 (Vyvanse) meclizine 25 mg tablet 25 mg PO BID PRN dizziness #30 tabs 03/02/24 Allergies Allergy/AdvReac Type Severity Reaction Status Date / Time morphine [MORPHINE] Allergy Severe stop Verified 01/22/24 10:38 breathing Review of Systems Review of Systems Narrative: Pertinent positive and negative findings as per HPI Patient History Medical History Complex tear of meniscus of left knee Epigastric abdominal pain Right upper quadrant abdominal pain Cough present for greater than 3 weeks GERD (gastroesophageal reflux disease) Dental implant pain Depression Tear of right meniscus as current injury Knee pain, right anterior Hyperlipemia TIA (transient ischemic attack) Actinic keratosis (10/2016) Melanoma (2012) Generalized headaches (Unknown) Migraines (1985) ADHD (attention deficit hyperactivity disorder) (1971) Shoulder pain (1999) Anemia (1992) Chickenpox (1979) Chronic back pain (2009) HPV in female (1996) Surgical History S/P laparoscopic supracervical hysterectomy (10/24/18) History of appendectomy H/O knee surgery H/O knee surgery Status post appendectomy Family History Father Age: 73 Type 2 diabetes mellitus without complication, unspecified intermediate insulin use status Mother Age: 73 Essential hypertension Hyperlipidemia Social History household members: family Smoking Status: Former smoker alcohol intake: current Smoking Status: Former smoker alcohol intake frequency: holidays/special occasions only Substance Use Type: marijuana Exam Initial Vital Signs Initial Vital Signs: Vital Signs Pulse Rate 75 03/02/24 07:06 Pulse Oximetry 99 03/02/24 07:06 General: Healthy appearing, appears to not feel well but is able to give a complete and coherent history. Mid exam, 7:30 a.m., she noted acute decreased vision in the right eye. Well-nourished well-developed HEENT: Moist mucous membranes, normal sclera with reactive pupils, funduscopic exam shows normal discs and no obvious fundal hemorrhage bilaterally pupils are equal and reactive. She does have sensitivity to light. As we are talking, she complains of increasing pain at the right occipital insertion site with point tenderness Neck: No cervical adenopathy Respiratory: Lungs are clear to auscultation, no wheezing no rales no rhonchi. Full and symmetrical air movement Cardiac: Regular rate and rhythm no murmurs no bruits Abdomen: Soft, nontender, good bowel tones, no flank pain Skin: Warm and dry, no rashes Neurologic: Grossly neurologically intact with no obvious asymmetries or abnormalities however she does complain that her speech is slowed, cognitive process is slowed and now complaining of acute change in the right eye Extremities: No trauma, well perfused Psych: Cooperative, appropriate insight and affect NIH score = 0 Course Orders Ordered: ED Orders 03/02/24 07:28 MR head/brain wo con Stat 03/02/24 07:30 EKG-12 Lead Stat 03/02/24 08:10 Urinalysis and Microscopic Stat 03/02/24 08:25 Complete Blood Count AUTO DIFF Stat Comprehensive Metabolic Panel Stat Ethanol (ETOH) Stat PTT Partial Thromboplastin Angel Stat Prothrombin Time INR Stat Troponin & CK Cardiac Panel Stat Discontinued Medications Dexamethasone (Dexamethasone 10 Mg/Ml Vial) 10 mg IV NOW ONE Stop: 03/02/24 07:34 Last Admin: 03/02/24 08:16 Dose: 10 mg Documented By: MPO Diphenhydramine HCl (Diphenhydramine 50 Mg/Ml Vial) 25 mg IV NOW ONE Stop: 03/02/24 07:34 Last Admin: 03/02/24 08:16 Dose: 25 mg Documented By: MPO Hydromorphone HCl (Hydromorphone 1 Mg Inj) 0.5 mg IV NOW ONE Stop: 03/02/24 07:34 Last Admin: 03/02/24 07:42 Dose: 0.5 mg Documented By: EUGENIA Sodium Chloride (Normal Saline 0.9%) 1,000 mls @ 1,000 mls/hr IV BOLUS ONE Stop: 03/02/24 08:28 Last Infusion: 03/02/24 09:49 Dose: Infused Documented By: Admin: 03/02/24 08:27 Dose: 1,000 mls/hr Documented By: EUGENIA Nicardipine HCl 25 mg/ Sodium (Chloride) 250 mls @ 50 mls/hr IV TITRATE SHERITA; Protocol Last Titration: 03/02/24 10:23 Dose: Infused Documented By: Titration: 03/02/24 09:18 Dose: 0 mg/hr, 0 mls/hr Documented By: Titration: 03/02/24 08:51 Dose: 5 mg/hr, 50 mls/hr Documented By: Titration: 03/02/24 08:33 Dose: 0 mg/hr, 0 mls/hr Documented By: Admin: 03/02/24 08:24 Dose: 5 mg/hr, 50 mls/hr Documented By: EUGENIA Prochlorperazine (Prochlorperazine 10 Mg/2 Ml Vial) 10 mg IV NOW ONE Stop: 03/02/24 07:34 Last Admin: 03/02/24 08:15 Dose: 10 mg Documented By: EUGENIA Vital Signs Vital signs: Vital Signs - 8 hr 03/02/24 07:06 03/02/24 07:10 03/02/24 07:13 Temperature 98 F Pulse Rate 75 75 Respiratory Rate 20 Blood Pressure 212/110 H 200/98 H Pulse Oximetry 99 99 Oxygen Delivery Method Room Air 03/02/24 07:13 03/02/24 07:30 03/02/24 07:30 Temperature Pulse Rate 75 77 Respiratory Rate 9 L 20 Blood Pressure 183/89 H Pulse Oximetry 99 96 Oxygen Delivery Method 03/02/24 07:35 03/02/24 07:40 03/02/24 08:15 Temperature Pulse Rate 70 75 77 Respiratory Rate 20 20 Blood Pressure 167/94 H 187/91 H Pulse Oximetry 95 97 Oxygen Delivery Method 03/02/24 08:31 03/02/24 08:53 03/02/24 09:19 Temperature Pulse Rate 100 H 101 H Respiratory Rate 20 Blood Pressure 162/79 H 182/89 H 148/67 H Pulse Oximetry 98 Oxygen Delivery Method Room Air 03/02/24 09:45 03/02/24 09:50 03/02/24 09:53 Temperature Pulse Rate 93 H 89 91 H Respiratory Rate Blood Pressure 175/83 H Pulse Oximetry 96 94 95 Oxygen Delivery Method 03/02/24 09:53 03/02/24 09:54 03/02/24 09:55 Temperature Pulse Rate Respiratory Rate Blood Pressure 149/80 H 149/80 H 152/81 H Pulse Oximetry Oxygen Delivery Method 03/02/24 09:55 03/02/24 10:00 03/02/24 10:00 Temperature Pulse Rate 91 H 93 H Respiratory Rate Blood Pressure 142/77 H Pulse Oximetry 95 96 Oxygen Delivery Method 03/02/24 10:05 03/02/24 10:05 Temperature Pulse Rate 90 Respiratory Rate Blood Pressure 149/73 H Pulse Oximetry 95 Oxygen Delivery Method Medical Decision Making Lab Data 03/02/24 08:25 03/02/24 08:25 Labs: Lab Results 03/02/24 03/02/24 Range/Units 08:10 08:25 WBC 7.6 (4.5-11.0) X10^3/uL RBC 4.35 (4.0-5.2) X10^6/uL Hgb 12.5 (12.0-16.0) g/dL Hct 37.8 (36-46) % MCV 86.8 (80-100) fL MCH 28.7 (26-34) PG MCHC 33.1 (30-36) % RDW 13.3 (11.6-14.8) % Plt Count 265 (150-400) X10^3/uL Neut % (Auto) 77.0 H (50-75) % Lymph % (Auto) 14.8 L (25-40) % Petroleum % (Auto) 3.9 (3-14) % Eos % (Auto) 1.4 L (2-4) % Baso % (Auto) 2.9 H (0-2) % Neut # (Auto) 5800 (8223-8021) /uL Lymph # (Auto) 1100 (0524-7360) /uL Petroleum # (Auto) 300 (0-900) /uL Eos # (Auto) 100 (0-450) /uL Baso # (Auto) 200 H (0-100) /uL PT 10.2 (9.4-12.5) SECONDS INR 0.9 (0.9-1.3) APTT 38 H (25.1-36.5) SECONDS Sodium 135 L (137-145) mmol/L Potassium 4.0 (3.4-5.1) mmol/L Chloride 106 (98-107) mmol/L Carbon Dioxide 24 (22-32) mmol/L BUN 13 (7-17) mg/dL Creatinine 0.62 (0.52-1.04) mg/dL Estimated GFR > 60 (>60) mL/min BUN/Creatinine Ratio 21.0 (6-22) Glucose 112 H (70-100) mg/dL Calcium 8.5 (8.4-10.2) mg/dL Total Bilirubin 0.3 (0.2-1.3) mg/dL AST 29 (14-36) IU/L ALT 30 (<35) IU/L Alkaline Phosphatase 96 (38-126) U/L Total Creatine Kinase 99 (30-135) U/L Troponin I < 0.012 (0.01-0.034) ng/mL Total Protein 6.9 (6.3-8.2) g/dL Albumin 4.1 (3.5-5.0) g/dL Globulin 2.8 (1.7-4.1) g/dL Albumin/Globulin Ratio 1.5 (1.0-2.8) Urine Color Yellow Urine Appearance Clear Urine pH 6.5 (4.5-8.0) Ur Specific [place] 1.015 (1.000-1.035) Urine Protein Negative (Negative) Urine Glucose (UA) Negative (Negative) g/dL Urine Ketones 1+ H (NEGATIVE) Urine Occult Blood Negative (Negative) Urine Nitrate Negative (Negative) Urine Bilirubin Negative (NEGATIVE) Urine Urobilinogen 0.2 (0.2) E.U./dL Ur Leukocyte Esterase Negative (NEGATIVE) Urine RBC None seen (0-5/HPF) Urine WBC None seen (0-5/HPF) Ur Squamous Epith Cells None seen (0-5/HPF) Urine Bacteria None seen (None) Ur Culture Indicated? Cult not indicated Vol Urine Centrifuged 10ml (spun) Ethyl Alcohol < 10 ( - 10) mg/dL Imaging Data Brain MR: Radiologist's Impression: PROCEDURE: MR HEAD/BRAIN WO CON INDICATIONS: ataxia, nause, visual changes, ?cerebellar CVA. CT/CTa 03/01 TECHNIQUE: Noncontrast axial T1 spin echo, axial T2 fast spin echo, sagittal and axial FLAIR, coronal T2 fast spin echo, axial gradient echo, axial diffusion and ADC through the brain. COMPARISON: [facility], CT, CT HEAD/BRAIN WO CON, 03/01/2024, 22:24. FINDINGS: Image quality: Excellent. CSF Spaces: Basal cisterns are patent. No extra-axial fluid collections. Ventricles are normal in size and shape. Brain: No intracranial masses or hemorrhage. Munoz/white matter interface is normal. Brainstem appears normal. Diffusion-weighted images demonstrate no acute infarct. No chronic ischemic insults. Normal intravascular flow voids are present. Skull and face: Calvarium has normal marrow signal. Orbits appear normal. Sinuses: Sinuses and mastoids are clear. IMPRESSION: 1. No acute infarction. No acute intracranial bleed or midline shift. Dictated by: Antonio Mckenzie M.D. on 03/02/2024 at 8:25 MDM Narrative Medical decision making narrative: CC: Severe hypertension, cognitive slowing subjectively, vertigo, headache Complicating co-morbidities: Seen less than 12 hours ago in the emergency department for same findings. No history of hypertension. Data collected from: patient Medical records reviewed: Note from 12 hours ago reviewed. Differential considered: Posterior cerebellar stroke, complex migraine, hypertensive crisis, press syndrome. With CT angiogram done less than 12 hours ago dissection, tumor, intracranial hemorrhage is felt to be less likely Exam documented above, pertinent findings include: Patient appears to be uncomfortable, despite complaints of feeling that she is unable to think can find words, her NIH score is 0 Lab Test results independently reviewed as above. Pertinent findings: CBC is unremarkable Chemistries are reassuring Troponin is undetectable Independently reviewed EKG: Imaging studies independently reviewed: CT head and CTA of the head and neck done at 10:20 p.m. last night are unremarkable Brain MR today shows no acute infarction and no intracranial bleed or midline shift. Consultations: Treatments: Begin treatment for hypertensive crisis with nicardipine. Treatment for migraine with fluids, Compazine, Benadryl, dexamethasone Treatment for pain which may be exacerbating the blood pressure with 0.5 mg of Dilaudid Procedure: Trigger point injection right occipital insertion site. 3 cc of lidocaine with epinephrine were injected into the site. There were no complications Re-evaluations: With medications, patient is feeling somewhat better. She was given Toradol by medics EN route for her undifferentiated headache with acute neurologic findings. Blood pressure has come down and his consistently been in the 160-180 range, nicardipine has been ordered but was able to be turned off almost immediately. We discussed the possibility of complex migraine with trigger point. With shared decision-making she was interested in trying local anesthetic the right occipital insertion Discussion: 53-year-old woman with acute onset vertigo yesterday now with headache and specific right occipital insertion tenderness. Workup has been negative for stroke including CT CTA and this morning MRI. She has been treated for complex migraine in her symptoms have completely abated. I believe blood pressure elevation was secondary to pain rather than the other way around. I do not think that blood pressure medication is indicated today but patient we will be checking blood pressures an outpatient. Discussed complex migraine and its sequelae. Recommended follow up with her primary care physician within the week. She is safe for discharge and there is no indication for additional imaging, blood work or hospitalization at this time Discharge Plan Departure Patient Disposition: Home Clinical Impression: Migraine Qualifiers: Migraine type: unspecified Status migrainosus presence: without status migrainosus Intractability: not intractable Qualified Code(s): G43.909 - Migraine, unspecified, not intractable, without status migrainosus Instructions: DI for Migraine Activity Restrictions/Additional Instructions: Thank you for coming in today Your symptoms were concerning enough that I did do an MRI of your brain this morning. I am not seeing any evidence of stroke, tumors, masses or other life- threatening abnormalities. With the point tenderness over the back of your head on the right side, we did a trigger point injection with lidocaine. That seemed to help significantly. You are also treated with the standard combination of medications for migraine including fluids, dexamethasone, Toradol, Reglan, Benadryl. When your pain was adequately controlled, your blood pressure has come down nicely. I suspect that the best diagnosis at this point is a complex migraine. This can cause far more symptoms than just the pain and nausea associated with the usual migraine. I would recommend that you follow up with your primary care physician within the next week. I would also recommend that you keep track of blood pressures on a regular basis to discuss this with your primary care physician. Some blood pressure medications can be helpful migraine prophylactic medications as well. If you find that you are getting worse or develop any new symptoms, please feel free to return to the emergency department for further evaluation. Prescriptions: No Action naratriptan 2.5 mg tablet 2.5 mg PO .COMPLEX Qty: 9 3RF Rx Instructions: take 1 tab at onset of headache; if no relief may repeat 1 tab in 4hr; max = 2 tabs/24 hrs PO 2.5 mg efpybbganf-kgdipyrotfohf-rrib 50-325-40 mg capsule 1 cap PO Q6H MDD 5 cap PRN (Reason: headache) Qty: 30 3RF estradiol 1 mg tablet 1 mg PO DAILY Qty: 90 0RF Rx Instructions: this is a dosage change, please cancel any available refills of the 0.5mg strength fluticasone propionate 110 mcg/actuation HFA aerosol inhaler 1 puff inhalation BID Qty: 12 0RF Rx Instructions: Inhale one puff using spacer twice daily - rinse mouth well after use to prevent thrush (DME) BreatheRite MDI Spacer Spacer See Rx Instructions .Route Qty: 1 0RF Rx Instructions: As directed progesterone micronized 100 mg capsule 100 mg PO QAM Qty: 90 1RF benzonatate 200 mg capsule 200 mg PO TID PRN (Reason: cough) Qty: 60 1RF dextroamphetamine-amphetamine [Adderall] 7.5 mg tablet See Rx Instructions PO DAILY PRN (Reason: adhd) Qty: 30 0RF Rx Instructions: t1 tab po each afternoon as needed for ADHD lisdexamfetamine [Vyvanse] 30 mg capsule 30 mg PO DAILY Qty: 30 0RF Rx Instructions: Did not have adequate benefit from adderall. ketorolac 60 mg/2 mL Solution 30 mg IM Q6-8H PRN (Reason: headaches) meclizine 25 mg tablet 25 mg PO BID PRN (Reason: dizziness) Qty: 30 0RF Referrals: Arden Victor MD [Primary Care Provider] - Stand Alone Forms: Patient Portal/API
--- NOTE | 2024-03-02 07:28 | DI.MRI.S_ITS ---
PROCEDURE: MR HEAD/BRAIN WO CON INDICATIONS: ataxia, nause, visual changes, ?cerebellar CVA. CT/CTa 03/01 TECHNIQUE: Noncontrast axial T1 spin echo, axial T2 fast spin echo, sagittal and axial FLAIR, coronal T2 fast spin echo, axial gradient echo, axial diffusion and ADC through the brain. COMPARISON: [facility], CT, CT HEAD/BRAIN WO CON, 03/01/2024, 22:24. FINDINGS: Image quality: Excellent. CSF Spaces: Basal cisterns are patent. No extra-axial fluid collections. Ventricles are normal in size and shape. Brain: No intracranial masses or hemorrhage. Munoz/white matter interface is normal. Brainstem appears normal. Diffusion-weighted images demonstrate no acute infarct. No chronic ischemic insults. Normal intravascular flow voids are present. Skull and face: Calvarium has normal marrow signal. Orbits appear normal. Sinuses: Sinuses and mastoids are clear. IMPRESSION: 1. No acute infarction. No acute intracranial bleed or midline shift. Dictated by: Antonio Mckenzie M.D. on 03/02/2024 at 8:25 Approved by: Antonio Mckenzie M.D. on 03/02/2024 at 8:25
[2024-03-02] MEDS: HYDROMORPHONE 1 MG INJ 0.5 MG IV (07:42)
[2024-03-02] MEDS: PROCHLORPERAZINE 10 MG/2 ML VIAL IV (08:15)
[2024-03-02] MEDS: DEXAMETHASONE 10 MG/ML VIAL IV (08:16)
[2024-03-02] MEDS: diphenhydrAMINE 50 MG/ML VIAL 25 MG IV (08:16)
[2024-03-02 08:21] LABS: Appearance Urine UA CLEAR; Bilirubin Urine UA NEGATIVE (NEGATIVE); Color Urine UA YELLOW; Glucose Urine UA NEGATIVE (Negative); Ketones Urine UA 1+ (NEGATIVE); Leukocyte Esterase Urine UA NEGATIVE (NEGATIVE); Nitrite Urine UA NEGATIVE (Negative); Occult Blood Urine UA NEGATIVE (Negative); Protein Urine UA NEGATIVE (Negative); Specific Gravity Urine UA 1.015 (1.000-1.035); Urobilinogen Urine UA 0.2 E.U./dL (0.2); pH Urine UA 6.5 (4.5-8.0)
[2024-03-02 08:22] LABS: Urine Volume 10mL (spun)
[2024-03-02 08:23] LABS: Bacteria Urine None Seen; Culture Indicated Urine Cult Not Indicated; RBC Urine None Seen (0-5/HPF); Squamous Epithelial Cell Urine None Seen (0-5/HPF); WBC Urine None Seen (0-5/HPF)
[2024-03-02] MEDS: NICARDIPINE 25 MG in SODIUM CHLORIDE 0.9% 240 ML 50 MG IV (08:24)
[2024-03-02] MEDS: SODIUM CHLORIDE 0.9% 1,000 ML 1000 ML IV (08:27)
[2024-03-02 08:34] LABS: Add Manual Diff / Slide Review NO; Basophils Absolute Auto 200 /uL (0-100); Basophils Percent Auto 2.9 % (0-2); Eosinophils Absolute Auto 100 /uL (0-450); Eosinophils Percent Auto 1.4 % (2-4); Hematocrit 37.8 % (36-46); Hemoglobin 12.5 g/dL (12.0-16.0); Lymphocytes Absolute Auto 1100 /uL (1100-4500); Lymphocytes Percent Auto 14.8 % (25-40); Mean Corpuscular HGB Conc 33.1 % (30-36); Mean Corpuscular Hemoglobin 28.7 PG (26-34); Mean Corpuscular Volume 86.8 fL (80-100); Monocytes Absolute Auto 300 /uL (0-900); Monocytes Percent Auto 3.9 % (3-14); Neutrophils Absolute Auto 5800 /uL (1500-7000); Platelet Count 265 X10^3/uL (150-400); Red Blood Cell Count 4.35 X10^6/uL (4.0-5.2); Red Cell Distribution Width 13.3 % (11.6-14.8); White Blood Cell Count 7.6 X10^3/uL (4.5-11.0)
[2024-03-02 08:40] LABS: INR 0.9 (0.9-1.3); Prothrombin Time 10.2 SECONDS (9.4-12.5)
[2024-03-02 08:42] LABS: PTT Partial Thromboplastin Tim 38 SECONDS (25.1-36.5)
[2024-03-02 08:44] LABS: Alanine Aminotransferase 30 IU/L (<35); Albumin 4.1 g/dL (3.5-5.0); Albumin Globulin Ratio 1.5 (1.0-2.8); Alkaline Phosphatase 96 U/L (38-126); Aspartate Aminotransferase 29 IU/L (14-36); Bilirubin Total 0.3 mg/dL (0.2-1.3); Blood Urea Nitrogen 13 mg/dL (7-17); Calcium 8.5 mg/dL (8.4-10.2); Carbon Dioxide 24 mmol/L (22-32); Chloride 106 mmol/L (98-107); Creatine Kinase 99 U/L (30-135); Estimated Glomerular Filt Rate > 60 mL/min (>60); Ethanol (ETOH) < 10 mg/dL; Globulin 2.8 g/dL (1.7-4.1); Glucose 112 mg/dL (70-100); HEMOLYSIS < 15 (0-50); Sodium 135 mmol/L (137-145); Total Protein 6.9 g/dL (6.3-8.2)
[2024-03-02 08:55] LABS: Troponin I < 0.012 ng/mL (0.01-0.034)
== END 2024-03-02 10:50 | disposition home or self-care (01) ==
PROVIDERS: Emergency Provider Emergency Medicine; PCP Family Medicine
DX: G43.909 Migraine, unspecified, not intractable, without status migrainosus (principal); I10 Essential (primary) hypertension
CPT/HCPCS: 36415; 70551; 80053; 80320; 81001; 82550; 84484; 85025; 85610; 85730; 96365; 96375; 99284; 99285; J0780; J1100; J1170; J1200

== ENCOUNTER 2024-03-03 06:02 | Emergency (ER) | payer OTHER, MEDICAID, SELFPAY ==
--- NOTE | 2024-03-03 06:22 | ED_ITS ---
HPI - General Adult General Chief complaint: Hypertension Stated complaint: blood pressure over 220 Time Seen by Provider: 03/03/24 06:05 History of Present Illness HPI narrative: Patient presents for elevated blood pressure readings at home. Patient is seen twice here in the last 48 hours, 1st initially for vertigo and outer R foot numbness. Patient unerwent laboratory work, CT noncontrast brain, CT angio head and neck, MRI brain that were all normal. Patient noted to be hypertensive at both visits, patient declined antihypertensives after the first visit. Patient measured her blood pressure several times last night but the numbers kept going up and was as high as 220 systolic. Patient very worried as she has to babysit her 6yo grandson over the next 3 days. She left a voicemail with her primary care doctor's office, but is still waiting for an available appointment. Adriana ritchie states that she would like to start blood pressure medications as soon as possible Related Data Home Medications Medication Instructions Recorded Confirmed ketorolac 60 mg/2 mL intramuscular 30 mg IM Q6-8H PRN headaches 10/24/18 01/22/24 solution Previous Rx's Medication Instructions Recorded naratriptan 2.5 mg tablet 2.5 mg PO .COMPLEX #9 tabs 07/15/20 renlsswzdp-nomlyfmnowovj-fetwsjmm 1 cap PO Q6H PRN headache #30 caps 03/26/23 50 mg-325 mg-40 mg capsule progesterone micronized 100 mg 100 mg PO QAM #90 caps 10/17/23 capsule benzonatate 200 mg capsule 200 mg PO TID PRN cough #60 caps 01/22/24 estradiol 1 mg tablet 1 mg PO DAILY #90 tabs 01/23/24 fluticasone propionate 110 1 puff inhalation BID #12 grams 01/29/24 mcg/actuation HFA aerosol inhaler inhalational spacing device #1 ea 01/29/24 (BreatheRite MDI Spacer) dextroamphetamine-amphetamine 7.5 See Rx Instructions PO DAILY PRN 02/04/24 mg tablet (Adderall) adhd #30 tabs lisdexamfetamine 30 mg capsule 30 mg PO DAILY #30 caps 02/04/24 (Vyvanse) meclizine 25 mg tablet 25 mg PO BID PRN dizziness #30 tabs 03/02/24 amlodipine 5 mg tablet 5 mg PO DAILY #30 tabs 03/03/24 Allergies Allergy/AdvReac Type Severity Reaction Status Date / Time morphine [MORPHINE] Allergy Severe stop Verified 01/22/24 10:38 breathing Patient History Medical History Complex tear of meniscus of left knee Epigastric abdominal pain Right upper quadrant abdominal pain Cough present for greater than 3 weeks GERD (gastroesophageal reflux disease) Dental implant pain Depression Tear of right meniscus as current injury Knee pain, right anterior Hyperlipemia TIA (transient ischemic attack) Actinic keratosis (10/2016) Melanoma (2012) Generalized headaches (Unknown) Migraines (1985) ADHD (attention deficit hyperactivity disorder) (1971) Shoulder pain (1999) Anemia (1992) Chickenpox (1979) Chronic back pain (2009) HPV in female (1996) Surgical History S/P laparoscopic supracervical hysterectomy (10/24/18) History of appendectomy H/O knee surgery H/O knee surgery Status post appendectomy Family History Father Age: 73 Type 2 diabetes mellitus without complication, unspecified halfway insulin use status Mother Age: 73 Essential hypertension Hyperlipidemia Social History household members: family Smoking Status: Former smoker alcohol intake: current Smoking Status: Former smoker alcohol intake frequency: holidays/special occasions only Substance Use Type: marijuana Exam Initial Vital Signs Initial Vital Signs: Vital Signs Temperature 98.0 F 03/03/24 06:26 Pulse Rate 75 03/03/24 06:26 Respiratory Rate 16 03/03/24 06:26 Blood Pressure 196/94 H 03/03/24 06:26 Pulse Oximetry 96 03/03/24 06:26 Oxygen Delivery Method Room Air 03/03/24 06:26 Const: Awake, alert, tearful, anxious, nontoxic appearing Cardiac: regular rate, regular rhythm RESP: unlabored, speaking in complete sentences without dyspnea Skin: Warm, Dry, intact, no rashes Neuro: AO x3, CN II-XII grossly intact, moves all extremities Course Vital Signs Vital signs: Vital Signs - 8 hr 03/03/24 06:26 Temperature 98.0 F Pulse Rate 75 Respiratory Rate 16 Blood Pressure 196/94 H Pulse Oximetry 96 Oxygen Delivery Method Room Air Medical Decision Making MDM Narrative Medical decision making narrative: Patient presenting for elevated blood pressure readings at home. Over the last 36 hours patient has had laboratory work done twice that showed no evidence of end-organ damage. Kidney function stable with GFR greater than 60, normal liver enzymes, no proteinuria. I do believe that a component of anxiety may be contributing to patient's elevated blood pressure readings. She reports nu merous measurements between last night and this morning, each subsequently higher than the previous. I counseled the patient on her recent normal labs and imaging results. I recommended that patient only check her blood pressure once in the morning and once at night to keep a log. Will start on amlodipine while patient waits for PCP appointment. Patient counseled on dosing adjustments that can be made if it takes longer than a couple of days to get a PCP appointment. Discharge Plan Departure Patient Disposition: Home Clinical Impression: Hypertension Instructions: DI for High Blood Pressure Activity Restrictions/Additional Instructions: I will be starting you on amlodipine for your blood pressure. Take 5 mg per day in the morning. If, after several days, your blood pressure is not improved then you may increase this dose to 10 mg per day. Follow up with your primary care doctor. Keep a blood pressure log of 1 single measurement in the morning, and 1 single measurement in the evening. Bring this to your primary care doctor's appointment. Prescriptions: New amlodipine 5 mg tablet 5 mg PO DAILY Qty: 30 0RF No Action naratriptan 2.5 mg tablet 2.5 mg PO .COMPLEX Qty: 9 3RF Rx Instructions: take 1 tab at onset of headache; if no relief may repeat 1 tab in 4hr; max = 2 tabs/24 hrs PO 2.5 mg eamtoabnpu-cmhkbungrvnmu-ejvf 50-325-40 mg capsule 1 cap PO Q6H MDD 5 cap PRN (Reason: headache) Qty: 30 3RF estradiol 1 mg tablet 1 mg PO DAILY Qty: 90 0RF Rx Instructions: this is a dosage change, please cancel any available refills of the 0.5mg strength fluticasone propionate 110 mcg/actuation HFA aerosol inhaler 1 puff inhalation BID Qty: 12 0RF Rx Instructions: Inhale one puff using spacer twice daily - rinse mouth well after use to p revent thrush (DME) BreatheRite MDI Spacer Spacer See Rx Instructions .Route Qty: 1 0RF Rx Instructions: As directed progesterone micronized 100 mg capsule 100 mg PO QAM Qty: 90 1RF benzonatate 200 mg capsule 200 mg PO TID PRN (Reason: cough) Qty: 60 1RF dextroamphetamine-amphetamine [Adderall] 7.5 mg tablet See Rx Instructions PO DAILY PRN (Reason: adhd) Qty: 30 0RF Rx Instructions: t1 tab po each afternoon as needed for ADHD lisdexamfetamine [Vyvanse] 30 mg capsule 30 mg PO DAILY Qty: 30 0RF Rx Instructions: Did not have adequate benefit from adderall. ketorolac 60 mg/2 mL Solution 30 mg IM Q6-8H PRN (Reason: headaches) meclizine 25 mg tablet 25 mg PO BID PRN (Reason: dizziness) Qty: 30 0RF Referrals: Arden Victor MD [Primary Care Provider] - Stand Alone Forms: Patient Portal/API
[2024-03-03 06:26] VITALS: BP 196/94; PULSE 75; RESP 16; TEMP 36.7; O2SAT 96; BMI 28.1
[2024-03-03] MEDS: cloNIDine 0.1 MG TABLET 0.2 MG PO (06:40)
== END 2024-03-03 06:42 | disposition home or self-care (01) ==
PROVIDERS: Emergency Provider Emergency Medicine; PCP Family Medicine
DX: I10 Essential (primary) hypertension (principal); Z87.891 Personal history of nicotine dependence
CPT/HCPCS: 99283

== ENCOUNTER → 2024-03-30 15:04 | Outpatient (CLI) | payer OTHER, MEDICAID, SELFPAY ==
[2024-03-30 18:28] LABS: Alanine Aminotransferase 30 IU/L (<35); Albumin 4.4 g/dL (3.5-5.0); Albumin Globulin Ratio 1.4 (1.0-2.8); Alkaline Phosphatase 91 U/L (38-126); Aspartate Aminotransferase 29 IU/L (14-36); BUN Creatinine Ratio 21.7 (6-22); Bilirubin Total 0.5 mg/dL (0.2-1.3); Blood Urea Nitrogen 15 mg/dL (7-17); Calcium 9.4 mg/dL (8.4-10.2); Carbon Dioxide 25 mmol/L (22-32); Chloride 102 mmol/L (98-107); Cholesterol 322 mg/dL (140-199); Estimated Glomerular Filt Rate > 60 mL/min (>60); Globulin 3.2 g/dL (1.7-4.1); Glucose 143 mg/dL (70-100); HDL Cholesterol 68 mg/dL (40-60); HEMOLYSIS < 15 (0-50); LDL Cholesterol Calculated 227 mg/dL (<100); Potassium 3.7 mmol/L (3.4-5.1); Sodium 135 mmol/L (137-145); Total Protein 7.6 g/dL (6.3-8.2); Triglycerides 136 mg/dL (35-150)
[2024-04-01 03:36] LABS: Apolipoprotein B 167 mg/dL (<90)
== END ==
LOC: LAB 15:05
PROVIDERS: PCP Family Medicine; Referring Provider Registered Nurse Diabetes Educator; Visit Provider Registered Nurse Diabetes Educator
DX: E78.5 Hyperlipidemia, unspecified (principal); I16.0 Hypertensive urgency; R23.2 Flushing
CPT/HCPCS: 80053; 80061; 82088; 82172; 84244; 84443

== ENCOUNTER → 2024-04-08 12:29 | Outpatient (CLI) | payer OTHER, MEDICAID, SELFPAY ==
[2024-04-08 13:54] LABS: Collection Time Urine 24 Hours; Creatinine 24 Hour Urine 1181 mg/day (800-1800); Creatinine Urine Random 73.81 mg/dL; Protein (Total) Urine Random 6 mg/dL (0-12); Sodium 24 Hour Urine 179 mmol/day (40-220); Sodium Urine Random 112 mmol/L (30-90); Total Protein 24 Hour Urine 96 mg/day (42-225); Total Volume Urine 1600 mL
== END ==
PROVIDERS: PCP Family Medicine; Referring Provider Registered Nurse Diabetes Educator; Visit Provider Registered Nurse Diabetes Educator
DX: I16.0 Hypertensive urgency (principal); R23.2 Flushing
CPT/HCPCS: 82570; 83835; 84156; 84300

== ENCOUNTER → 2024-08-24 10:00 | Outpatient (CLI) | payer OTHER, SELFPAY ==
[2024-08-25 11:36] LABS: Candida species Negative (Negative); Gardnerella vaginalis Negative (Negative); Trichomoas vaginalis Negative (Negative)
== END ==
PROVIDERS: PCP Family Medicine; Visit Provider Student in an Organized Health Care Education/Training Program
DX: N89.8 Other specified noninflammatory disorders of vagina (principal)
CPT/HCPCS: 87480; 87510; 87660

== ENCOUNTER → 2024-08-27 13:46 | Outpatient (CLI) | payer OTHER, SELFPAY ==
[2024-08-27 14:12] LABS: Add Manual Diff / Slide Review NO; Basophils Absolute Auto 100 /uL (0-100); Basophils Percent Auto 0.9 % (0-2); Eosinophils Absolute Auto 100 /uL (0-450); Eosinophils Percent Auto 1.6 % (2-4); Hematocrit 40.8 % (36-46); Hemoglobin 13.8 g/dL (12.0-16.0); Lymphocytes Absolute Auto 2000 /uL (1100-4500); Lymphocytes Percent Auto 30.3 % (25-40); Mean Corpuscular HGB Conc 33.7 % (30-36); Mean Corpuscular Hemoglobin 29.5 PG (26-34); Mean Corpuscular Volume 87.4 fL (80-100); Monocytes Absolute Auto 400 /uL (0-900); Monocytes Percent Auto 6.7 % (3-14); Neutrophils Absolute Auto 4000 /uL (1500-7000); Neutrophils Percent Auto 60.5 % (50-75); Platelet Count 343 X10^3/uL (150-400); Red Blood Cell Count 4.67 X10^6/uL (4.0-5.2); Red Cell Distribution Width 13.5 % (11.6-14.8); White Blood Cell Count 6.6 X10^3/uL (4.5-11.0)
[2024-08-27 14:18] LABS: Hemoglobin A1C% w Est Avg Glu 5.5 % (4.0-6.0)
[2024-08-27 14:34] LABS: Alanine Aminotransferase 61 IU/L (<35); Albumin 4.7 g/dL (3.5-5.0); Albumin Globulin Ratio 1.7 (1.0-2.8); Alkaline Phosphatase 113 U/L (38-126); Aspartate Aminotransferase 43 IU/L (14-36); BUN Creatinine Ratio 17.1 (6-22); Bilirubin Total 0.4 mg/dL (0.2-1.3); Blood Urea Nitrogen 12 mg/dL (7-17); Calcium 9.8 mg/dL (8.4-10.2); Carbon Dioxide 26 mmol/L (22-32); Chloride 103 mmol/L (98-107); Cholesterol 303 mg/dL (140-199); Estimated Glomerular Filt Rate > 60 mL/min (>60); Globulin 2.7 g/dL (1.7-4.1); Glucose 95 mg/dL (70-100); HDL Cholesterol 84 mg/dL (40-60); HEMOLYSIS < 15 (0-50); LDL Cholesterol Calculated 193 mg/dL (<100); Potassium 4.3 mmol/L (3.4-5.1); Sodium 136 mmol/L (137-145); Total Protein 7.4 g/dL (6.3-8.2); Triglycerides 132 mg/dL (35-150)
[2024-08-27 15:23] LABS: Vitamin B12 Reflex MMA if <400 733 pg/mL (239-931)
[2024-08-28 03:36] LABS: Apolipoprotein B 145 mg/dL (<90)
== END ==
PROVIDERS: PCP Family Medicine; Referring Provider Family Medicine; Visit Provider Family Medicine
DX: M76.61 Achilles tendinitis, right leg (principal); E78.5 Hyperlipidemia, unspecified; I10 Essential (primary) hypertension; G43.909 Migraine, unspecified, not intractable, without status migrainosus; G47.00 Insomnia, unspecified; F90.9 Attention-deficit hyperactivity disorder, unspecified type; R53.83 Other fatigue
CPT/HCPCS: 36415; 80053; 80061; 82172; 82607; 83036; 85025

== ENCOUNTER 2024-11-18 10:55 | Day surgery (SDC) | payer OTHER, SELFPAY ==
[2024-11-18] MEDS: LACTATED RINGERS 1,000 ML 42 ML IV (11:50)
[2024-11-18 11:56] VITALS: BP 152/86; PULSE 67; RESP 16; TEMP 36.5; O2SAT 98
--- NOTE | 2024-11-18 12:02 | PM.HP.IH.1 ---
History of Present Illness History of Present Illness Date Patient Seen: 11/18/24 Chief complaint: Colonoscopy Narrative: For screening colonoscopy [facility] Medical History (Updated 08/27/24 @ 14:55 by Lizbet Doshi PA-C) Essential hypertension Complex tear of meniscus of left knee Epigastric abdominal pain Right upper quadrant abdominal pain Cough present for greater than 3 weeks GERD (gastroesophageal reflux disease) Dental implant pain Depression Tear of right meniscus as current injury Knee pain, right anterior Hyperlipemia TIA (transient ischemic attack) Actinic keratosis (10/2016) Melanoma (2012) Generalized headaches (Unknown) Migraines (1985) ADHD (attention deficit hyperactivity disorder) (1971) Shoulder pain (1999) Anemia (1992) Chickenpox (1979) Chronic back pain (2009) HPV in female (1996) Surgical History S/P laparoscopic supracervical hysterectomy (10/24/18) History of appendectomy H/O knee surgery H/O knee surgery Status post appendectomy Family History Father Age: 74 Type 2 diabetes mellitus without complication, unspecified snf insulin use status Mother Age: 74 Essential hypertension Hyperlipidemia Social History household members: family Smoking Status: Former smoker alcohol intake: current Meds Home Medications and Allergies Home Medications Medication Instructions Recorded Confirmed Type ketorolac 60 mg/2 mL intramuscular 30 mg IM Q6-8H PRN headaches 10/24/18 11/18/24 History solution naratriptan 2.5 mg tablet 2.5 mg PO .COMPLEX #9 tabs 07/15/20 11/18/24 Rx inhalational spacing device #1 ea 01/29/24 10/29/24 Rx (BreatheRite MDI Spacer) ondansetron 4 mg disintegrating 4 mg PO Q8H PRN Nausea And Vomiting 03/03/24 11/18/24 History tablet syringe with needle 3 mL 25 gauge #1 ea 03/03/24 10/29/24 History x 1 (BD Luer-Amador Syringe) zolmitriptan 5 mg nasal spray intranasal 03/03/24 10/29/24 History bupropion HCl 100 mg tablet 100 mg PO TID #270 tabs 09/11/24 11/18/24 Rx dextroamphetamine-amphetamine 7.5 7.5 mg PO TID #90 tabs 10/29/24 11/18/24 Rx mg tablet (Adderall) dextroamphetamine-amphetamine 7.5 7.5 mg PO TID #90 tabs 10/29/24 11/18/24 Rx mg tablet (Adderall) dextroamphetamine-amphetamine 7.5 7.5 mg PO TID #90 tabs 10/29/24 11/18/24 Rx mg tablet (Adderall) hydroxocobalamin 1,000 mcg/mL 1,000 mcg IM .COMPLEX #30 mL 11/06/24 11/18/24 Rx intramuscular solution amlodipine 5 mg tablet 5 mg PO BID #120 tabs 11/16/24 11/18/24 Rx Allergies Allergy/AdvReac Type Severity Reaction Status Date / Time morphine [MORPHINE] Allergy Severe stop Verified 11/18/24 11:51 breathing Exam Vital Signs (past 8 hours): - 11/18/24 11:56 Temperature 97.7 F Pulse Rate 67 Respiratory Rate 16 Blood Pressure 152/86 H Pulse Oximetry 98 Oxygen Delivery Method Room Air Oxygen Delivery Method Room Air Narrative Exam Narrative: Oropharynx free of lesions Chest: Auscultation percussion Cardiac exam reveals no S3 or murmur Assessment & Plan Assessment & Plan narrative: For screening colonoscopy. Risks, benefits, alternatives have been explained. Time-Based Coding :: [TOTAL MINUTES] spent with patient and on the chart (including review of chart, obtaining history, exam, reviewing outside data, placing orders, documenting exam and treatment plan, and counseling patient) on [DATE]. [employer]EE Director Of [employer] Document charge(s): No
--- NOTE | 2024-11-18 12:03 | PM.OP.COLON ---
Operative Date/Time/Diagnoses Date of procedure: 11/18/24 Pre-op diagnosis: See indication and findings Procedure & Clinicians Study performed: Colonoscopy Same procedure as scheduled: Yes Indications: 1st screening Surgeon: Patsy Cerna Procedure Notes Procedure in detail: After informed consent was obtained the patient was placed in left lateral decubitus position. Video colonoscope was introduced the rectum slowly advanced cecum. Preparation was excellent. On withdrawal retroflexed view the GE junction was performed. The scope was removed patient tolerated procedure well. Blood loss none Complications none Sedation mac Findings 1. Normal colonoscopy to cecum Patient should have follow-up colonoscopy in 10 years
[2024-11-18 13:00] VITALS: BP 129/74; PULSE 72; RESP 13; TEMP 36.2; O2SAT 100
[2024-11-18 13:04] VITALS: BP 132/85; PULSE 63; RESP 13; O2SAT 100
[2024-11-18 13:09] VITALS: BP 145/87; PULSE 75; RESP 14; TEMP 36.9; O2SAT 100
== END 2024-11-18 13:20 | disposition home or self-care (01) ==
PROVIDERS: PCP Family Medicine; Referring Provider Internal Medicine Gastroenterology; Visit Provider Internal Medicine Gastroenterology
PROC: 0DJD8ZZ Inspection of Lower Intestinal Tract, Via Natural or Artificial Opening Endoscopic (ICD-10-PCS; CPT 45378; principal; 2024-11-18 12:30)
DX: Z12.11 Encounter for screening for malignant neoplasm of colon (principal); Z87.891 Personal history of nicotine dependence
CPT/HCPCS: 45378; J2704

== ENCOUNTER 2024-11-20 06:19 | Emergency (ER) | payer OTHER, SELFPAY ==
--- NOTE | 2024-11-20 06:20 | ED_ITS ---
HPI - General Adult General Chief complaint: Extremity Injury, Lower Stated complaint: right draper injury Time Seen by Provider: 11/20/24 06:20 History of Present Illness HPI narrative: 53-year-old woman who collided with her dog 5 days ago with contusion to the right lower anterior draper. The hematoma is starting to resolve with swelling into the dorsum of the foot and ankle. She is noting slight decrease in sensation to the middle 2 toes and the bottom forefoot. She is able to walk without any difficulty. The contused area appears to be healing appropriately. She is concerned that she broke her bone and very clearly states that she has walked on a broken leg before. Related Data Home Medications Medication Instructions Recorded Confirmed ketorolac 60 mg/2 mL intramuscular 30 mg IM Q6-8H PRN headaches 10/24/18 11/18/24 solution ondansetron 4 mg disintegrating 4 mg PO Q8H PRN Nausea And Vomiting 03/03/24 11/18/24 tablet syringe with needle 3 mL 25 gauge #1 ea 03/03/24 10/29/24 x 1 (BD Luer-Amador Syringe) zolmitriptan 5 mg nasal spray intranasal 03/03/24 10/29/24 Previous Rx's Medication Instructions Recorded naratriptan 2.5 mg tablet 2.5 mg PO .COMPLEX #9 tabs 07/15/20 inhalational spacing device #1 ea 01/29/24 (BreatheRite MDI Spacer) bupropion HCl 100 mg tablet 100 mg PO TID #270 tabs 09/11/24 dextroamphetamine-amphetamine 7.5 7.5 mg PO TID #90 tabs 10/29/24 mg tablet (Adderall) dextroamphetamine-amphetamine 7.5 7.5 mg PO TID #90 tabs 10/29/24 mg tablet (Adderall) dextroamphetamine-amphetamine 7.5 7.5 mg PO TID #90 tabs 10/29/24 mg tablet (Adderall) hydroxocobalamin 1,000 mcg/mL 1,000 mcg IM .COMPLEX #30 mL 11/06/24 intramuscular solution amlodipine 5 mg tablet 5 mg PO BID #120 tabs 11/16/24 Allergies Allergy/AdvReac Type Severity Reaction Status Date / Time morphine [MORPHINE] Allergy Severe stop Verified 11/18/24 11:51 breathing Patient History Medical History (Updated 11/20/24 @ 06:42 by Darshana Sorto MD) Essential hypertension Complex tear of meniscus of left knee Epigastric abdominal pain Right upper quadrant abdominal pain Cough present for greater than 3 weeks GERD (gastroesophageal reflux disease) Dental implant pain Depression Tear of right meniscus as current injury Knee pain, right anterior Hyperlipemia TIA (transient ischemic attack) Actinic keratosis (10/2016) Melanoma (2012) Generalized headaches (Unknown) Migraines (1985) ADHD (attention deficit hyperactivity disorder) (1971) Shoulder pain (1999) Anemia (1992) Chickenpox (1979) Chronic back pain (2009) HPV in female (1996) Surgical History S/P laparoscopic supracervical hysterectomy (10/24/18) History of appendectomy H/O knee surgery H/O knee surgery Status post appendectomy Family History Father Age: 74 Type 2 diabetes mellitus without complication, unspecified correction insulin use status Mother Age: 74 Essential hypertension Hyperlipidemia Social History household members: family alcohol intake: current alcohol intake frequency: holidays/special occasions only Exam Initial Vital Signs Initial Vital Signs: Vital Signs Temperature 98.3 F 11/20/24 06:23 Pulse Rate 78 11/20/24 06:23 Respiratory Rate 20 11/20/24 06:23 Blood Pressure 165/93 H 11/20/24 06:23 Pulse Oximetry 97 11/20/24 06:23 Oxygen Delivery Method Room Air 11/20/24 06:23 General: Alert appropriate in no acute distress Respiratory: Able to speak in full sentences, no obvious respiratory distress Skin: No obvious rashes, warm and dry Neurologic: Grossly intact no obvious asymmetries or abnormalities Psych: appropriate insight and affect, cooperative Extremity: 5-day-old hematoma to the right lower anterior draper. Dependent swelling and bruising as would be expected. Slight decreased sensation to the middle 2 toes but good capillary refill. Minimally antalgic gait. Course Orders Ordered: ED Orders 11/20/24 06:24 XR tibia fibula RT 2V Stat Vital Signs Vital signs: Vital Signs - 8 hr 11/20/24 06:23 Temperature 98.3 F Pulse Rate 78 Respiratory Rate 20 Blood Pressure 165/93 H Pulse Oximetry 97 Oxygen Delivery Method Room Air Medical Decision Making [facility] Narrative Medical decision making narrative: 53-year-old woman with a large hematoma on the right anterior draper that is beginning to be reabsorbed with blood working its way down into the dorsum of the foot. With the swelling she is having some mild peripheral nerve compression which is causing the bit of paresthesia in the 2 toes in the bottom of the forefoot. She still has good capillary refill there was no indication for permanent damage. X-ray of the lower extremity does not show any bony injury. Discussed the use of a compression sock, keeping the foot elevated and anticipated course of recovery as the blood from the hematoma is absorbed and the swelling resolves. There was no indication for further workup or hospitalization and she is safe for discharge Discharge Plan Departure Patient Disposition: Home Clinical Impression: Hematoma of right lower extremity Qualifiers: Encounter type: initial encounter Qualified Code(s): S80.11XA - Contusion of right lower leg, initial encounter Activity Restrictions/Additional Instructions: Thank you for coming in today With a large hematoma on the front part of your leg, your body will absorb that by breaking down the blood clot. The blood than sleeps down through the dependent tissue, your ankle in the top of your foot. This increased swelling puts a small amount of pressure on the nerves going to the tips of your toes and to the bottom portion of the forefoot. This is why you are having this slight decrease in sensation. It is still is likely going to take another 2-3 weeks for this hematoma to be completely reabsorbed. Using a compression sock can be helpful. Elevating the foot at the end of the day to relieve some of the compression over the dorsum of the foot can be helpful. I would expect the sensation to completely return to your toes and the forefoot as the blood is all completely reabsorbed. The x-ray of your draper does not show any broken bones Using 400 mg of ibuprofen (2 drkk-[id number] pills) and 1 Tylenol every 6 hours can be very helpful in controlling pain. If you find that you are getting worse or develop any new symptoms, please feel free to return to the emergency department for further evaluation. Prescriptions: No Action naratriptan 2.5 mg tablet 2.5 mg PO .COMPLEX Qty: 9 3RF Rx Instructions: take 1 tab at onset of headache; if no relief may repeat 1 tab in 4hr; max = 2 tabs/24 hrs PO 2.5 mg (DME) BreatheRite MDI Spacer Spacer See Rx Instructions .Route Qty: 1 0RF Rx Instructions: As directed bupropion HCl 100 mg tablet 100 mg PO TID Qty: 270 1RF Rx Instructions: administer 6 hours apart hydroxocobalamin 1,000 mcg/mL solution 1,000 mcg IM .COMPLEX Qty: 30 0RF Rx Instructions: Inject 1,000 mcg IM once weekly for 8 weeks, then monthly thereafter amlodipine 5 mg tablet 5 mg PO BID Qty: 120 0RF zolmitriptan 5 mg spray,non-aerosol intranasal ondansetron 4 mg tablet,disintegrating 4 mg PO Q8H PRN (Reason: Nausea And Vomiting) (DME) BD Luer-Amador Syringe 3 mL 25 gauge x 1 syringe See Rx Instructions .ROUTE .MEDSUPPLY Qty: 1 Patient Comments: [NO ORIGINAL SIG] Rx Instructions: As directed dextroamphetamine-amphetamine [Adderall] 7.5 mg tablet 7.5 mg PO TID Qty: 90 0RF Rx Instructions: administer doses at least 4-6 hours apart dextroamphetamine-amphetamine [Adderall] 7.5 mg tablet 7.5 mg PO TID Qty: 90 0RF Rx Instructions: administer doses at least 4-6 hours apart dextroamphetamine-amphetamine [Adderall] 7.5 mg tablet 7.5 mg PO TID Qty: 90 0RF Rx Instructions: administer doses at least 4-6 hours apart ketorolac 60 mg/2 mL Solution 30 mg IM Q6-8H PRN (Reason: headaches) Referrals: Arden Victor MD [Primary Care Provider] - Stand Alone Forms: Patient Portal/API/Survey
[2024-11-20 06:23] VITALS: BP 165/93; PULSE 78; RESP 20; TEMP 36.8; O2SAT 97; BMI 28.3
--- NOTE | 2024-11-20 06:24 | DI.RAD.S_ITS ---
PROCEDURE: XR TIBIA FUBULA RT 2V INDICATIONS: contusion, increasing paresthesia TECHNIQUE: 2 views of the tibia and fibula were acquired. COMPARISON: None. FINDINGS: Bones: No fractures or dislocations. No suspicious bony lesions. Soft tissues: No suspicious soft tissue calcifications or masses. IMPRESSION: No evidence acute bony abnormality. Comment: Final report is concordant with preliminary interpretation provided by [facility]. Dictated by: Vernon Bazzi M.D. on 11/20/2024 at 8:09 Approved by: Vernon Bazzi M.D. on 11/20/2024 at 8:09
--- NOTE | 2024-11-20 06:30 | PC.NURSE ---
Imaging at bedside
== END 2024-11-20 07:03 | disposition home or self-care (01) ==
PROVIDERS: Emergency Provider Emergency Medicine; PCP Family Medicine
DX: S80.11XA Contusion of right lower leg, initial encounter (principal); W54.1XXA Struck by dog, initial encounter
CPT/HCPCS: 73590; 99281; 99283